=== PATIENT | male | born 1965 | race Caucasian/White ===

== ENCOUNTER 2016-11-20 15:50 | Emergency (ER) | payer OTHER ==
--- NOTE | 2016-11-20 17:44 | ED ---
Headache HPI - General Chief Complaint: Headache Stated Complaint: migraine Time Seen by Provider: 11/20/16 17:13 Mode of arrival: wheelchair Limitations: no limitations - History of Present Illness Initial Comments: 51-year-old male patient presents to emergency department today with complaints of migraine headache that started yesterday. Patient states that the pain is mostly in the back of his head and radiates to the front. With this he is having some photosensitivity, nausea, and dizziness. Denies any vomiting. Patient states he does have a history of migraine headaches that were similar in nature to this, but states he has not had one since 1996. Patient states he is generally weak. Denies any numbness or tingling anywhere. Denies any blurred or double vision. Patient denies any chest pain, back pain, shortness of breath, fever, chills, unilateral weakness, hematuria, dysuria, urinary urgency, urinary frequency. Has taken ibuprofen 800 mg without relief of symptoms. Patient has not past medical history significant for CVA, hearing impairment, and did have cataract removed from his left eye 2 weeks ago. States he has had not had any difficulty since his surgery. - Related Data Home Medications Medication Instructions Recorded Confirmed Gabapentin [Neurontin] 300 mg PO TID 07/11/14 11/20/16 HYDROcodone/APAP 10-325MG [[place] 1 tab PO TID PRN 10/24/15 11/20/16 10-325] Lisinopril 10 mg PO DAILY 03/04/16 11/20/16 Ergocalciferol [Vitamin D2] 50,000 unit PO FR 11/20/16 11/20/16 Ibuprofen [Motrin] 800 mg PO TID PRN 11/20/16 11/20/16 Ketorolac 0.5% Ophth Soln [Acular] 1 drops LEFT EYE QID 11/20/16 11/20/16 Latanoprost [Xalatan 0.005%] 1 drop RIGHT EYE HS 11/20/16 11/20/16 Warfarin Sodium [Coumadin] 6 mg PO DAILY 11/20/16 11/20/16 hydrOXYzine HCL [Atarax] 25 mg PO QID PRN 11/20/16 11/20/16 prednisoLONE ACETATE [Pred Forte 1 drop LEFT EYE QID 11/20/16 11/20/16 1%] Previous Rx's Medication Instructions Recorded Atorvastatin [Lipitor] 20 mg PO HS #90 tab 04/11/16 Allergies Allergy/AdvReac Type Severity Reaction Status Date / Time gadobenate dimeglumine Allergy Swelling Verified 11/20/16 17:51 [From Multihance] hydromorphone HCl AdvReac Severe Rapid Verified 11/20/16 17:51 [From Dilaudid] Heart Rate diclofenac potassium AdvReac Nausea & Verified 11/20/16 17:51 [From Cataflam] Vomiting Review of Systems ROS Statement: Those systems with pertinent positive or pertinent negative responses have been documented in the HPI. ROS Other: All systems not noted in ROS Statement are negative. Past Medical History Past Medical History: CVA/TIA, Hearing Disorder / Deafness, Hyperlipidemia Additional Past Medical History / Comment(s): glaucoma, back pain currently with numbness, blurred vision and dizziness - solumedrol IV x 5 days, History of Any Multi-Drug Resistant Organisms: None Reported Past Surgical History: Back Surgery, Heart Catheterization, Orthopedic Surgery Additional Past Surgical History / Comment(s): bilateral shoulder, RT EYE SX FOR GLAUCOMA, RT 5TH FINGER SX, TRACHEA R/T ENCEPHALOPATHY AT AGE 8, back surgery in 1992, Past Anesthesia/Blood Transfusion Reactions: No Reported Reaction Past Psychological History: No Psychological Hx Reported Smoking Status: Former smoker Past Alcohol Use History: Occasional Past Drug Use History: None Reported - Past Family History Mother Family Medical History: Cancer Additional Family Medical History / Comment(s): of lung CA Father Additional Family Medical History / Comment(s): irregular heart beat. General Exam Limitations: no limitations General appearance: alert, in no apparent distress Head exam: Present: atraumatic, normocephalic, normal inspection Eye exam: Present: normal appearance, PERRL, EOMI. Absent: scleral icterus, conjunctival injection, periorbital swelling ENT exam: Present: normal exam, normal oropharynx, mucous membranes moist Neck exam: Present: normal inspection. Absent: tenderness, meningismus, lymphadenopathy Respiratory exam: Present: normal lung sounds bilaterally. Absent: respiratory distress, wheezes, rales, rhonchi, stridor Cardiovascular Exam: Present: regular rate, normal rhythm, normal heart sounds. Absent: systolic murmur, diastolic murmur, rubs, gallop, clicks GI/Abdominal exam: Present: soft, normal bowel sounds. Absent: distended, tenderness, guarding, rebound, rigid Extremities exam: Present: normal inspection, full ROM, normal capillary refill. Absent: tenderness, pedal edema, joint swelling, calf tenderness Back exam: Present: normal inspection Neurological exam: Present: alert, oriented X3, CN II-XII intact, other ( Strength equal in all 4 extremities 4/5) Psychiatric exam: Present: normal affect, normal mood Skin exam: Present: warm, dry, intact, normal color. Absent: rash Course Vital Signs 11/20/16 15:58 Temperature 98.2 F Pulse Rate 89 Respiratory 20 Rate Blood Pressure 132/73 O2 Sat by Pulse 97 Oximetry Medical Decision Making - Medical Decision Making 51-year-old male patient presented today for complaints of migraine headache. CT of the brain shows age-related atrophic and chronic small vessel ischemic change without acute intracranial process at this time. Patient did receive medications here in emergency department states his pain has improved to a 7 out of 10. Patient offered additional pain medication he refused them at this time. Patient will be discharged home to follow up with his primary care physician. Patient does have an appointment with his primary doctor tomorrow morning at 10:30. Patient instructed return for any new, worsening, or concerning symptoms. Patient verbalizes understanding and agrees to this plan. - Radiology Data Radiology results: report reviewed CT of the brain without contrast shows chronic atrophy and ischemic vessel changes. No acute intracranial abnormality seen at this time. Disposition Clinical Impression: Migraine headache Disposition: HOME SELF-CARE Condition: Stable Instructions: Acute Headache (ED) Additional Instructions: Keep appointment with primary doctor tomorrow. Return for any new, worsening, or concerning symptoms. Referrals: Tian Gutierrez III, MD [Primary Care Provider] - 1-2 days Time of Disposition: 18:51
[2016-11-20] MEDS: diphenhydrAMINE 50 MG/ML 1 ML VIAL IVP STA (17:50)
[2016-11-20] MEDS: SODIUM CHLORIDE 0.9% 1,000 ML IV ONE (17:50)
[2016-11-20] MEDS: KETOROLAC 30 MG/ML 1 ML VIAL IVP STA (17:51)
[2016-11-20] MEDS: METOCLOPRAMIDE 5 MG/ML 2 ML VIAL IVP STA (17:52)
--- NOTE | 2016-11-20 18:39 | CT ---
EXAMINATION TYPE: CT brain wo con DATE OF EXAM: 11/20/2016 6:32 PM COMPARISON: 04/08/2016 HISTORY: Patient complains of migraine headache. Patient has a history of prior migraines. CT DLP: [address] of the brain was performed. The ventricles, basal cisterns and sulci overlying the cerebral convexities demonstrate mild enlargem ent. There is no evidence for intracranial hemorrhage or sulcal effacement. There is decreased attenuation about the periventricular white matter and deep white matter of both c erebral hemispheres, compatible with chronic small vessel ischemia. Differential diagnosis does inclu de demyelination. No mass effects are seen.No midline shift. Osseous calvarium is intact. If symptoms persist consider MRI. IMPRESSION: 1. Age related atrophic and chronic small vessel ischemic change without acute intracranial process s een at this time.
[2016-11-20 19:25] VITALS: BP 138/78; PULSE 80; RESP 16; TEMP 98.3
== END 2016-11-20 19:24 | disposition home or self-care (01) ==
LOC: EC 15:50
DX: G43.909 Migraine, unspecified, not intractable, without status migrainosus (principal); I67.82 Cerebral ischemia; G31.9 Degenerative disease of nervous system, unspecified; H91.90 Unspecified hearing loss, unspecified ear; Z87.891 Personal history of nicotine dependence; Z79.01 Long term (current) use of anticoagulants; Z79.899 Other long term (current) drug therapy; Z88.5 Allergy status to narcotic agent; Z88.6 Allergy status to analgesic agent; Z91.041 Radiographic dye allergy status; Z86.73 Personal history of transient ischemic attack (TIA), and cerebral infarction without residual deficits; Z86.69 Personal history of other diseases of the nervous system and sense organs
CPT/HCPCS: 70450; 99284; 96374; 96375 ×2; 96361; J1200; J2765; J1885

== ENCOUNTER 2016-12-17 17:30 | Emergency (ER) | payer OTHER ==
[2016-12-17] MEDS ORDERED: ORPHENADRINE 30 MG/ML 2 ML VIAL IVP STA (18:05)
[2016-12-17] MEDS ORDERED: KETOROLAC 30 MG/ML 1 ML VIAL IVP STA ×2 (18:05→20:19)
--- NOTE | 2016-12-17 18:26 | XR ---
EXAMINATION TYPE: XR chest 2V DATE OF EXAM: 12/17/2016 6:19 PM COMPARISON: 04/08/2016 HISTORY: Chest pain TECHNIQUE: Frontal and lateral views of the chest are obtained. FINDINGS: Heart and mediastinum are normal. Lungs are clear. Diaphragm is normal. Bony thorax appear s normal. There are chest leads. IMPRESSION: Normal chest. No change. Left shoulder surgery is noted.
[2016-12-17 18:29] LABS: Basophils # (A) 0.1 k/uL (0-0.2); Basophils % (A) 1 %; CH 33.1; CHCM 35.5; Eosinophils # (A) 0.3 k/uL (0-0.7); Eosinophils % (A) 5 %; HCT 39.7 % (39.0-53.0); HDW 3.12; HGB 13.6 gm/dL (13.0-17.5); Luc # (Auto) 0.15; Luc % (Auto) 2; Lymphocytes # (A) 1.3 k/uL (1.0-4.8); Lymphocytes % (A) 19 %; MCHC 34.2 g/dL (31.0-37.0); MCV 93.6 fL (80.0-100.0); Mean Platelet Volume 6.5; Monocytes # (A) 0.3 k/uL (0-1.0); Monocytes % (A) 5 %; Neutrophils # (A) 4.7 k/uL (1.3-7.7); Neutrophils % (A) 68 %; RBC 4.24 m/uL (4.30-5.90); RDW 12.9 % (11.5-15.5); WBC 6.9 k/uL (3.8-10.6); WBC (Perox) 7.12
--- NOTE | 2016-12-17 18:32 | ED ---
Chest Pain HPI - General Chief Complaint: Chest Pain Stated Complaint: Chest Pain Time Seen by Provider: 12/17/16 17:50 Source: patient, RN notes reviewed Mode of arrival: wheelchair Limitations: no limitations - History of Present Illness Initial Comments: This is a 51-year-old male who states he had the onset on waking this morning of sharp left-sided chest pain radiating to his back and down his left arm. He states it was 10/10 severity. It does get worse with movement of his extremities. He denies any fevers chills nausea vomiting sweats cough or phlegm production. He is not recall any trauma or heavy lifting. He denies any other complaints at this time MD Complaint: chest pain - Related Data Home Medications Medication Instructions Recorded Confirmed Gabapentin [Neurontin] 300 mg PO TID 07/11/14 12/17/16 HYDROcodone/APAP 10-325MG [[place] 1 tab PO TID PRN 10/24/15 12/17/16 10-325] Lisinopril 10 mg PO DAILY 03/04/16 12/17/16 Ergocalciferol [Vitamin D2] 50,000 unit PO FR 11/20/16 12/17/16 Ibuprofen [Motrin] 800 mg PO TID PRN 11/20/16 12/17/16 Ketorolac 0.5% Ophth Soln [Acular] 1 drops LEFT EYE QID 11/20/16 12/17/16 Latanoprost [Xalatan 0.005%] 1 drop RIGHT EYE HS 11/20/16 12/17/16 hydrOXYzine HCL [Atarax] 25 mg PO QID PRN 11/20/16 12/17/16 prednisoLONE ACETATE [Pred Forte 1 drop LEFT EYE QID 11/20/16 12/17/16 1%] Cyclobenzaprine [Flexeril] 10 mg PO TID PRN 12/17/16 12/17/16 Previous Rx's Medication Instructions Recorded Atorvastatin [Lipitor] 20 mg PO HS #90 tab 04/11/16 Cyclobenzaprine [Flexeril] 10 mg PO TID #14 tab 12/17/16 Hydrocodone/Acetaminophen [[place] 1 each PO Q6HR PRN #20 tab 12/17/16 5-325] Ibuprofen [Motrin] 800 mg PO Q6HR PRN #20 tab 12/17/16 Allergies Allergy/AdvReac Type Severity Reaction Status Date / Time gadobenate dimeglumine Allergy Swelling Verified 12/17/16 19:08 [From Multihance] hydromorphone HCl AdvReac Severe Rapid Verified 12/17/16 19:08 [From Dilaudid] Heart Rate diclofenac potassium AdvReac Nausea & Verified 12/17/16 19:08 [From Cataflam] Vomiting Review of Systems ROS Statement: Those systems with pertinent positive or pertinent negative responses have been documented in the HPI. ROS Other: All systems not noted in ROS Statement are negative. EKG Findings - EKG Results: EKG: interpreted by CARMINE, sinus rhythm (Sinus rhythm rate is 93 NH interval 148 QRS duration 88 QT/QTC of 354/440 evidence of LVH no acute ST-T wave changes) Past Medical History Past Medical History: CVA/TIA, Hearing Disorder / Deafness, Hyperlipidemia Additional Past Medical History / Comment(s): glaucoma, back pain currently with numbness, blurred vision and dizziness - solumedrol IV x 5 days, History of Any Multi-Drug Resistant Organisms: None Reported Past Surgical History: Back Surgery, Heart Catheterization, Orthopedic Surgery Additional Past Surgical History / Comment(s): bilateral shoulder, RT EYE SX FOR GLAUCOMA, RT 5TH FINGER SX, TRACHEA R/T ENCEPHALOPATHY AT AGE 8, back surgery in 1992, Past Anesthesia/Blood Transfusion Reactions: No Reported Reaction Past Psychological History: No Psychological Hx Reported Smoking Status: Former smoker Past Alcohol Use History: Occasional Past Drug Use History: None Reported - Past Family History Mother Family Medical History: Cancer Additional Family Medical History / Comment(s): of lung CA Father Additional Family Medical History / Comment(s): irregular heart beat. General Exam - General Exam Comments Initial Comments: This is a well-developed well-nourished awake alert oriented 3 male Limitations: no limitations General appearance: alert, in no apparent distress Head exam: Present: atraumatic, normocephalic, normal inspection Eye exam: Present: normal appearance, PERRL, EOMI. Absent: scleral icterus, conjunctival injection, periorbital swelling ENT exam: Present: mucous membranes moist, other (The patient does wear hearing aids) Neck exam: Present: normal inspection. Absent: tenderness, meningismus, lymphadenopathy Respiratory exam: Present: normal lung sounds bilaterally, chest wall tenderness. Absent: respiratory distress, wheezes, rales, rhonchi, stridor Cardiovascular Exam: Present: regular rate, normal rhythm, normal heart sounds. Absent: systolic murmur, diastolic murmur, rubs, gallop, clicks GI/Abdominal exam: Present: soft, normal bowel sounds. Absent: distended, tenderness, guarding, rebound, rigid Extremities exam: Present: normal inspection, full ROM, normal capillary refill. Absent: tenderness, pedal edema, joint swelling, calf tenderness Back exam: Present: normal inspection Neurological exam: Present: alert, oriented X3, CN II-XII intact Psychiatric exam: Present: normal affect, normal mood Skin exam: Present: warm, dry, intact, normal color. Absent: rash Course Vital Signs 12/17/16 12/17/16 17:37 20:37 Temperature 97.5 F L 98.0 F Pulse Rate 95 89 Respiratory 18 20 Rate Blood Pressure 131/63 144/83 O2 Sat by Pulse 98 96 Oximetry Chest Pain MDM - MDM I did evaluate the imaging and reports no acute findings. No evidence of any pulmonary emboli. Patient did get some relief from the medication was rendered the presentation is consistent with costochondritis and musculoskeletal pain. He will be placed on appropriate medication is a follow-up with his doctor and return when necessary Disposition Clinical Impression: Chest wall syndrome, Costalchondritis Disposition: HOME SELF-CARE Condition: Good Instructions: Costochondritis (ED), Musculoskeletal Pain (ED) Prescriptions: Cyclobenzaprine [Flexeril] 10 mg PO TID #14 tab Hydrocodone/Acetaminophen [[place] 5-325] 1 each PO Q6HR PRN #20 tab PRN Reason: Pain Ibuprofen [Motrin] 800 mg PO Q6HR PRN #20 tab PRN Reason: Pain
[2016-12-17 18:45] LABS: ALT 43 U/L (21-72); AST 32 U/L (17-59); Alkaline Phosphatase 78 U/L (38-126); Anion Gap 11 mmol/L; Blood Urea Nitrogen 15 mg/dL (9-20); Calcium 9.7 mg/dL (8.4-10.2); Carbon Dioxide 27 mmol/L (22-30); Chloride 101 mmol/L (98-107); Glucose 171 mg/dL (74-99); Magnesium 1.8 mg/dL (1.6-2.3); Non-African American GFR(MDRD) >60 (>60 ml/min/1.73 sqM); Potassium 3.8 mmol/L (3.5-5.1); Sodium 139 mmol/L (137-145); Total Bilirubin 0.9 mg/dL (0.2-1.3); Total Protein 7.5 g/dL (6.3-8.2)
[2016-12-17 18:49] LABS: Creatine Kinase 342 U/L (55-170); Partial Thromboplastin Time 22.7 sec (22.0-30.0); Prothrombin Time 10.3 sec (9.0-12.0)
[2016-12-17] MEDS ORDERED: methylPREDNISolone SOD SUCCI 125 MG/2 ML VIAL IV STA ×2 (19:00→20:19)
[2016-12-17] MEDS ORDERED: diphenhydrAMINE 50 MG/ML 1 ML VIAL IVP STA (19:00)
[2016-12-17] MEDS ORDERED: FAMOTIDINE 20 MG/2 ML VIAL IV STA (19:00)
[2016-12-17] MEDS ORDERED: RX INFO: IV CONTRAST WAS GIVEN 1 EACH MISC MISCELLANE PRN (19:00)
[2016-12-17 19:02] LABS: Creatine Kinase MB 1.5 ng/mL (0.0-2.4); Troponin I <0.012 ng/mL (0.000-0.034)
[2016-12-17] MEDS ORDERED: MORPHINE SULFATE 4 MG/ML SYRINGE IVP STA (19:27)
--- NOTE | 2016-12-17 20:09 | CT ---
EXAMINATION TYPE: CT angio chest DATE OF EXAM: 12/17/2016 7:57 PM COMPARISON: NONE HISTORY: Patient complains of left side chest pain with radiation to the left shoulder. CT DLP: 489 mGycm Automated exposure control for dose reduction was used. CONTRAST: CTA scan of the thorax is performed with IV Contrast, patient injected with 100 mL of Omnipaque 350, pulmonary embolism protocol. There are 3-D post processed images.. FINDINGS: There is no evidence of aortic aneurysm or dissection. There is no pericardial effusion. I see no glenn ling defects in the pulmonary arteries. There is normal contrast opacification of the pulmonary arter ies. There are no hilar masses. There is no mediastinal adenopathy. The lungs are clear of infiltrate . There is no pleural effusion. There is mild interstitial density at the lung bases. There is a smal l subpleural calcified granuloma in the right lower lobe. I see no bony destructive process. IMPRESSION: NO EVIDENCE OF PULMONARY EMBOLISM. HEALED GRANULOMATOUS DISEASE. MILD FIBROTIC CHANGES AT THE LUNG BA SES.
[2016-12-17 20:38] VITALS: BP 144/83; PULSE 89; RESP 20; TEMP 98
== END 2016-12-17 20:53 | disposition home or self-care (01) ==
LOC: EC 17:30
DX: M94.0 Chondrocostal junction syndrome [Tietze] (principal); M54.9 Dorsalgia, unspecified; M79.602 Pain in left arm; H40.9 Unspecified glaucoma; H91.90 Unspecified hearing loss, unspecified ear; Z86.73 Personal history of transient ischemic attack (TIA), and cerebral infarction without residual deficits; Z87.891 Personal history of nicotine dependence; Z79.899 Other long term (current) drug therapy; Z88.5 Allergy status to narcotic agent; Z88.8 Allergy status to other drugs, medicaments and biological substances
CPT/HCPCS: 36415; 93005; 85379; 83880; 80053; 82550; 82553; 83735; 84484; 85025; 85610; 85730; 71020; 71275; 99285; 96374; 96375 ×5; 96376; J2270; J1200; J2360; J2930; Q9967; J1885

== ENCOUNTER → 2017-01-16 | Outpatient (CLI) | payer OTHER ==
--- NOTE | 2017-01-16 20:15 | XR ---
EXAMINATION TYPE: XR cervical spine comp DATE OF EXAM: 01/16/2017 COMPARISON: NONE HISTORY: Neck pain TECHNIQUE: 5 views FINDINGS: Vertebra have normal alignment. There is hypertrophic moderate spurring anteriorly from C4 to C7. The posterior elements are intact. Atlantoaxial facet joint is normal. The neural foramina are fairly well-maintained. There is mild uncovertebral spurring on the left side at C5-6. There are no cervical ribs. IMPRESSION: Spondylotic changes from C4 to C7. No fracture seen.
== END | disposition home or self-care (01) ==
LOC: RADXRMAIN 16:44
PROVIDERS: ATTEND Nurse Practitioner Family
DX: M47.812 Spondylosis without myelopathy or radiculopathy, cervical region (principal)
CPT/HCPCS: 72050

== ENCOUNTER → 2017-10-10 | Outpatient (CLI) | payer OTHER ==
--- NOTE | 2017-10-10 12:56 | CT ---
EXAMINATION TYPE: CT abdomen pelvis w con DATE OF EXAM: 10/10/2017 COMPARISON: CT abdomen pelvis March 04, 2016 HISTORY: Patient complains of LUQ pain. CT DLP: 1667.2 mGycm, Automated Exposure Control for Dose Reduction was Utilized. CONTRAST: CT scan of the abdomen and pelvis is performed with oral and with IV Contrast, patient injected with 100 mL of Omnipaque 300. FINDINGS: LUNG BASES: No significant abnormality is appreciated. LIVER/GB: Liver is diffusely low dense consistent with fatty infiltration. PANCREAS: No significant abnormality is seen. SPLEEN: No significant abnormality is seen. ADRENALS: No significant abnormality is seen. KIDNEYS: No significant abnormality is seen. BOWEL: The oral contrast reaches level of right colon. There is no suspicious small or large bowel di latation. PROSTATE/SEMINAL VESICLES: No gross abnormality seen. LYMPH NODES: No greater than 1cm abdominal or pelvic lymph nodes are appreciated. OSSEOUS STRUCTURES: There is moderate multilevel spurring in the thoracolumbar spine. There is modera te disc space narrowing with vacuum disc phenomenon lumbosacral junction. There is multilevel facet a rthropathy lower lumbar spine. OTHER: There is mild to moderate calcified plaque in the abdominal aorta extending into pelvic branch vessels. IMPRESSION: No significant acute finding is seen to account for patient's clinical symptoms of left upper quadrant pain. No significant change from prior CT.
== END ==
LOC: RADCTMAIN 12:10
PROVIDERS: ATTEND Family Medicine
DX: R10.12 Left upper quadrant pain (principal)
CPT/HCPCS: 74177; Q9967

== ENCOUNTER 2018-03-12 14:33 | Emergency (ER) | payer OTHER ==
[2018-03-12 14:47] VITALS: BP 130/76; PULSE 83; RESP 18; TEMP 98.4
[2018-03-12] MEDS ORDERED: KETOROLAC 60 MG/2 ML VIAL IM STA (14:56)
[2018-03-12] MEDS ORDERED: CYCLOBENZAPRINE 10MG STARTER 3 TAB BTL PO STA (14:57)
--- NOTE | 2018-03-12 15:00 | ED ---
Back Pain HPI - General Chief Complaint: Back Pain/Injury Stated Complaint: Back pain Time Seen by Provider: 03/12/18 14:48 Source: patient, RN notes reviewed, old records reviewed Limitations: no limitations - History of Present Illness Initial Comments: 52-year-old male presents emergency department today with lower back pain. Been progressive for the past 3 weeks. Patient states he made it worse today after he was helping his and to the surgical suite to have surgery on her foot. He reports that he push in a wheelchair and he feels that he did something to his back. Patient states that he has no saddle anesthesias. Denies any trouble with urination or bowel habits. He states that he occasionally will have the pain radiates down his legs. Patient has had no fevers or chills, or abdominal pain. Patient states that his pain has been reproducible over the sides of his back.Patient denies any recent fever, chills , shortness of breath, chest pain,abdominal pain, nausea vomiting, numbness or tingling, dysuria or hematuria, constipation or diarrhea, headaches or visual changes, or any other current symptoms - Related Data Home Medications Medication Instructions Recorded Confirmed Gabapentin [Neurontin] 300 mg PO TID 07/11/14 05/25/17 HYDROcodone/APAP 10-325MG [[place] 1 tab PO TID PRN 10/24/15 05/25/17 10-325] Lisinopril 10 mg PO DAILY 03/04/16 05/25/17 Ergocalciferol [Vitamin D2] 50,000 unit PO FR 11/20/16 05/25/17 Previous Rx's Medication Instructions Recorded Atorvastatin [Lipitor] 20 mg PO HS #90 tab 04/11/16 Cyclobenzaprine [Flexeril] 10 mg PO TID #14 tab 12/17/16 Ibuprofen [Motrin] 800 mg PO Q6HR PRN #20 tab 12/17/16 Cyclobenzaprine [Flexeril] 10 mg PO TID #12 tab 03/12/18 Dexamethasone 0.75 mg PO DAILY #12 tab 03/12/18 Ibuprofen [Motrin] 600 mg PO Q8HR PRN #20 tab 03/12/18 Allergies Allergy/AdvReac Type Severity Reaction Status Date / Time gadobenate dimeglumine Allergy Swelling Verified 03/12/18 14:46 [From Multihance] hydromorphone HCl AdvReac Severe Rapid Verified 03/12/18 14:46 [From Dilaudid] Heart Rate diclofenac potassium AdvReac Nausea & Verified 03/12/18 14:46 [From Cataflam] Vomiting Review of Systems ROS Statement: Those systems with pertinent positive or pertinent negative responses have been documented in the HPI. ROS Other: All systems not noted in ROS Statement are negative. Past Medical History Past Medical History: CVA/TIA, Hearing Disorder / Deafness, Hyperlipidemia, Hypertension Additional Past Medical History / Comment(s): glaucoma, back pain currently with numbness, blurred vision and dizziness - solumedrol IV x 5 days, History of Any Multi-Drug Resistant Organisms: None Reported Past Surgical History: Back Surgery, Heart Catheterization, Orthopedic Surgery Additional Past Surgical History / Comment(s): bilateral shoulder, RT EYE SX FOR GLAUCOMA, RT 5TH FINGER SX, TRACHEA R/T ENCEPHALOPATHY AT AGE 8, back surgery in 1992, Past Anesthesia/Blood Transfusion Reactions: No Reported Reaction Past Psychological History: No Psychological Hx Reported Smoking Status: Former smoker Past Alcohol Use History: Occasional Past Drug Use History: None Reported - Past Family History Mother Family Medical History: Cancer Additional Family Medical History / Comment(s): of lung CA Father Additional Family Medical History / Comment(s): irregular heart beat. General Exam - General Exam Comments Initial Comments: 52-year-old male. Alert and oriented. No significant distress. Limitations: no limitations General appearance: alert, in no apparent distress Head exam: Present: atraumatic, normocephalic, normal inspection Eye exam: Present: normal appearance, PERRL, EOMI. Absent: scleral icterus, conjunctival injection, periorbital swelling ENT exam: Present: normal exam, mucous membranes moist Neck exam: Present: normal inspection. Absent: tenderness, meningismus, lymphadenopathy Respiratory exam: Present: normal lung sounds bilaterally. Absent: respiratory distress, wheezes, rales, rhonchi, stridor Cardiovascular Exam: Present: regular rate, normal rhythm, normal heart sounds. Absent: systolic murmur, diastolic murmur, rubs, gallop, clicks GI/Abdominal exam: Present: soft Extremities exam: Present: normal inspection, full ROM, normal capillary refill. Absent: tenderness, pedal edema, joint swelling, calf tenderness Back exam: Present: normal inspection, paraspinal tenderness (lumbar bilateral paraspinal tenderness.), vertebral tenderness (Lumbar vertebral tenderness.) Neurological exam: Present: alert, oriented X3, CN II-XII intact Psychiatric exam: Present: normal affect, normal mood Skin exam: Present: warm, dry, intact, normal color. Absent: rash Course Vital Signs 03/12/18 14:44 Temperature 98.4 F Pulse Rate 83 Respiratory 18 Rate Blood Pressure 130/76 O2 Sat by Pulse 97 Oximetry Medical Decision Making - Medical Decision Making 52-year-old male presents to return today chief complaint lower back pain. Worse after he was pushing his up the ramp in a wheelchair. Patient does have previous spinal surgery L5-S1. This time patient's x-ray does show evidence of multilevel degenerative disease. Has no saddle anesthesias. Is given IM Toradol and by mouth Norflex starter pack. This is discussed and temperature medicine muscle relaxers. Short course of steroid. Discussed return parameters. Patient agrees to plan will comply. Return parameters were discussed. - Radiology Data Radiology results: report reviewed Evidence of multilevel degenerative disc disease. Disposition Clinical Impression: Lumbar back pain, Lumbar paraspinal muscle spasm Disposition: HOME SELF-CARE Condition: Good Instructions: Acute Low Back Pain (ED) Additional Instructions: Patient has a close follow-up with primary care physician. Return to emergency department if any alarming signs or symptoms occur. Take the medications as prescribed. Prescriptions: Cyclobenzaprine [Flexeril] 10 mg PO TID #12 tab Dexamethasone 0.75 mg PO DAILY #12 tab Ibuprofen [Motrin] 600 mg PO Q8HR PRN #20 tab PRN Reason: Pain Is patient prescribed a controlled substance at d/c from ED?: No Referrals: Tian Gutierrez III, MD [Primary Care Provider] - 1-2 days Time of Disposition: 15:33
--- NOTE | 2018-03-12 15:21 | XR ---
EXAM TYPE: LUMBAR SPINE X RAY SERIES COMPARISON: NONE HISTORY: Pain TECHNIQUE: 4 views are submitted. FINDINGS: Alignment is anatomic. The pedicles are intact. The transverse processes are intact. There is hype rtrophic and degenerative change of the spine. There is multilevel facet arthropathy. Vascular calcif ications noted. IMPRESSION: 1. Multilevel degenerative disc disease.
== END 2018-03-12 15:44 | disposition home or self-care (01) ==
LOC: EC 14:33
DX: M62.830 Muscle spasm of back (principal); M51.37 Other intervertebral disc degeneration, lumbosacral region; I10 Essential (primary) hypertension; H91.90 Unspecified hearing loss, unspecified ear; E78.5 Hyperlipidemia, unspecified; Z86.73 Personal history of transient ischemic attack (TIA), and cerebral infarction without residual deficits; Z98.890 Other specified postprocedural states; Z87.891 Personal history of nicotine dependence; Z79.899 Other long term (current) drug therapy; Z88.5 Allergy status to narcotic agent; Z88.6 Allergy status to analgesic agent; Z88.8 Allergy status to other drugs, medicaments and biological substances; X50.0XXA Overexertion from strenuous movement or load, initial encounter; Y93.F9 Activity, other caregiving
CPT/HCPCS: 72100; 99284; 96372; J1885

== ENCOUNTER 2018-04-04 17:04 | Emergency (ER) | payer OTHER ==
[2018-04-04 17:09] VITALS: BP 129/76; PULSE 83; RESP 18; TEMP 98.2
[2018-04-04] MEDS ORDERED: KETOROLAC 30 MG/ML 1 ML VIAL IM STA (17:19)
--- NOTE | 2018-04-04 17:57 | ED ---
General Adult HPI - General Chief complaint: Back Pain/Injury Stated complaint: Back pain Time Seen by Provider: 04/04/18 17:10 Source: patient, RN notes reviewed Mode of arrival: ambulatory Limitations: no limitations - History of Present Illness Initial comments: 52-year-old male presents to the emergency department for a chief complaint of right back injury occurring to days ago. Patient states he was opening the screen door when he hit his right side back against the locker on the door. Patient states it has been hurting since that time. Patient denies falling or sustaining any other injuries. Patient states he has been ambulatory and was able to go to [facility] today. Patient states he has had a scratch over the right side of his back from the lock. Patient admits to chronic back pain for which she takes Motrin and Tylenol at home. Patient denies bladder or bowel changes. Patient denies saddle anesthesia. Patient admits to shooting pains down the lower extremity bilaterally but states this is related to his chronic back pain and has been ongoing for years. This has not worsened recently. Patient states he has been taking Motrin and Tylenol for this as well.Patient has no other complaints at this time including shortness of breath, chest pain, abdominal pain, nausea or vomiting, headache, or visual changes. - Related Data Home Medications Medication Instructions Recorded Confirmed Gabapentin [Neurontin] 300 mg PO TID 07/11/14 05/25/17 HYDROcodone/APAP 10-325MG [[place] 1 tab PO TID PRN 10/24/15 05/25/17 10-325] Lisinopril 10 mg PO DAILY 03/04/16 05/25/17 Ergocalciferol [Vitamin D2] 50,000 unit PO FR 11/20/16 05/25/17 Previous Rx's Medication Instructions Recorded Atorvastatin [Lipitor] 20 mg PO HS #90 tab 04/11/16 Cyclobenzaprine [Flexeril] 10 mg PO TID #14 tab 12/17/16 Ibuprofen [Motrin] 800 mg PO Q6HR PRN #20 tab 12/17/16 Cyclobenzaprine [Flexeril] 10 mg PO TID #12 tab 03/12/18 Dexamethasone 0.75 mg PO DAILY #12 tab 03/12/18 Ibuprofen [Motrin] 600 mg PO Q8HR PRN #20 tab 03/12/18 Allergies Allergy/AdvReac Type Severity Reaction Status Date / Time gadobenate dimeglumine Allergy Swelling Verified 04/04/18 17:09 [From Multihance] hydromorphone HCl AdvReac Severe Rapid Verified 04/04/18 17:09 [From Dilaudid] Heart Rate diclofenac potassium AdvReac Nausea & Verified 04/04/18 17:09 [From Cataflam] Vomiting Review of Systems ROS Statement: Those systems with pertinent positive or pertinent negative responses have been documented in the HPI. ROS Other: All systems not noted in ROS Statement are negative. Past Medical History Past Medical History: CVA/TIA, Hearing Disorder / Deafness, Hyperlipidemia, Hypertension Additional Past Medical History / Comment(s): glaucoma, back pain currently with numbness, blurred vision and dizziness - solumedrol IV x 5 days, History of Any Multi-Drug Resistant Organisms: None Reported Past Surgical History: Back Surgery, Heart Catheterization, Orthopedic Surgery Additional Past Surgical History / Comment(s): bilateral shoulder, RT EYE SX FOR GLAUCOMA, RT 5TH FINGER SX, TRACHEA R/T ENCEPHALOPATHY AT AGE 8, back surgery in 1992, Past Anesthesia/Blood Transfusion Reactions: No Reported Reaction Past Psychological History: No Psychological Hx Reported Smoking Status: Former smoker Past Alcohol Use History: Occasional Past Drug Use History: None Reported - Past Family History Mother Family Medical History: Cancer Additional Family Medical History / Comment(s): of lung CA Father Additional Family Medical History / Comment(s): irregular heart beat. General Exam Limitations: no limitations General appearance: alert, in no apparent distress Head exam: Present: atraumatic, normocephalic, normal inspection Eye exam: Present: normal appearance, PERRL, EOMI. Absent: scleral icterus, conjunctival injection, periorbital swelling, periorbital tenderness ENT exam: Present: normal exam, mucous membranes moist Neck exam: Present: normal inspection, full ROM. Absent: tenderness, meningismus, lymphadenopathy Respiratory exam: Present: normal lung sounds bilaterally. Absent: respiratory distress, wheezes, rales, rhonchi, stridor Cardiovascular Exam: Present: regular rate, normal rhythm, normal heart sounds. Absent: systolic murmur, diastolic murmur, rubs, gallop, clicks GI/Abdominal exam: Present: soft, normal bowel sounds. Absent: distended, tenderness, guarding, rebound, rigid Extremities exam: Present: full ROM (Patient has full range motion of lower extremities bilaterally including the right leg., strength 5/5 in BLE), normal capillary refill (Capillary refill less than 2 seconds in the lower extremities bilaterally), other (Sensation intact in lower extremities bilaterally). Absent : tenderness Back exam: Present: tenderness (Patient has mild right-sided lateral tenderness superior to pelvis. ), other (Mild contusion noted of the right lateral low back with a small abrasion noted.). Absent: full ROM (patient has full extension with 45 flexion of the lumbar spine.), paraspinal tenderness, vertebral tenderness (No tenderness in the lumbar spine) Neurological exam: Present: alert, oriented X3, CN II-XII intact Psychiatric exam: Present: normal affect, normal mood Course Vital Signs 04/04/18 17:07 Temperature 98.2 F Pulse Rate 83 Respiratory 18 Rate Blood Pressure 129/76 O2 Sat by Pulse 97 Oximetry Medical Decision Making - Medical Decision Making 52-year-old male presents to the emergency determine for a chief complaint of right-sided back pain after hitting his back on a lock on a door. This occurred about 2 days ago. Patient states it is tender to touch. On exam there is a mild tenderness and contusion noted on his right side along with a small abrasion. No bony tenderness or indication for imaging at this time. Patient agrees. Patient denies any bladder or bowel changes or saddle anesthesia. Patient denies any lumbar spine pain besides his chronic pain which he states has not worsened. Patient states he is able to ambulate without difficulty and was able to grocery shop at [facility] [place] today. Patient states he has tolerated Toradol while in the past and it has helped him. Patient did drive today. He was given Toradol which did help somewhat with his pain. He will follow up with primary care in 1-2 days. Patient aware to return to the emergency department if he has any worsening symptoms. Disposition Clinical Impression: Contusion, Back pain Disposition: HOME SELF-CARE Condition: Good Additional Instructions: Please take Motrin and Tylenol for pain. Please ice the area. Follow up with primary care in 1-2 days. Return to the emergency department if you have any worsening symptoms. Is patient prescribed a controlled substance at d/c from ED?: No Referrals: Tian Gutierrez III, MD [Primary Care Provider] - 1-2 days Time of Disposition: 17:57
== END 2018-04-04 18:35 | disposition home or self-care (01) ==
LOC: EC 17:04
DX: S30.0XXA Contusion of lower back and pelvis, initial encounter (principal); G89.29 Other chronic pain; M79.604 Pain in right leg; M79.605 Pain in left leg; I10 Essential (primary) hypertension; H91.90 Unspecified hearing loss, unspecified ear; Z87.891 Personal history of nicotine dependence; Z79.899 Other long term (current) drug therapy; Z88.5 Allergy status to narcotic agent; Z88.6 Allergy status to analgesic agent; Z91.041 Radiographic dye allergy status; Z98.890 Other specified postprocedural states; W22.8XXA Striking against or struck by other objects, initial encounter; Y93.89 Activity, other specified
CPT/HCPCS: 99283; 96372; J1885

== ENCOUNTER → 2018-04-16 | Outpatient (CLI) | payer OTHER ==
[2018-04-16 12:58] VITALS: BP 108/73; PULSE 76; RESP 16
--- NOTE | 2018-04-16 13:50 | P.PAINCN ---
History of Present Illness - Reason for Consult Consult date: 04/16/18 - Chief Complaint low back pain - History of Present Illness Mr. Richter is a 52-year-old gentleman presents to clinic for evaluation of his low back pain. He's had low back pain for many years. He has a history of L5- S1 fusion in the 90s. He has been following up with a neurologist locally for his pain. He reports that he was recently let go from the clinic secondary to narcotic suspected diversion. He reports that he has low back pain which radiates into the buttocks. He reports that his back pain comes and goes throughout the day is worse with flexion and extension and twisting of his low back. He had a knee replacement last year and since then he has been using a walker for ambulation as well because he feels unsteady. He feels is like pain is not related to his back pain. He has is usually 7 or 8 out of 10. He was using [place] as needed but his run out of those [place] was at this time. He denies any side effects from those medications. He denies any blood thinning medications. He had he has had physical therapy in the past he has had some injections from a neurologist in the past but is unsure which one sees had. In addition to above, 13-point review of systems is also negative for chest pain , shortness of breath, changes in vision, changes in hearing, new onset weakness , abdominal pain, diarrhea, extreme fatigue, malaise, fever, skin changes, homicidal or suicidal ideation, or bowel or bladder incontinence. Vital Signs: Reviewed in EMR Gen: WDWN, AAOx3, NAD HEENT: NCAT, EOMI, hearing grossly normal Pulm: resp unlabored Abd: soft, NT, ND Neck: supple, trachea midline ROM in flexion cervical spine: Normal ROM in extension cervical spine: Normal Cervical paravertebral tenderness: None ROM in flexion lumbar spine: Limited to 90 with pain ROM in extension lumbar spine: Limited to 0 Lumbar paravertebral tenderness: Tender palpation with deep palpation all over the lumbar spine Facet loading: Positive bilateral SI joint tenderness: Positive bilateral Straight leg raise: Negative Neuro: CN II-XII grossly intact, muscle strength lower extremities PRESERVED Assessment: 1. Lumbar spondylosis without myelopathy 2. Lumbar degenerative disc disease 3. Post laminectomy Plan: 1. Explanation: Opioid and psychological risk scores were reviewed. Diagnoses , prognoses, and multiple treatment options including but not limited to physical therapy, interventional therapies, adjuvant medical therapies, narcotic medication therapies, and surgery were discussed with the patient and all questions were answered to the patient's satisfaction. 2. Opioid agreement: Patient signed narcotic agreement, and was orally counseled to not overuse, abuse, divert, or cell medications, and to take them as prescribed by only 1 healthcare provider. The patient was also counseled to take medications as prescribed by only 1 healthcare provider and to store opioid medications in the safe and preferably locked location. Patient was also counseled against driving or operating heavy equipment while using narcotic medications and also not use alcohol or any illicit or recreational drugs. The patient verbalized understanding that lack of compliance with any of the above and likely result in failure to renew narcotic prescriptions, possible discharge from the clinic, and possible legal ramifications thereafter if indicated. 3. Counseling: The patient was counseled extensively on SMOKING CESSATION, BODY MASS INDEX, EXERCISE. Specifically, the patient was instructed regarding the importance of smoking cessation, weight control, and exercise in the context of both chronic pain and overall health. 4. Procedures: We'll schedule the patient for bilateral medial branch block. Procedure was discussed in detail with the patient. We discussed that we do have to repeat the procedure to times if he has a good relief before moving on to radiofrequency ablation in the future if he has good relief. 5. Consultations: None 6. Investigations: Maps was checked today 7. Medications: I did prescribe the patient Mobic 7.5 mg to be taken once per day. I did advise him not take any other NSAIDs during 8. Disposition: Schedule patient for bilateral medial branch blocks levels L3 4 , 4 5, 5 1 PQRS measures: 1-Patient's medications are documented in the chart. 2-Tobacco use is positive/negative, counseling given 3-Patient has not had a pneumococcal vaccine. 4-Advanced care planning discussed, patient unable to give. 5-Opioid contract signed with the patient. 6-Pain positive, follow-up visit or procedure scheduled 7-Patient's blood pressure measured and documented, and patient will follow up with the primary care due to hypertension. 8-Patient's weight was measured, and body mass index ABOVE/BELOW the normal limits, and counseling was done. Patient instructed to follow up with PCP. 9-Patient WAS NOT identified as an unhealthy alcohol user. Past Medical History Past Medical History: CVA/TIA, Hearing Disorder / Deafness, Hyperlipidemia, Hypertension Additional Past Medical History / Comment(s): glaucoma, back pain currently with numbness, blurred vision and dizziness - solumedrol IV x 5 days, History of Any Multi-Drug Resistant Organisms: None Reported Past Surgical History: Back Surgery, Heart Catheterization, Orthopedic Surgery Additional Past Surgical History / Comment(s): bilateral shoulder, RT EYE SX FOR GLAUCOMA, RT 5TH FINGER SX, [id number] R/T ENCEPHALOPATHY AT AGE [age], back surgery in 1992,. Right TKR - 2016. Left cataract surgery - 2017 Past Anesthesia/Blood Transfusion Reactions: No Reported Reaction Past Psychological History: No Psychological Hx Reported Smoking Status: Former smoker Past Alcohol Use History: Occasional Past Drug Use History: None Reported - Past Family History Mother Family Medical History: Cancer Additional Family Medical History / Comment(s): of lung CA Father Additional Family Medical History / Comment(s): irregular heart beat. Medications and Allergies Home Medications Medication Instructions Recorded Confirmed Type Lisinopril 10 mg PO DAILY 03/04/16 04/16/18 History Atorvastatin [Lipitor] 20 mg PO HS #90 tab 04/11/16 04/16/18 Rx Ibuprofen [Motrin] 800 mg PO Q6HR PRN #20 tab 12/17/16 04/16/18 Rx Cyclobenzaprine [Flexeril] 10 mg PO DIRECTED PRN 04/16/18 04/16/18 History HYDROcodone/APAP 5-325MG [[place] 1 tab PO Q6HR PRN 04/16/18 04/16/18 History 5-325] Loratadine [Claritin] 10 mg PO DAILY 04/16/18 04/16/18 History Meclizine [Antivert] 25 mg PO DIRECTED PRN 04/16/18 04/16/18 History Multivitamin [Men's Multi-Vitamin] 1 each PO DAILY 04/16/18 04/16/18 History Omeprazole 20 mg PO DAILY 04/16/18 04/16/18 History Allergies Allergy/AdvReac Type Severity Reaction Status Date / Time gadobenate dimeglumine Allergy Swelling Verified 04/16/18 12:31 [From Multihance] hydromorphone HCl AdvReac Severe Rapid Verified 04/16/18 12:31 [From Dilaudid] Heart Rate diclofenac potassium AdvReac Nausea & Verified 04/16/18 12:31 [From Cataflam] Vomiting Physical Exam Vitals: Vital Signs Pulse Resp BP Pulse Ox 04/16/18 12:41 76 16 108/73 96 Intake and Output 04/15/18 04/16/18 04/16/18 22:59 06:59 14:59 Other: Weight 104.326 kg PQRS Measure Charge Sheet PQRS Narrative: Smoking Status Former smoker Do You Want the Pneumonia No Vaccine AT THIS TIME? Blood Pressure 108/73 Pain Intensity [Bilateral 10 Lower Back] Scale Used Numeric (1 - 10) Hx Alcohol Use (MH) Yes: social Home Medications: Ambulatory Orders Lisinopril 10 mg PO DAILY 03/04/16 Atorvastatin [Lipitor] 20 mg PO HS #90 tab 04/11/16 Ibuprofen [Motrin] 800 mg PO Q6HR PRN #20 tab 12/17/16 Cyclobenzaprine [Flexeril] 10 mg PO DIRECTED PRN 04/16/18 HYDROcodone/APAP 5-325MG [[place] 5-325] 1 tab PO Q6HR PRN 04/16/18 Loratadine [Claritin] 10 mg PO DAILY 04/16/18 Meclizine [Antivert] 25 mg PO DIRECTED PRN 04/16/18 Multivitamin [Men's Multi-Vitamin] 1 each PO DAILY 04/16/18 Omeprazole 20 mg PO DAILY 04/16/18
== END | disposition home or self-care (01) ==
LOC: PNWHC3 12:12
PROVIDERS: ATTEND Hospitalist
DX: M51.36 Other intervertebral disc degeneration, lumbar region (principal); M47.816 Spondylosis without myelopathy or radiculopathy, lumbar region; M96.1 Postlaminectomy syndrome, not elsewhere classified; E78.5 Hyperlipidemia, unspecified; I10 Essential (primary) hypertension; Z87.891 Personal history of nicotine dependence; Z79.899 Other long term (current) drug therapy; Z88.5 Allergy status to narcotic agent; Z98.890 Other specified postprocedural states
CPT/HCPCS: 99211

== ENCOUNTER 2018-04-30 09:45 | Day surgery (SDC) | payer OTHER ==
[2018-04-24 15:36] VITALS: BMI 36.0
[~2018-04-30 09:45] MED LIST: LACTATED RINGERS 1,000 ML IV SCH
[2018-04-30 11:37] VITALS: TEMP 97.8
[2018-04-30] MEDS ORDERED: LIDOCAINE 1% 20 ML VIAL (10MG/ML) FOR IV START INTRADERMA ONE (11:56)
--- NOTE | 2018-04-30 12:18 | P.PCN ---
Date of Procedure: 04/30/18 Procedure(s) Performed: PREOPERATIVE DIAGNOSIS : 1- Lumbar spondylosis with Facet Arthropathy without myelopathy . POSTOPERATIVE DIAGNOSIS: 1- Lumbar spondylosis with Facet Arthropathy without myelopathy . PROCEDURE: Diagnostic bilateral L3 -4 , L4 -5 , and L5-S1 medial branch block under fluoroscopy ANESTHESIA: Local with Ropivacain 0.5 % 6 ml , moderate sedation with intravenous Versed 2 mg and Fentanyl 100 mcg. EBL: Minimal COMPLICATION: None. IV FLUIDS: 100 mL of normal saline. PROCEDURE INDICATION: Chronic low back pain secondary to Facet arthropathy unresponsive to conservative treatment. PROCEDURE DESCRIPTION: the patient was seen and identified in the preop holding area , risks and benefits and possible complications of the procedure and alternative were discussed with the patient, and the patient agreed to proceed with the procedure and signed the consent IV was started and vital signs monitored during the procedure and fluoroscopy was used to maximize the benefit and accuracy of the needle placement, and sedation was given to decrease patient anxiety, patient was taken to the procedure room and placed in prone position vital signs monitored in the back prepped with chlorhexidine X3 then under strict sterile technique using a right oblique fluoroscopy ,the junction of the transverse process and the superior articulating process of the right L3- 4 , L4- 5, and L5-S1 vertebra which corresponding to the fluoroscopy image of the eye of the Catalino dog on the block side for the medial branches and subsequently , after local infiltration of skin and subcu tissuies with Ropivacaine 0.5 % , one mL at each level , then 22-gauge Quincke-type needles , 3 needle was used , each one of them placed at the junction of the base of the transverse process and the superior articular process at the appropriate level, and the needle was advanced until the periosteum contacted, needle placement confirmed with AP oblique and lateral view and after appropriate needle placement confirmed, and after negative aspiration for heme and CSF and there was no paresthesia 1-1/2 mL of Ropivacaine 0.5% mixed with 20 mg Kenalog , then half mL injected at each level after negative aspiration the needle subsequently removed and the same procedure repeated for the left side at left side at L3-4, L4- 5 and L5-S1 levels. At the end of the procedure and the needles removed and a bandage applied after the skin was cleaned the cleaning solution patient taken to recovery room in stable condition and monitors in the recovery room for 20-30 minutes and discharged home in stable condition after discharge criteria met and patient will follow up with the pain clinic in 2-4 weeks
[2018-04-30] MEDS ORDERED: IV FLUID CONTINUATION 1,000 ML IV ONE (12:29)
[2018-04-30 12:32] VITALS: BP 144/80; PULSE 83; RESP 16
--- NOTE | 2018-04-30 12:33 | FL ---
EXAMINATION TYPE: FL guided pain mgmt statistic DATE OF EXAM: 04/30/2018 HISTORY: Flouroscopy time 8 seconds of fluoroscopy provided. IMPRESSION: 1. Fluoroscopy time.
== END 2018-04-30 13:17 | disposition home or self-care (01) ==
LOC: ORPAIN 09:45
PROVIDERS: ATTEND Specialist
DX: G89.29 Other chronic pain (principal); M47.816 Spondylosis without myelopathy or radiculopathy, lumbar region; I10 Essential (primary) hypertension; Z88.6 Allergy status to analgesic agent; Z88.8 Allergy status to other drugs, medicaments and biological substances
CPT/HCPCS: 64493; 64494; 64495; J2250; J3301; J3010; 99152

== ENCOUNTER 2018-05-04 10:54 | Emergency (ER) | payer OTHER ==
[2018-05-04 10:58] VITALS: RESP 18
[2018-05-04] MEDS ORDERED: LIDOCAINE 1% INJ 10MG/ML (20 ML MDV) SQ STA (11:35)
[2018-05-04] MEDS ORDERED: TOPICAL SKIN ADHESIVE 1 EACH AMP TOPICAL ONE (11:35)
--- NOTE | 2018-05-04 11:37 | ED ---
Wound/Laceration HPI - General Chief Complaint: Wound/Laceration Stated Complaint: Finger Lac Time Seen by Provider: 05/04/18 11:30 Source: patient, RN notes reviewed, old records reviewed Mode of arrival: ambulatory Limitations: no limitations - History of Present Illness Initial Comments: 52-year-old male presents emergency Department stay a chief complaint of laceration over the left second digit. He reports he cut it with a knife. Patient reports will not stop bleeding. He reports his tetanus is up-to-date. He states he is not having any peripheral paresthesias. Patient denies pain with range of motion of the finger. Patient states that he otherwise feels well. Patient warts that he cut the finger 30 minutes prior to arrival. - Related Data Home Medications Medication Instructions Recorded Confirmed Lisinopril 10 mg PO DAILY 03/04/16 04/30/18 Cyclobenzaprine [Flexeril] 10 mg PO TID PRN 04/16/18 04/24/18 Loratadine [Claritin] 10 mg PO DAILY 04/16/18 04/24/18 Meclizine [Antivert] 25 mg PO DAILY 04/16/18 04/24/18 Meloxicam [Mobic] 7.5 mg PO DAILY 04/16/18 04/24/18 Multivitamin [Men's Multi-Vitamin] 1 each PO DAILY 04/16/18 04/24/18 Omeprazole 20 mg PO DAILY 04/16/18 04/24/18 Previous Rx's Medication Instructions Recorded Atorvastatin [Lipitor] 20 mg PO HS #90 tab 04/11/16 Allergies Allergy/AdvReac Type Severity Reaction Status Date / Time gadobenate dimeglumine Allergy Swelling Verified 05/04/18 10:55 [From Multihance] hydromorphone HCl AdvReac Severe Rapid Verified 05/04/18 10:55 [From Dilaudid] Heart Rate diclofenac potassium AdvReac Nausea & Verified 05/04/18 10:55 [From Cataflam] Vomiting Review of Systems ROS Statement: Those systems with pertinent positive or pertinent negative responses have been documented in the HPI. ROS Other: All systems not noted in ROS Statement are negative. Past Medical History Past Medical History: CVA/TIA, Eye Disorder, GERD/Reflux, Hearing Disorder / Deafness, Hyperlipidemia, Hypertension Additional Past Medical History / Comment(s): glaucoma-zahra, back pain currently with numbness in lower back and down both legs, hx migraines, TIA 2015-no effects, varicose veins, arthritis "all over", History of Any Multi-Drug Resistant Organisms: None Reported Past Surgical History: Back Surgery, Heart Catheterization, Joint Replacement, Orthopedic Surgery Additional Past Surgical History / Comment(s): rt knee replacement, lower back surgery for herniated disk, zahra shoulder surgery, surgery on rt middle finger, hx tacheosctomy(for encephalitis), Past Anesthesia/Blood Transfusion Reactions: Family History of Problems w/ Anesthesia Additional Past Anesthesia/Blood Transfusion Reaction / Comment(s): brother took very long time to wake up Past Psychological History: No Psychological Hx Reported Smoking Status: Former smoker Past Alcohol Use History: Occasional Past Drug Use History: None Reported - Past Family History Mother Family Medical History: Cancer Additional Family Medical History / Comment(s): of lung CA Father Additional Family Medical History / Comment(s): irregular heart beat. General Exam - General Exam Comments Initial Comments: 52-year-old male. Alert and oriented. No acute distress. Limitations: no limitations General appearance: alert, in no apparent distress Head exam: Present: atraumatic, normocephalic, normal inspection Eye exam: Present: normal appearance, PERRL, EOMI. Absent: scleral icterus, conjunctival injection, periorbital swelling ENT exam: Present: normal exam Neck exam: Present: normal inspection. Absent: tenderness, meningismus, lymphadenopathy Respiratory exam: Present: normal lung sounds bilaterally. Absent: respiratory distress, wheezes, rales, rhonchi, stridor Cardiovascular Exam: Present: regular rate, normal rhythm, normal heart sounds. Absent: systolic murmur, diastolic murmur, rubs, gallop, clicks GI/Abdominal exam: Present: soft, normal bowel sounds. Absent: distended, tenderness, guarding, rebound, rigid Extremities exam: Present: normal inspection, full ROM, normal capillary refill , other (Patient is a 1 cm laceration over the palmar distal left second digit over the pad.). Absent: tenderness, pedal edema, joint swelling, calf tenderness Back exam: Present: normal inspection Neurological exam: Present: alert, oriented X3, CN II-XII intact Psychiatric exam: Present: normal affect, normal mood Skin exam: Present: warm, dry, intact, normal color. Absent: rash Course Vital Signs 05/04/18 10:56 Temperature 98.2 F Pulse Rate 82 Respiratory 18 Rate Blood Pressure 134/86 O2 Sat by Pulse 98 Oximetry Procedures - Laceration Laceration #1 Indication: laceration Site: hand (Left second digit) Size (cm): 1 Description: linear Pre-repair: wound explored, irrigated extensively Type of Sutures: other (exofen) Patient Tolerated Procedure: well, no complications Medical Decision Making - Medical Decision Making Patient is a 52-year-old male presents emergency room stay with a laceration over his left second digit. Wound was irrigated and laceration was well approximated with Dermabond. I did discuss monitoring for infection. Along the skin glue to follow-up on its own. Patient has full range motion. Tetanus is up-to-date. Discussed return parameters. Disposition Clinical Impression: Finger laceration Disposition: HOME SELF-CARE Condition: Good Instructions: Finger Laceration (ED) Additional Instructions: Please use clean soap and water to clean the suture area to prevent scabbing. Please watch for any signs of infection which may include but not limited to increased pain, swelling, redness, fever or chills. Please return to the emergency room if any signs of infection do occur. Please return to the emergency room for any other concerns or complications. Is patient prescribed a controlled substance at d/c from ED?: No Referrals: Tian Gutierrez III, MD [Primary Care Provider] - 1-2 days Time of Disposition: 12:02
[2018-05-04 12:30] VITALS: BP 132/68; PULSE 79; TEMP 98.3
== END 2018-05-04 12:30 | disposition home or self-care (01) ==
LOC: EC 10:54
DX: S61.211A Laceration without foreign body of left index finger without damage to nail, initial encounter (principal); K21.9 Gastro-esophageal reflux disease without esophagitis; I10 Essential (primary) hypertension; Z86.73 Personal history of transient ischemic attack (TIA), and cerebral infarction without residual deficits; Z95.5 Presence of coronary angioplasty implant and graft; Z88.5 Allergy status to narcotic agent; Z88.6 Allergy status to analgesic agent; Z88.8 Allergy status to other drugs, medicaments and biological substances; Z79.1 Long term (current) use of non-steroidal anti-inflammatories (NSAID); Z79.899 Other long term (current) drug therapy; Z87.891 Personal history of nicotine dependence; W26.0XXA Contact with knife, initial encounter
CPT/HCPCS: 99283; 12001; J2001

== ENCOUNTER 2018-05-23 21:10 | Observation (INO) | payer OTHER ==
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
[2018-05-23] MEDS ORDERED: NITROGLYCERIN SL TABS 0.4 MG TAB SUBLINGUAL PRN (21:21)
[2018-05-23] MEDS ORDERED: ASPIRIN 81 MG PO STA (21:21)
[2018-05-23] MEDS ORDERED: SODIUM CHLORIDE 0.9% 500 ML 500 ML IV STA (21:21)
[2018-05-23] MEDS ORDERED: SODIUM CHLORIDE 0.9% 1,000 ML IV STA (21:21)
[2018-05-23 21:40] LABS: Basophils % (A) 0 %; Eosinophils # (A) 0.2 k/uL (0-0.7); Eosinophils % (A) 2 %; HCT 42.4 % (39.0-53.0); HGB 14.4 gm/dL (13.0-17.5); Lymphocytes # (A) 1.8 k/uL (1.0-4.8); Lymphocytes % (A) 19 %; MCH 32.5 pg (25.0-35.0); MCV 95.6 fL (80.0-100.0); Mean Platelet Volume 6.5; Monocytes # (A) 0.5 k/uL (0-1.0); Monocytes % (A) 6 %; Neutrophils # (A) 6.8 k/uL (1.3-7.7); Neutrophils % (A) 71 %; Platelet Count 247 k/uL (150-450); RBC 4.43 m/uL (4.30-5.90); RDW 12.4 % (11.5-15.5); WBC 9.6 k/uL (3.8-10.6)
[2018-05-23 21:53] LABS: ALT 62 U/L (21-72); AST 35 U/L (17-59); Albumin 4.2 g/dL (3.5-5.0); Alkaline Phosphatase 65 U/L (38-126); Anion Gap 7 mmol/L; Blood Urea Nitrogen 23 mg/dL (9-20); Calcium 9.5 mg/dL (8.4-10.2); Carbon Dioxide 24 mmol/L (22-30); Chloride 110 mmol/L (98-107); Glucose 126 mg/dL (74-99); Magnesium 1.8 mg/dL (1.6-2.3); Potassium 3.8 mmol/L (3.5-5.1); Sodium 141 mmol/L (137-145); Total Bilirubin 0.7 mg/dL (0.2-1.3)
[2018-05-23 22:00] LABS: Partial Thromboplastin Time 20.9 sec (22.0-30.0)
--- NOTE | 2018-05-23 22:00 | XR ---
EXAMINATION TYPE: XR chest 2V DATE OF EXAM: 05/23/2018 COMPARISON: Chest x-ray December 17, 2016 HISTORY: Chest pain per order. TECHNIQUE: Frontal and lateral views of the chest are obtained. FINDINGS: There is no focal air space opacity, pleural effusion, or pneumothorax seen. The cardiac silhouette size is stable and upper limits of normal. The osseous structures are intact. IMPRESSION: No acute cardiopulmonary process. No significant change from prior.
[2018-05-23 22:05] LABS: Creatine Kinase 521 U/L (55-170)
[2018-05-23] MEDS ORDERED: HEPARIN SODIUM,PORCINE 5,000 UNIT/ML 1 ML VIAL IV ONE (22:06)
[2018-05-23] MEDS ORDERED: HEPARIN SODIUM,PORCINE 5,000 UNIT/ML 1 ML VIAL IV PRN (22:06)
[2018-05-23] MEDS ORDERED: HEPARIN SOD,PORK IN 0.45% NACL 25,000 UNIT in 0.45% NACL 1 500ML.BAG IV SCH (22:15)
[2018-05-23 22:18] LABS: Creatine Kinase MB 2.3 ng/mL (0.0-2.4); Troponin I <0.012 ng/mL (0.000-0.034)
[2018-05-23 23:17] VITALS: BMI 36.1
[2018-05-24] MEDS: LATANOPROST 0.005% OPHTH DROPS 2.5 ML BTL RIGHT EYE SCH ×2 (00:26→20:11)
[2018-05-24] MEDS: ATORVASTATIN 20 MG TAB PO SCH ×2 (00:26→20:11)
[2018-05-24] MEDS: BRIMONIDINE TARTRATE 0.2% DROPS 5 ML BTL RIGHT EYE SCH ×3 (00:26→20:12)
[2018-05-24] MEDS: MORPHINE SULFATE 2 MG/ML SYRINGE IVP PRN ×4 (00:27→20:21)
[2018-05-24 04:22] LABS: Basophils % (A) 0 %; Eosinophils # (A) 0.2 k/uL (0-0.7); Eosinophils % (A) 3 %; HCT 38.9 % (39.0-53.0); HGB 13.4 gm/dL (13.0-17.5); Lymphocytes # (A) 2.5 k/uL (1.0-4.8); Lymphocytes % (A) 33 %; MCH 32.7 pg (25.0-35.0); MCHC 34.5 g/dL (31.0-37.0); MCV 94.8 fL (80.0-100.0); Mean Platelet Volume 6.5; Monocytes # (A) 0.5 k/uL (0-1.0); Monocytes % (A) 6 %; Neutrophils # (A) 4.3 k/uL (1.3-7.7); Neutrophils % (A) 56 %; Platelet Count 218 k/uL (150-450); RDW 12.7 % (11.5-15.5); WBC 7.8 k/uL (3.8-10.6)
[2018-05-24 04:32] LABS: Cholesterol 123 mg/dL (<200); HDL Cholesterol 43 mg/dL (40-60); LDL Cholesterol,Calculated 45 mg/dL (0-99); Triglycerides 174 mg/dL (<150)
[2018-05-24 04:41] LABS: Creatine Kinase 428 U/L (55-170)
[2018-05-24 04:54] LABS: Troponin I <0.012 ng/mL (0.000-0.034)
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
[2018-05-24] MEDS ORDERED: ASPIRIN 325 MG TAB PO SCH (09:00)
[2018-05-24 11:37] LABS: Creatine Kinase 360 U/L (55-170)
[2018-05-24 11:50] LABS: Creatine Kinase MB 1.7 ng/mL (0.0-2.4); Troponin I <0.012 ng/mL (0.000-0.034)
[2018-05-24] MEDS ORDERED: MECLIZINE 25 MG TAB PO PRN (12:20)
[2018-05-24] MEDS ORDERED: CYCLOBENZAPRINE 10 MG TAB PO PRN (12:20)
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
[2018-05-25] MEDS: MORPHINE SULFATE 2 MG/ML SYRINGE IVP PRN ×2 (04:54→09:45)
[2018-05-25] MEDS ORDERED: PANTOPRAZOLE 40 MG TABLET PO SCH (07:30)
[2018-05-25] MEDS ORDERED: MELOXICAM 7.5 MG TAB PO SCH ×2 (09:00)
[2018-05-25] MEDS ORDERED: LISINOPRIL 10 MG TAB PO SCH (09:00)
[2018-05-25] MEDS ORDERED: ASPIRIN 325 MG TAB PO SCH (09:00)
[2018-05-25 12:12] VITALS: BP 128/78; PULSE 63; RESP 18; TEMP 97.8
[2018-05-25] MEDS: BRIMONIDINE TARTRATE 0.2% DROPS 5 ML BTL RIGHT EYE SCH (12:31)
--- NOTE | 2018-05-25 12:37 | ECHOF ---
Referral Reason:Post ASD/PFO Insertion MEASUREMENTS -------- HEIGHT: 170.2 cm WEIGHT: 104.3 kg BP: 118/70 RVIDd: 2.8 cm (< 3.3) IVSd: 1.3 cm (0.6 - 1.1) LVIDd: 3.9 cm (3.9 - 5.3) LVPWd: 1.0 cm (0.6 - 1.1) IVSs: 1.3 cm LVIDs: 3.6 cm LVPWs: 1.0 cm LA Diam: 3.4 cm (2.7 - 3.8) Ao Diam: 2.8 cm (2.0 - 3.7) LA Diam: 3.7 cm (2.7 - 3.8) MV EXCURSION: 16.312 mm (> 18.000) MV EF SLOPE: 102 mm/s (70 - 150) EPSS: 1.6 cm MV E Job: 0.85 m/s MV DecT: 185 ms MV A Job: 0.82 m/s MV E/A Ratio: 1.04 RAP: 5.00 mmHg RVSP: 19.64 mmHg FINDINGS -------- Sinus rhythm. This was a techncally difficult study with suboptimal views, , Lumason utilized for enhancement of im ages. The left ventricular size is normal. There is mild concentric left ventricular hypertrophy. Overa ll left ventricular systolic function is low-normal with, an EF between 50 - 55 %. The right ventricle is normal in size. The left atrial size is normal. The right atrial size is normal. 5.0mg OF Lumason UTLIZED: 2 OR MORE WALL SEGMENTS NOT VISUALIZED. The aortic valve is trileaflet, and appears structurally normal. No aortic stenosis or regurgitation. Mild mitral annular calcification present. Mild mitral regurgitation is present. Mild tricuspid regurgitation present. There is no evidence of pulmonary hypertension. The right v entricular systolic pressure, as measured by Doppler, is 19.64mmHg. There is no pulmonic regurgitation present. The aortic root size is normal. There is no pericardial effusion. CONCLUSIONS -------- 1. This was a techncally difficult study with suboptimal views, , Lumason utilized for enhancement of images. 2. The left ventricular size is normal. 3. There is mild concentric left ventricular hypertrophy. 4. Overall left ventricular systolic function is low-normal with, an EF between 50 - 55 %. 5. The right ventricle is normal in size. 6. The left atrial size is normal. 7. The right atrial size is normal. 8. 5.0mg OF Lumason UTLIZED: 2 OR MORE WALL SEGMENTS NOT VISUALIZED. 9. The aortic valve is trileaflet, and appears structurally normal. No aortic stenosis or regurgitati on. 10. Mild mitral annular calcification present. 11. Mild mitral regurgitation is present. 12. Mild tricuspid regurgitation present. 13. There is no evidence of pulmonary hypertension. 14. The right ventricular systolic pressure, as measured by Doppler, is 19.64mmHg. 15. There is no pulmonic regurgitation present. 16. The aortic root size is normal. 17. There is no pericardial effusion. [employer] ADMINISTRATOR: Jina Stephens RDCS
[2018-05-25 13:16] LABS: Basophils % (A) 0 %; Eosinophils # (A) 0.2 k/uL (0-0.7); Eosinophils % (A) 3 %; HCT 42.1 % (39.0-53.0); HGB 14.7 gm/dL (13.0-17.5); Lymphocytes # (A) 1.3 k/uL (1.0-4.8); Lymphocytes % (A) 21 %; MCH 33.4 pg (25.0-35.0); MCV 95.5 fL (80.0-100.0); Mean Platelet Volume 6.9; Monocytes # (A) 0.4 k/uL (0-1.0); Monocytes % (A) 6 %; Neutrophils # (A) 4.3 k/uL (1.3-7.7); Neutrophils % (A) 69 %; Platelet Count 251 k/uL (150-450); RBC 4.41 m/uL (4.30-5.90); RDW 12.4 % (11.5-15.5); WBC 6.3 k/uL (3.8-10.6)
--- NOTE | 2018-05-25 15:11 | P.DS ---
Providers Date of admission: 05/23/18 22:25 Attending physician: Eva Cavanaugh Consults: 05/23/18 22:25 Consult Physician Urgent Consulting Provider: [facility] Consult Reason/Comments: high risk chest pain Do you want consulting provider notified?: Yes, Notify in am Primary care physician: [facility] Course: 52-year-old admitted with chest pain after chest wall injury concern was pericardial effusion echocardiac and was opted which did not show any pericardial effusion patient is clinically doing well is musculoskeletal chest pain is better cleared by cardiology patient is being discharged today. For rest of his chronic medical problems hospitalization course please refer to my dictation of H&P from yesterday. PHYSICAL EXAMINATION: GENERAL: The patient is alert and oriented x3, not in any acute distress. Well developed, well nourished. HEENT: Pupils are round and equally reacting to light. EOMI. No scleral icterus. No conjunctival pallor. Normocephalic, atraumatic. No pharyngeal erythema. No thyromegaly. CARDIOVASCULAR: S1 and S2 present. No murmurs, rubs, or gallops. PULMONARY: Chest is clear to auscultation, no wheezing or crackles. ABDOMEN: Soft, nontender, nondistended, normoactive bowel sounds. No palpable organomegaly. MUSCULOSKELETAL: No joint swelling or deformity. EXTREMITIES: No cyanosis, clubbing, or pedal edema. NEUROLOGICAL: Gross neurological examination did not reveal any focal deficits. SKIN: No rashes. Plan - Discharge Summary New Discharge Prescriptions: Continue Lisinopril 10 mg PO DAILY Atorvastatin [Lipitor] 20 mg PO HS #90 tab Omeprazole 20 mg PO DAILY Meclizine [Antivert] 25 mg PO DAILY PRN PRN Reason: Vertigo Loratadine [Claritin] 10 mg PO DAILY Multivitamin [Men's Multi-Vitamin] 1 tab PO DAILY Cyclobenzaprine [Flexeril] 10 mg PO TID PRN PRN Reason: muscle spasms Meloxicam [Mobic] 7.5 mg PO DAILY Latanoprost Ophth [Xalatan 0.005%] 1 drops RIGHT EYE HS Brimonidine Tartrate [Alphagan P 0.2% Ophth Soln] 1 drops RIGHT EYE BID Discharge Medication List Lisinopril 10 mg PO DAILY 03/04/16 [History] Atorvastatin [Lipitor] 20 mg PO HS #90 tab 04/11/16 [Rx] Cyclobenzaprine [Flexeril] 10 mg PO TID PRN 04/16/18 [History] Loratadine [Claritin] 10 mg PO DAILY 04/16/18 [History] Meclizine [Antivert] 25 mg PO DAILY PRN 04/16/18 [History] Meloxicam [Mobic] 7.5 mg PO DAILY 04/16/18 [History] Multivitamin [Men's Multi-Vitamin] 1 tab PO DAILY 04/16/18 [History] Omeprazole 20 mg PO DAILY 04/16/18 [History] Brimonidine Tartrate [Alphagan P 0.2% Ophth Soln] 1 drops RIGHT EYE BID [History] Latanoprost Ophth [Xalatan 0.005%] 1 drops RIGHT EYE HS 05/06/18 [History] Follow up Appointment(s)/Referral(s): Naren Garcia MD [STAFF PHYSICIAN] - 06/24/18 9:00 am Tian Gutierrez III, MD [Primary Care Provider] - 05/27/18 9:30 am (with Payal GALVAN) Patient Instructions/Handouts: Chest Pain (DC), Ultrasound (GEN) Discharge Disposition: HOME SELF-CARE
== END 2018-05-25 13:50 | disposition home or self-care (01) ==
LOC: EC 21:10 → 3OBS 22:25 → 1SOBS 05-24 08:35
PROVIDERS: ADMIT Internal Medicine; ATTEND Internal Medicine
DX: R07.89 Other chest pain (principal); Z87.891 Personal history of nicotine dependence; E66.3 Overweight; E78.5 Hyperlipidemia, unspecified; H40.9 Unspecified glaucoma; H91.90 Unspecified hearing loss, unspecified ear; I10 Essential (primary) hypertension; Z68.36 Body mass index [BMI] 36.0-36.9, adult; K21.9 Gastro-esophageal reflux disease without esophagitis; Z80.1 Family history of malignant neoplasm of trachea, bronchus and lung; Z82.49 Family history of ischemic heart disease and other diseases of the circulatory system; Z86.61 Personal history of infections of the central nervous system; Z86.73 Personal history of transient ischemic attack (TIA), and cerebral infarction without residual deficits; Z96.651 Presence of right artificial knee joint
CPT/HCPCS: 96366 ×2; 96375; 96376 ×3; 96365; 99285; 36415; 94760; 93005; 83880; 80061; 80053; 82550 ×2; 82553 ×2; 83735; 84484 ×2; 85025 ×3; 85610; 85730 ×2; 71046; G0378 ×3; C8929; J1644 ×3; J2270 ×2; Q9950; 93306

== ENCOUNTER → 2018-06-08 | Day surgery (SDC) | payer OTHER ==
[2018-06-02 12:11] VITALS: BMI 35.6
[~2018-06-08] MED LIST changes: -LACTATED RINGERS 1,000 ML IV SCH; +SODIUM CHLORIDE 0.9% 500 ML 500 ML IV SCH
[2018-06-08 10:04] VITALS: RESP 18; TEMP 97.6
--- NOTE | 2018-06-08 10:37 | P.PCN ---
Date of Procedure: 06/08/18 Procedure(s) Performed: PREOPERATIVE DIAGNOSIS : 1- Lumbar spondylosis with Facet Arthropathy without myelopathy . 2- Lumber degenerative disc disease POSTOPERATIVE DIAGNOSIS: 1- Lumbar spondylosis with Facet Arthropathy without myelopathy . 2- Lumber degenerative disc disease PROCEDURE: Diagnostic bilateral L3 -4 , L4 -5 , and L5-S1 medial branch block under fluoroscopy ANESTHESIA: Local with Ropivacain 0.5 % 6 ml , moderate sedation with intravenous Versed 2 mg and Fentanyl 100 mcg. EBL: Minimal COMPLICATION: None. IV FLUIDS: 100 mL of normal saline. PROCEDURE INDICATION: Chronic low back pain secondary to Facet arthropathy unresponsive to conservative treatment. PROCEDURE DESCRIPTION: the patient was seen and identified in the preop holding area , risks and benefits and possible complications of the procedure and alternative were discussed with the patient, and the patient agreed to proceed with the procedure and signed the consent IV was started and vital signs monitored during the procedure and fluoroscopy was used to maximize the benefit and accuracy of the needle placement, and sedation was given to decrease patient anxiety, patient was taken to the procedure room and placed in prone position vital signs monitored in the back prepped with chlorhexidine X3 then under strict sterile technique using a right oblique fluoroscopy ,the junction of the transverse process and the superior articulating process of the right L3- 4 , L4- 5, and L5-S1 vertebra which corresponding to the fluoroscopy image of the eye of the Catalino dog on the block side for the medial branches and subsequently , after local infiltration of skin and subcu tissuies with Ropivacaine 0.5 % , one mL at each level , then 22-gauge Quincke-type needles , 3 needle was used , each one of them placed at the junction of the base of the transverse process and the superior articular process at the appropriate level, and the needle was advanced until the periosteum contacted, needle placement confirmed with AP oblique and lateral view and after appropriate needle placement confirmed, and after negative aspiration for heme and CSF and there was no paresthesia 1-1/2 mL of Ropivacaine 0.5% mixed with 20 mg Kenalog , then half mL injected at each level after negative aspiration the needle subsequently removed and the same procedure repeated for the left side at left side at L3-4, L4- 5 and L5-S1 levels. At the end of the procedure and the needles removed and a bandage applied after the skin was cleaned the cleaning solution patient taken to recovery room in stable condition and monitors in the recovery room for 20-30 minutes and discharged home in stable condition after discharge criteria met and patient will follow up with the pain clinic in 2-4 weeks
--- NOTE | 2018-06-08 10:58 | FL ---
Fluoroscopy HISTORY: Pain 11 seconds fluoroscopy time supplied to the referring clinician. 5 intraoperative C-arm images docum ent the procedure. See dictated report from anesthesia.
[2018-06-08 11:11] VITALS: BP 128/70; PULSE 74
== END | disposition home or self-care (01) ==
LOC: ORPAIN 09:38
PROVIDERS: ATTEND Specialist
DX: M47.816 Spondylosis without myelopathy or radiculopathy, lumbar region (principal); M51.36 Other intervertebral disc degeneration, lumbar region; G89.29 Other chronic pain; I10 Essential (primary) hypertension; Z86.73 Personal history of transient ischemic attack (TIA), and cerebral infarction without residual deficits; Z88.5 Allergy status to narcotic agent; Z88.8 Allergy status to other drugs, medicaments and biological substances
CPT/HCPCS: 64493; 64494; 64495; J2250; J3301; J3010; 99152

== ENCOUNTER → 2018-06-30 | Outpatient (CLI) | payer MEDICARE, OTHER ==
[2018-06-30 15:11] VITALS: BP 118/81; PULSE 76; RESP 16
--- NOTE | 2018-06-30 15:23 | P.PAINPG ---
Subjective Progress Note Date: 06/30/18 Principal diagnosis: Lumbar spinal stenosis, lumbar spondylosis This a 52-year-old gentleman with a history of low back pain which is worse with standing and walking. He is undergone 2 previous lumbar medial branch nerve blocks. He reports that his pain was worse after both of these injections. He denies bowel or bladder dysfunction. He denies any motor deficits. Objective - Vital Signs Vital signs: Vital Signs Temp Pulse 76 06/30/18 15:06 Resp 16 06/30/18 15:06 BP 118/81 06/30/18 15:06 Pulse Ox Intake & Output 06/29/18 06/30/18 06/30/18 18:59 06:59 18:59 Weight 105.233 kg - Exam General: The patient is alert and oriented. Patient is not sedated Patient answers all question appropriately. Cardiac: Heart is regular in rate and rhythm Respiratory: Clear to auscultation. No audible wheezes. Abdomen: Soft nontender nondistended. Lower extremities: Strength is normal bilaterally. Sensation is normal bilaterally. Reflexes are preserved and symmetric bilaterally. Straight leg raise is negative bilaterally. Facet loading maneuvers are positive bilaterally. The patient walks with a bent over posture. He has a difficult time achieving a fully upright posture. Assessment and Plan (1) Spondylosis of lumbar region without myelopathy or radiculopathy Narrative/Plan: Plan of Care 1. Medications: Patient will continue to manage his pain with conservative medications. 2. Interventions: Schedule patient for lumbar epidural steroid injection at L4 5. His MRI demonstrates stenosis at this region and I believe this is causing a majority of his symptoms. 3. Referrals: None 4. Testing: None 5. Follow-up: Lumbar steroid injection L4 5 Current Visit: Yes Status: Acute Code(s): M47.816 - SPONDYLOSIS W/O MYELOPATHY OR RADICULOPATHY, LUMBAR REGION SNOMED Code(s): 50568465 PQRS Measure Charge Sheet Measure #130: Documentation of Current Meds in Medical Chart: Patient's medications documented in chart Measure #226: Tobacco Use: Screen & Cessation Intervention: Pt screened for tobacco use AND intervention given Measure #111: Pneumonia Vaccination: Pneumococcal vaccine NOT administered or previously given Measure #47: Advance Care Plan: Advance care planning discussed & documented, pt chose/unable to give Measure #412: Opioid Treatment Agreement: No documentation of signed opioid treatment agreement Measure #408: Opioid Therapy Follow-up Evaluation: Patient had NO f/u eval minimum every 3 months during opioid therapy Measure #317: Preventitive Care & Scrn High Bld Press & F/U: Normal blood pressure, f/u not required Measure #128: Body Mass Index (BMI) Screening & Follow-up: BMI documented ABOVE normal parameters - f/u documented Measure #131: Pain Assessment & Follow-up: Pain positive & plan documented Measure #431: Unhealthy Alcohol Use Preventative Care & Scrn: Patient not identified as an unhealthy alcohol user PQRS Narrative: Smoking Status Former smoker Do You Want the Pneumonia No Vaccine AT THIS TIME? Blood Pressure 118/81 Pain Intensity [Bilateral 10 Lower Back] Scale Used Numeric (1 - 10) Hx Alcohol Use (MH) Yes: social Home Medications: Ambulatory Orders Lisinopril 10 mg PO DAILY 03/04/16 Cyclobenzaprine [Flexeril] 10 mg PO TID PRN 04/16/18 Loratadine [Claritin] 10 mg PO DAILY 04/16/18 Meclizine [Antivert] 25 mg PO DAILY PRN 04/16/18 Meloxicam [Mobic] 7.5 mg PO DAILY 04/16/18 Multivitamin [Men's Multi-Vitamin] 1 tab PO DAILY 04/16/18 Omeprazole 20 mg PO DAILY 04/16/18 Brimonidine Tartrate [Alphagan P 0.2% Ophth Soln] 1 drops RIGHT EYE BID Latanoprost Ophth [Xalatan 0.005%] 1 drops RIGHT EYE HS 05/06/18 Atorvastatin [Lipitor] 20 mg PO 1800 06/02/18 Timolol Maleate/Latanoprost/Pf [Timolol 0.5%-Latanopros 0.005%] 1 drop RIGHT EYE BID 06/30/18 Controlled Substance Measures - Controlled Substance Measures Is patient prescribed a controlled substance at discharge?: No
== END | disposition home or self-care (01) ==
LOC: PNWHC3 14:38
PROVIDERS: ATTEND Pain Medicine Pain Medicine
DX: M47.816 Spondylosis without myelopathy or radiculopathy, lumbar region (principal); Z87.891 Personal history of nicotine dependence; Z79.1 Long term (current) use of non-steroidal anti-inflammatories (NSAID); Z79.899 Other long term (current) drug therapy
CPT/HCPCS: 99211

== ENCOUNTER → 2018-07-09 | Day surgery (SDC) | payer MEDICARE, OTHER ==
[~2018-07-09] MED LIST changes: +IV FLUID CONTINUATION 1,000 ML IV ONE; +SODIUM CHLORIDE 0.9% 500 ML IV ONE; +fentaNYL (PF) 50 MCG/ML 2 ML AMP IV ONE; +fentaNYL (PF) 50 MCG/ML 2 ML AMP ONE
[2018-07-09 09:55] VITALS: RESP 16
[2018-07-09 10:02] VITALS: TEMP 97.9
--- NOTE | 2018-07-09 10:47 | P.PCN ---
Date of Procedure: 07/09/18 Procedure(s) Performed: PREOPERATIVE DIAGNOSIS: 1-failed back surgery syndrome lumbar area.. 2 lumbar spondylosis with lumbar facet arthropathy without myelopathy POSTOPERATIVE DIAGNOSIS: Same as. Diagnosis PROCEDURE: 1. Caudal epidural steroid injection under fluoroscopic guidance. ANESTHESIA: Local with 1% lidocaine; 5ml for subcutaneous infiltrations and IV versed 2 mg ,and fentanyl 100 mcg EBL: None. PROCEDURE INDICATION: The patient with neuropathic pain radiating distally returns for caudal epidural steroid injection. PROCEDURE DESCRIPTION: The patient was seen and identified in the preoperative area. Risks, benefits, complications, and alternatives were discussed with the patient. The patient agreed to proceed with the procedure and signed the consent. IV was started, and vital signs were stable. Patient was taken to the OR and time out was completed. The patient was placed in the prone position on procedure table and a pillow was placed under the abdomen to reduce lumbar lordosis. The lumbosacral area was prepped and draped in the usual sterile fashion. Critical pause was taken. Vital signs were closely monitored during the procedure. Using lateral fluoroscopy the anterior-posterior plates of the sacrum were identified and the skin and deeper tissues corresponding into sacrococcygeal ligament were anesthetized using approximately 3 mL of 1% lidocaine. Then under fluoroscopy, a 3-1/2-inch 20-gauge Tuohy epidural needle was guided through the sacrococcygeal ligament, and into the epidural space. after negative aspiration for CSF, blood, and with no paresthesias, Depo-Medrol 80mg, 2ml of 1 % preservative free Lidocaine with 6 ml of preservative free normal saline( total of 10ml)solution was injected, Needle was withdrawn intact. Skin was cleansed, and bandage was applied. COMPLICATIONS: None DISPOSITION / PLANS: The patient was placed in a supine position and transferred to the recovery area in a stable condition for observation and was discharged from the recovery room after meeting discharge criteria. Home discharge instructions given to the patient by the staff. The patient was reexamined prior to discharge. The patient will schedule a follow up in the clinic in 2-4 weeks. Note= lumbar epidural was not done because patient had a history of lumbar laminectomy surgery, and there is risk of postdural puncture headache if we do epidural, for this reason I chose to do a caudal epidural steroid injection , also patient had ALLERGY to dye for this reason I did not do epidurogram.
--- NOTE | 2018-07-09 11:34 | FL ---
EXAMINATION TYPE: FL guided pain mgmt statistic DATE OF EXAM: 07/09/2018 HISTORY: Flouroscopy time 4 seconds of fluoroscopy provided. IMPRESSION: 1. Fluoroscopy time.
[2018-07-09 12:10] VITALS: BP 141/69; PULSE 82
== END | disposition home or self-care (01) ==
LOC: ORPAIN 09:12
PROVIDERS: ATTEND Specialist
DX: M47.816 Spondylosis without myelopathy or radiculopathy, lumbar region (principal); M96.1 Postlaminectomy syndrome, not elsewhere classified
CPT/HCPCS: 62323; J2250; J1030; J3010; Q9966

== ENCOUNTER → 2018-08-19 | Outpatient (CLI) | payer MEDICARE, OTHER ==
[2018-08-19 15:09] VITALS: BP 137/79; PULSE 80; RESP 16
--- NOTE | 2018-08-20 07:07 | P.PAINPG ---
Subjective Progress Note Date: 08/19/18 This is a follow-up visit for this 52-year-old male, with a chronic history of severe low back pain. He's had low back pain for many years. He has a history of lumbar fusion ,,. Stay close with failed back surgery syndrome lumbar area and lumbar spondylosis, with done diagnostic medial branch block lumbar area which was negative for any improvement, and later on we have done a caudal epidural steroid injections 1 and that helped his low back pain He has is usually 7 or 8 out of 10. He was using [place] as needed but his run out of those Wind[place] was at this time. He denies any side effects from those medications. He denies any blood thinning medications. He had he has had physical therapy in the past without any benefit In addition to above, 13-point review of systems is also negative for chest pain , shortness of breath, changes in vision, changes in hearing, new onset weakness , abdominal pain, diarrhea, extreme fatigue, malaise, fever, skin changes, homicidal or suicidal ideation, or bowel or bladder incontinence. Vital Signs: Reviewed in EMR Gen: WDWN, AAOx3, NAD HEENT: NCAT, EOMI, hearing grossly normal Pulm: resp unlabored Abd: soft, NT, ND Neck: supple, trachea midline ROM in flexion cervical spine: Normal ROM in extension cervical spine: Normal Cervical paravertebral tenderness: None ROM in flexion lumbar spine: Limited to 90 with pain ROM in extension lumbar spine: Limited to 0 Lumbar paravertebral tenderness: Tender palpation with deep palpation all over the lumbar spine Facet loading: Positive bilateral SI joint tenderness: Positive bilateral Straight leg raise: Negative Neuro: CN II-XII grossly intact, muscle strength lower extremities PRESERVED Assessment: 1. Lumbar spondylosis without myelopathy 2. Lumbar degenerative disc disease 3. Failed back surgery syndrome lumbar area Plan: 1. Procedures: Patient could benefit from caudal epidural steroid injection with lysis of epidural adhesions, and if the lysis of epidural adhesions was not approved by his insurance ,then we will proceed with the caudal epidural steroid injection onl 2. Investigations: Maps was checked today 3. Medications: I did prescribe the patient Mobic 7.5 mg to be taken once per day. I did advise him not take any other NSAIDs during use l Objective - Vital Signs Vital signs: Vital Signs Temp Pulse 80 08/19/18 15:01 Resp 16 08/19/18 15:01 BP 137/79 08/19/18 15:01 Pulse Ox 97 08/19/18 15:01 Intake & Output 08/19/18 08/19/18 08/20/18 06:59 18:59 06:59 Weight 102.965 kg PQRS Measure Charge Sheet Measure #130: Documentation of Current Meds in Medical Chart: Patient's medications documented in chart Measure #226: Tobacco Use: Screen & Cessation Intervention: Pt not a tobacco user Measure #111: Pneumonia Vaccination: Pneumococcal vaccine NOT administered or previously given Measure #47: Advance Care Plan: Advance care planning discussed & documented, pt chose/unable to give Measure #412: Opioid Treatment Agreement: Documented signed opioid trtmnt agreemnt min once during opioid trtmnt Measure #408: Opioid Therapy Follow-up Evaluation: Patient had NO f/u eval minimum every 3 months during opioid therapy Measure #317: Preventitive Care & Scrn High Bld Press & F/U: Normal blood pressure, f/u not required Measure #128: Body Mass Index (BMI) Screening & Follow-up: BMI documented ABOVE normal parameters - f/u documented Measure #131: Pain Assessment & Follow-up: Pain positive & plan documented, Follow-up scheduled Measure #431: Unhealthy Alcohol Use Preventative Care & Scrn: Patient not identified as an unhealthy alcohol user PQRS Narrative: Smoking Status Former smoker Do You Want the Pneumonia No Vaccine AT THIS TIME? Blood Pressure 137/79 Pain Intensity [Generalized] 10 Scale Used Numeric (1 - 10) Hx Alcohol Use (MH) Yes: social Home Medications: Ambulatory Orders Lisinopril 10 mg PO DAILY 03/04/16 Cyclobenzaprine [Flexeril] 10 mg PO TID PRN 04/16/18 Loratadine [Claritin] 10 mg PO DAILY 04/16/18 Meclizine [Antivert] 25 mg PO DAILY PRN 04/16/18 Meloxicam [Mobic] 7.5 mg PO DAILY 04/16/18 Multivitamin [Men's Multi-Vitamin] 1 tab PO DAILY 04/16/18 Omeprazole 20 mg PO DAILY 04/16/18 Brimonidine Tartrate [Alphagan P 0.2% Ophth Soln] 1 drops RIGHT EYE BID Latanoprost Ophth [Xalatan 0.005%] 1 drops RIGHT EYE HS 05/06/18 Atorvastatin [Lipitor] 20 mg PO 1800 06/02/18 Timolol Maleate/Latanoprost/Pf [Timolol 0.5%-Latanopros 0.005%] 1 drop RIGHT EYE BID 06/30/18 Controlled Substance Measures - Controlled Substance Measures Is patient prescribed a controlled substance at discharge?: No When asked, does pt state using other controlled substances?: No If prescribed controlled substance>3 days was MAPS reviewed?: No If Rx opioid, was Start Talking consent form obtained?: No If opioid is for acute pain is fill amount 7 days or less?: No Was information provided regarding opioid addiction?: No
== END ==
LOC: PNWHC3 14:33
PROVIDERS: ATTEND Specialist
DX: G89.29 Other chronic pain (principal); M47.816 Spondylosis without myelopathy or radiculopathy, lumbar region; M51.36 Other intervertebral disc degeneration, lumbar region; M96.1 Postlaminectomy syndrome, not elsewhere classified
CPT/HCPCS: 99211

== ENCOUNTER 2018-08-23 11:22 | Emergency (ER) | payer MEDICARE, OTHER ==
[2018-08-23 11:32] VITALS: RESP 18
[2018-08-23] MEDS ORDERED: SODIUM CHLORIDE 0.9% 1,000 ML IV STA (11:41)
[2018-08-23] MEDS ORDERED: MORPHINE SULFATE 4 MG/ML SYRINGE IV STA ×2 (11:41→13:17)
[2018-08-23] MEDS ORDERED: ONDANSETRON 4 MG/2 ML VIAL IVP STA (11:41)
--- NOTE | 2018-08-23 11:53 | ED ---
General Adult HPI - General Chief complaint: Abdominal Pain Stated complaint: ABDOMINAL PAIN Time Seen by Provider: 08/23/18 11:34 Source: patient, RN notes reviewed Mode of arrival: ambulatory Limitations: no limitations - History of Present Illness Initial comments: Patient 53-year-old male presented to the emergency room today with a chief complaint of abdominal pain times a week. Patient does not that he's been experiencing discomfort in the left lower quadrant over the last week. States pain is steadily gotten worse. Describes as a throbbing type sensation. Currently rates it at 10/10. Denies radiation. Patient does admit to feeling nauseated at times. Does admit that he did have some looser stools as well. Denies any other symptoms. Patient denies any recent fever, chills, shortness of breath, chest pain, back pain, numbness or tingling, dysuria or hematuria, constipation, headaches or visual changes, or any other complaints. - Related Data Home Medications Medication Instructions Recorded Confirmed Lisinopril 10 mg PO DAILY 03/04/16 08/23/18 Cyclobenzaprine [Flexeril] 10 mg PO TID PRN 04/16/18 08/23/18 Loratadine [Claritin] 10 mg PO DAILY 04/16/18 08/23/18 Meclizine [Antivert] 25 mg PO DAILY PRN 04/16/18 08/23/18 Meloxicam [Mobic] 7.5 mg PO DAILY 04/16/18 08/23/18 Multivitamin [Men's Multi-Vitamin] 1 tab PO DAILY 04/16/18 08/23/18 Omeprazole 20 mg PO DAILY 04/16/18 08/23/18 Brimonidine Tartrate [Alphagan P 1 drops RIGHT EYE BID 05/06/18 08/23/18 0.2% Ophth Soln] Latanoprost Ophth [Xalatan 0.005%] 1 drops RIGHT EYE HS 05/06/18 08/23/18 Atorvastatin [Lipitor] 20 mg PO 1800 06/02/18 08/23/18 Timolol Maleate/Latanoprost/Pf 1 drop RIGHT EYE BID 06/30/18 08/23/18 [Timolol 0.5%-Latanopros 0.005%] Previous Rx's Medication Instructions Recorded Dicyclomine [Bentyl] 20 mg PO QID #20 tablet 08/23/18 Ondansetron Odt [Zofran ODT] 4 mg PO Q8HR PRN #20 tab 08/23/18 Allergies Allergy/AdvReac Type Severity Reaction Status Date / Time gadobenate dimeglumine Allergy Swelling Verified 08/23/18 11:52 [From Multihance] hydromorphone HCl AdvReac Severe Rapid Verified 08/23/18 11:52 [From Dilaudid] Heart Rate diclofenac potassium AdvReac Nausea & Verified 08/23/18 11:52 [From Cataflam] Vomiting MRI CONTRAST Allergy Swelling Uncoded 08/23/18 11:32 OF FACE Review of Systems ROS Statement: Those systems with pertinent positive or pertinent negative responses have been documented in the HPI. ROS Other: All systems not noted in ROS Statement are negative. Past Medical History Past Medical History: CVA/TIA, Eye Disorder, GERD/Reflux, Hearing Disorder / Deafness, Hyperlipidemia, Hypertension Additional Past Medical History / Comment(s): glaucoma-zahra, back pain currently with numbness in lower back and down both legs, hx migraines, TIA 2015-no effects, varicose veins, arthritis "all over", History of Any Multi-Drug Resistant Organisms: None Reported Past Surgical History: Back Surgery, Heart Catheterization, Joint Replacement, Orthopedic Surgery Additional Past Surgical History / Comment(s): rt knee replacement, lower back surgery for herniated disk, zahra shoulder surgery, surgery on rt middle finger, hx tacheosctomy(for encephalitis), Past Anesthesia/Blood Transfusion Reactions: Family History of Problems w/ Anesthesia Additional Past Anesthesia/Blood Transfusion Reaction / Comment(s): brother took very long time to wake up Past Psychological History: No Psychological Hx Reported Smoking Status: Former smoker Past Alcohol Use History: None Reported Past Drug Use History: None Reported - Past Family History Mother Family Medical History: Cancer Additional Family Medical History / Comment(s): of lung CA Father Additional Family Medical History / Comment(s): irregular heart beat. General Exam - General Exam Comments Initial Comments: General: The patient is awake and alert, in no distress, and does not appear acutely ill. Eye: There is normal conjunctiva bilaterally. No signs of icterus. Ears, nose, mouth and throat: There are moist mucous membranes and no oral lesions. Neck: The neck is supple, there is no tenderness or JVD. Cardiovascular: There is a regular rate and rhythm. No murmur, rub or gallop is appreciated. Respiratory: Lungs are clear to auscultation, respirations are non-labored, breath sounds are equal. No wheezes, stridor, rales, or rhonchi. Gastrointestinal: Abdomen soft on palpation with tenderness to left lower quadrant. No rebound, guarding or CVA tenderness. Musculoskeletal: Normal ROM, no tenderness. Neurological: A&O x 3. CN II-XII intact, There are no obvious motor or sensory deficits. Coordination appears grossly intact. Speech is normal. Skin: Skin is warm and dry and no rashes or lesions are noted. Psychiatric: Cooperative, appropriate mood & affect, normal judgment. Limitations: no limitations Course Vital Signs 08/23/18 08/23/18 11:30 13:20 Temperature 98.5 F Pulse Rate 73 78 Respiratory 18 18 Rate Blood Pressure 147/86 116/74 O2 Sat by Pulse 98 98 Oximetry Medical Decision Making - Medical Decision Making Patient reexamined the center no signs of distress. He does not that he is feeling better here in the emergency room. Patient's labs been reviewed are unremarkable. His abdomen pelvis shows:1. Mild hepatomegaly and fatty infiltration of the liver. 2. Evidence for an old granulomatosis disease. 3. Degenerative changes within the spine. Results discussed with the patient. Patient will be discharged home treated with Zofran, Bentyl for his symptoms. Advised following up with family doctor return if any symptoms increase or worsen. - Lab Data Result diagrams: 08/23/18 12:13 08/23/18 12:13 Lab Results 08/23/18 08/23/18 08/23/18 Range/Units 12:13 12:13 12: WBC 6.4 (3.8-10.6) k/uL RBC 4.50 (4.30-5.90) m/uL Hgb 15.1 (13.0-17.5) gm/dL Hct 42.3 (39.0-53.0) % MCV 94.1 (80.0-100.0) fL MCH 33.6 (25.0-35.0) pg MCHC 35.7 (31.0-37.0) g/dL RDW 14.8 (11.5-15.5) % Plt Count 273 (150-450) k/uL Neutrophils % 62 % Lymphocytes % 25 % Monocytes % 6 % Eosinophils % 4 % Basophils % 1 % Neutrophils # 3.9 (1.3-7.7) k/uL Lymphocytes # 1.6 (1.0-4.8) k/uL Monocytes # 0.4 (0-1.0) k/uL Eosinophils # 0.3 (0-0.7) k/uL Basophils # 0.0 (0-0.2) k/uL Hyperchromasia Slight Poikilocytosis Slight Sodium 138 (137-145) mmol/L Potassium 4.3 (3.5-5.1) mmol/L Chloride 106 (98-107) mmol/L Carbon Dioxide 24 (22-30) mmol/L Anion Gap 8 mmol/L BUN 17 (9-20) mg/dL Creatinine 0.92 (0.66-1.25) mg/dL Est GFR (CKD-EPI)AfAm >90 (>60 ml/min/1.73 sqM) Est GFR (CKD-EPI)NonAf >90 (>60 ml/min/1.73 sqM) Glucose 128 H (74-99) mg/dL Calcium 9.7 (8.4-10.2) mg/dL Total Bilirubin 0.9 (0.2-1.3) mg/dL AST 35 (17-59) U/L ALT 54 (21-72) U/L Alkaline Phosphatase 66 (38-126) U/L Total Protein 7.1 (6.3-8.2) g/dL Albumin 4.3 (3.5-5.0) g/dL Amylase 58 (30-110) U/L Lipase 193 (23-300) U/L Urine Color Yellow Urine Appearance Clear (Clear) Urine pH 5.5 (5.0-8.0) Ur Specific [place] 1.023 (1.001-1.035) Urine Protein Negative (Negative) Urine Glucose (UA) Negative (Negative) Urine Ketones Negative (Negative) Urine Blood Negative (Negative) Urine Nitrite Negative (Negative) Urine Bilirubin Negative (Negative) Urine Urobilinogen <2.0 (<2.0) mg/dL Ur Leukocyte Esterase Negative (Negative) Disposition Clinical Impression: Nausea & vomiting, Abdominal pain Disposition: HOME SELF-CARE Condition: Good Instructions: Abdominal Pain (ED) Additional Instructions: Please use medication as discussed. Please follow-up with family doctor in the next 2 days of symptoms have not improved. Please return to emergency room if the symptoms increase or worsen or for any other concerns. Prescriptions: Dicyclomine [Bentyl] 20 mg PO QID #20 tablet Ondansetron Odt [Zofran ODT] 4 mg PO Q8HR PRN #20 tab PRN Reason: Nausea Is patient prescribed a controlled substance at d/c from ED?: No Referrals: Tian Gutierrez III, MD [Primary Care Provider] - 1-2 days Time of Disposition: 13:49
[2018-08-23 12:25] LABS: Appearance,Urine Clear (Clear); Bilirubin,Urine Negative (Negative); Blood,Urine Negative (Negative); Color,Urine Yellow; Glucose,Urine (UA) Negative (Negative); Ketones,Urine Negative (Negative); Leukocyte Esterase,Urine Negative (Negative); Nitrite,Urine Negative (Negative); PH, Urine 5.5 (5.0-8.0); Protein,Urine Negative (Negative); Specific Gravity,Urine 1.023 (1.001-1.035); Urobilinogen,Urine <2.0 mg/dL (<2.0)
[2018-08-23 12:26] LABS: Basophils % (A) 1 %; Eosinophils # (A) 0.3 k/uL (0-0.7); Eosinophils % (A) 4 %; HCT 42.3 % (39.0-53.0); HGB 15.1 gm/dL (13.0-17.5); Hyperchromasia Slight; Lymphocytes # (A) 1.6 k/uL (1.0-4.8); Lymphocytes % (A) 25 %; MCH 33.6 pg (25.0-35.0); MCHC 35.7 g/dL (31.0-37.0); MCV 94.1 fL (80.0-100.0); Mean Platelet Volume 8.2; Monocytes # (A) 0.4 k/uL (0-1.0); Monocytes % (A) 6 %; Neutrophils # (A) 3.9 k/uL (1.3-7.7); Neutrophils % (A) 62 %; Platelet Count 273 k/uL (150-450); Poikilocytosis Slight; RDW 14.8 % (11.5-15.5); WBC 6.4 k/uL (3.8-10.6)
[2018-08-23 12:34] LABS: ALT 54 U/L (21-72); AST 35 U/L (17-59); Albumin 4.3 g/dL (3.5-5.0); Alkaline Phosphatase 66 U/L (38-126); Amylase 58 U/L (30-110); Anion Gap 8 mmol/L; Blood Urea Nitrogen 17 mg/dL (9-20); Calcium 9.7 mg/dL (8.4-10.2); Carbon Dioxide 24 mmol/L (22-30); Chloride 106 mmol/L (98-107); Glucose 128 mg/dL (74-99); Lipase 193 U/L (23-300); Potassium 4.3 mmol/L (3.5-5.1); Sodium 138 mmol/L (137-145); Total Bilirubin 0.9 mg/dL (0.2-1.3); Total Protein 7.1 g/dL (6.3-8.2)
[2018-08-23 13:21] VITALS: PULSE 78
--- NOTE | 2018-08-23 13:30 | CT ---
EXAMINATION TYPE: CT abdomen pelvis w con DATE OF EXAM: 08/23/2018 REFERENCE: Previous study dated 10/10/2017. HISTORY: Pain and diarrhea. HISTORY: Abdominal pain CT DLP: 1431.7 mGy Automated exposure control for dose reduction was used. TECHNIQUE: Helical acquisition through the abdomen and pelvis was obtained following the oral ingesti on of without Oral Contrast and following intravenous administration of 100 mL of Isovue 300. The birgit a was reformatted in axial, coronal and sagittal projections. FINDINGS: There is a calcified granuloma in the posterior basal segment of the right lower lobe. Vis ualized portions of the lungs are otherwise clear. There is no pleural or pericardial fluid. The hear t is not enlarged. Within the abdomen, the liver is upper limits of normal in size. It is somewhat hypoattenuating and m ay be fatty infiltrated. The spleen and gallbladder appear normal. Both adrenal glands appear normal. Both kidneys demonstrate function and appear morphologically normal. The pancreas is unremarkable. There is mild atheromatous calcification of the visualized arterial tree. There is no significant ret roperitoneal, iliac or inguinal adenopathy. The bladder is not distended. There is no significant diverticular change and there is no radiographic evidence of diverticulitis. The appendix is unremarkable. Small bowel loops are of normal caliber. There is no free air or free fluid. There are degenerative changes within the hips bilaterally. There is degenerative disc disease, facet arthropathy and hypertrophic spondylosis throughout the lumbar and dorsal spines. IMPRESSION: 1. MILD HEPATOMEGALY AND FATTY INFILTRATION OF THE LIVER. 2. EVIDENCE OF OLD GRANULOMATOUS DISEASE. 3. DEGENERATIVE CHANGES WITHIN THE SPINE.
[2018-08-23 13:59] VITALS: BP 115/68; TEMP 98.2
== END 2018-08-23 13:59 | disposition home or self-care (01) ==
LOC: EC 11:22
DX: K76.0 Fatty (change of) liver, not elsewhere classified (principal); R16.0 Hepatomegaly, not elsewhere classified; D71 Functional disorders of polymorphonuclear neutrophils; M47.896 Other spondylosis, lumbar region; K21.9 Gastro-esophageal reflux disease without esophagitis; E78.5 Hyperlipidemia, unspecified; I10 Essential (primary) hypertension; H40.9 Unspecified glaucoma; M19.90 Unspecified osteoarthritis, unspecified site; Z86.73 Personal history of transient ischemic attack (TIA), and cerebral infarction without residual deficits; Z95.818 Presence of other cardiac implants and grafts; Z96.651 Presence of right artificial knee joint; Z98.890 Other specified postprocedural states; Z87.891 Personal history of nicotine dependence; Z79.1 Long term (current) use of non-steroidal anti-inflammatories (NSAID); Z79.899 Other long term (current) drug therapy; Z88.8 Allergy status to other drugs, medicaments and biological substances; Z88.5 Allergy status to narcotic agent; Z88.6 Allergy status to analgesic agent; Z91.041 Radiographic dye allergy status
CPT/HCPCS: 36415; 80053; 82150; 83690; 85025; 81003; 74177; 99284; 96374; 96375; 96376; 96361 ×2; J2270; J2405; Q9967

== ENCOUNTER 2018-09-10 12:54 | Emergency (ER) | payer MEDICARE, OTHER ==
[2018-09-10 13:20] VITALS: RESP 18; TEMP 98.2
--- NOTE | 2018-09-10 13:42 | ED ---
General Adult HPI - General Chief complaint: Fall Stated complaint: fall, back pain Time Seen by Provider: 09/10/18 13:25 Source: patient, RN notes reviewed Mode of arrival: ambulatory Limitations: no limitations - History of Present Illness Initial comments: Patient 53-year-old male presenting to the emergency room today with a chief complaint of a fall that occurred 2 days ago. 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 He states he did not lose consciousness. He admits that she's had some headaches on the left side. Also some neck pain. Patient also admits to lower back pain and feels that when he goes to sit up from a seated position he feels the pain radiate to the front of the lower abdomen. Patient states he does not have any belly pain when he is Not moving. He states his belly pains reproduced with these movements and if he coughs. He denies any bowel or bladder incontinence retention. Denies any saddle anesthesia. Denies any lumbar radiculopathy. Patient denies any recent fever, chills, shortness of breath, chest pain, nausea or vomiting, numbness or tingling, visual changes, or any other complaints. - Related Data Home Medications Medication Instructions Recorded Confirmed Lisinopril 10 mg PO DAILY 03/04/16 09/10/18 Cyclobenzaprine [Flexeril] 10 mg PO TID PRN 04/16/18 09/10/18 Loratadine [Claritin] 10 mg PO DAILY 04/16/18 09/10/18 Meclizine [Antivert] 25 mg PO DAILY PRN 04/16/18 09/10/18 Meloxicam [Mobic] 7.5 mg PO DAILY 04/16/18 09/10/18 Omeprazole 20 mg PO DAILY 04/16/18 09/10/18 Brimonidine Tartrate [Alphagan P 1 drops RIGHT EYE BID 05/06/18 09/10/18 0.2% Ophth Soln] Latanoprost Ophth [Xalatan 0.005%] 1 drops RIGHT EYE HS 05/06/18 09/10/18 Atorvastatin [Lipitor] 20 mg PO DAILY 06/02/18 09/10/18 Timolol Maleate/Latanoprost/Pf 1 drop RIGHT EYE BID 06/30/18 09/10/18 [Timolol 0.5%-Latanopros 0.005%] Previous Rx's Medication Instructions Recorded Dicyclomine [Bentyl] 20 mg PO QID #20 tablet 08/23/18 Cyclobenzaprine [Flexeril] 10 mg PO TID #20 tab 09/10/18 Ibuprofen [Motrin] 600 mg PO Q6HR PRN #40 day 09/10/18 Allergies Allergy/AdvReac Type Severity Reaction Status Date / Time gadobenate dimeglumine Allergy Swelling Verified 08/23/18 11:52 [From Multihance] hydromorphone HCl AdvReac Severe Rapid Verified 08/23/18 11:52 [From Dilaudid] Heart Rate diclofenac potassium AdvReac Nausea & Verified 08/23/18 11:52 [From Cataflam] Vomiting MRI CONTRAST Allergy Swelling Uncoded 08/23/18 11:32 OF FACE Review of Systems ROS Statement: Those systems with pertinent positive or pertinent negative responses have been documented in the HPI. ROS Other: All systems not noted in ROS Statement are negative. Past Medical History Past Medical History: CVA/TIA, Eye Disorder, GERD/Reflux, Hearing Disorder / Deafness, Hyperlipidemia, Hypertension, Osteoarthritis (OA) Additional Past Medical History / Comment(s): glaucoma-zahra, back pain currently with numbness in lower back and down both legs, hx migraines, TIA 2014-no effects, varicose veins, arthritis "all over", History of Any Multi-Drug Resistant Organisms: None Reported Past Surgical History: Back Surgery, Heart Catheterization, Joint Replacement, Orthopedic Surgery Additional Past Surgical History / Comment(s): rt knee replacement, lower back surgery for herniated disk, zahra shoulder surgery, surgery on rt middle finger, hx tacheosctomy(for encephalitis), Past Anesthesia/Blood Transfusion Reactions: Family History of Problems w/ Anesthesia Additional Past Anesthesia/Blood Transfusion Reaction / Comment(s): brother took very long time to wake up Past Psychological History: No Psychological Hx Reported Smoking Status: Former smoker Past Alcohol Use History: None Reported Past Drug Use History: None Reported - Past Family History Mother Family Medical History: Cancer Additional Family Medical History / Comment(s): of lung CA Father Additional Family Medical History / Comment(s): irregular heart beat. General Exam - General Exam Comments Initial Comments: General: The patient is awake and alert, in no distress, and does not appear acutely ill. Eye: Pupils are equal, round and reactive to light, extra-ocular movements are intact. No nystagmus. There is normal conjunctiva bilaterally. No signs of icterus. Ears, nose, mouth and throat: There are moist mucous membranes and no oral lesions. Neck: The neck is supple, there is no tenderness or JVD. Cardiovascular: There is a regular rate and rhythm. No murmur, rub or gallop is appreciated. Respiratory: Lungs are clear to auscultation, respirations are non-labored, breath sounds are equal. No wheezes, stridor, rales, or rhonchi. Gastrointestinal: Abdomen soft nontender exam. Musculoskeletal: Normal appearance of the cervical, thoracic, lumbar spine with no step-off or deformity. Mild tenderness at the base of the cervical spine. Mildly tender at L1 to L3. No other bony tenderness. Pain worse with movement from lying to seated position. Strength 5/5. Sensation intact. Pulses equal bilaterally 2+. Neurological: A&O x 3. CN II-XII intact, There are no obvious motor or sensory deficits. Coordination appears grossly intact. Speech is normal. Skin: Skin is warm and dry and no rashes or lesions are noted. Psychiatric: Cooperative, appropriate mood & affect, normal judgment. Limitations: no limitations Course Vital Signs 09/10/18 13:16 Temperature 98.2 F Pulse Rate 71 Respiratory 18 Rate Blood Pressure 122/78 O2 Sat by Pulse 98 Oximetry Medical Decision Making - Medical Decision Making X-ray of the lower back shows degenerative changes no acute abnormality. CT of the brain and C-spine reviewed no acute abnormality appreciated. There is a metallic foreign body in the right eye. He states he had a procedure to relieve pressure. He does have an van loader that he has an appointment with tomorrow. There is been no new injury or trauma. He has no pain or irritation to the right eye. Patient does have degenerative changes in the cervical spine as well. Patient doing well at this time will be discharged home with ibuprofen, Flexeril for his symptoms. Advised follow-up. Advised return for any other concerns. Disposition Clinical Impression: Fall, Back strain, Cervical strain, Foreign body of right eye Disposition: HOME SELF-CARE Condition: Good Instructions (If sedation given, give patient instructions): Muscle Strain (DC) Additional Instructions: Please use medication as discussed. Please be aware muscle relaxants will make you drowsy. Please follow-up with her van loader about the foreign body seen on CAT scan in the right eye. Please follow-up with family doctor in the next 2 days of symptoms have not improved. Please return to emergency room if the symptoms increase or worsen or for any other concerns. Prescriptions: Cyclobenzaprine [Flexeril] 10 mg PO TID #20 tab Ibuprofen [Motrin] 600 mg PO Q6HR PRN #40 day PRN Reason: Pain Is patient prescribed a controlled substance at d/c from ED?: No Referrals: Tian Gutierrez III, MD [Primary Care Provider] - 1-2 days Time of Disposition: 15:13
--- NOTE | 2018-09-10 14:29 | CT ---
EXAMINATION TYPE: CT brain maribel wo con DATE OF EXAM: 09/10/2018 COMPARISON: For 07/30/2017 HISTORY: 53-year-old male with pain, Fall today with possible injury CT DLP: 1487.7 mGycm Automated exposure control for dose reduction was used. Technique: Examination of the head was done in axial plane without intravenous contrast. Coronal and sagittal reconstructions performed. CT of the cervical spine was obtained in axial plane without intravenous injection of contrast mater ial. Coronal and sagittal reformatted images were obtained from the axial views for evaluation of f ractures, spinal alignment and canal. FINDINGS: Head: There is no evidence of acute intracranial hemorrhage, acute ischemic changes, mass, mass-effect, or extra-axial fluid collection. There is no effacement of cerebral sulci or basal subarachnoid cister ns. There is no hydrocephalus. There is no midline shift. Harrison-white matter distinction is preserv ed. There seems to be a radiodense foreign body along the anterior right globe. Clinically correlate. Par anasal sinuses and mastoid air cells are well pneumatized. No calvarial fracture. Cervical spine: No craniocervical junction anomaly, predental space widening, or prevertebral soft tissue swelling. D egenerative changes at C1 dens articulation. Reversal of the normal cervical lordosis but with preserved alignment. No acute fracture seen of the cervical spine. Moderate disc/endplate degenerative changes especially in the mid cervical spine with disc osteophyte complex is likely resulting in variable mild or moderate spinal canal stenoses from C3 through C6 le vels. Canal narrowing appears to greater degree at both C4-C5 and C5-C6. Scattered facet and uncovertebral joint degenerative change. At C4-C5, and result in moderate left neural foraminal stenosis. At C5-C6, changes result in moderate left and mild right neuroforaminal stenosis. Sagittal and coronal reformatted images confirm above findings. COMBINED IMPRESSION: 1. No acute intracranial abnormality seen. 2. No acute fracture or malalignment of the cervical spine. 3. Moderate multilevel spondylotic changes. Disc osteophyte complexes may cause moderate or greater s piper canal stenoses at both C4-C5 and C5-C6. 4. Radiodense foreign body along the anterior aspect of the right globe. Clinically correlate.
--- NOTE | 2018-09-10 14:45 | XR ---
EXAMINATION TYPE: XR lumbar spine 2 or 3V DATE OF EXAM: 09/10/2018 COMPARISON: 03/12/2018 HISTORY: 53-year-old male with lower lumbar pain TECHNIQUE: 3 views FINDINGS: Slight dextroconvexed curvature of the lumbar spine. 5 lumbar type vertebral bodies. Mild t o moderate endplate spondylosis throughout. Mild disc interspace narrowing at L3-L4 and L4-L5 and mod erate L5-S1. Hypertrophic facet arthropathy mid to lower lumbar spine. Alignment is maintained and ve rtebral body heights are preserved. Stable minimal physiologic anterior wedging lower thoracic spine. IMPRESSION: 1. Moderate endplate spondylosis and degenerative disc disease. Hypertrophic facet arthropathy mid to lower lumbar spine. 2. No vertebral compression collapse or malalignment.
[2018-09-10 15:29] VITALS: BP 126/72; PULSE 86
== END 2018-09-10 15:29 | disposition home or self-care (01) ==
LOC: EC 12:54
DX: S39.012A Strain of muscle, fascia and tendon of lower back, initial encounter (principal); S16.1XXA Strain of muscle, fascia and tendon at neck level, initial encounter; T15.91XA Foreign body on external eye, part unspecified, right eye, initial encounter; M47.896 Other spondylosis, lumbar region; M47.892 Other spondylosis, cervical region; R51 Headache; K21.9 Gastro-esophageal reflux disease without esophagitis; E78.5 Hyperlipidemia, unspecified; I10 Essential (primary) hypertension; M19.90 Unspecified osteoarthritis, unspecified site; H40.9 Unspecified glaucoma; Z86.73 Personal history of transient ischemic attack (TIA), and cerebral infarction without residual deficits; Z95.818 Presence of other cardiac implants and grafts; Z96.651 Presence of right artificial knee joint; Z98.890 Other specified postprocedural states; Z87.39 Personal history of other diseases of the musculoskeletal system and connective tissue; Z87.891 Personal history of nicotine dependence; Z79.1 Long term (current) use of non-steroidal anti-inflammatories (NSAID); Z79.899 Other long term (current) drug therapy; Z88.8 Allergy status to other drugs, medicaments and biological substances; Z88.5 Allergy status to narcotic agent; Z88.6 Allergy status to analgesic agent; Z91.041 Radiographic dye allergy status; W00.0XXA Fall on same level due to ice and snow, initial encounter; Y93.89 Activity, other specified; Y92.89 Other specified places as the place of occurrence of the external cause
CPT/HCPCS: 70450; 72100; 72125; 99284

== ENCOUNTER → 2018-10-01 | Outpatient (CLI) | payer MEDICARE, OTHER ==
[2018-10-01 14:45] VITALS: BP 135/74; PULSE 79; RESP 16
--- NOTE | 2018-10-01 15:24 | P.PN ---
Subjective Progress Note Date: 10/01/18 [place] is a 53-year-old gentleman who presents today for follow-up. He continues to have low back pain as well as neck pain. He reports that his low back pain is not new and describes sharp shooting pain going down his back into his legs. He also complains that he recently fell about 2-3 weeks ago and has continued to have pain despite his chronic pain. He reports his an injection the past which have helped temporarily. He is taking ibuprofen as needed. He is inquiring about different types of medications for his pain. He denies any bowel or bladder incontinence or any new weakness in his lower extremities. Denies having any cardiac history or any irregular heartbeats. He reports he sees a primary care physician as well as his cardiac doctor and as needed basis Objective - Vital Signs Vital signs: Vital Signs Temp Pulse 79 10/01/18 14:35 Resp 16 10/01/18 14:35 BP 135/74 10/01/18 14:35 Pulse Ox 97 10/01/18 14:35 Intake & Output 09/30/18 10/01/18 10/01/18 18:59 06:59 18:59 Weight 104.326 kg - Exam General: Awake and alert oriented 3 no distress Respiratory exam: No audible wheezing no accessory muscle usage Cardiovascular exam: regular rate, palpable bilateral pulses, no lower extremity edema Abdominal exam: No distention nontender to palpation Cervical spine: Normal alignment, Spurling's negative, facet loading negative Lumbar spine: Loss of lumbar lordosis, normal alignment, tender to palpation over bilateral paraspinal muscles, facet loading is positive bilaterally. Straight leg raise is negative. Sacroiliac joints: Nontender to palpation, HANS is negative, [place] negative Neuro exam: Normal sensation in bilateral upper extremities, deep tendon reflexes are 2+ bilateral upper extremities. Normal sensation in bilateral lower extremities. Absent deep tendon reflexes bilateral patella. Ankle reflexes are 1+ bilateral. Psych exam: Cooperative, appropriate mood Assessment and Plan Assessment: #1 lumbar spondylosis without myelopathy #2 lumbar radiculopathy #3 cervical spondylosis without myelopathy Plan: At this time I discussed multiple options with the patient. It like to hold off on having any injections at this time. He is inquired about different medications at this time I've discussed with him potentially trying Elavil 25 mg at nighttime to assist with his insomnia and to assist with chronic pain. I advised him to continue taking it every day for at least one month to get the full benefit of the medications. I discussed with him side effects he can expect and should let us know if he has any significant problems with the medication. Patient would like to have a referral to see a surgeon to evaluate if he is a surgical candidate. I will give him a prescription to see Dr. Vazquez. I did discuss with him medial branch blocks as well and the patient like to hold off on that this time.
== END ==
LOC: PNWHC3 14:22
PROVIDERS: ATTEND Hospitalist
DX: M47.26 Other spondylosis with radiculopathy, lumbar region (principal); M47.22 Other spondylosis with radiculopathy, cervical region
CPT/HCPCS: 99211

== ENCOUNTER 2019-03-04 13:02 | Emergency (ER) | payer MEDICARE, OTHER ==
[2019-03-04] MEDS ORDERED: SODIUM CHLORIDE 0.9% 1,000 ML IV STA (13:43)
[2019-03-04] MEDS ORDERED: KETOROLAC 30 MG/ML 1 ML VIAL IVP STA (13:43)
[2019-03-04] MEDS ORDERED: methylPREDNISolone SOD SUCCI 125 MG/2 ML VIAL IV STA (13:44)
[2019-03-04] MEDS ORDERED: ORPHENADRINE 30 MG/ML 2 ML VIAL IVP STA (13:44)
[2019-03-04 13:58] LABS: Appearance,Urine Clear (Clear); Bilirubin,Urine Negative (Negative); Blood,Urine Negative (Negative); Color,Urine Yellow; Glucose,Urine (UA) Negative (Negative); Ketones,Urine Negative (Negative); Leukocyte Esterase,Urine Negative (Negative); Nitrite,Urine Negative (Negative); PH, Urine 5.5 (5.0-8.0); Protein,Urine Negative (Negative); Specific Gravity,Urine 1.022 (1.001-1.035); Urobilinogen,Urine <2.0 mg/dL (<2.0)
--- NOTE | 2019-03-04 14:47 | XR ---
EXAMINATION TYPE: XR lumbar spine 2 or 3V DATE OF EXAM: 03/04/2019 CLINICAL HISTORY: Right-sided back pain. TECHNIQUE: Frontal and lateral images of the lumbar spine are obtained. COMPARISON: Lumbar spine x-ray September 10, 2018 FINDINGS: There are 5 lumbar type vertebral bodies demonstrated. The lumbar spine shows stable alig nment without evidence of acute fracture or dislocation. Vertebral body heights remain within normal limits. [id number] multilevel disc space narrowing with mild to moderate multilevel anterior an d lateral spurring is again seen. Vascular calcification overlying soft tissue is redemonstrated. IMPRESSION: As above. No significant change from prior.
--- NOTE | 2019-03-04 14:56 | ED ---
Abdominal Pain HPI - General Chief Complaint: Abdominal Pain Stated Complaint: rt sided flank pain Time Seen by Provider: 03/04/19 13:13 Source: patient, RN notes reviewed, old records reviewed Mode of arrival: ambulatory - History of Present Illness Initial Comments: Patient's 53-year-old male who presents emergency department today for evaluation with complaints of right-sided back and hip pain. Patient reports the pain started while he was resting in bed, he moved a certain way. He states occasionally the pain will shoot down his leg. Denies any changes in abdominal pain or dysuria or hematuria. - Related Data Home Medications Medication Instructions Recorded Confirmed Lisinopril 10 mg PO DAILY 03/04/16 10/01/18 Cyclobenzaprine [Flexeril] 10 mg PO TID PRN 04/16/18 10/01/18 Loratadine [Claritin] 10 mg PO DAILY 04/16/18 10/01/18 Meclizine [Antivert] 25 mg PO DAILY PRN 04/16/18 10/01/18 Meloxicam [Mobic] 7.5 mg PO DAILY 04/16/18 10/01/18 Omeprazole 20 mg PO DAILY 04/16/18 10/01/18 Brimonidine Tartrate [Alphagan P 1 drops RIGHT EYE BID 05/06/18 10/01/18 0.2% Ophth Soln] Latanoprost Ophth [Xalatan 0.005%] 1 drops RIGHT EYE HS 05/06/18 10/01/18 Atorvastatin [Lipitor] 20 mg PO DAILY 06/02/18 10/01/18 Timolol Maleate/Latanoprost/Pf 1 drop RIGHT EYE BID 06/30/18 10/01/18 [Timolol 0.5%-Latanopros 0.005%] Ibuprofen [Motrin] 800 mg PO Q6HR PRN 10/01/18 10/01/18 Previous Rx's Medication Instructions Recorded Dicyclomine [Bentyl] 20 mg PO QID #20 tablet 08/23/18 Cyclobenzaprine [Flexeril] 10 mg PO TID #20 tab 09/10/18 Dexamethasone 0.75 mg PO DAILY #12 tab 03/04/19 Ibuprofen 600 mg PO TID #20 tablet 03/04/19 Allergies Allergy/AdvReac Type Severity Reaction Status Date / Time gadobenate dimeglumine Allergy Swelling Verified 03/04/19 13:18 [From Multihance] hydromorphone HCl AdvReac Severe Rapid Verified 03/04/19 13:18 [From Dilaudid] Heart Rate diclofenac potassium AdvReac Nausea & Verified 03/04/19 13:18 [From Cataflam] Vomiting MRI CONTRAST Allergy Swelling Uncoded 03/04/19 13:18 OF FACE Review of Systems ROS Statement: Those systems with pertinent positive or pertinent negative responses have been documented in the HPI. ROS Other: All systems not noted in ROS Statement are negative. Past Medical History Past Medical History: CVA/TIA, Eye Disorder, GERD/Reflux, Hearing Disorder / Deafness, Hyperlipidemia, Hypertension, Osteoarthritis (OA) Additional Past Medical History / Comment(s): glaucoma-zahra, back pain currently with numbness in lower back and down both legs, hx migraines, TIA 2015-no effects, varicose veins, arthritis "all over", History of Any Multi-Drug Resistant Organisms: None Reported Past Surgical History: Back Surgery, Heart Catheterization, Joint Replacement, Orthopedic Surgery Additional Past Surgical History / Comment(s): rt knee replacement, lower back surgery for herniated disk, zahra shoulder surgery, surgery on rt middle finger, hx tacheosctomy(for encephalitis), Past Anesthesia/Blood Transfusion Reactions: Family History of Problems w/ Anesthesia Additional Past Anesthesia/Blood Transfusion Reaction / Comment(s): brother took very long time to wake up Past Psychological History: No Psychological Hx Reported Smoking Status: Former smoker Past Alcohol Use History: None Reported Past Drug Use History: None Reported - Past Family History Mother Family Medical History: Cancer Additional Family Medical History / Comment(s): of lung CA Father Additional Family Medical History / Comment(s): irregular heart beat. General Exam - General Exam Comments Initial Comments: 53-year-old male. Alert and oriented. No distress. General: Well appearing, well nourished, in no distress. Oriented x 3, normal mood and affect . Ambulating without difficulty. Skin: Good turgor, no rash, unusual bruising or prominent lesions Hair: Normal texture and distribution. HEENT: Head: Normocephalic, atraumatic, no visible or palpable masses, depressions, or scaring. Eyes: Visual acuity intact, conjunctiva clear, sclera non-icteric, EOM intact, PERRL. Ears: EACs clear, TMs translucent & cone of light visualized. hearing intact. Nose: No external lesions, mucosa non-inflamed, septum and turbinates normal Mouth: Mucous membranes moist, no mucosal lesions. Teeth/Gums: No obvious caries or periodontal disease. No gingival inflammation or significant resorption. Pharynx: Mucosa non-inflamed, no tonsillar hypertrophy or exudate Neck: Supple, without lesions, bruits, or adenopathy, thyroid non-enlarged and non-tender Heart: No cardiomegaly or thrills; regular rate and rhythm, no murmur or gallop Lungs: Clear to auscultation and percussion Abdomen: Bowel sounds normal, no tenderness, organomegaly, masses, or hernia Back: Spine normal minor right paraspinal lumbar tenderness. No CVA tenderness. Extremities: No amputations or deformities, cyanosis, edema or varicosities, peripheral pulses intact Musculoskeletal: Normal gait and station. No misalignment, asymmetry, crepitation, defects, tenderness, masses, effusions, decreased range of motion, instability, atrophy or abnormal strength or tone in the head, neck, spine, ribs, pelvis or extremities. Neurologic: CN 2-12 normal. Sensation to pain, touch, and proprioception normal. DTRs normal in upper and lower extremities. No pathologic reflexes. Psychiatric: Oriented X3, intact recent and remote memory, judgment and insight, normal mood and affect. General appearance: alert, in no apparent distress Course Vital Signs 03/04/19 13:16 Temperature 98.0 F Pulse Rate 65 Respiratory 18 Rate Blood Pressure 114/55 O2 Sat by Pulse 97 Oximetry Medical Decision Making - Medical Decision Making Asians an 83-year-old male presents with right-sided back pain, worse with movement. Symptoms started while he was in bed and moves certain way. Patient's pain seems muscle skeletal nature. Did check a urinalysis was negative for blood or infection. He had no significant abdominal pain or CVA t enderness. This time patient's pain is reducible certain movements. X-ray of lumbar spine shows chronic dental disease but no significant change from prior. Patient was given IM Solu-Medrol, Norflex and Toradol. On reevaluation is feeling better. I discussed discharged Patient with a short course of muscle lashes and steroids for what appears to be muscle spasm. - Lab Data Lab Results 03/04/19 Range/Units 13:52 Urine Color Yellow Urine Appearance Clear (Clear) Urine pH 5.5 (5.0-8.0) Ur Specific [place] 1.022 (1.001-1.035) Urine Protein Negative (Negative) Urine Glucose (UA) Negative (Negative) Urine Ketones Negative (Negative) Urine Blood Negative (Negative) Urine Nitrite Negative (Negative) Urine Bilirubin Negative (Negative) Urine Urobilinogen <2.0 (<2.0) mg/dL Ur Leukocyte Esterase Negative (Negative) - Radiology Data Radiology results: report reviewed Lumbar vertebral vertebrae redemonstrated lumbar spine shows stable white matter. Bodies remain normal height. Moderate multilevel disc narrowing with anterior spurring seen again. Vascular calcification overlying soft tissues redemonstrated. Disposition Clinical Impression: Back muscle spasm Disposition: HOME SELF-CARE Condition: Good Instructions (If sedation given, give patient instructions): Back Pain (ED) Additional Instructions: Patient advsied to a take the steroids and continue to take at home on Celexa and an anti-inflammatory medicine as prescribed. I'll close follow-up with primary care doctor. Return to the emergency department if any alarming signs or symptoms occur. Prescriptions: Dexamethasone 0.75 mg PO DAILY #12 tab Ibuprofen 600 mg PO TID #20 tablet Is patient prescribed a controlled substance at d/c from ED?: No Referrals: Tian Gutierrez III, MD [Primary Care Provider] - 1-2 days Time of Disposition: 15:16
[2019-03-04] MEDS ORDERED: ACET/COD 300 MG/30 MG STARTER PACK 6 TAB BTL PO STA (15:21)
[2019-03-04 15:38] VITALS: BP 136/86; PULSE 76; RESP 16; TEMP 97.9
== END 2019-03-04 15:38 | disposition home or self-care (01) ==
LOC: EC 13:02
DX: M62.830 Muscle spasm of back (principal); M25.551 Pain in right hip; K21.9 Gastro-esophageal reflux disease without esophagitis; E78.5 Hyperlipidemia, unspecified; I10 Essential (primary) hypertension; M19.90 Unspecified osteoarthritis, unspecified site; H40.9 Unspecified glaucoma; Z86.73 Personal history of transient ischemic attack (TIA), and cerebral infarction without residual deficits; Z87.891 Personal history of nicotine dependence; Z79.899 Other long term (current) drug therapy; Z79.1 Long term (current) use of non-steroidal anti-inflammatories (NSAID); Z91.041 Radiographic dye allergy status; Z88.5 Allergy status to narcotic agent; Z88.8 Allergy status to other drugs, medicaments and biological substances; Z95.818 Presence of other cardiac implants and grafts; Z96.651 Presence of right artificial knee joint
CPT/HCPCS: 72100; 81003; 96361; 96374; 96375; 99284

== ENCOUNTER → 2019-03-17 | Outpatient (CLI) | payer MEDICARE, OTHER ==
[2019-03-17 15:04] LABS: Basophils % (A) 1 %; Eosinophils # (A) 0.2 k/uL (0-0.7); Eosinophils % (A) 3 %; HCT 39.7 % (39.0-53.0); HGB 13.7 gm/dL (13.0-17.5); Lymphocytes # (A) 1.4 k/uL (1.0-4.8); Lymphocytes % (A) 24 %; MCH 32.6 pg (25.0-35.0); MCHC 34.5 g/dL (31.0-37.0); MCV 94.4 fL (80.0-100.0); Mean Platelet Volume 6.9; Monocytes # (A) 0.3 k/uL (0-1.0); Monocytes % (A) 6 %; Neutrophils # (A) 3.9 k/uL (1.3-7.7); Neutrophils % (A) 65 %; Platelet Count 257 k/uL (150-450); RBC 4.21 m/uL (4.30-5.90); RDW 13.7 % (11.5-15.5)
[2019-03-17 15:08] LABS: Calcium 9.6 mg/dL (8.4-10.2)
[2019-03-17 15:11] LABS: Prothrombin Time 10.6 sec (9.0-12.0)
[2019-03-17 15:43] LABS: Appearance,Urine Clear (Clear); Bilirubin,Urine Negative (Negative); Blood,Urine Negative (Negative); Color,Urine Yellow; Glucose,Urine (UA) Negative (Negative); Ketones,Urine Negative (Negative); Leukocyte Esterase,Urine Negative (Negative); Nitrite,Urine Negative (Negative); PH, Urine 5.5 (5.0-8.0); Protein,Urine Negative (Negative); Specific Gravity,Urine 1.014 (1.001-1.035); Urobilinogen,Urine <2.0 mg/dL (<2.0)
--- NOTE | 2019-03-17 15:54 | XR ---
EXAMINATION TYPE: XR chest 2V DATE OF EXAM: 03/17/2019 COMPARISON: Prior chest x-ray 05/23/2018 HISTORY: Preop TECHNIQUE: Frontal and lateral views of the chest are obtained. FINDINGS: Patient is rotated. There is no focal air space opacity, pleural effusion, or pneumothorax seen. The cardiac silhouette size is within normal limits. No step changes are noted in the right hu meral head. The osseous structures are intact. IMPRESSION: No acute cardiopulmonary process.
== END | disposition home or self-care (01) ==
LOC: LABWHC1 14:01
PROVIDERS: ATTEND Orthopaedic Surgery Orthopaedic Surgery of the Spine
DX: Z01.812 Encounter for preprocedural laboratory examination (principal); Z01.818 Encounter for other preprocedural examination; M48.061 Spinal stenosis, lumbar region without neurogenic claudication
CPT/HCPCS: 36415; 71046; 80048; 81003; 85025; 85610; 86850; 86900; 86901; 87070

== ENCOUNTER 2019-03-29 09:58 | Inpatient (IN) | payer MEDICARE, OTHER ==
[~2019-03-29 09:58] MED LIST changes: +BACITRACIN 50,000 UNIT, POLYMYXIN B 500,000 UNIT in SODIUM CHLORIDE 0.9% IRRIGATIO 1,00... IRRIGATION ONE; -IV FLUID CONTINUATION 1,000 ML IV ONE; +LIDOCAINE 1% 20 ML VIAL (10MG/ML) FOR IV START INTRADERMA PRN; +ONDANSETRON 4 MG/2 ML VIAL IVP ONE; -SODIUM CHLORIDE 0.9% 500 ML 500 ML IV SCH; -SODIUM CHLORIDE 0.9% 500 ML IV ONE; -fentaNYL (PF) 50 MCG/ML 2 ML AMP IV ONE; -fentaNYL (PF) 50 MCG/ML 2 ML AMP ONE
[2019-03-29] MEDS: LACTATED RINGERS 1,000 ML IV SCH (12:38)
[2019-03-29] MEDS ORDERED: SUCCINYLCHOLINE CHLORIDE 100 MG/5 ML SYR IV ONE (12:55)
[2019-03-29] MEDS ORDERED: KETAMINE 10 MG/ML 20 ML VIAL ONE (12:55)
[2019-03-29] MEDS ORDERED: fentaNYL (PF) 50 MCG/ML 2 ML AMP ONE (12:55)
[2019-03-29] MEDS ORDERED: PHENYLEPHRINE-0.9% NACL SYG 1 MG/10 ML SYRINGE ONE (12:55)
[2019-03-29] MEDS ORDERED: PROPOFOL 10 MG/ML 20 ML VIAL IV ONE (12:55)
[2019-03-29] MEDS ORDERED: LIDOCAINE 1% INJ 10MG/ML (20 ML MDV) ONE (12:55)
[2019-03-29] MEDS ORDERED: LACTATED RINGERS 1,000 ML BAG IV ONE (12:55)
[2019-03-29] MEDS ORDERED: ROCURONIUM BROMIDE 10 MG/ML 10 ML VIAL IV ONE (12:55)
[2019-03-29] MEDS ORDERED: HEPARIN SODIUM,PORCINE 10,000 UNIT/ML 1 ML VIAL ONE (12:55)
[2019-03-29] MEDS ORDERED: MIDAZOLAM 2 MG/2 ML VIAL ONE (12:55)
[2019-03-29] MEDS ORDERED: LIDOCAINE 0.5%-EPI 1:200,000 50 ML VIAL SQ ONE (13:40)
[2019-03-29] MEDS ORDERED: THROMBIN (BOVINE) 5,000 UNIT VIAL TOPICAL ONE (13:46)
[2019-03-29] MEDS ORDERED: GELATIN SPONGE,ABSORB (LARGE) 1 EACH SPONGE TOPICAL ONE (13:46)
[2019-03-29] MEDS ORDERED: LACTATED RINGERS 1,000 ML IV ONE ×2 (14:45→16:19)
[2019-03-29] MEDS ORDERED: HYDROmorphone 1 MG/ML 1 ML SYRINGE IVP PRN (16:52)
[2019-03-29] MEDS ORDERED: HYDROmorphone 0.5 MG/0.5 ML SYRINGE IVP PRN (16:52)
[2019-03-29] MEDS ORDERED: MAGNESIUM HYDROXIDE 2,400 MG/10 ML CUP PO PRN (16:52)
[2019-03-29] MEDS ORDERED: BENZOCAINE/MENTHOL LOZENG 1 EACH LOZENGE MUCOUS MEM PRN (16:52)
[2019-03-29] MEDS ORDERED: HYDROcodone/APAP 5-325MG 1 EACH TAB PO PRN (16:53)
[2019-03-29] MEDS ORDERED: ONDANSETRON 4 MG/2 ML VIAL IVP PRN (16:53)
[2019-03-29] MEDS ORDERED: MECLIZINE 25 MG TAB PO PRN (16:56)
[2019-03-29] MEDS ORDERED: CYCLOBENZAPRINE 10 MG TAB PO PRN (16:56)
--- NOTE | 2019-03-29 17:05 | P.OP ---
Date of Procedure: 03/29/19 Preoperative Diagnosis: Severe spinal stenosis L3 4 L4 5, neurogenic claudication with bilateral lower extremity radiculopathy, facet arthrosis, degenerative disc disease, disc herniation L3 4 L4 5, lower extremity weakness Postoperative Diagnosis: Same Anesthesia: GETA Pathology: none sent Condition: stable Disposition: PACU Description of Procedure: DESCRIPTION OF PROCEDURE(S): BRIEF OPERATIVE NOTE Preoperative Diagnosis: Severe spinal stenosis L3 4 L4 5, neurogenic claudication with bilateral lower extremity radiculopathy, facet arthrosis, degenerative disc disease, disc herniation L3 4 L4 5, lower extremity weakness Postoperative Diagnosis:Severe spinal stenosis L3 4 L4 5, neurogenic claudication with bilateral lower extremity radiculopathy, facet arthrosis, degenerative disc disease, disc herniation L3 4 L4 5, lower extremity weakness Procedure: Laminectomy and decompression L3 4 L4 5 with wide bilateral foraminotomy and right facetectomy Minimally invasive Posterior lateral decompression and facet fusion L3 4 L4 5 Minimally invasive Transforaminal lumbar interbody fusion for a 360 fusion L3 4 L4 5 Discectomy for decompression L3 4 L4 5 Placement of interbody graft L3 4 L4 5 Local autogenous bone grafting Harvesting of bone marrow aspirate we the pedicle of L3 and vertebral body on the right Use of Cell Saver Use of bone graft extenders Surgeon: Dr. Vazquez Account Services Coordinator: Nelson GALVAN who is present throughout the entire the case persistence during positioning, dissection, exposure, visualization, and all crucial elements of the case as well as closure. Anesthesia: General anesthesia per Dr. Sherman Estimated blood loss: Approximately 200 mL with 71 given back through Cell Saver Complications: None apparent Components implanted: K2M minimally invasive [place] pedicle screw system with cascade interbody cages, one large osteal amp sponge with 30 mL of DBX bone fibers to supplemental local autogenous and bone marrow aspirate graft Disposition: To recovery room in good stable condition. OPERATIVE INDICATIONS The patient has had long-standing issues in their lower back and lower extremities. He is having worsening of his symptoms despite aggressive conservative care. He is found have severe spinal stenosis L3 4 and L4 5 with disc herniation facet arthrosis and bilateral foraminal stenosis which clear well with his low back pain and lower extremity radiculopathy neurogenic claudication and weakness in his legs. He was having worsening despite conservative management. We felt that the decompression alone would cause significant instability at his lumbar spine and felt that he would require decompression and fusion in order to appropriately stabilized lumbar spine given the extensive nature that would have to be completed for the decompression to adequately decompress neurologic stenosis at L3 4 and L4 5. The patient has been through conservative treatment. Despite his conservative management he continue to have significant symptoms and was having worsening of his problems and decreasing ability to do activities. We discussed various treatment options including surgery, and the patient wishes to proceed with surgery We discussed the risk, patient's alternatives and benefits of surgery including but not limited to, risk of bleeding risk of infection, risk of need for further surgery, risk of decreased, loss of motion, muscle function, malunion nonunion, hardware failure, nerve damage, paralysis, heart attack, blindness and . OPERATIVE SUMMARY After discussing all the risks, patient alternatives and benefits at length, the patient elected to proceed with surgical intervention, signed informed consent, and presented for their procedure. The patient was seen and examined in the preoperative holding area and the surgical site was marked. The patient was given antibiotics and brought to the operating room. The patient was sedated and intubated by anesthesia in standard fashion. The patient was positioned on to the operating room table in a prone position on the appropriate frame which was well-padded and well molded. We were careful to pad any bony prominences and pressure points. We were careful to maintain the patient's cervical spine and good neutral alignment and position throughout. The patient was prepped and draped in a normal standard fashion. An appropriate timeout and keystone protocol performed. We were able to proceed with the surgery. The local wound area was infiltrated with local anesthetic. I was able utilize C-arm guidance to establish appropriate position over the pedicles bilaterally at the appropriate levels at L3 4 and 5. With the appropriate levels confirmed was able to make small stab incisions over the appropriate pedicle sites bilaterally. Utilizing C-arm in his house able to establish a Jamshidi needle over the lateral aspect of the pedicle and advanced the trocar into the pedicle being careful not to breech superiorly inferiorly medially or laterally. Position was confirmed regularly with AP and lateral images on C-arm. I was able to establish the trocar into the pedicle appropriately into the posterior aspect of the vertebral body bilaterally at the appropriate levels at L3 4 and 5. This was done at each of the pedicle positions and each of the vertebrae. At L3 on the right I withdrew approximately 20 mL of bone marrow aspirate to be used to supplemental local autogenous bone graft. I was able place the guidewire into the trocar and into the vertebral body appropriately under C-arm guidance. Dissection was taken down over the wire to the appropriate starting position for the screw placed. The appropriate length screw was chosen, threaded over the guidewire and screwed appropriately into the pedicle and vertebral body under C-arm guidance in excellent alignment and position with good bony purchase. This is done at each of the screw sites at the appropriate levels at L3 4 and 5. With the screws intact I extended the incision to connect the screw hole sites on the most symptomatic side on the right. I dissected down to establish access over the pars and lamina to the base of the spinous process. I was able to expose the facet joint. The capsule the facet was taken down and showed some facet arthrosis at the joint. I was able to use a combination of curettes and [place] rongeurs and a high-speed drill to take down the facet joint and do a facetectomy. Partial laminectomy was also performed. Note was made of severe central and bilateral foraminal stenosis. We had to take down significant bone as well as the complete facet joint on the right noted a chief adequate decompression as well as a discectomy. This caused further instability at L3 4 and L4 5 necessitating fusion and stabilization at L3 4 and L4 5. I was able get excellent foraminal decompression and central decompression with undermining across midline to perform a laminectomy centrally and contralaterally. As able get good central decompression. The ligamentum flavum was taken down to further decompress centrally and at bilateral neural foramen. I was able to expose the disc space and visualize the traversing nerve root. Note was made of some disc protrusion at the level causing further compression of the nerve root. I was able to establish a annulotomy at the appropriate level protecting soft tissue and neural structures. Note was made of some disc desiccation at the disc. I performed a complete discectomy with accommodation of curettes and rasps and scrapers. I was able get good endplate preparation at the disc space. I sized for the appropriate size interbody spacer protecting the soft tissue and neural structures. The wound was copiously irrigated and suctioned dry. There is no evidence of any dural tear or leak. I was able to pack the disc space with local autogenous bone graft as well as a small amount of bone graft which was also placed into the interbody cage itself. Protecting the soft tissue structures and neural structures I was able place the interbody cage in good alignment and good position with good fit and fill at the interbody space. His issues was confirmed with C-arm guidance. Good hemostasis maintained. There is no evidence of any dural tear or leak. The wound was irrigated and suctioned dry. This was done first at L4 5 and L3 4. With the hardware intact, intraoperative C-arm imaging was again taken which showed good alignment and position of the hardware at the appropriate levels of L3 4 and 5. We were then able to measure, contour and place the rods and appropriate hardware bilaterally. I was able to place capcrews, tighten them down, and torque them with the torque screwdriver appropriately. With this intact I was able to place the local autogenous bone graft with additional bone graft enhancer as necessary into the posterior lateral gutters over the decorticated transverse processes. The remainder of the bone graft was placed over the facet joint on the contralateral side after taking down the facet joint capsule. With the bone graft intact, a stable construct, and good decompression at the appropriate levels, we were able to proceed with closure. Good hemostasis was maintained. There is no evidence of dural tear or leak. The fascia was closed for a watertight closure. he subcuticular tissue was closed with absorbable suture. The wound was cleaned and dried and dressed with the appropriate dressing. The drapes were broken down. The patient was gently rolled back onto their hospital bed being careful to maintain their cervical spine and good neutral alignment and position. They were woken up by anesthesia, extubated, and brought to the recovery room in good stable condition. The patient will be admitted to the hospital for appropriate postoperative care, medical management and monitoring. We will continue to follow them closely about the postoperative course.
[2019-03-29] MEDS: fentaNYL (PF) 50 MCG/ML 2 ML AMP IV PRN ×2 (17:11→17:15)
[2019-03-29] MEDS ORDERED: diphenhydrAMINE 50 MG/ML 1 ML VIAL IVP ONE (17:32)
[2019-03-29] MEDS: HYDROcodone/APAP 5-325MG 1 EACH TAB PO PRN ×2 (18:05→22:26)
[2019-03-29 18:22] VITALS: BMI 33.9
[2019-03-29] MEDS: MORPHINE SULFATE 4 MG/ML SYRINGE IVP PRN ×2 (18:42→23:27)
[2019-03-29] MEDS: SODIUM CHLORIDE 0.9% 1,000 ML IV SCH (19:17)
[2019-03-29] MEDS: ATORVASTATIN 20 MG TAB PO SCH (20:51)
[2019-03-29] MEDS: LATANOPROST 0.005% OPHTH DROPS 2.5 ML BTL RIGHT EYE SCH (20:51)
[2019-03-29] MEDS: BRIMONIDINE TARTRATE 0.2% DROPS 5 ML BTL RIGHT EYE SCH (20:51)
[2019-03-29] MEDS: TIMOLOL 0.5% OPHTH DROPS 5 ML BTL RIGHT EYE SCH (20:53)
[2019-03-29] MEDS ORDERED: LATANOPROST RIGHT EYE SCH (21:00)
[2019-03-29] MEDS ORDERED: [UNRECOGNIZED DRUG - OTHER] RIGHT EYE SCH (21:00)
[2019-03-29] MEDS ORDERED: TIMOLOL MALEATE RIGHT EYE SCH (21:00)
[2019-03-29] MEDS: DORZOLAMIDE HCL 2% DROPS 10 ML BTL RIGHT EYE SCH (22:27)
[2019-03-30] MEDS: HYDROcodone/APAP 5-325MG 1 EACH TAB PO PRN ×3 (03:05→11:05)
[2019-03-30] MEDS: MORPHINE SULFATE 4 MG/ML SYRINGE IVP PRN ×5 (05:15→20:50)
[2019-03-30] MEDS: SODIUM CHLORIDE 0.9% 1,000 ML IV SCH ×2 (07:05→21:24)
[2019-03-30] MEDS: LACTATED RINGERS 1,000 ML IV SCH (07:05)
[2019-03-30] MEDS: DORZOLAMIDE HCL 2% DROPS 10 ML BTL RIGHT EYE SCH ×3 (07:06→22:06)
[2019-03-30] MEDS: LISINOPRIL 10 MG TAB PO SCH (07:08)
[2019-03-30] MEDS: SENNOSIDES-DOCUSATE SODIUM 1 EACH TAB PO SCH (07:08)
[2019-03-30] MEDS: PANTOPRAZOLE 40 MG TABLET PO SCH (07:09)
[2019-03-30] MEDS: CHOLECALCIFEROL 1,000 UNIT TAB PO SCH (07:09)
[2019-03-30] MEDS: LATANOPROST 0.005% OPHTH DROPS 2.5 ML BTL RIGHT EYE SCH (07:10)
[2019-03-30] MEDS: BRIMONIDINE TARTRATE 0.2% DROPS 5 ML BTL RIGHT EYE SCH ×2 (07:12→22:05)
[2019-03-30] MEDS: TIMOLOL 0.5% OPHTH DROPS 5 ML BTL RIGHT EYE SCH ×2 (07:16→22:06)
[2019-03-30 07:46] LABS: Calcium 9.2 mg/dL (8.4-10.2); Potassium 4.9 mmol/L (3.5-5.1)
[2019-03-30 07:55] LABS: Basophils % (A) 0 %; Eosinophils % (A) 0 %; HCT 42.6 % (39.0-53.0); HGB 14.4 gm/dL (13.0-17.5); Lymphocytes # (A) 0.7 k/uL (1.0-4.8); Lymphocytes % (A) 5 %; MCH 32.1 pg (25.0-35.0); MCHC 33.8 g/dL (31.0-37.0); MCV 94.8 fL (80.0-100.0); Mean Platelet Volume 7.2; Monocytes # (A) 1.2 k/uL (0-1.0); Monocytes % (A) 8 %; Neutrophils # (A) 12.5 k/uL (1.3-7.7); Neutrophils % (A) 85 %; Platelet Count 293 k/uL (150-450); RBC 4.49 m/uL (4.30-5.90); RDW 13.6 % (11.5-15.5); WBC 14.6 k/uL (3.8-10.6)
--- NOTE | 2019-03-30 08:18 | XR ---
Limited lumbar spine HISTORY: Degenerative disc disease, minimally invasive lumbar fusion 5 intraoperative C-arm images document the procedure.
--- NOTE | 2019-03-30 11:01 | FL ---
Fluoroscopy HISTORY: Lumbar fusion 1minute 22 seconds fluoroscopy time supplied to the referring clinician. 5 intraoperative C-arm imag es document the procedure. See dictated report from orthopedic surgery.
--- NOTE | 2019-03-30 12:28 | P.PN ---
Progress Note - Text Progress Note Date: 03/30/19 Orthopedic Spine Patient is a pleasant 53-year-old male who is seen and examined at the bedside following posterior lateral decompression and fusion performed yesterday. Patient states they are doing ok postsurgically but continues to have significant pain. His pain is most significant over the surgical sites. He also experienced some pain rating down the right lateral thigh. His medication was changed over the evening and he has been receiving 4 mg of morphine every 4 hours along with [place] 5 mg/325 mg 2 tabs every 4 hours. He does not feel he is getting adequate control of symptoms with this regimen. Currently does not complain of nausea, vomiting, fever, or chills. Patient is eating without difficulty. His Hardy catheter was discontinued today. He is using his incentive spirometer. This morning nursing states he denied working with physical therapy. Physical Exam Lumbar Fusion: Status post surgical day number 1 Patient is awake, alert, and oriented 3 Vital signs stable Good chest excursion with deep inspiration and expiration Abdomen soft nontender Dorsiflexion, plantarflexion, and extensor hallucis longus positive sustained bilaterally Patient has significant difficulty with mobility in his lumbar spine No signs or symptoms of DVT; no calf pain; pneumatic cuffs intact bilateral lower extremities Dressing is intact with some evidence of dried blood; no erythema, purulence, or signs of infection Neurovascularly intact bilaterally lower extremities Assessment: L3-4 and L4-5 minimally invasive posterior lateral decompression and fusion with transforaminal lumbar interbody fusion Intractable low back pain Right lower extremity radiculopathy Lumbar degenerative disc disease Lumbar facet arthrosis Lumbar muscle spasm Lower extremity weakness History of hypertension and hyperlipidemia Plan: 1. Ambulate as tolerated; work with Physical Therapy to increase mobilization 2. Continue pain control with IV and oral medications; we will continue with morphine 4 mg IVP every 4 hours as needed for pain; we will plan to discontinue [place] 5 mg/325 mg 1-2 tabs every 4 hours as needed for pain and will plan to increase to [place] 10 mg/325 mg 1-2 tabs every 4 hours as needed for pain; we will also plan to increase Flexeril 10 mg to TID as needed for muscle spasm 3. Dressing will remain intact and will be changed to Telfa and Tegaderm prior to patient's transferring back to bed from a bedside chair 4. Medical management can continue to manage patient for patient's other medical issues 5. We will continue to follow the patient closely 6. Patient can follow-up with Nelson Burks PA-C or Dr. Anthony Vazquez at [facility] in 2-3 weeks following discharge
[2019-03-30] MEDS: CYCLOBENZAPRINE 10 MG TAB PO PRN ×2 (13:17→21:18)
--- NOTE | 2019-03-30 13:23 | P.CONS ---
History of Present Illness - Reason for Consult leukocytosis - History of Present Illness patient is a 53-year-old gentleman was admitted for elective laminectomy L3 L4 L5 with bilateral foraminotomy and try to facetectomy. Patient is clinically doing well is still completing of pain although patient appears to be comfortable. Patient does have history of hypertension patient denied any fever chills dysuria patient still has a Hardy catheter in place. Review of Systems REVIEW OF SYSTEMS: CONSTITUTIONAL: No fever, no malaise, no fatigue. HEENT: No recent visual problems or hearing problems. Denied any sore throat. CARDIOVASCULAR: No chest pain, orthopnea, PND, no palpitations, no syncope. PULMONARY: No shortness of breath, no cough, no hemoptysis. GASTROINTESTINAL: No diarrhea, no nausea, no vomiting, no abdominal pain. NEUROLOGICAL: No headaches, no weakness, no numbness. HEMATOLOGICAL: Denies any bleeding or petechiae. GENITOURINARY: Denies any burning micturition, frequency, or urgency. MUSCULOSKELETAL/RHEUMATOLOGICAL: back pain as mentioned above ENDOCRINE: Denies any polyuria or polydipsia. The rest of the 14-point review of systems is negative. Past Medical History Past Medical History: CVA/TIA, Eye Disorder, GERD/Reflux, Hearing Disorder / Deafness, Hyperlipidemia, Hypertension, Osteoarthritis (OA) Additional Past Medical History / Comment(s): glaucoma-zahra, back pain currently with numbness in lower back and down both legs, hx migraines, TIA 2015-no effects, varicose veins, arthritis "all over", History of Any Multi-Drug Resistant Organisms: None Reported Past Surgical History: Back Surgery, Heart Catheterization, Joint Replacement, Orthopedic Surgery Additional Past Surgical History / Comment(s): rt knee replacement, lower back surgery for herniated disk, zahra shoulder [id number] AND 1 LEFT, surgery on rt middle finger, hx tracheosctomy(for encephalitis), PAIN PROCEDURES, Past Anesthesia/Blood Transfusion Reactions: Family History of Problems w/ Anesthesia Additional Past Anesthesia/Blood Transfusion Reaction / Comm: brother took very long time to wake up Past Psychological History: No Psychological Hx Reported Smoking Status: Former smoker Past Alcohol Use History: None Reported Additional Past Alcohol Use History / Comment(s): quit smoking 1 1/2yrs ago, smoked since age 12, smoked > 1 PPD Past Drug Use History: None Reported - Past Family History Mother Family Medical History: Cancer Additional Family Medical History / Comment(s): of lung CA Father Family Medical History: Cancer Additional Family Medical History / Comment(s): irregular heart beat. Medications and Allergies Home Medications Medication Instructions Recorded Confirmed Type Lisinopril 10 mg PO DAILY 03/04/16 03/29/19 History Cyclobenzaprine [Flexeril] 10 mg PO HS PRN 04/16/18 03/29/19 History Loratadine [Claritin] 10 mg PO DAILY 04/16/18 03/29/19 History Meclizine [Antivert] 25 mg PO DAILY PRN 04/16/18 03/29/19 History Omeprazole 20 mg PO DAILY 04/16/18 03/29/19 History Brimonidine Tartrate [Alphagan P 1 drops RIGHT EYE BID 05/06/18 03/29/19 History 0.2% Ophth Soln] Latanoprost Ophth [Xalatan 0.005%] 1 drops RIGHT EYE HS 05/06/18 03/29/19 History Atorvastatin [Lipitor] 20 mg PO HS 06/02/18 03/29/19 History Timolol Maleate/Latanoprost/Pf 1 drop RIGHT EYE BID 06/30/18 03/29/19 History [Timolol 0.5%-Latanopros 0.005%] Brinzolamide [Azopt 1% Ophth Susp] 1 drop RIGHT EYE TID 03/19/19 03/29/19 His tory Cholecalciferol (Vitamin D3) 2,000 unit PO DAILY 03/19/19 03/29/19 History [Vitamin D3] Ibuprofen [Motrin] 800 mg PO Q6H PRN 03/29/19 03/29/19 History Allergies Allergy/AdvReac Type Severity Reaction Status Date / Time gadobenate dimeglumine Allergy Swelling Verified 03/29/19 18:06 [From Multihance] hydromorphone HCl AdvReac Severe Rapid Verified 03/29/19 18:06 [From Dilaudid] Heart Rate diclofenac potassium AdvReac Nausea & Verified 03/29/19 18:06 [From Cataflam] Vomiting MRI CONTRAST Allergy Swelling Uncoded 03/29/19 12:27 OF FACE Physical Exam Vitals: Vital Signs Temp Pulse Resp BP Pulse Ox 03/30/19 07:15 99 03/30/19 07:00 98.7 F 99 14 127/70 100 03/30/19 04:00 108 H 03/30/19 01:40 98.4 F 108 H 16 127/81 99 03/30/19 00:00 22 03/29/19 21:07 96 03/29/19 18:30 109 H 134/72 98 03/29/19 18:15 103 H 133/80 100 03/29/19 18:00 97.8 F 104 H 22 133/80 99 03/29/19 17:30 108 H 14 155/78 100 03/29/19 17:21 104 H 16 146/72 100 03/29/19 17:15 105 H 14 172/85 97 03/29/19 17:00 111 H 16 147/83 98 03/29/19 16:55 97.2 F L 109 H 16 133/60 96 Intake and Output 03/29/19 03/30/19 03/30/19 22:59 06:59 14:59 Intake Total 470 110 Output Total 1100 Balance 470 -990 Intake: IV 300 Intake, IV Titration 50 50 Amount ceFAZolin 2 gm In Sodium 50 50 Chloride 0.9% 50 ml @ 100 mls/hr IVPB Q8H [facility] Rx#: [id number] Oral 120 60 Output: Urine 1100 Other: Voiding Method Indwelling Catheter Indwelling Catheter Indwelling Catheter PHYSICAL EXAMINATION: GENERAL: The patient is alert and oriented x3, not in any acute distress. Well developed, well nourished. HEENT: Pupils are round and equally reacting to light. EOMI. No scleral icterus. No conjunctival pallor. Normocephalic, atraumatic. No pharyngeal erythema. No thyromegaly. CARDIOVASCULAR: S1 and S2 present. No murmurs, rubs, or gallops. PULMONARY: Chest is clear to auscultation, no wheezing or crackles. ABDOMEN: Soft, nontender, nondistended, normoactive bowel sounds. No palpable or ganomegaly. MUSCULOSKELETAL: No joint swelling or deformity. EXTREMITIES: No cyanosis, clubbing, or pedal edema. NEUROLOGICAL: Gross neurological examination did not reveal any focal deficits. SKIN: No rashes. Results CBC & Chem 7: 03/30/19 06:59 03/30/19 06:59 Labs: Abnormal Lab Results - Last 24 Hours (Table) 03/30/19 03/30/19 Range/Units 06:59 06:59 WBC 14.6 H (3.8-10.6) k/uL Neutrophils # 12.5 H (1.3-7.7) k/uL Lymphocytes # 0.7 L (1.0-4.8) k/uL Monocytes # 1.2 H (0-1.0) k/uL Glucose 179 H (74-99) mg/dL Assessment and Plan Plan: -leukocytosis: Reactive secondary to surgery -Chronic low back pain status post laminectomy lateral decompression. -Hypertension patient blood pressure is fairly stable and he was started back on his medications which his lisinopril which will be continued -gastroesophageal reflux disease -Hyperlipidemia -DVT prophylaxis as per primary service will
[2019-03-30] MEDS: HYDROcodone/APAP 10-325MG 1 EACH TAB PO PRN ×2 (15:07→19:24)
[2019-03-30] MEDS: ATORVASTATIN 20 MG TAB PO SCH (20:50)
[2019-03-31] MEDS: HYDROcodone/APAP 10-325MG 1 EACH TAB PO PRN ×5 (00:18→19:56)
[2019-03-31] MEDS: MORPHINE SULFATE 4 MG/ML SYRINGE IVP PRN ×2 (02:14→07:31)
[2019-03-31] MEDS: LACTATED RINGERS 1,000 ML IV SCH (07:29)
[2019-03-31] MEDS: CHOLECALCIFEROL 1,000 UNIT TAB PO SCH (07:31)
[2019-03-31] MEDS: PANTOPRAZOLE 40 MG TABLET PO SCH (07:31)
[2019-03-31] MEDS: LISINOPRIL 10 MG TAB PO SCH (07:31)
[2019-03-31] MEDS: DORZOLAMIDE HCL 2% DROPS 10 ML BTL RIGHT EYE SCH ×3 (07:32→21:35)
[2019-03-31] MEDS: SENNOSIDES-DOCUSATE SODIUM 1 EACH TAB PO SCH (07:32)
[2019-03-31] MEDS: CYCLOBENZAPRINE 10 MG TAB PO PRN (07:32)
[2019-03-31] MEDS: TIMOLOL 0.5% OPHTH DROPS 5 ML BTL RIGHT EYE SCH ×2 (07:32→19:57)
[2019-03-31] MEDS: BRIMONIDINE TARTRATE 0.2% DROPS 5 ML BTL RIGHT EYE SCH ×2 (07:33→19:58)
[2019-03-31] MEDS: SODIUM CHLORIDE 0.9% 1,000 ML IV SCH ×2 (07:37→23:29)
[2019-03-31] MEDS: MORPHINE SULFATE 2 MG/ML SYRINGE IVP PRN ×3 (12:44→21:50)
--- NOTE | 2019-03-31 13:54 | P.PN ---
Subjective Patient comparing of pain still did not move his bowels did not pass gas is urinating without a Hardy catheter. Patient is excessively drowsy when I evaluated the patient. Constitutional: Denied any fatigue denied any fever. Cardio vascular: denied any chest pain, palpitations Gastrointestinal denied any nausea vomiting Pulmonary: Denied any shortness of breath cough Neurologic denied any new focal deficits All inpatient medications were reviewed and appropriate changes in these medications as dictated in the interval history and assessment and plan. Objective - Vital Signs Vital signs: Vital Signs Temp 99.2 F 03/31/19 06:45 Pulse 107 H 03/31/19 06:45 Resp 16 03/31/19 06:45 BP 126/73 03/31/19 06:45 Pulse Ox 97 03/31/19 06:45 Intake & Output 03/30/19 03/31/19 03/31/19 18:59 06:59 18:59 Intake Total 150 1940 Output Total 100 100 Balance -105 46 9776 Intake: Intake, IV Titration 150 1000 Amount Sodium Chloride 0.9% 1, 150 1000 000 ml @ 75 mls/hr IV . [id number] [facility] Rx#:[id number] Oral 940 Output: Urine 100 100 Other: Voiding Method Indwelling Catheter Urinal Urinal # Voids 2 - Exam PHYSICAL EXAMINATION: GENERAL: The patient is alert and oriented x3, not in any acute distress. Well developed, well nourished. HEENT: Pupils are round and equally reacting to light. EOMI. No scleral icterus. No conjunctival pallor. Normocephalic, atraumatic. No pharyngeal erythema. No thyromegaly. CARDIOVASCULAR: S1 and S2 present. No murmurs, rubs, or gallops. PULMONARY: Chest is clear to auscultation, no wheezing or crackles. ABDOMEN: Soft, nontender, nondistended, normoactive bowel sounds. No palpable organomegaly. MUSCULOSKELETAL: No joint swelling or deformity. EXTREMITIES: No cyanosis, clubbing, or pedal edema. NEUROLOGICAL: Gross neurological examination did not reveal any focal deficits. SKIN: No rashes. - Labs CBC & Chem 7: 03/30/19 06:59 03/30/19 06:59 Assessment and Plan Plan: -leukocytosis: Reactive secondary to surgery, no further intervention from medical perspective -Chronic low back pain status post laminectomy lateral decompression. -Hypertension patient blood pressure is fairly stable and he was started back on his medications which his lisinopril which will be continued -gastroesophageal reflux disease -Hyperlipidemia -DVT prophylaxis as per primary service will
--- NOTE | 2019-03-31 15:51 | P.PN ---
Progress Note - Text Progress Note Date: 03/31/19 Orthopedic Spine: Patient is a pleasant 53-year-old male who is seen and examined at the bedside following posterior lateral decompression and fusion performed Friday. Patient states they are doing ok postsurgically but continues to have significant pain. His pain has had some improvement as compared to yesterday after increasing his oral medications. His pain is most significant over the surgical sites. He also experienced some pain rating down the right lateral thigh which has had some improvement since yesterday. Currently does not complain of nausea, vomiting, fever, or chills. Patient is eating without difficulty. His Hardy catheter was discontinued. He is voiding without difficulty. He is using his incentive spirometer. He has been able to ambulate to the doorway today with physical therapy. Physical Exam Lumbar Fusion: Status post surgical day number 2 Patient is awake, alert, and oriented 3 Vital signs stable Good chest excursion with deep inspiration and expiration Abdomen soft nontender Dorsiflexion, plantarflexion, and extensor hallucis longus positive sustained bilaterally Patient has significant difficulty with mobility in his lumbar spine No signs or symptoms of DVT; no calf pain; pneumatic cuffs intact bilateral lower extremities Dressing is intact with some evidence of dried blood; no erythema, purulence, or signs of infection No active drainage from the surgical sites Neurovascularly intact bilaterally lower extremities Assessment: L3-4 and L4-5 minimally invasive posterior lateral decompression and fusion with transforaminal lumbar interbody fusion Intractable low back pain Right lower extremity radiculopathy Lumbar degenerative disc disease Lumbar facet arthrosis Lumbar muscle spasm Lower extremity weakness History of hypertension and hyperlipidemia Plan: 1. Ambulate as tolerated; work with Physical Therapy to increase mobilization 2. Continue pain control with IV and oral medications; we will continue with morphine 4 mg IVP every 4 hours as needed for pain and oral [place] 10 mg/325 mg 1-2 tabs every 4 hours as needed for pain; we will also plan to continue with Flexeril 10 mg to TID as needed for muscle spasm; we will plan to begin weaning off IV narcotic medications in anticipation discharge 3. Dressing will remain intact and will be changed to Telfa and Tegaderm prior to patient's transferring back to bed from a bedside chair 4. Medical management can continue to manage patient for patient's other medical issues 5. We will continue to follow the patient closely 6. Patient can follow-up with Nelson Burks PA-C or Dr. Anthony Vazquez at [facility] in 2-3 weeks following discharge
[2019-03-31] MEDS: ATORVASTATIN 20 MG TAB PO SCH (19:57)
[2019-03-31] MEDS: LATANOPROST 0.005% OPHTH DROPS 2.5 ML BTL RIGHT EYE SCH (19:57)
[2019-04-01] MEDS: HYDROcodone/APAP 10-325MG 1 EACH TAB PO PRN ×5 (00:59→20:47)
[2019-04-01] MEDS: CYCLOBENZAPRINE 10 MG TAB PO PRN ×3 (01:44→16:46)
[2019-04-01] MEDS: MORPHINE SULFATE 2 MG/ML SYRINGE IVP PRN ×3 (03:07→23:26)
[2019-04-01] MEDS: LACTATED RINGERS 1,000 ML IV SCH (05:19)
[2019-04-01] MEDS: CHOLECALCIFEROL 1,000 UNIT TAB PO SCH (07:33)
[2019-04-01] MEDS: PANTOPRAZOLE 40 MG TABLET PO SCH (07:34)
[2019-04-01] MEDS: TIMOLOL 0.5% OPHTH DROPS 5 ML BTL RIGHT EYE SCH ×2 (07:34→20:49)
[2019-04-01] MEDS: LISINOPRIL 10 MG TAB PO SCH (07:34)
[2019-04-01] MEDS: SENNOSIDES-DOCUSATE SODIUM 1 EACH TAB PO SCH (07:34)
[2019-04-01] MEDS: BRIMONIDINE TARTRATE 0.2% DROPS 5 ML BTL RIGHT EYE SCH ×2 (07:34→20:48)
[2019-04-01] MEDS: DORZOLAMIDE HCL 2% DROPS 10 ML BTL RIGHT EYE SCH ×3 (07:34→20:48)
[2019-04-01] MEDS: SODIUM CHLORIDE 0.9% 1,000 ML IV SCH (07:36)
--- NOTE | 2019-04-01 10:13 | P.PN ---
Progress Note - Text Progress Note Date: 04/01/19 Postoperative day #3 Patient is seen and examined today at bedside. The patient has some pain around the surgical site as expected. Pain is being controlled with medication. He was up into the holes for short distances with a walker and with physical therapy. His pain is somewhat better controlled today still complaining of significant symptoms. He has some symptoms in his right thigh which seem to be improving slowly. She denies any shortness breath or chest pain. Physical Exam Afebrile with stable vital signs Abdomen is soft nontender. Chest has good excursion deep and space expiration The incision site is clean dry and intact. No erythema there is no purulence. There is no active drainage. Extremities have not had neurologic change from prior to surgery. He has sustained dorsal flexion plantar flexion and EHL intact. Calves and thighs were soft nontender without evidence of DVT. Assessment/Plan Postoperative day #3 status post minimally invasive decompression and fusion L3 4 L4 5 for his spinal stenosis with disc herniation and lower extremity radiculopathy Patient is progressing somewhat slowly from the surgery in terms of his overall pain. He has been able to mobilize better and is actually doing well in terms of his mobility overall. We will continue to increase the patient's mobilization with therapy. We will continue pain control with oral or IV medications. Hopefully he will continues to make steady improvement and be ready for discharge home tomorrow or Friday. We'll continue to follow patient closely.
--- NOTE | 2019-04-01 13:02 | P.PN ---
Subjective Patient comparing of pain still did not move his bowels did not pass gas is urinating without a Hardy catheter. Patient is excessively drowsy when I evaluated the patient. 04/01/2019 Patient did not move his bowel yet but did pass gas pain is better controlled now. Constitutional: Denied any fatigue denied any fever. Cardio vascular: denied any chest pain, palpitations Gastrointestinal denied any nausea vomiting Pulmonary: Denied any shortness of breath cough Neurologic denied any new focal deficits All inpatient medications were reviewed and appropriate changes in these medications as dictated in the interval history and assessment and plan. Objective - Vital Signs Vital signs: Vital Signs Temp 97.8 F 04/01/19 08:44 Pulse 98 04/01/19 08:44 Resp 15 04/01/19 08:44 BP 138/78 04/01/19 08:44 Pulse Ox 98 04/01/19 08:44 Intake & Output 03/31/19 04/01/19 04/01/19 18:59 06:59 18:59 Intake Total 2190 Output Total 150 250 Balance 2040 -250 Intake: Intake, IV Titration 1000 Amount Sodium Chloride 0.9% 1, 1000 000 ml @ 75 mls/hr IV . [id number] [facility] Rx#:[id number] Oral 1190 Output: Urine 150 250 Other: Voiding Method Urinal Toilet Toilet Urinal Urinal # Voids 1 - Exam PHYSICAL EXAMINATION: GENERAL: The patient is alert and oriented x3, not in any acute distress. Well developed, well nourished. HEENT: Pupils are round and equally reacting to light. EOMI. No scleral icterus. No conjunctival pallor. Normocephalic, atraumatic. No pharyngeal erythema. No thyromegaly. CARDIOVASCULAR: S1 and S2 present. No murmurs, rubs, or gallops. PULMONARY: Chest is clear to auscultation, no wheezing or crackles. ABDOMEN: Soft, nontender, nondistended, normoactive bowel sounds. No palpable organomegaly. MUSCULOSKELETAL: No joint swelling or deformity. EXTREMITIES: No cyanosis, clubbing, or pedal edema. NEUROLOGICAL: Gross neurological examination did not reveal any focal deficits. SKIN: No rashes. - Labs CBC & Chem 7: 03/30/19 06:59 03/30/19 06:59 Assessment and Plan Plan: -leukocytosis: Reactive secondary to surgery, no further intervention from medical perspective -Chronic low back pain status post laminectomy lateral decompression. -Hypertension patient blood pressure is fairly stable and he was started back on his medications which his lisinopril which will be continued -gastroesophageal reflux disease -Hyperlipidemia -DVT prophylaxis as per primary service will
[2019-04-01] MEDS: ATORVASTATIN 20 MG TAB PO SCH (20:47)
[2019-04-01] MEDS: LATANOPROST 0.005% OPHTH DROPS 2.5 ML BTL RIGHT EYE SCH (20:48)
[2019-04-02] MEDS: HYDROcodone/APAP 10-325MG 1 EACH TAB PO PRN ×5 (01:47→22:34)
[2019-04-02] MEDS: SODIUM CHLORIDE 0.9% 1,000 ML IV SCH ×2 (01:55→11:09)
[2019-04-02] MEDS: LACTATED RINGERS 1,000 ML IV SCH (05:11)
[2019-04-02] MEDS: CYCLOBENZAPRINE 10 MG TAB PO PRN (05:30)
[2019-04-02] MEDS: SENNOSIDES-DOCUSATE SODIUM 1 EACH TAB PO SCH (07:46)
[2019-04-02] MEDS: LISINOPRIL 10 MG TAB PO SCH (07:46)
[2019-04-02] MEDS: CHOLECALCIFEROL 1,000 UNIT TAB PO SCH (07:46)
[2019-04-02] MEDS: PANTOPRAZOLE 40 MG TABLET PO SCH (07:46)
[2019-04-02] MEDS: TIMOLOL 0.5% OPHTH DROPS 5 ML BTL RIGHT EYE SCH ×2 (07:48→20:17)
[2019-04-02] MEDS: BRIMONIDINE TARTRATE 0.2% DROPS 5 ML BTL RIGHT EYE SCH ×2 (07:48→20:17)
[2019-04-02] MEDS: DORZOLAMIDE HCL 2% DROPS 10 ML BTL RIGHT EYE SCH ×3 (07:48→20:16)
--- NOTE | 2019-04-02 09:09 | P.PN ---
Progress Note - Text Progress Note Date: 04/02/19 Orthopedic Spine: Patient is a pleasant 53-year-old male who is seen and examined at the bedside following posterior lateral decompression and fusion performed Friday. Patient states they are doing ok postsurgically but continues to have significant pain. His pain has had some improvement as compared to yesterday after increasing his oral medications. His pain is most significant over the surgical sites. He also experienced some pain rating down the right lateral thigh which has had some improvement since yesterday. Currently does not complain of nausea, vomiting, fever, or chills. Patient is eating without difficulty. His Hardy catheter was discontinued. He is voiding without difficulty. He is using his incentive spirometer. He has been able to ambulate to the doorway today with physical therapy. Physical Exam Lumbar Fusion: Status post surgical day number 4 Patient is awake, alert, and oriented 3 Vital signs stable Good chest excursion with deep inspiration and expiration Abdomen soft nontender Dorsiflexion, plantarflexion, and extensor hallucis longus positive sustained bilaterally Patient has some difficulty with mobility in his lumbar spine No signs or symptoms of DVT; no calf pain; pneumatic cuffs intact bilateral lower extremities Dressing is intact with minimal area of dried blood; no erythema, purulence, or signs of infection Evidence of bruising along the surgical sites No significant pain on palpation over the surgical site No active drainage from the surgical sites Neurovascularly intact bilaterally lower extremities Assessment: L3-4 and L4-5 minimally invasive posterior lateral decompression and fusion with transforaminal lumbar interbody fusion Intractable low back pain Right lower extremity radiculopathy Lumbar degenerative disc disease Lumbar facet arthrosis Lumbar muscle spasm Lower extremity weakness History of hypertension and hyperlipidemia Plan: 1. Ambulate as tolerated; work with Physical Therapy to increase mobilization 2. Continue pain control with IV and oral medications; we have been working to discontinue morphine IVP in anticipation for discharge most likely tomorrow, 04/03/2019. We'll continue with oral [place] 10 mg/325 mg 1-2 tabs every 4 hours as needed for pain; we will also plan to continue with Flexeril 10 mg to TID as needed for muscle spasm MAPS has been reviewed today, 04/02/2019, with an Overall Overdose Risk Score of 140 and narcotic risk score of 120. An "Opiod Start Talking" Form has been signed by the patient and myself in place in the patient's chart. A prescription has been written for [place] 10 mg/325 mg take 1-2 tabs every 6 hours as needed for pain, dispensed #42. Patient is also given a prescription for Flexeril 10 mg 1 tab every 8 hours as needed for muscle spasm, dispensed #45. Patient has been taking [place] 10 mg #25 mg and Flexeril 10 mg during his admission to the hospital without difficulty. Patient should avoid anti-inflammatory medications over the next 6 weeks postoperatively 3. Dressing will remain intact and will be changed to Telfa and Tegaderm prior to patient's transferring back to bed from a bedside chair 4. Medical management can continue to manage patient for patient's other medical issues 5. We will continue to follow the patient closely; we will currently planned for patient be discharged to a rehabilitation facility as early as tomorrow, 04/03/2019; Patient will be seen by case management to help facilitate transfer to rehab 6. Patient can follow-up with Nelson Burks PA-C or Dr. Anthony Vazquez at [facility] in 2-3 weeks following discharge
--- NOTE | 2019-04-02 17:20 | PN ---
PROGRESS NOTE DATE OF SERVICE: 04/02/2019 This 53-year-old gentleman who was admitted after laminectomy and lateral decompression is being closely monitored. The patient has severe pain. The patient has some leukocytosis, but otherwise there is no history of any fever, rigor or chills at this time. Past medical history reviewed. PHYSICAL EXAMINATION: The patient is alert, oriented x3. Pulse is 107. Blood pressure 146/76, respirations 16, temperature 98.1, pulse ox 94% on room air. HEENT: Conjunctivae normal. Oral mucosa moist. NECK: No jugular venous distention. No carotid bruit. No lymph node enlargement. CARDIOVASCULAR SYSTEM: S1, S2 muffled. RESPIRATORY SYSTEM: Breath sounds diminished at the bases. No rhonchi. No crackles. ABDOMEN: Soft, non-tender. LEGS: No edema. No swelling. NERVOUS SYSTEM: No focal deficit. EXAMINATION OF THE BACK: Status post surgery. LABS: WBC 14.6 and sodium 138, potassium 4.9. ASSESSMENT: 1. Leukocytosis, possibly reactive. 2. Chronic low back pain and degenerative joint disease, status post laminectomy and lateral decompression. 3. Hypertension. 4. Gastroesophageal reflux disease. 5. Hyperlipidemia. 6. Deep venous thrombosis prophylaxis. 7. History of hyperlipidemia. 8. History of glaucoma. 9. Remote history of nicotine dependence. 10.History of cerebrovascular accident, transient ischemic attack. RECOMMENDATIONS AND DISCUSSION: In this 53-year-old gentleman who presented with multiple complex medical issues we will monitor the patient closely, continue the current management, continue symptomatic treatment. Continue with the DVT prophylaxis. Otherwise, I would recommend repeat labs. Repeat CBC. Continue the rest of the medications. Guarded prognosis. Further recommendations to follow. MMODL / IJN: [id number] /
[2019-04-02] MEDS: LATANOPROST 0.005% OPHTH DROPS 2.5 ML BTL RIGHT EYE SCH (20:16)
[2019-04-02] MEDS: ATORVASTATIN 20 MG TAB PO SCH (20:16)
[2019-04-02] MEDS: HEPARIN SODIUM,PORCINE 5,000 UNIT/ML 1 ML VIAL SQ SCH (20:20)
[2019-04-03] MEDS: SODIUM CHLORIDE 0.9% 1,000 ML IV SCH ×2 (02:26→17:01)
[2019-04-03] MEDS: LACTATED RINGERS 1,000 ML IV SCH (02:27)
[2019-04-03 02:29] VITALS: RESP 18
[2019-04-03] MEDS: HYDROcodone/APAP 10-325MG 1 EACH TAB PO PRN ×3 (04:04→16:02)
--- NOTE | 2019-04-03 07:59 | P.DS ---
Providers Date of admission: 03/29/19 12:02 Attending physician: Ivana Vazquez Consults: 03/29/19 16:53 Consult Physician Routine Consulting Provider: Eva Cavanaugh Consult Reason/Comments: Medical management Do you want consulting provider notified?: Yes [facility]: The patient presented on the day of admission as per their operative note. He had severe spinal stenosis and underwent minimally invasive decompression and fusion as per his operative note. Patient has been slow to recover in terms of his pain at his back. He has been able to mobilize better but still has difficulty and is requiring assistance for safety as he ambulates with his walker. His diet has improved and his pain is now being controlled with oral medications. Physical Exam The incision site is clean dry and intact. There is no erythema no drainage. There is no purulence no evidence of infection. Abdomen soft and nontender. Chest has good excursion with deep inspiration and expiration. The patient has active and passive range of motion intact at the upper and lower extremities. There is no acute change in neurologic status. He has sustained dorsal to plantar flexion and EHL intact. He has negative Homans sign Hospital Course Postoperative day #5 status post minimally invasive decompression and fusion L3 4 L4 5 for severe spinal stenosis with degenerative disc disease and lower extremity radiculopathy The patient has been making somewhat slow progress postoperatively in terms of his pain. He has been making progress nonetheless and is now being adequately controlled with oral medications. They have completed the prophylactic antibiotics without any signs or symptoms of infection. The patient has been able to advance their diet, and is tolerating diet adequately. The pain was initially controlled with IV medications and is now controlled appropriately with oral medications. The patient has been able to increase their mobilization somewhat slowly but is now able to ambulate with him and we'll assist to stand by with his walker. He is voiding freely and has had a bowel movement The patient has progressed appropriately, but we still have concerns about his safety at home and I think he is best served with transfer to detention prior to being discharged home. I think they are in good stable condition for discharge today for discharge to detention. They will be discharged to detention with appropriate prescriptions. I answered their questions to the best of my ability in a language that they can understand and they are agreeable with the plan. They will follow up as directed in approximately 2 weeks or sooner if he is having problems. Patient Condition at Discharge: Good Plan - Discharge Summary Discharge Rx Participant: No New Discharge Prescriptions: New Cyclobenzaprine [Flexeril] 10 mg PO TID PRN #45 tab PRN Reason: Muscle Spasm HYDROcodone/APAP 10-325MG [[place] 10] 1 each PO Q6H PRN #56 tab PRN Reason: Pain No Action Lisinopril 10 mg PO DAILY Omeprazole 20 mg PO DAILY Meclizine [Antivert] 25 mg PO DAILY PRN PRN Reason: Vertigo Loratadine [Claritin] 10 mg PO DAILY Cyclobenzaprine [Flexeril] 10 mg PO HS PRN PRN Reason: muscle spasms Latanoprost Ophth [Xalatan 0.005%] 1 drops RIGHT EYE HS Brimonidine Tartrate [Alphagan P 0.2% Ophth Soln] 1 drops RIGHT EYE BID Atorvastatin [Lipitor] 20 mg PO HS Timolol Maleate/Latanoprost/Pf [Timolol 0.5%-Latanopros 0.005%] 1 drop RIGHT EYE BID Brinzolamide [Azopt 1% Ophth Susp] 1 drop RIGHT EYE TID Cholecalciferol (Vitamin D3) [Vitamin D3] 2,000 unit PO DAILY Ibuprofen [Motrin] 800 mg PO Q6H PRN PRN Reason: Pain Discharge Medication List Lisinopril 10 mg PO DAILY 03/04/16 [History] Cyclobenzaprine [Flexeril] 10 mg PO HS PRN 04/16/18 [History] Loratadine [Claritin] 10 mg PO DAILY 04/16/18 [History] Meclizine [Antivert] 25 mg PO DAILY PRN 04/16/18 [History] Omeprazole 20 mg PO DAILY 04/16/18 [History] Brimonidine Tartrate [Alphagan P 0.2% Ophth Soln] 1 drops RIGHT EYE BID 05/06/18 [History] Latanoprost Ophth [Xalatan 0.005%] 1 drops RIGHT EYE HS 05/06/18 [History] Atorvastatin [Lipitor] 20 mg PO HS 06/02/18 [History] Timolol Maleate/Latanoprost/Pf [Timolol 0.5%-Latanopros 0.005%] 1 drop RIGHT EYE BID 06/30/18 [History] Brinzolamide [Azopt 1% Ophth Susp] 1 drop RIGHT EYE TID 03/19/19 [History] Cholecalciferol (Vitamin D3) [Vitamin D3] 2,000 unit PO DAILY 03/19/19 [History] Ibuprofen [Motrin] 800 mg PO Q6H PRN 03/29/19 [History] Cyclobenzaprine [Flexeril] 10 mg PO TID PRN #45 tab 04/02/19 [Rx] HYDROcodone/APAP 10-325MG [[place] 10] 1 each PO Q6H PRN #56 tab 04/02/19 [Rx] Follow up Appointment(s)/Referral(s): Tian Gutierrez III, MD [Primary Care Provider] - 04/07/19 1:30 pm (With Tracee Mares) Nelson Burks PAC [PHYSICIAN [employer]] - 04/19/19 10:00 am (Patient may follow-up with Nelson Burks PA-C or Dr. Anthony Vazquez at [facility] in 2-3 weeks following discharge. ) Activity/Diet/Wound Care/Special Instructions: 1. Patient may shower with the area uncovered 2. Patient may remove Tegaderm dressing and may keep the area uncovered if he w ishes. Allow Steri-Strips to fray off on their own. 3. Patient should keep Steri-Strips intact and allow them to fall off naturally. 4. Patient should refrain from driving until at least after their first follow- up appointment in the office. 5. Patient should avoid excessive bending, twisting, and lifting; no lifting greater than 10 pounds 6. Take medications as prescribed 7. Do not soak in tub Discharge Disposition: TRANSFER TO SNF/ECF
[2019-04-03 08:02] VITALS: BP 154/89; PULSE 90; TEMP 97.6
[2019-04-03 08:09] LABS: Basophils % (A) 0 %; Eosinophils # (A) 0.3 k/uL (0-0.7); Eosinophils % (A) 5 %; HCT 34.9 % (39.0-53.0); HGB 12.2 gm/dL (13.0-17.5); Lymphocytes # (A) 1.3 k/uL (1.0-4.8); Lymphocytes % (A) 19 %; MCH 32.8 pg (25.0-35.0); MCHC 35.1 g/dL (31.0-37.0); MCV 93.5 fL (80.0-100.0); Mean Platelet Volume 7.1; Monocytes # (A) 0.6 k/uL (0-1.0); Monocytes % (A) 9 %; Neutrophils # (A) 4.1 k/uL (1.3-7.7); Neutrophils % (A) 63 %; Platelet Count 321 k/uL (150-450); RBC 3.73 m/uL (4.30-5.90); RDW 13.7 % (11.5-15.5); WBC 6.5 k/uL (3.8-10.6)
[2019-04-03] MEDS: LISINOPRIL 10 MG TAB PO SCH (09:22)
[2019-04-03] MEDS: HEPARIN SODIUM,PORCINE 5,000 UNIT/ML 1 ML VIAL SQ SCH (09:22)
[2019-04-03] MEDS: CHOLECALCIFEROL 1,000 UNIT TAB PO SCH (09:22)
[2019-04-03] MEDS: PANTOPRAZOLE 40 MG TABLET PO SCH (09:22)
[2019-04-03] MEDS: SENNOSIDES-DOCUSATE SODIUM 1 EACH TAB PO SCH (09:23)
[2019-04-03] MEDS: DORZOLAMIDE HCL 2% DROPS 10 ML BTL RIGHT EYE SCH ×2 (09:24→17:01)
[2019-04-03] MEDS: BRIMONIDINE TARTRATE 0.2% DROPS 5 ML BTL RIGHT EYE SCH (09:24)
[2019-04-03] MEDS: TIMOLOL 0.5% OPHTH DROPS 5 ML BTL RIGHT EYE SCH (09:24)
--- NOTE | 2019-04-03 14:43 | US ---
EXAMINATION TYPE: US venous doppler duplex LE BI DATE OF EXAM: 04/03/2019 2:23 PM COMPARISON: NONE CLINICAL HISTORY: swollen, painful lower extremities. Pain bilateral legs SIDE PERFORMED: Bilateral TECHNIQUE: The lower extremity deep venous system is examined utilizing real time linear array sonog hay with graded compression, doppler sonography and color-flow sonography. VESSELS IMAGED: External Iliac Vein (EIV) Common Femoral Vein Deep Femoral Vein Greater Saphenous Vein * Femoral Vein Popliteal Vein Small Saphenous Vein * Proximal Calf Veins (* superficial vessels) Right Leg: No evidence of DVT as visualized Left Leg: No evidence of DVT as visualized IMPRESSION: Negative bilateral leg duplex venous sonogram.
--- NOTE | 2019-04-03 15:48 | XR ---
EXAMINATION TYPE: XR chest 1V portable DATE OF EXAM: 04/03/2019 COMPARISON: 05/23/2018 HISTORY: Atelectasis TECHNIQUE: Single frontal view of the chest is obtained. FINDINGS: Heart and mediastinum are normal. Lungs are clear. Diaphragm is normal. Bony thorax is int act. IMPRESSION: Normal chest. No change.
[2019-04-03 16:08] LABS: Appearance,Urine Clear (Clear); Bilirubin,Urine Negative (Negative); Blood,Urine Negative (Negative); Color,Urine Yellow; Glucose,Urine (UA) Negative (Negative); Ketones,Urine Negative (Negative); Leukocyte Esterase,Urine Negative (Negative); Nitrite,Urine Negative (Negative); Protein,Urine Negative (Negative); Specific Gravity,Urine 1.011 (1.001-1.035); Urobilinogen,Urine <2.0 mg/dL (<2.0)
--- NOTE | 2019-04-03 17:28 | PN ---
PROGRESS NOTE DATE OF SERVICE: 04/03/2019 This 53-year-old gentleman who was admitted after back surgery is complaining of severe back pain, also complains of leg swelling also. Orthopedic surgery is following the patient closely. The white count is elevated on admission, which is thought to be reactive. PAST MEDICAL HISTORY: Reviewed. REVIEW OF SYSTEMS: CARDIOVASCULAR SYSTEM: No angina or palpitations. RESPIRATION: As mentioned earlier. GI: As mentioned earlier. no dysuria. NERVOUS SYSTEM: No numbness or weakness. CURRENT MEDICATIONS: Reviewed and include: 1. [place] 10 mg q.4 p.r.n. 2. Lipitor 20 mg. 3. Cepacol lozenges. 4. Alphagan eye drops. 5. Vitamin D3 daily. 6. Flexeril 10 mg t.i.d. p.r.n. 7. Trusopt 1 drop right eye. 8. Heparin subcu b.i.d. 9. Lactated Ringer. 10.Xalatan 0.05% 1 drop right eye q.h.s. 11.Restoril 10 mg p.o. daily. 12.Milk of Magnesia. 13.Antivert 25 mg daily p.r.n. 14.Morphine sulfate 2-4 mg IV q.4 p.r.n. 15.Zofran 4 mg. 16.Protonix. 17.Timoptic. PHYSICAL EXAM: Patient is alert, oriented x3. Pulse 90, blood pressure 154/89, respiration 18, temperature 97.6, pulse ox 97% on room air. HEENT: Conjunctivae normal. NECK: No JVD. CARDIOVASCULAR: S1, S2 muffled. RESPIRATORY: Breath sounds diminished in the bases. A few scattered rhonchi. ABDOMEN: Soft, nontender. LEGS: No edema. No swelling. NERVOUS SYSTEM: No focal deficits. Examination of back status post surgery. LABS: WBC 6.5, hemoglobin 12.2. ASSESSMENT: 1. Status post laminectomy and lateral decompression for chronic back pain/ degenerative joint disease. 2. Leukocytosis, possibly reactive. 3. Gait dysfunction. 4. Hypertension. 5. Back pain. 6. Gastroesophageal reflux disease. 7. Hyperlipidemia. 8. History of deep vein thrombosis prophylaxis. 9. Hyperlipidemia. 10.History of glaucoma. 11.Remote history of nicotine dependence. 12.History of cerebrovascular accident, transient ischemic attack. RECOMMENDATIONS AND DISCUSSION: This 53-year-old gentleman who presented with multiple complex medical issues, at this time, I would recommend continue the current medications. Continue the pain management. Continue with DVT prophylaxis. Also recommend PT/OT evaluation and social sciences instructor to evaluate the home situation. Possible ECF rehab. Otherwise, closely follow with Dr. Vazquez. Encourage incentive spirometry. I would also recommend a chest x-ray, PA and UA with micro also to complete the workup as well. See orders for details. Closely follow with Dr. Vazquez. MMODL / IJN: [id number] /
== END 2019-04-03 17:14 | DRG 455 ==
LOC: 2ORMAIN 12:02 → 4SSUR 16:48
PROVIDERS: ADMIT Orthopaedic Surgery Orthopaedic Surgery of the Spine; ATTEND Orthopaedic Surgery Orthopaedic Surgery of the Spine
PROC: 0QB00ZZ Excision of Lumbar Vertebra, Open Approach (ICD-10-PCS; principal; 2019-03-29 13:00)
PROC: 0SG10AJ Fusion of 2 or more Lumbar Vertebral Joints with Interbody Fusion Device, Posterior Approach, Anterior Column, Open Approach (ICD-10-PCS; principal; 2019-03-29 13:00)
PROC: 07DS3ZZ Extraction of Vertebral Bone Marrow, Percutaneous Approach (ICD-10-PCS; principal; 2019-03-29 13:00)
PROC: 0SG1071 Fusion of 2 or more Lumbar Vertebral Joints with Autologous Tissue Substitute, Posterior Approach, Posterior Column, Open Approach (ICD-10-PCS; principal; 2019-03-29 13:00)
PROC: 0ST20ZZ Resection of Lumbar Vertebral Disc, Open Approach (ICD-10-PCS; principal; 2019-03-29 13:00)
DX: M48.061 Spinal stenosis, lumbar region without neurogenic claudication (principal); M51.16 Intervertebral disc disorders with radiculopathy, lumbar region; M47.9 Spondylosis, unspecified; D72.829 Elevated white blood cell count, unspecified; E78.5 Hyperlipidemia, unspecified; I10 Essential (primary) hypertension; K21.9 Gastro-esophageal reflux disease without esophagitis; H40.9 Unspecified glaucoma; H91.90 Unspecified hearing loss, unspecified ear; G43.909 Migraine, unspecified, not intractable, without status migrainosus; I83.90 Asymptomatic varicose veins of unspecified lower extremity; Z96.60 Presence of unspecified orthopedic joint implant; M62.830 Muscle spasm of back; R26.9 Unspecified abnormalities of gait and mobility; M19.90 Unspecified osteoarthritis, unspecified site; G89.29 Other chronic pain; E66.9 Obesity, unspecified; Z96.651 Presence of right artificial knee joint; Z88.5 Allergy status to narcotic agent; Z88.8 Allergy status to other drugs, medicaments and biological substances; Z91.041 Radiographic dye allergy status; Z87.891 Personal history of nicotine dependence; Z86.61 Personal history of infections of the central nervous system; Z86.73 Personal history of transient ischemic attack (TIA), and cerebral infarction without residual deficits; Z80.1 Family history of malignant neoplasm of trachea, bronchus and lung; Z82.49 Family history of ischemic heart disease and other diseases of the circulatory system; Z79.899 Other long term (current) drug therapy; Z88.6 Allergy status to analgesic agent; Z68.34 Body mass index [BMI] 34.0-34.9, adult
CPT/HCPCS: 71045; 72100; 80048; 81003; 85025; 86850; 86891; 86900; 86901; 93970; 94760

== ENCOUNTER 2019-05-07 14:58 | Emergency (ER) | payer MEDICARE, OTHER ==
[2019-05-07 15:07] VITALS: BP 101/62; PULSE 69; RESP 20; TEMP 97.9
[2019-05-07] MEDS ORDERED: METHOCARBAMOL 750 MG TAB PO STA (15:24)
--- NOTE | 2019-05-07 16:27 | XR ---
Right shoulder HISTORY: Pain 3 views of the right shoulder Correlation to previous exam 01/10/2014 Question previous acromioplasty at the acromioclavicular joint, there is interval widening at this le baljinder. Surgical anchors are present within the proximal humerus. Right lung apex as visualized is george l. Shoulder may be slightly high riding. IMPRESSION: Postop changes. Correlate for possible recurrence of rotator cuff tear
--- NOTE | 2019-05-07 17:40 | ED ---
Extremity Problem HPI - General Chief complaint: Extremity Problem,Nontraumatic Stated complaint: Back, and shoulder pain Time Seen by Provider: 05/07/19 15:10 Source: patient Mode of arrival: ambulatory Limitations: no limitations - History of Present Illness Initial comments: Patient complains of right shoulder pain. The pain radiates down the right arm. He has no weakness in the arm. He has no paresthesias. He has no neck pain. He has no lightheadedness or dizziness. He denies syncope or presyncope. - Related Data Home Medications Medication Instructions Recorded Confirmed Lisinopril 10 mg PO DAILY 03/04/16 05/07/19 Cyclobenzaprine [Flexeril] 10 mg PO HS PRN 04/16/18 05/07/19 Meclizine [Antivert] 25 mg PO DAILY PRN 04/16/18 05/07/19 Omeprazole 20 mg PO DAILY 04/16/18 05/07/19 Brimonidine Tartrate [Alphagan P 1 drops RIGHT EYE TID 05/06/18 05/07/19 0.2% Ophth Soln] Latanoprost Ophth [Xalatan 0.005%] 1 drops RIGHT EYE HS 05/06/18 05/07/19 Atorvastatin [Lipitor] 20 mg PO HS 06/02/18 05/07/19 Timolol Maleate/Latanoprost/Pf 1 drop RIGHT EYE BID 06/30/18 05/07/19 [Timolol 0.5%-Latanopros 0.005%] Brinzolamide [Azopt 1% Ophth Susp] 1 drop RIGHT EYE TID 03/19/19 05/07/19 Cholecalciferol (Vitamin D3) 2,000 unit PO DAILY 03/19/19 05/07/19 [Vitamin D3] Ibuprofen [Motrin] 800 mg PO Q6H PRN 03/29/19 05/07/19 HYDROcodone/APAP 10-325MG [[place] 1 tab PO Q6H PRN 05/07/19 05/07/19 10] Allergies Allergy/AdvReac Type Severity Reaction Status Date / Time gadobenate dimeglumine Allergy Swelling Verified 05/07/19 15:45 [From Multihance] hydromorphone HCl AdvReac Severe Rapid Verified 05/07/19 15:45 [From Dilaudid] Heart Rate diclofenac potassium AdvReac Nausea & Verified 05/07/19 15:45 [From Cataflam] Vomiting MRI CONTRAST Allergy Swelling Uncoded 05/07/19 15:07 OF FACE Review of Systems ROS Statement: Those systems with pertinent positive or pertinent negative responses have been documented in the HPI. ROS Other: All systems not noted in ROS Statement are negative. Past Medical History Past Medical History: CVA/TIA, Eye Disorder, GERD/Reflux, Hearing Disorder / Deafness, Hyperlipidemia, Hypertension, Osteoarthritis (OA) Additional Past Medical History / Comment(s): glaucoma-zahra, back pain currently with numbness in lower back and down both legs, hx migraines, TIA 2014-no effects, varicose veins, arthritis "all over", History of Any Multi-Drug Resistant Organisms: None Reported Past Surgical History: Back Surgery, Heart Catheterization, Joint Replacement, Orthopedic Surgery Additional Past Surgical History / Comment(s): rt knee replacement, lower back surgery for herniated disk, zahra shoulder surgery, surgery on rt middle finger, hx tacheosctomy(for encephalitis), Past Anesthesia/Blood Transfusion Reactions: Family History of Problems w/ Anesthesia Additional Past Anesthesia/Blood Transfusion Reaction / Comment(s): brother took very long time to wake up Past Psychological History: No Psychological Hx Reported Smoking Status: Former smoker Past Alcohol Use History: None Reported Past Drug Use History: None Reported - Past Family History Mother Family Medical History: Cancer Additional Family Medical History / Comment(s): of lung CA Father Family Medical History: Cancer Additional Family Medical History / Comment(s): irregular heart beat. General Exam Limitations: no limitations General appearance: alert, in no apparent distress Head exam: Present: atraumatic, normocephalic, normal inspection Eye exam: Present: normal appearance, PERRL, EOMI. Absent: scleral icterus, conjunctival injection, periorbital swelling ENT exam: Present: normal exam, mucous membranes moist Neck exam: Present: normal inspection. Absent: tenderness, meningismus, lymphadenopathy Respiratory exam: Present: normal lung sounds bilaterally. Absent: respiratory distress, wheezes, rales, rhonchi, stridor Cardiovascular Exam: Present: regular rate, normal rhythm, normal heart sounds. Absent: systolic murmur, diastolic murmur, rubs, gallop, clicks GI/Abdominal exam: Present: soft, normal bowel sounds. Absent: distended, tenderness, guarding, rebound, rigid Extremities exam: Present: normal inspection, full ROM, normal capillary refill. Absent: tenderness, pedal edema, joint swelling, calf tenderness Back exam: Present: normal inspection Neurological exam: Present: alert, oriented X3, CN II-XII intact Psychiatric exam: Present: normal affect, normal mood Skin exam: Present: warm, dry, intact, normal color. Absent: rash Course Vital Signs 05/07/19 15:04 Temperature 97.9 F Pulse Rate 69 Respiratory 20 Rate Blood Pressure 101/62 O2 Sat by Pulse 99 Oximetry Medical Decision Making - Medical Decision Making Patient presents with right shoulder and arm pain. My examination is completely unremarkable. He has excellent distal pulses. He has no evidence of vascular ischemia or peripheral arterial disease. He has no evidence of DVT. X-rays are negative for fracture. This could be related to muscle spasm nerve impingement, however he has absolutely no central signs or symptoms to suggest TIA or stroke today. Patient is given a muscle rocks her. She is feeling better. He is neurovascularly intact throughout, with excellent strength. He is stable for discharge and outpatient follow-up. Disposition Clinical Impression: Musculoskeletal pain Disposition: HOME SELF-CARE Condition: Good Instructions (If sedation given, give patient instructions): Musculoskeletal Pain (ED) Is patient prescribed a controlled substance at d/c from ED?: No Referrals: Tian Gutierrez III, MD [Primary Care Provider] - 1-2 days
== END 2019-05-07 17:53 | disposition home or self-care (01) ==
LOC: EC 14:58
DX: M79.18 Myalgia, other site (principal); M25.511 Pain in right shoulder; M54.9 Dorsalgia, unspecified; E78.5 Hyperlipidemia, unspecified; I10 Essential (primary) hypertension; K21.9 Gastro-esophageal reflux disease without esophagitis; M19.90 Unspecified osteoarthritis, unspecified site; H40.9 Unspecified glaucoma; Z79.899 Other long term (current) drug therapy; Z88.5 Allergy status to narcotic agent; Z88.6 Allergy status to analgesic agent; Z91.041 Radiographic dye allergy status; Z88.8 Allergy status to other drugs, medicaments and biological substances; Z86.73 Personal history of transient ischemic attack (TIA), and cerebral infarction without residual deficits; Z87.891 Personal history of nicotine dependence; Z96.651 Presence of right artificial knee joint; Z98.890 Other specified postprocedural states
CPT/HCPCS: 99283

== ENCOUNTER 2019-05-23 09:19 | Emergency (ER) | payer MEDICARE, OTHER ==
[2019-05-23] MEDS ORDERED: ACETAMINOPHEN TAB 500 MG TAB PO STA (10:09)
[2019-05-23 10:26] LABS: Basophils % (A) 0 %; Eosinophils # (A) 0.2 k/uL (0-0.7); Eosinophils % (A) 3 %; HCT 37.4 % (39.0-53.0); HGB 13.1 gm/dL (13.0-17.5); Lymphocytes # (A) 1.4 k/uL (1.0-4.8); Lymphocytes % (A) 21 %; MCH 32.3 pg (25.0-35.0); MCV 92.3 fL (80.0-100.0); Mean Platelet Volume 6.2; Monocytes # (A) 0.5 k/uL (0-1.0); Monocytes % (A) 7 %; Neutrophils # (A) 4.5 k/uL (1.3-7.7); Neutrophils % (A) 66 %; Platelet Count 251 k/uL (150-450); RBC 4.05 m/uL (4.30-5.90); RDW 12.4 % (11.5-15.5); WBC 6.8 k/uL (3.8-10.6)
[2019-05-23 10:28] LABS: Albumin 4.2 g/dL (3.5-5.0); Calcium 9.7 mg/dL (8.4-10.2); Potassium 4.2 mmol/L (3.5-5.1); Total Bilirubin 0.8 mg/dL (0.2-1.3); Total Protein 7.2 g/dL (6.3-8.2)
[2019-05-23 10:33] LABS: INR 0.9 (<1.2); Partial Thromboplastin Time 24.4 sec (22.0-30.0); Prothrombin Time 9.9 sec (9.0-12.0)
--- NOTE | 2019-05-23 10:36 | XR ---
EXAMINATION TYPE: XR chest 2V DATE OF EXAM: 05/23/2019 HISTORY: difficulty breathing. REFERENCE: Previous study dated 04/03/2019. FINDINGS: The lungs appear clear. Pleural space are clear. Heart size upper limits of normal. IMPRESSION: NO ACTIVE INTRATHORACIC DISEASE.
[2019-05-23 10:37] LABS: D-Dimer 1.26 mg/L FEU (<0.60)
--- NOTE | 2019-05-23 10:58 | ED ---
SOB HPI - General Chief Complaint: Shortness of Breath Stated Complaint: Shortness of Breath Time Seen by Provider: 05/23/19 09:42 Source: patient, RN notes reviewed Mode of arrival: ambulatory - History of Present Illness Initial Comments: This is a 53-year-old male history of multiple medical issues who states he started developing right upper quadrant and right anterior lateral chest pain this morning. She denies any cough fevers chills nausea vomiting sweats he has shortness of breath with it. Pain was 10/10 severity sharp in nature. Denies any rash or other symptoms. MD Complaint: shortness of breath, chest pain - Related Data Home Medications Medication Instructions Recorded Confirmed Lisinopril 10 mg PO DAILY 03/04/16 05/23/19 Meclizine [Antivert] 25 mg PO DAILY PRN 04/16/18 05/23/19 Omeprazole 20 mg PO DAILY 04/16/18 05/23/19 Brimonidine Tartrate [Alphagan P 1 drops RIGHT EYE TID 05/06/18 05/23/19 0.2% Ophth Soln] Latanoprost Ophth [Xalatan 0.005%] 1 drops RIGHT EYE HS 05/06/18 05/23/19 Atorvastatin [Lipitor] 20 mg PO HS 06/02/18 05/23/19 Timolol Maleate/Latanoprost/Pf 1 drop RIGHT EYE BID 06/30/18 05/23/19 [Timolol 0.5%-Latanopros 0.005%] Brinzolamide [Azopt 1% Ophth Susp] 1 drop RIGHT EYE TID 03/19/19 05/23/19 Cholecalciferol (Vitamin D3) 2,000 unit PO DAILY 03/19/19 05/23/19 [Vitamin D3] HYDROcodone/APAP 10-325MG [[place] 1 tab PO Q6H PRN 05/07/19 05/23/19 10] Loratadine [Claritin] 10 mg PO DAILY 05/23/19 05/23/19 Allergies Allergy/AdvReac Type Severity Reaction Status Date / Time gadobenate dimeglumine Allergy Swelling Verified 05/23/19 09:57 [From Multihance] hydromorphone HCl AdvReac Severe Rapid Verified 05/23/19 09:57 [From Dilaudid] Heart Rate diclofenac potassium AdvReac Nausea & Verified 05/23/19 09:57 [From Cataflam] Vomiting MRI CONTRAST Allergy Swelling Uncoded 05/07/19 15:07 OF FACE Review of Systems ROS Statement: Those systems with pertinent positive or pertinent negative responses have been documented in the HPI. ROS Other: All systems not noted in ROS Statement are negative. Past Medical History Past Medical History: CVA/TIA, Eye Disorder, GERD/Reflux, Hearing Disorder / Deafness, Hyperlipidemia, Hypertension, Osteoarthritis (OA) Additional Past Medical History / Comment(s): glaucoma-zahra, back pain currently with numbness in lower back and down both legs, hx migraines, TIA 2014-no effects, varicose veins, arthritis "all over", History of Any Multi-Drug Resistant Organisms: None Reported Past Surgical History: Back Surgery, Heart Catheterization, Joint Replacement, Orthopedic Surgery Additional Past Surgical History / Comment(s): rt knee replacement, lower back surgery for herniated disk, zahra shoulder surgery, surgery on rt middle finger, hx tacheosctomy(for encephalitis), Past Anesthesia/Blood Transfusion Reactions: Family History of Problems w/ Anesthesia Additional Past Anesthesia/Blood Transfusion Reaction / Comment(s): brother took very long time to wake up Past Psychological History: No Psychological Hx Reported Smoking Status: Former smoker Past Alcohol Use History: None Reported Past Drug Use History: None Reported - Past Family History Mother Family Medical History: Cancer Additional Family Medical History / Comment(s): of lung CA Father Family Medical History: Cancer Additional Family Medical History / Comment(s): irregular heart beat. General Exam - General Exam Comments Initial Comments: This a well-developed well-nourished awake alert oriented times 3 male General appearance: alert, in no apparent distress Head exam: Present: atraumatic, normocephalic, normal inspection Eye exam: Present: normal appearance, PERRL, EOMI. Absent: scleral icterus, conjunctival injection, periorbital swelling ENT exam: Present: normal exam, mucous membranes moist Neck exam: Present: normal inspection. Absent: tenderness, meningismus, lymphadenopathy Respiratory exam: Present: normal lung sounds bilaterally, other (No evidence of any rash). Absent: respiratory distress, wheezes, rales, rhonchi, stridor, chest wall tenderness, decreased breath sounds Cardiovascular Exam: Present: regular rate, normal rhythm, normal heart sounds. Absent: systolic murmur, diastolic murmur, rubs, gallop, clicks GI/Abdominal exam: Present: soft, normal bowel sounds. Absent: distended, tenderness, guarding, rebound, rigid Extremities exam: Present: normal inspection, full ROM, normal capillary refill. Absent: tenderness, pedal edema, joint swelling, calf tenderness Back exam: Present: normal inspection Neurological exam: Present: alert, oriented X3, CN II-XII intact, other (Patient does use hearing aids) Psychiatric exam: Present: normal affect, normal mood Skin exam: Present: warm, dry, intact, normal color. Absent: rash Course Vital Signs 05/23/19 05/23/19 09:30 11:51 Temperature 98.0 F Pulse Rate 74 73 Respiratory 20 18 Rate Blood Pressure 113/69 119/76 O2 Sat by Pulse 95 99 Oximetry Medical Decision Making - Medical Decision Making Issues symptoms have resolved at this time patient presentation consistent with bronchospasm and myofascial pain to be discharged to follow-up with his doctor return when necessary - Lab Data Result diagrams: 05/23/19 09:50 05/23/19 09:50 Lab Results 05/23/19 05/23/19 05/23/19 Range/Units 09:50 09:50 09:50 WBC 6.8 (3.8-10.6) k/uL RBC 4.05 L (4.30-5.90) m/uL Hgb 13.1 (13.0-17.5) gm/dL Hct 37.4 L (39.0-53.0) % MCV 92.3 (80.0-100.0) fL MCH 32.3 (25.0-35.0) pg MCHC 35.0 (31.0-37.0) g/dL RDW 12.4 (11.5-15.5) % Plt Count 251 (150-450) k/uL Neutrophils % 66 % Lymphocytes % 21 % Monocytes % 7 % Eosinophils % 3 % Basophils % 0 % Neutrophils # 4.5 (1.3-7.7) k/uL Lymphocytes # 1.4 (1.0-4.8) k/uL Monocytes # 0.5 (0-1.0) k/uL Eosinophils # 0.2 (0-0.7) k/uL Basophils # 0.0 (0-0.2) k/uL PT 9.9 (9.0-12.0) sec INR 0.9 (<1.2) APTT 24.4 (22.0-30.0) sec D-Dimer 1.26 H (<0.60) mg/L FEU Sodium 138 (137-145) mmol/L Potassium 4.2 (3.5-5.1) mmol/L Chloride 103 (98-107) mmol/L Carbon Dioxide 26 (22-30) mmol/L Anion Gap 9 mmol/L BUN 19 (9-20) mg/dL Creatinine 1.19 (0.66-1.25) mg/dL Est GFR (CKD-EPI)AfAm 80 (>60 ml/min/1.73 sqM) Est GFR (CKD-EPI)NonAf 69 (>60 ml/min/1.73 sqM) Glucose 145 H (74-99) mg/dL Calcium 9.7 (8.4-10.2) mg/dL Magnesium 2.0 (1.6-2.3) mg/dL Total Bilirubin 0.8 (0.2-1.3) mg/dL AST 25 (17-59) U/L ALT 29 (21-72) U/L Alkaline Phosphatase 93 (38-126) U/L Creatine Kinase 145 (55-170) U/L Troponin I (0.000-0.034) ng/mL NT-Pro-B Natriuret Pep pg/mL Total Protein 7.2 (6.3-8.2) g/dL Albumin 4.2 (3.5-5.0) g/dL Lipase 217 (23-300) U/L Urine Color Urine Appearance (Clear) Urine pH (5.0-8.0) Ur Specific [place] (1.001-1.035) Urine Protein (Negative) Urine Glucose (UA) (Negative) Urine Ketones (Negative) Urine Blood (Negative) Urine Nitrite (Negative) Urine Bilirubin (Negative) Urine Urobilinogen (<2.0) mg/dL Ur Leukocyte Esterase (Negative) 05/23/19 05/23/19 05/23/19 Range/Units 09:50 09:50 12:01 WBC (3.8-10.6) k/uL RBC (4.30-5.90) m/uL Hgb (13.0-17.5) gm/dL Hct (39.0-53.0) % MCV (80.0-100.0) fL MCH (25.0-35.0) pg MCHC (31.0-37.0) g/dL RDW (11.5-15.5) % Plt Count (150-450) k/uL Neutrophils % % Lymphocytes % % Monocytes % % Eosinophils % % Basophils % % Neutrophils # (1.3-7.7) k/uL Lymphocytes # (1.0-4.8) k/uL Monocytes # (0-1.0) k/uL Eosinophils # (0-0.7) k/uL Basophils # (0-0.2) k/uL PT (9.0-12.0) sec INR (<1.2) APTT (22.0-30.0) sec D-Dimer (<0.60) mg/L FEU Sodium (137-145) mmol/L Potassium (3.5-5.1) mmol/L Chloride (98-107) mmol/L Carbon Dioxide (22-30) mmol/L Anion Gap mmol/L BUN (9-20) mg/dL Creatinine (0.66-1.25) mg/dL Est GFR (CKD-EPI)AfAm (>60 ml/min/1.73 sqM) Est GFR (CKD-EPI)NonAf (>60 ml/min/1.73 sqM) Glucose (74-99) mg/dL Calcium (8.4-10.2) mg/dL Magnesium (1.6-2.3) mg/dL Total Bilirubin (0.2-1.3) mg/dL AST (17-59) U/L ALT (21-72) U/L Alkaline Phosphatase (38-126) U/L Creatine Kinase (55-170) U/L Troponin I <0.012 (0.000-0.034) ng/mL NT-Pro-B Natriuret Pep 122 pg/mL Total Protein (6.3-8.2) g/dL Albumin (3.5-5.0) g/dL Lipase (23-300) U/L Urine Color Yellow Urine Appearance Clear (Clear) Urine pH 6.5 (5.0-8.0) Ur Specific [place] 1.020 (1.001-1.035) Urine Protein Negative (Negative) Urine Glucose (UA) Negative (Negative) Urine Ketones Negative (Negative) Urine Blood Negative (Negative) Urine Nitrite Negative (Negative) Urine Bilirubin Negative (Negative) Urine Urobilinogen 2.0 (<2.0) mg/dL Ur Leukocyte Esterase Negative (Negative) - EKG Data -: EKG Interpreted by Me (No sinus rhythm a 61 NC interval 148 QRS duration 86 QT since QTC 390/392 n) - Radiology Data Radiology results: report reviewed (I did review the imaging and report no acute findings.), image reviewed Disposition Clinical Impression: Acute bronchospasm, Myofascial pain Disposition: HOME SELF-CARE Condition: Good Instructions (If sedation given, give patient instructions): Bronchospasm (ED), Musculoskeletal Pain (ED) Is patient prescribed a controlled substance at d/c from ED?: No Referrals: Tian Gutierrez III, MD [Primary Care Provider] - 1-2 days
[2019-05-23 12:09] LABS: Appearance,Urine Clear (Clear); Bilirubin,Urine Negative (Negative); Blood,Urine Negative (Negative); Color,Urine Yellow; Glucose,Urine (UA) Negative (Negative); Ketones,Urine Negative (Negative); Leukocyte Esterase,Urine Negative (Negative); Nitrite,Urine Negative (Negative); PH, Urine 6.5 (5.0-8.0); Protein,Urine Negative (Negative)
--- NOTE | 2019-05-23 13:10 | CT ---
EXAMINATION TYPE: CT angio chest DATE OF EXAM: 05/23/2019 12:50 PM COMPARISON: Previous study dated 12/17/2016. HISTORY: Right sided chest pain with shortness of breath. CT DLP: 506.6 mGycm Automated exposure control for dose reduction was used. CONTRAST: CTA scan of the thorax is performed with IV Contrast, patient injected with 100 mL of Isovue 370, pul monary embolism protocol. . FINDINGS: There is a calcified granuloma in the lateral aspect of the left upper lobe, best seen on i mage 57. No other parenchymal lesions are seen. There is no significant axillary, mediastinal or hilar adenopathy. There is no evidence of pulmonary embolus. The aorta is normal in caliber without evidence of dissection. There is no pleural or pericardial fluid. The heart is not enlarged. Visualized portions of the upper abdomen are unremarkable. There is mild hypertrophic spondylosis within the spine. IMPRESSION: 1. THIS EXAMINATION IS NEGATIVE FOR PULMONARY EMBOLUS. 2. EVIDENCE OF OLD GRANULOMATOUS DISEASE.
[2019-05-23 14:05] VITALS: BP 122/70; PULSE 64; RESP 16; TEMP 97.9
== END 2019-05-23 14:00 | disposition home or self-care (01) ==
LOC: EC 09:19
DX: J98.01 Acute bronchospasm (principal); M79.18 Myalgia, other site; Z97.4 Presence of external hearing-aid; K21.9 Gastro-esophageal reflux disease without esophagitis; E78.5 Hyperlipidemia, unspecified; I10 Essential (primary) hypertension; H40.9 Unspecified glaucoma; H91.90 Unspecified hearing loss, unspecified ear; M19.90 Unspecified osteoarthritis, unspecified site; Z87.891 Personal history of nicotine dependence; Z88.5 Allergy status to narcotic agent; Z88.6 Allergy status to analgesic agent; Z91.041 Radiographic dye allergy status; Z79.899 Other long term (current) drug therapy; Z96.651 Presence of right artificial knee joint; Z95.818 Presence of other cardiac implants and grafts; Z98.890 Other specified postprocedural states; Z80.1 Family history of malignant neoplasm of trachea, bronchus and lung; Z82.49 Family history of ischemic heart disease and other diseases of the circulatory system
CPT/HCPCS: 36415; 93005; 85379; 83880; 80053; 82550; 83690; 83735; 84484; 85025; 85610; 85730; 81003; 71046; 71275; 99285; Q9967

== ENCOUNTER 2020-04-26 12:58 | Emergency (ER) | payer MEDICARE, OTHER ==
[2020-04-26] MEDS ORDERED: HYDROcodone/APAP 5-325MG 1 EACH TAB PO STA (13:09)
--- NOTE | 2020-04-26 13:16 | ED ---
Fall HPI - General Chief Complaint: Fall Stated Complaint: fall Time Seen by Provider: 04/26/20 13:04 Source: patient, RN notes reviewed Mode of arrival: ambulatory Limitations: no limitations - History of Present Illness Initial Comments: 54-year-old male presents emergency Department with chief complaint of a fall. Patient [place] the [place] states he did not realize there was a curb states he went to step up and caught his foot falling onto his left shoulder left knee has a small abrasion is up-to-date on his tetanus no head injury no loss conscious. Patient has mild left knee and left shoulder pain no chest pain or shortness breath no back pain. - Related Data Home Medications Medication Instructions Recorded Confirmed Meclizine [Antivert] 25 mg PO DAILY PRN 04/16/18 04/26/20 Omeprazole 20 mg PO BID 04/16/18 04/26/20 Brimonidine Tartrate [Alphagan P 1 drops RIGHT EYE TID 05/06/18 04/26/20 0.2% Ophth Soln] Latanoprost Ophth [Xalatan 0.005%] 1 drops BOTH EYES HS 05/06/18 04/26/20 Atorvastatin [Lipitor] 20 mg PO HS 06/02/18 04/26/20 Loratadine [Claritin] 10 mg PO DAILY 05/23/19 04/26/20 Dorzolamide HCl/Pf [Dorzolamide 2% 1 drop RIGHT EYE TID 04/26/20 04/26/20 Eye Drop] HYDROcodone/APAP 5-325MG [[place] 1 tab PO BID PRN 04/26/20 04/26/20 5-325] Timolol 0.5% Ophth Soln [Timoptic 1 drop RIGHT EYE BID 04/26/20 04/26/20 0.5% Ophth Soln] Vit C/E/Zn/Coppr/Lutein/Zeaxan 1 cap PO DAILY 04/26/20 04/26/20 [Preservision Areds 2 Softgel] lisinopriL [Zestril] 5 mg PO DAILY 04/26/20 04/26/20 metFORMIN HCL [Glucophage] 500 mg PO BID 04/26/20 04/26/20 Allergies Allergy/AdvReac Type Severity Reaction Status Date / Time gadobenate dimeglumine Allergy Swelling Verified 04/26/20 13:51 [From Multihance] hydromorphone HCl AdvReac Severe Rapid Verified 04/26/20 13:51 [From Dilaudid] Heart Rate diclofenac potassium AdvReac Nausea & Verified 04/26/20 13:51 [From Cataflam] Vomiting MRI CONTRAST Allergy Swelling Uncoded 04/26/20 13:00 OF FACE Review of Systems ROS Statement: Those systems with pertinent positive or pertinent negative responses have been documented in the HPI. ROS Other: All systems not noted in ROS Statement are negative. Past Medical History Past Medical History: CVA/TIA, Eye Disorder, GERD/Reflux, Hearing Disorder / Deafness, Hyperlipidemia, Hypertension, Osteoarthritis (OA) Additional Past Medical History / Comment(s): glaucoma-zahra, back pain currently with numbness in lower back and down both legs, hx migraines, TIA 2015-no e ffects, varicose veins, arthritis "all over", History of Any Multi-Drug Resistant Organisms: None Reported Past Surgical History: Back Surgery, Heart Catheterization, Joint Replacement, Orthopedic Surgery Additional Past Surgical History / Comment(s): rt knee replacement, lower back surgery for herniated disk, zahra shoulder surgery, surgery on rt middle finger, hx tacheosctomy(for encephalitis), Past Anesthesia/Blood Transfusion Reactions: Family History of Problems w/ Anesthesia Additional Past Anesthesia/Blood Transfusion Reaction / Comment(s): brother took very long time to wake up Past Psychological History: No Psychological Hx Reported Smoking Status: Former smoker Past Alcohol Use History: None Reported Past Drug Use History: None Reported - Past Family History Mother Family Medical History: Cancer Additional Family Medical History / Comment(s): of lung CA Father Family Medical History: Cancer Additional Family Medical History / Comment(s): irregular heart beat. General Exam Limitations: no limitations General appearance: alert, in no apparent distress Head exam: Present: atraumatic, normocephalic, normal inspection Eye exam: Present: normal appearance, PERRL, EOMI. Absent: scleral icterus, conjunctival injection, periorbital swelling Neck exam: Present: normal inspection, full ROM. Absent: tenderness, meningismus, lymphadenopathy Respiratory exam: Present: normal lung sounds bilaterally. Absent: respiratory distress, wheezes, rales, rhonchi, stridor, chest wall tenderness Cardiovascular Exam: Present: regular rate, normal rhythm, normal heart sounds. Absent: systolic murmur, diastolic murmur, rubs, gallop, clicks Extremities exam: Present: other (Left knee there is small abrasion, patient has full range of motion neurovascular intact minimal tenderness, there is no pain or below the left knee, left shoulder full range of motion neurovascular intact no obvious deformity no ecchymosis no swelling mild tenderness no tenderness of the clavicle) Neurological exam: Present: alert, oriented X3, CN II-XII intact, reflexes normal. Absent: motor sensory deficit Skin exam: Present: warm, dry, intact, normal color. Absent: rash Course Vital Signs 04/26/20 13:00 Temperature 98.0 F Pulse Rate 83 Respiratory 16 Rate Blood Pressure 133/77 O2 Sat by Pulse 96 Oximetry Medical Decision Making - Medical Decision Making 54-year-old presented for a fall x-ray of the shoulder, knee are unremarkable. Patient be discharged in stable condition. Return parameters discussed. Disposition Clinical Impression: Fall, Contusion of left shoulder, Abrasion, left knee, initial encounter, Contusion of left knee Disposition: HOME SELF-CARE Condition: Stable Instructions (If sedation given, give patient instructions): Abrasion (ED), Knee Pain (ED) Additional Instructions: Please return to the Emergency Department if symptoms worsen or any other concerns. Is patient prescribed a controlled substance at d/c from ED?: No Referrals: Tian Gutierrez III, MD [Primary Care Provider] - 1-2 days Time of Disposition: 13:58
--- NOTE | 2020-04-26 13:35 | XR ---
EXAMINATION TYPE: XR shoulder complete LT DATE OF EXAM: 04/26/2020 COMPARISON: NONE HISTORY: Pain TECHNIQUE: Three views are submitted. FINDINGS: The osseous structures are intact. There is no acute fracture or dislocation. The AC joint is maint ained. Spur extending off the acromium. IMPRESSION: 1. No acute process.
--- NOTE | 2020-04-26 13:35 | XR ---
EXAMINATION TYPE: XR knee complete LT DATE OF EXAM: 04/26/2020 COMPARISON: NONE HISTORY: Pain TECHNIQUE: Three views are submitted. FINDINGS: Mild diffuse osteopenia. Mild narrowing medial compartment of the knee joint. Hypertrophic spurring i nvolving the patella.. Osseous structures are intact. No acute fracture seen. IMPRESSION: 1. No acute fracture or dislocation. 2. Arthropathy
[2020-04-26 14:11] VITALS: BP 117/75; PULSE 72; RESP 12; TEMP 97.6
== END 2020-04-26 14:11 | disposition home or self-care (01) ==
LOC: EC 12:58
DX: S40.012A Contusion of left shoulder, initial encounter (principal); S80.02XA Contusion of left knee, initial encounter; I10 Essential (primary) hypertension; K21.9 Gastro-esophageal reflux disease without esophagitis; H91.90 Unspecified hearing loss, unspecified ear; H40.9 Unspecified glaucoma; E78.5 Hyperlipidemia, unspecified; M54.9 Dorsalgia, unspecified; Z79.899 Other long term (current) drug therapy; Z79.84 Long term (current) use of oral hypoglycemic drugs; Z91.041 Radiographic dye allergy status; Z88.8 Allergy status to other drugs, medicaments and biological substances; Z88.5 Allergy status to narcotic agent; Z88.6 Allergy status to analgesic agent; Z96.651 Presence of right artificial knee joint; Z86.73 Personal history of transient ischemic attack (TIA), and cerebral infarction without residual deficits; Z87.891 Personal history of nicotine dependence; Z98.890 Other specified postprocedural states; W01.0XXA Fall on same level from slipping, tripping and stumbling without subsequent striking against object, initial encounter; Y92.481 Parking lot as the place of occurrence of the external cause
CPT/HCPCS: 99283

== ENCOUNTER → 2020-05-01 | Outpatient (CLI) | payer MEDICARE, OTHER ==
--- NOTE | 2020-05-01 11:07 | XR ---
EXAMINATION TYPE: XR wrist complete LT DATE OF EXAM: 05/01/2020 COMPARISON: NONE HISTORY: Pain TECHNIQUE: Four views submitted. FINDINGS: There is a negative ulnar variance. There is a deformity of the scaphoid which could be chronic. No d efinite dislocation. Remaining osseous structures intact. IMPRESSION: 1. No definite acute fracture. Chronic appearing deformity of the scaphoid. Follow-up CT scan could b e obtained for confirmation if point tender.
== END | disposition home or self-care (01) ==
LOC: RADXRMAIN 09:58
PROVIDERS: ATTEND Family Medicine
DX: S69.92XD Unspecified injury of left wrist, hand and finger(s), subsequent encounter (principal)

== ENCOUNTER 2020-08-02 10:35 | Inpatient (IN) | payer MEDICARE, OTHER ==
[2020-08-02 10:51] LABS: Glucose,Whole Blood 141 mg/dL (75-99)
[2020-08-02] MEDS ORDERED: SODIUM CHLORIDE 0.9% 500 ML 500 ML IV STA (11:03)
--- NOTE | 2020-08-02 11:06 | ED ---
General Adult HPI - General Chief complaint: Neuro Symptoms/Deficit Stated complaint: left side weakness Time Seen by Provider: 08/02/20 10:43 Source: patient, RN notes reviewed, old records reviewed Mode of arrival: ambulatory Limitations: no limitations - History of Present Illness Initial comments: 55-year-old male presenting for evaluation of left arm numbness which began one week ago. Patient had contacted his primary care physician today regarding these symptoms and was recommended to present to the emergency department for evaluation of stroke. Patient has previous history of TIA. He states that the numbness has been there for one week. He denies any recent injury to this arm. He also complains of bilateral foot numbness which is also been present for greater than 1 week. No central chest pain. No fever. No cough. No vision changes. - Related Data Home Medications Medication Instructions Recorded Confirmed Meclizine [Antivert] 25 mg PO DAILY 04/16/18 08/02/20 Omeprazole 20 mg PO AC-BID 04/16/18 08/02/20 Brimonidine Tartrate [Alphagan P 1 drops RIGHT EYE TID 05/06/18 08/02/20 0.2% Ophth Soln] Atorvastatin [Lipitor] 20 mg PO HS 06/02/18 08/02/20 Dorzolamide HCl/Pf [Dorzolamide 2% 1 drop RIGHT EYE TID 04/26/20 08/02/20 Eye Drop] HYDROcodone/APAP 5-325MG [[place] 1 tab PO BID PRN 04/26/20 08/02/20 5-325] Timolol 0.5% Ophth Soln [Timoptic 1 drop RIGHT EYE BID 04/26/20 08/02/20 0.5% Ophth Soln] lisinopriL [Zestril] 5 mg PO DAILY 04/26/20 08/02/20 metFORMIN HCL [Glucophage] 500 mg PO AC-BID 04/26/20 08/02/20 Aspirin EC [Ecotrin Low Dose] 81 mg PO DAILY 08/02/20 08/02/20 Cyclobenzaprine [Flexeril] 10 mg PO TID PRN 08/02/20 08/02/20 Ibuprofen [Motrin] 600 mg PO TID PRN 08/02/20 08/02/20 Netarsudil Mesylat/Latanoprost 1 drop BOTH EYES HS 08/02/20 08/02/20 [Rocklatan 0.02%-0.005% Eye Drp] Allergies Allergy/AdvReac Type Severity Reaction Status Date / Time gadobenate dimeglumine Allergy Swelling Verified 08/02/20 12:21 [From Multihance] hydromorphone HCl AdvReac Severe Rapid Verified 08/02/20 12:21 [From Dilaudid] Heart Rate diclofenac potassium AdvReac Nausea & Verified 08/02/20 12:21 [From Cataflam] Vomiting MRI CONTRAST AdvReac Swelling Uncoded 08/02/20 12:21 OF FACE Review of Systems ROS Statement: Those systems with pertinent positive or pertinent negative responses have been documented in the HPI. ROS Other: All systems not noted in ROS Statement are negative. Past Medical History Past Medical History: CVA/TIA, Diabetes Mellitus, Eye Disorder, GERD/Reflux, Hearing Disorder / Deafness, Hyperlipidemia, Hypertension, Osteoarthritis (OA) Additional Past Medical History / Comment(s): glaucoma-zahra, back pain currently with numbness in lower back and down both legs, hx migraines, TIA 2014-no effects, varicose veins, arthritis "all over", DM2 History of Any Multi-Drug Resistant Organisms: None Reported Past Surgical History: Back Surgery, Heart Catheterization, Joint Replacement, Orthopedic Surgery Additional Past Surgical History / Comment(s): rt knee replacement, lower back surgery for herniated disk, zahra shoulder surgery, surgery on rt middle finger, hx tacheosctomy(for encephalitis), Past Anesthesia/Blood Transfusion Reactions: Family History of Problems w/ Anesthesia Additional Past Anesthesia/Blood Transfusion Reaction / Comment(s): brother took very long time to wake up Past Psychological History: No Psychological Hx Reported Smoking Status: Former smoker Past Alcohol Use History: Occasional Past Drug Use History: None Reported - Past Family History Mother Family Medical History: Cancer Additional Family Medical History / Comment(s): of lung CA Father Family Medical History: Cancer Additional Family Medical History / Comment(s): irregular heart beat. General Exam Limitations: no limitations General appearance: alert, in no apparent distress Head exam: Present: atraumatic, normocephalic Eye exam: Present: normal appearance ENT exam: Present: normal exam Neck exam: Present: normal inspection. Absent: tenderness, meningismus Respiratory exam: Present: normal lung sounds bilaterally. Absent: respiratory distress, wheezes Cardiovascular Exam: Present: regular rate, normal rhythm GI/Abdominal exam: Present: soft. Absent: distended, tenderness, guarding Extremities exam: Present: normal inspection, normal capillary refill. Absent: pedal edema Neurological exam: Present: alert, motor sensory deficit (Left facial droop, numbness to the left upper extremity, strength is 5 out of 5 in both upper and lower extremities. NIH is 2) Psychiatric exam: Present: normal affect, normal mood Skin exam: Present: warm, dry, intact. Absent: cyanosis, diaphoretic Course Vital Signs 08/02/20 10:40 Temperature 98.4 F Pulse Rate 77 Respiratory 18 Rate Blood Pressure 115/74 O2 Sat by Pulse 99 Oximetry EKG Findings - EKG Comments: EKG Findings:: EKG: Normal sinus rhythm, rate of 67, MD interval 158, QRS duration 92, QTC 384, no ST segment elevation. Medical Decision Making - Medical Decision Making 55-year-old presenting for evaluation left arm numbness and weakness. He has numbness with good strength in the left upper extremity, lower extremities are within normal limits. He does have a left-sided facial droop. Symptoms have been present for one week. Head CT performed, negative for intracranial hemorrhage or mass effect. Patient has a normal CBC, normal CMP. EKG is sinus rhythm without ST segment elevation or signs of arrhythmia. Patient's given an aspirin emergency department he will be admitted for further evaluation of CVA. Case discussed with Dr. Cavanaugh who will admit. Neurology placed on consult. - Lab Data Result diagrams: 08/02/20 11:28 08/02/20 11:28 Lab Results 08/02/20 08/02/20 08/02/20 Range/Units 10:50 11:28 11:28 WBC 7.6 (3.8-10.6) k/uL RBC 4.29 L (4.30-5.90) m/uL Hgb 14.1 (13.0-17.5) gm/dL Hct 39.8 (39.0-53.0) % MCV 92.7 (80.0-100.0) fL MCH 32.8 (25.0-35.0) pg MCHC 35.4 (31.0-37.0) g/dL RDW 12.3 (11.5-15.5) % Plt Count 251 (150-450) k/uL MPV 6.6 Neutrophils % 66 % Lymphocytes % 21 % Monocytes % 6 % Eosinophils % 5 % Basophils % 1 % Neutrophils # 5.0 (1.3-7.7) k/uL Lymphocytes # 1.6 (1.0-4.8) k/uL Monocytes # 0.4 (0-1.0) k/uL Eosinophils # 0.4 (0-0.7) k/uL Basophils # 0.1 (0-0.2) k/uL PT 9.8 (9.0-12.0) sec INR 0.9 (<1.2) APTT 22.3 (22.0-30.0) sec Sodium (137-145) mmol/L Potassium (3.5-5.1) mmol/L Chloride (98-107) mmol/L Carbon Dioxide (22-30) mmol/L Anion Gap mmol/L BUN (9-20) mg/dL Creatinine (0.66-1.25) mg/dL Est GFR (CKD-EPI)AfAm (>60 ml/min/1.73 sqM) Est GFR (CKD-EPI)NonAf (>60 ml/min/1.73 sqM) Glucose (74-99) mg/dL POC Glucose (mg/dL) 141 H (75-99) mg/dL POC Glu Teaching Pastor ID Chip Phelps Calcium (8.4-10.2) mg/dL Total Bilirubin (0.2-1.3) mg/dL AST (17-59) U/L ALT (4-49) U/L Alkaline Phosphatase (38-126) U/L Troponin I (0.000-0.034) ng/mL Total Protein (6.3-8.2) g/dL Albumin (3.5-5.0) g/dL 08/02/20 08/02/20 Range/Units 11:28 11:28 WBC (3.8-10.6) k/uL RBC (4.30-5.90) m/uL Hgb (13.0-17.5) gm/dL Hct (39.0-53.0) % MCV (80.0-100.0) fL MCH (25.0-35.0) pg MCHC (31.0-37.0) g/dL RDW (11.5-15.5) % Plt Count (150-450) k/uL MPV Neutrophils % % Lymphocytes % % Monocytes % % Eosinophils % % Basophils % % Neutrophils # (1.3-7.7) k/uL Lymphocytes # (1.0-4.8) k/uL Monocytes # (0-1.0) k/uL Eosinophils # (0-0.7) k/uL Basophils # (0-0.2) k/uL PT (9.0-12.0) sec INR (<1.2) APTT (22.0-30.0) sec Sodium 142 (137-145) mmol/L Potassium 4.0 (3.5-5.1) mmol/L Chloride 115 H (98-107) mmol/L Carbon Dioxide 21 L (22-30) mmol/L Anion Gap 6 mmol/L BUN 21 H (9-20) mg/dL Creatinine 0.99 (0.66-1.25) mg/dL Est GFR (CKD-EPI)AfAm >90 (>60 ml/min/1.73 sqM) Est GFR (CKD-EPI)NonAf 85 (>60 ml/min/1.73 sqM) Glucose 125 H (74-99) mg/dL POC Glucose (mg/dL) (75-99) mg/dL POC Glu Teaching Pastor ID Calcium 9.6 (8.4-10.2) mg/dL Total Bilirubin 0.7 (0.2-1.3) mg/dL AST 26 (17-59) U/L ALT 29 (4-49) U/L Alkaline Phosphatase 96 (38-126) U/L Troponin I <0.012 (0.000-0.034) ng/mL Total Protein 7.3 (6.3-8.2) g/dL Albumin 4.3 (3.5-5.0) g/dL Disposition Clinical Impression: Cerebrovascular accident (CVA) Disposition: ADMITTED IP TO THIS HOSP Condition: Stable Is patient prescribed a controlled substance at d/c from ED?: No Referrals: Tian Gutierrez III, MD [Primary Care Provider] - 1-2 days Decision to Admit Reason: Admit from EC Decision Date: 08/02/20 Decision Time: 13:01
[2020-08-02 11:46] LABS: Basophils # (A) 0.1 k/uL (0-0.2); Basophils % (A) 1 %; Eosinophils # (A) 0.4 k/uL (0-0.7); Eosinophils % (A) 5 %; HCT 39.8 % (39.0-53.0); HGB 14.1 gm/dL (13.0-17.5); Lymphocytes # (A) 1.6 k/uL (1.0-4.8); Lymphocytes % (A) 21 %; MCH 32.8 pg (25.0-35.0); MCHC 35.4 g/dL (31.0-37.0); MCV 92.7 fL (80.0-100.0); Mean Platelet Volume 6.6; Monocytes # (A) 0.4 k/uL (0-1.0); Monocytes % (A) 6 %; Neutrophils % (A) 66 %; Platelet Count 251 k/uL (150-450); RBC 4.29 m/uL (4.30-5.90); RDW 12.3 % (11.5-15.5); WBC 7.6 k/uL (3.8-10.6)
[2020-08-02 11:49] LABS: ALT 29 U/L (4-49); AST 26 U/L (17-59); African American GFR (CKD) >90 (>60 ml/min/1.73 sqM); Albumin 4.3 g/dL (3.5-5.0); Alkaline Phosphatase 96 U/L (38-126); Anion Gap 6 mmol/L; Blood Urea Nitrogen 21 mg/dL (9-20); Calcium 9.6 mg/dL (8.4-10.2); Carbon Dioxide 21 mmol/L (22-30); Chloride 115 mmol/L (98-107); Glucose 125 mg/dL (74-99); Non-African American GFR(CKD) 85 (>60 ml/min/1.73 sqM); Sodium 142 mmol/L (137-145); Total Bilirubin 0.7 mg/dL (0.2-1.3); Total Protein 7.3 g/dL (6.3-8.2)
--- NOTE | 2020-08-02 11:51 | CT ---
EXAMINATION TYPE: CT brain wo con DATE OF EXAM: 08/02/2020 COMPARISON: 09/10/2018 HISTORY: Lt sided tingling, weakness CT DLP: 1084.4 mGycm Automated exposure control for dose reduction was used. FINDINGS: Osseous structures intact. The ventricular system is midline with no evidence of acute hemorrhage or mass effect. No displacement. Craniocervical junction maintained. Sella turcica has a normal appearan ce. IMPRESSION: NO ACUTE HEMORRHAGE OR MASS EFFECT. IF CLINICALLY WARRANTED CONSIDER MRI.
--- NOTE | 2020-08-02 11:51 | XR ---
EXAMINATION TYPE: XR chest 2V DATE OF EXAM: 08/02/2020 COMPARISON: Prior chest x-ray 05/23/2019 HISTORY: Altered mental status TECHNIQUE: Frontal and lateral views of the chest are obtained. FINDINGS: There is no focal air space opacity, pleural effusion, or pneumothorax seen. The cardiac silhouette size is within normal limits. The osseous structures are intact, postop change noted to the right shoulder, suture anchors present within the humeral head. Patient shows distal right clavic ular resection change. There are overlying cardiac leads. There is thoracic spondylosis. IMPRESSION: No acute cardiopulmonary process.
[2020-08-02 11:59] LABS: INR 0.9 (<1.2); Partial Thromboplastin Time 22.3 sec (22.0-30.0); Prothrombin Time 9.8 sec (9.0-12.0)
[2020-08-02] MEDS ORDERED: ASPIRIN 325 MG TAB PO STA (12:33)
[2020-08-02] MEDS ORDERED: SODIUM CHLORIDE 0.9% 1,000 ML IV SCH (13:00)
[2020-08-02] MEDS ORDERED: HYDROcodone/APAP 5-325MG 1 EACH TAB PO PRN (13:38)
[2020-08-02] MEDS ORDERED: IBUPROFEN 600 MG TAB PO PRN (13:38)
[2020-08-02] MEDS ORDERED: CYCLOBENZAPRINE 10 MG TAB PO PRN (13:38)
--- NOTE | 2020-08-02 13:38 | US ---
EXAMINATION TYPE: US carotid duplex BILAT DATE OF EXAM: 08/02/2020 COMPARISON: 04/08/2016 CLINICAL HISTORY: Stenosis. left sided weakness EXAM MEASUREMENTS: RIGHT: Peak Systolic Velocity (PSV) cm/sec ----- Right CCA: 68.0 ----- Right ICA: 106.0 ----- Right ECA: 98.2 ICA/CCA ratio: 1.6 RIGHT: End Diastole cm/sec ----- Right CCA: 14.2 ----- Right ICA: 32.2 ----- Right ECA: 8.9 LEFT: Peak Systolic Velocity (PSV) cm/sec ----- Left CCA: 80.2 ----- Left ICA: 73.6 ----- Left ECA: 111.3 ICA/CCA ratio: 0.9 LEFT: End Diastole cm/sec ----- Left CCA: 14.2 ----- Left ICA: 15.3 ----- Left ECA: 12.8 VERTEBRALS (direction of flow): Right Vertebral: Antegrade Left Vertebral: Antegrade Rhythm: Normal Mild plaque bilateral bifurcations. no evidence of significant stenosis IMPRESSION: 1. Mild bilateral atherosclerotic plaque with no significant hemodynamic stenosis. Criteria for Assigning % of Stenosis / Diameter reduction (Estimation based on the indirect measurements of the internal carotid artery velocities (ICA PSV). 1. Normal (no stenosis)=ICA PSV < 125 cm/s: ratio < 2.0: ICA EDV<40 cm/s. 2. Less than 50% stenosis=ICA PSV < 125 cm/s: ratio < 2.0: ICA EDV<40 cm/s. 3. 50 to 69% stenosis=ICA PSV of 125 to 230 cm/s: ration 2.0 ? 4.0: ICA EDV 40-100 cm/s. 4. Greater than 70% stenosis to near occlusion= ICA PSV > 230 cm/s: ratio > 4.0: ICA EDV > 100 cm/s. 5. Near occlusion= ICA PSV velocities may be low or undetectable: variable ratio and ICA EDV. 6. Total occlusion=unable to detect flow.
--- NOTE | 2020-08-02 13:46 | P.HPIM ---
History of Present Illness Patient is a 55-year-old male came in with complaints of weakness in the left side as well as tingling and numbness in the left side patient has the symptoms going on for about a week. Patient denied any headache nausea vomiting. P atient denied any history of seizures or migraine history. Patient recently had an echocardiogram because of which will be obtained from a cardiology clinic. Upper exam patient has 4/5 strength in the left upper extremity and left the lower extremity was 4+/5 strength and patient does have weakness in the face human like palsy without any speech abnormality patient denied any visual abnormalities. Patient denied smoking history. Patient denied any fever chills had a computed tomography scan of the head which didn't show any significant abnormality although his symptoms started about a week ago. Review of Systems REVIEW OF SYSTEMS: CONSTITUTIONAL: No fever, no malaise, no fatigue. HEENT: No recent visual problems or hearing problems. Denied any sore throat. CARDIOVASCULAR: No chest pain, orthopnea, PND, no palpitations, no syncope. PULMONARY: No shortness of breath, no cough, no hemoptysis. GASTROINTESTINAL: No diarrhea, no nausea, no vomiting, no abdominal pain. NEUROLOGICAL: As mentioned in HPI HEMATOLOGICAL: Denies any bleeding or petechiae. GENITOURINARY: Denies any burning micturition, frequency, or urgency. MUSCULOSKELETAL/RHEUMATOLOGICAL: Denies any joint pain, swelling, or any muscle pain. ENDOCRINE: Denies any polyuria or polydipsia. The rest of the 14-point review of systems is negative. Past Medical History Past Medical History: CVA/TIA, Diabetes Mellitus, Eye Disorder, GERD/Reflux, Hearing Disorder / Deafness, Hyperlipidemia, Hypertension, Osteoarthritis (OA) Additional Past Medical History / Comment(s): glaucoma-zahra, back pain currently with numbness in lower back and down both legs, hx migraines, TIA 2015-no effects, varicose veins, arthritis "all over", DM2 History of Any Multi-Drug Resistant Organisms: None Reported Past Surgical History: Back Surgery, Heart Catheterization, Joint Replacement, Orthopedic Surgery Additional Past Surgical History / Comment(s): rt knee replacement, lower back surgery for herniated disk, zahra shoulder surgery, surgery on rt middle finger, hx tacheosctomy(for encephalitis), Past Anesthesia/Blood Transfusion Reactions: Family History of Problems w/ Anesthesia Additional Past Anesthesia/Blood Transfusion Reaction / Comment(s): brother took very long time to wake up Past Psychological History: No Psychological Hx Reported Smoking Status: Former smoker Past Alcohol Use History: Occasional Past Drug Use History: None Reported - Past Family History Mother Family Medical History: Cancer Additional Family Medical History / Comment(s): of lung CA Father Family Medical History: Cancer Additional Family Medical History / Comment(s): irregular heart beat. Medications and Allergies Home Medications Medication Instructions Recorded Confirmed Type Meclizine [Antivert] 25 mg PO DAILY 04/16/18 08/02/20 History Omeprazole 20 mg PO AC-BID 04/16/18 08/02/20 History Brimonidine Tartrate [Alphagan P 1 drops RIGHT EYE TID 05/06/18 08/02/20 History 0.2% Ophth Soln] Atorvastatin [Lipitor] 20 mg PO HS 06/02/18 08/02/20 History Dorzolamide HCl/Pf [Dorzolamide 2% 1 drop RIGHT EYE TID 04/26/20 08/02/20 History Eye Drop] HYDROcodone/APAP 5-325MG [[place] 1 tab PO BID PRN 04/26/20 08/02/20 History 5-325] Timolol 0.5% Ophth Soln [Timoptic 1 drop RIGHT EYE BID 04/26/20 08/02/20 History 0.5% Ophth Soln] lisinopriL [Zestril] 5 mg PO DAILY 04/26/20 08/02/20 History metFORMIN HCL [Glucophage] 500 mg PO AC-BID 04/26/20 08/02/20 History Aspirin EC [Ecotrin Low Dose] 81 mg PO DAILY 08/02/20 08/02/20 History Cyclobenzaprine [Flexeril] 10 mg PO TID PRN 08/02/20 08/02/20 History Ibuprofen [Motrin] 600 mg PO TID PRN 08/02/20 08/02/20 History Netarsudil Mesylat/Latanoprost 1 drop BOTH EYES HS 08/02/20 08/02/20 History [Rocklatan 0.02%-0.005% Eye Drp] Allergies Allergy/AdvReac Type Severity Reaction Status Date / Time gadobenate dimeglumine Allergy Swelling Verified 12/23/20 12:21 [From Multihance] hydromorphone HCl AdvReac Severe Rapid Verified 08/02/20 12:21 [From Dilaudid] Heart Rate diclofenac potassium AdvReac Nausea & Verified 08/02/20 12:21 [From Cataflam] Vomiting MRI CONTRAST AdvReac Swelling Uncoded 08/02/20 12:21 OF FACE Physical Exam Vitals: Vital Signs Temp Pulse Resp BP Pulse Ox 08/02/20 10:40 98.4 F 77 18 115/74 99 Intake and Output 08/01/20 08/02/20 08/02/20 22:59 06:59 14:59 Other: Weight 97.522 kg PHYSICAL EXAMINATION: GENERAL: The patient is alert and oriented x3, not in any acute distress. Well developed, well nourished. HEENT: Pupils are round and equally reacting to light. EOMI. No scleral icterus. No conjunctival pallor. Normocephalic, atraumatic. No pharyngeal erythema. No thyromegaly. CARDIOVASCULAR: S1 and S2 present. No murmurs, rubs, or gallops. PULMONARY: Chest is clear to auscultation, no wheezing or crackles. ABDOMEN: Soft, nontender, nondistended, normoactive bowel sounds. No palpable organomegaly. MUSCULOSKELETAL: No joint swelling or deformity. EXTREMITIES: No cyanosis, clubbing, or pedal edema. NEUROLOGICAL: Left Sided facial weakness UMN palsy, 4/5 strength left upper extremity, 4+/5 left lower extremity SKIN: No rashes. Results CBC & Chem 7: 08/02/20 11:28 08/02/20 11:28 Labs: Abnormal Lab Results - Last 24 Hours (Table) 08/02/20 08/02/20 08/02/20 Range/Units 10:50 11:28 11:28 RBC 4.29 L (4.30-5.90) m/uL Chloride 115 H (98-107) mmol/L Carbon Dioxide 21 L (22-30) mmol/L BUN 21 H (9-20) mg/dL Glucose 125 H (74-99) mg/dL POC Glucose (mg/dL) 141 H (75-99) mg/dL Assessment and Plan Plan: Possible cerebrovascular accident involving the left side of the body: Patient probably has subcortical stroke most probably the right internal capsular area, possibly thrombotic stroke involving the right middle cerebral artery Will obtain MRI without contrast neurology will evaluate the patient carotid Doppler will be obtained since patient had a recent echocardiogram, LDL will be obtained along with physical therapy occupational or pedal consultation patient doesn't have any speech problems at this time of swallow problems at this time neurology was consulted. -Hypertension: Considering his recent stroke will hold off on low-dose of losa rtan for now patient blood pressure is low normal at this time -Type 2 diabetes mellitus: Hold off metformin patient was started on sliding scale insulin -Hyperlipidemia -Hypertension -Hyperchloremia secondary to IV fluids which will be his continued at this time. Due to prophylaxis with Lovenox
--- NOTE | 2020-08-02 16:33 | MR ---
MR brain without contrast HISTORY: Cerebral vascular accident, neuro deficit Multiplanar multisequence imaging through the brain Correlation CT brain 08/02/2020 There is no restricted diffusion. There is no hemorrhage or hydrocephalus. Mucosal thickening is pres ent in the bilateral maxillary sinuses. There are normal vascular flow voids. There are scattered hyp erintensities within the deep white matter, periventricular and subcortical regions. Largest lesion i n the right frontal lobe measures 6 mm on axial image 24, largest lesion on the left is 6 mm on the l eft frontal parietal location, axial image 25. Orbits show symmetric appearance. Corpus callosum, pit uitary, cervical medullary junction, cerebellopontine angles are normal. IMPRESSION: Nonspecific white matter demyelination, consider vasculitis, Lyme disease, hypertension, migraine headaches, multiple sclerosis in the appropriate clinical setting. No subacute ischemia is e vident.
[2020-08-02 17:13] LABS: Glucose,Whole Blood 122 mg/dL (75-99)
[2020-08-02] MEDS: BRIMONIDINE TARTRATE 0.2% DROPS 5 ML BTL RIGHT EYE SCH ×2 (17:26→20:22)
[2020-08-02] MEDS: DORZOLAMIDE HCL 2% DROPS 10 ML BTL RIGHT EYE SCH ×2 (17:26→20:22)
--- NOTE | 2020-08-02 18:28 | P.CNNES ---
History of Present Illness Consult date: 08/02/20 Reason for Consult: Concern for stroke: Bilateral foot numbness History of Present Illness: This is a 55-year-old gentleman history of transient ischemic attack, bilateral deafness (mother had Measles during his ), glaucoma over the right eye, lumbar fusion L3/L4 and L4/L5) 1 year ago, recent diagnosis of diabetes mellitus, hyperlipidemia, hypertension presented emergency department on 08/02/2020 for numbness of left hand finger and bilateral feet toes for the past one week. She stated that he's been having the numbness stated above for the last 1 week as well as he feels his left upper extremity is weak mostly it's a forearm the same duration. He has been having neck pain since a fall a couple months ago and it's from the left neck and goes all the way down to his a hand the area entire hand that. He said the pain is constant that. He is having some numbness associate with this at. He does feel weakness. He said the fall happened while the his was in the hospital and he was walking out of the sidewalk and the heme missed a step in which he thought he was a walking on a flat surface but did not lift his leg to get flat flat surface. He did not lose consciousness. He said that he was evaluated in the ED and no intervention was needed. She denies any visual disturbance, any difficulty getting his words out, any bladder or bowel frequency urgency or hesitancy. Upon asking him if he had the left lower extremity weakness he stated no it's the left upper extremity only. The patient is on aspirin 81 mg and Lipitor 20 mg. She is an ex-smoker and last time he smoked was he thinks it was 2018 he was sm oking for more than 30 years of smoking 1 pack a day. I reviewed the medical record and it seems that the patient was seen neurologist over at [facility] and 2013 and . He was seen and 07/12/2014 for left-sided weakness and 2014 he was seen for left-sided weakness and numbness) 2015 he was seen for left-sided numbness. He was a valid by Dr. Delgado as well as Dr. Hercules. He had EEGs during his visits and that EEGs were normal last EEG was in the 04/09/2016 and was reported as normal. Patient had the previous MRIs and per Dr. Hercules's note in the 08/23/2014 he mentioned that the patient underwent MRI the brain was reviewed and reveals nonspecific white matter changes. This has been noted on a previous MRI. MRI fails to reveal any evidence of acute right hemispheric stroke. Seems of the patient had a homocystine and 2013 which was normal but and neck 2015 the homocystine was slightly elevated and was 17. He had cerebral spinal fluid and 02/25/2014 and is reported as clear colorless, 0 nucleated cells but the total 14 as 123 and the normal was 12-16, the CSF IgG is 8.9 which is elevated. Oligoclonal band is negative. Patient had the CSF Lyme testing and was negative Dr. Delgado's note in 03/2016 and he stated that because of the left sided weak ness he feels that the patient suffered the acute ischemic stroke. And that he switch him to Plavix 75 mg. Work-up in the hospital: Initial vitals: Pressure of 115/74, heart rate of 77, respiratory of 18, temperature of 98.4 Fahrenheit oral, pulse ox of 99% room air. CT head: Reported as no acute hemorrhage or mass effect. Difficulty going to consider MRI. EKG is reported as normal sinus rhythm. Normal EKG. Patient POC glucose was 141 which is slightly elevated. Review of Systems Review of system: The 12 point system was reviewed and apparent positive and negative per HPI. Past Medical History Past Medical History: CVA/TIA, Diabetes Mellitus, Eye Disorder, GERD/Reflux, Hearing Disorder / Deafness, Hyperlipidemia, Hypertension, Osteoarthritis (OA) Additional Past Medical History / Comment(s): glaucoma-zahra, back pain currently with numbness in lower back and down both legs, hx migraines, TIA 2014-no effects, varicose veins, arthritis "all over", DM2 History of Any Multi-Drug Resistant Organisms: None Reported Past Surgical History: Back Surgery, Heart Catheterization, Joint Replacement, Orthopedic Surgery Additional Past Surgical History / Comment(s): rt knee replacement, lower back surgery for herniated disk, zahra shoulder surgery, surgery on rt middle finger, hx tacheosctomy(for encephalitis), Past Anesthesia/Blood Transfusion Reactions: Family History of Problems w/ Anesthesia Additional Past Anesthesia/Blood Transfusion Reaction / Comment(s): brother took very long time to wake up Past Psychological History: No Psychological Hx Reported Smoking Status: Former smoker Past Alcohol Use History: Occasional Past Drug Use History: None Reported - Past Family History Mother Family Medical History: Cancer Additional Family Medical History / Comment(s): of lung CA Father Family Medical History: Cancer Additional Family Medical History / Comment(s): irregular heart beat. Medications and Allergies Home Medications Medication Instructions Recorded Confirmed Type Meclizine [Antivert] 25 mg PO DAILY 04/16/18 08/02/20 History Omeprazole 20 mg PO AC-BID 04/16/18 08/02/20 History Brimonidine Tartrate [Alphagan P 1 drops RIGHT EYE TID 05/06/18 08/02/20 History 0.2% Ophth Soln] Atorvastatin [Lipitor] 20 mg PO HS 06/02/18 08/02/20 History Dorzolamide HCl/Pf [Dorzolamide 2% 1 drop RIGHT EYE TID 04/26/20 08/02/20 History Eye Drop] HYDROcodone/APAP 5-325MG [[place] 1 tab PO BID PRN 04/26/20 08/02/20 History 5-325] Timolol 0.5% Ophth Soln [Timoptic 1 drop RIGHT EYE BID 04/26/20 08/02/20 History 0.5% Ophth Soln] lisinopriL [Zestril] 5 mg PO DAILY 04/26/20 08/02/20 History metFORMIN HCL [Glucophage] 500 mg PO AC-BID 04/26/20 08/02/20 History Aspirin EC [Ecotrin Low Dose] 81 mg PO DAILY 08/02/20 08/02/20 History Cyclobenzaprine [Flexeril] 10 mg PO TID PRN 08/02/20 08/02/20 History Ibuprofen [Motrin] 600 mg PO TID PRN 08/02/20 08/02/20 History Netarsudil Mesylat/Latanoprost 1 drop BOTH EYES HS 08/02/20 08/02/20 History [Rocklatan 0.02%-0.005% Eye Drp] Allergies Allergy/AdvReac Type Severity Reaction Status Date / Time gadobenate dimeglumine Allergy Swelling Verified 08/02/20 12:21 [From Multihance] hydromorphone HCl AdvReac Severe Rapid Verified 08/02/20 12:21 [From Dilaudid] Heart Rate diclofenac potassium AdvReac Nausea & Verified 08/02/20 12:21 [From Cataflam] Vomiting MRI CONTRAST AdvReac Swelling Uncoded 08/02/20 12:21 OF FACE Physical Examination - Vital Signs Vital Signs: Vital Signs Temp Pulse Resp BP Pulse Ox 08/02/20 10:40 98.4 F 77 18 115/74 99 Intake and Output 08/02/20 08/02/20 08/02/20 06:59 14:59 22:59 Other: Weight 97.522 kg GENERAL: The patient is lying in bed and is not in acute distress. CHEST: The heart rate is regular rate rhythm. No murmurs to auscultation. No carotid bruit bilaterally. LUNG: Clear to auscultation bilaterally no wheezing noted throughout. Not labored breathing. ABDOMEN/GI: Bowel sounds present in all 4 quadrants. No tenderness to palpation throughout. NEUROLOGICAL: Higher mental function: The patient is awake, alert, oriented to self, place and time. Patient is slow to respond. Patient is following commands. No aphasia and no neglect. Cranial nerves: The pupils are round, equal and reactive to light. 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 Visual velez are full to confrontation throughout. Extraocular movement is intact no nystagmus is noted. Facial sensation is normal to touch throughout. The facial strength is normal throughout. Patient is deaf out of both ears and has hearing aid. Tongue is midline and moved [id number] without any difficulty. No dysarthria is noted. Shoulder shrug is normal bilaterally. Motor: Gait is normal with normal arm swings. The strength is 5-/5 over the left upper extremity. While left knee extension is 5-/5. Otherwise 5 throughout. Normal tone and bulk. Cerebellum: Normal finger to nose bilaterally. Sensation: Sensation is normal to touch throughout. Reflexes (right/left): Brachioradialis is 3+ bilatereally. The left patellar is 3+ otherwise 2+ throughout. Plantars are downgoing bilaterally. Results - Laboratory Findings CBC and BMP: 08/02/20 11:28 08/02/20 11:28 Abnormal Lab Findings: Abnormal Labs 08/02/20 08/02/20 08/02/20 10:50 11:28 11:28 RBC 4.29 L Chloride 115 H Carbon Dioxide 21 L BUN 21 H Glucose 125 H POC Glucose (mg/dL) 141 H Assessment and Plan Assessment: This is a 55-year-old gentleman history of transient ischemic attack, diabetes mellitus, hyperlipidemia, hypertension presented emergency department on 08/02/2020 for paresthesia of all digits of left hand and all toes of bilateral feet with weakness left upper extremity. He has neck pain since a fall about a couple months ago with is constant and radiates down. Impression presented to the hospital on numerous events which she was seen by the neuro hospitalist 2013 2014 as well as 16 for left sided weakness as well as numbness. He had multiple MRI of the brain since the past according to the sd dical documentation and shows nonspecific white matter. He also had a cerebral spinal fluid and 02/25/2014 and is reported as clear colorless, 0 nucleated cells but the total 14 as 123 and the normal was 12-16, the CSF IgG is 8.9 which is elevated. Oligoclonal band is negative. Patient had the CSF Lyme testing and was negative Complaints of paresthesia of all fingers over the left hand and all toes of bilateral feet with weakness of left upper and lower extremity for past one week. Localizes likely to neck region. He also has neck pain for past couple month that is constant with radiation down left arm. He can have component of radiculopathy but would not explain parestheisa of the digits of toes over the right foot. MRI Brain is negative for stroke. 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 Recent Diabetes mellitus Hyperlipidemia Hypertension Ex-tobacco use Plan: Bilateral carotid duplex is reported as mild bilateral office carotid plaque with no significant hemodynamic stenosis. Our the brain is reported as nonspecific white matter demyelination consider vasculitis, Lyme disease, hypertension, migraine headache, multiple sclerosis and in the appropriate clinical setting. No subacute ischemia is evident. I personally reviewed the MRI of the brain and there is no acute or subacute stroke. He had multiple MRIs of the brain in the past and per medical documentation neurology note the patient had nonspecific white matter and he had CSF Lyme disease which was negative. She does have risk factor for nonspecific white matter. As well as I saw that he has a history of migraine in the past. I will order MRI of the cervical spine with and without. 2-D echo, lipid panel is ordered and is pending. I'll order vitamin B12, folate, homocystine, vitamin B6. I think the patient might benefit also from EMG with nerve conduction study since he's having neck pain once radiates down with numbness and weakness which can be a radiculopathy. I think the EMG nerve conduction the upper and lower extremities. He done as an outpatient. He was given a stat aspirin 325 mg in the ED. Patient was started on aspirin 325 daily as well as Lipitor 40 mg daily for secondary stroke prophylaxis. Occupation therapy and physical therapy as well as speech therapy are consulted. Regarding rest of medical management will defer to the primary team. The plan was discussed with the patient. Thank you for the consultation. Tim Manuel MD Neuro-hospitalist Time with Patient: Greater than 30
[2020-08-02] MEDS ORDERED: guaiFENesin SYRUP 100MG/5ML 200 MG/10 ML CUP PO PRN (19:15)
[2020-08-02 20:13] LABS: Glucose,Whole Blood 166 mg/dL (75-99)
[2020-08-02] MEDS: FAMOTIDINE 20 MG TAB PO SCH (20:21)
[2020-08-02] MEDS: TIMOLOL 0.5% OPHTH DROPS 5 ML BTL RIGHT EYE SCH (20:22)
[2020-08-02] MEDS ORDERED: ATORVASTATIN 20 MG TAB PO SCH (21:00)
[2020-08-02] MEDS ORDERED: LATANOPROST BOTH EYES SCH (21:00)
[2020-08-02] MEDS ORDERED: NETARSUDIL MESYLAT BOTH EYES SCH (21:00)
[2020-08-02] MEDS ORDERED: ATORVASTATIN 40 MG TAB PO SCH (21:00)
[2020-08-03] MEDS ORDERED: PANTOPRAZOLE 40 MG TABLET PO SCH (07:30)
[2020-08-03] MEDS ORDERED: ASPIRIN 325 MG TAB PO SCH (09:00)
[2020-08-03] MEDS ORDERED: ENOXAPARIN 40 MG/0.4 ML SYRINGE SQ SCH (09:00)
[2020-08-03] MEDS: FAMOTIDINE 20 MG TAB PO SCH (09:29)
[2020-08-03] MEDS: BRIMONIDINE TARTRATE 0.2% DROPS 5 ML BTL RIGHT EYE SCH (09:30)
[2020-08-03] MEDS: TIMOLOL 0.5% OPHTH DROPS 5 ML BTL RIGHT EYE SCH (09:31)
[2020-08-03] MEDS: DORZOLAMIDE HCL 2% DROPS 10 ML BTL RIGHT EYE SCH (09:31)
--- NOTE | 2020-08-03 10:13 | P.DS ---
Providers Date of admission: 08/02/20 12:58 Attending physician: Eva Cavanaugh Consults: 08/02/20 12:58 Consult Physician Routine Consulting Provider: Tim Manuel Consult Reason/Comments: TIA/CVA Do you want consulting provider notified?: Yes Primary care physician: [facility] Course: 55-year-old male came in with complaints of weakness in the left side as well as tingling and numbness in the left side patient has the symptoms going on for about a week. Patient denied any headache nausea vomiting. Patient denied any history of seizures or migraine history. Patient recently had an echocardiogram because of which will be obtained from a cardiology clinic. Upper exam patient has 4/5 strength in the left upper extremity and left the lower extremity was 4+/5 strength and patient does have weakness in the face human like palsy without any speech abnormality patient denied any visual abnormalities. Patient denied smoking history. Patient denied any fever chills had a computed tomography scan of the head which didn't show any significant abnormality although his symptoms started about a week ago. 08/03/2020 Patient was evaluated by neurology. Patient doesn't appear to have any significant facial weakness which I believe he had as today patient does have some small facial asymmetry which feels like a droop on the left left-sided is weakness in the left side completely resolved. MRI did not show any stroke but the there was some nonspecific white matter changes consistent with some kind of vasculitis or Lyme's disease although patient underwent evaluation with his CSF for Lyme's disease in the past which was negative. Patient appears to have cervical radiculopathy which may have contributed to his weakness because of which MRI of the cervical spine was ordered by neurology which is still pending patient has LDL of 58 neurology is recommending 325 aspirin along with the statin 40 mg patient will need outpatient EMG patient has a neurologist as an outpatient was evaluated by Dr. Hercules in the past and patient will be given referred to Dr. Hercules again. Patient is already undergoing physical therapy for his neck as an outpatient. Unless there is significant abnormality in the cervical spine MRI patient will be discharged today PHYSICAL EXAMINATION: GENERAL: The patient is alert and oriented x3, not in any acute distress. Well developed, well nourished. HEENT: Pupils are round and equally reacting to light. EOMI. No scleral icterus. No conjunctival pallor. Normocephalic, atraumatic. No pharyngeal erythema. No thyromegaly. CARDIOVASCULAR: S1 and S2 present. No murmurs, rubs, or gallops. PULMONARY: Chest is clear to auscultation, no wheezing or crackles. ABDOMEN: Soft, nontender, nondistended, normoactive bowel sounds. No palpable organomegaly. MUSCULOSKELETAL: No joint swelling or deformity. EXTREMITIES: No cyanosis, clubbing, or pedal edema. NEUROLOGICAL: Gross neurological examination did not reveal any focal deficits. SKIN: No rashes. Assessment and Plan Plan: cerebrovascular accident was ruled out, MRI results as mentioned above carotid Doppler did not show any significant acute process cortical occlusive disease patient was evaluated by physical therapy and occupational therapy patient appears to have cervical radiculopathy further management as mentioned above. Awaiting MRI of the cervical spine -Hypertension: Patient probably doesn't need anti-happens medications as his blood pressure is okay without them. Can use RASTA inhibitor or angiotensin receptor arpan if needed for proteinuria secondary to diabetes -Type 2 diabetes mellitus: She will be resumed on metformin -Hyperlipidemia -Hypertension -Hyperchloremia secondary to IV fluids Patient Condition at Discharge: Stable Plan - Discharge Summary Discharge Rx Participant: Yes New Discharge Prescriptions: New Aspirin 325 mg PO DAILY #30 tab Atorvastatin [Lipitor] 40 mg PO HS #30 tab Continue Omeprazole 20 mg PO AC-BID Meclizine [Antivert] 25 mg PO DAILY Brimonidine Tartrate [Alphagan P 0.2% Ophth Soln] 1 drops RIGHT EYE TID metFORMIN HCL [Glucophage] 500 mg PO AC-BID Timolol 0.5% Ophth Soln [Timoptic 0.5% Ophth Soln] 1 drop RIGHT EYE BID HYDROcodone/APAP 5-325MG [[place] 5-325] 1 tab PO BID PRN PRN Reason: Pain Dorzolamide HCl/Pf [Dorzolamide 2% Eye Drop] 1 drop RIGHT EYE TID Netarsudil Mesylat/Latanoprost [[place] 0.02%-0.005% Eye Drp] 1 drop BOTH EYES HS Ibuprofen [Motrin] 600 mg PO TID PRN PRN Reason: Pain Cyclobenzaprine [Flexeril] 10 mg PO TID PRN PRN Reason: Muscle Spasm Discontinued Atorvastatin [Lipitor] 20 mg PO HS lisinopriL [Zestril] 5 mg PO DAILY Aspirin EC [Ecotrin Low Dose] 81 mg PO DAILY Discharge Medication List Meclizine [Antivert] 25 mg PO DAILY 04/16/18 [History] Omeprazole 20 mg PO AC-BID 04/16/18 [History] Brimonidine Tartrate [Alphagan P 0.2% Ophth Soln] 1 drops RIGHT EYE TID 05/06/18 [History] Dorzolamide HCl/Pf [Dorzolamide 2% Eye Drop] 1 drop RIGHT EYE TID 04/26/20 [History] HYDROcodone/APAP 5-325MG [[place] 5-325] 1 tab PO BID PRN 04/26/20 [History] Timolol 0.5% Ophth Soln [Timoptic 0.5% Ophth Soln] 1 drop RIGHT EYE BID 04/26/20 [History] metFORMIN HCL [Glucophage] 500 mg PO AC-BID 04/26/20 [History] Cyclobenzaprine [Flexeril] 10 mg PO TID PRN 08/02/20 [History] Ibuprofen [Motrin] 600 mg PO TID PRN 08/02/20 [History] Netarsudil Mesylat/Latanoprost [[place]lat[place] 0.02%-0.005% Eye Drp] 1 drop BOTH EYES HS 08/02/20 [History] Aspirin 325 mg PO DAILY #30 tab 08/03/20 [Rx] Atorvastatin [Lipitor] 40 mg PO HS #30 tab 08/03/20 [Rx] Follow up Appointment(s)/Referral(s): Ana Hercules MD [REFERRING] - 1 Week Tian Gutierrez III, MD [Primary Care Provider] - 3 Days Discharge Disposition: HOME SELF-CARE
--- NOTE | 2020-08-03 12:39 | P.PN ---
Subjective Progress Note Date: 08/03/20 Patient was seen at that side and he stated that he's doing well. He feels after getting pain medication is a left neck pain that has somewhat better today compared to yesterday. Otherwise he denies any new weakness, numbness, visual disturbance or difficulty getting his words out. He still has some numbness over the left arm. Objective - Vital Signs Vital signs: Vital Signs Temp 97.6 F 08/03/20 04:00 Pulse 68 08/03/20 04:00 Resp 18 08/03/20 04:00 BP 128/69 08/03/20 04:00 Pulse Ox 97 08/03/20 04:00 Intake & Output 08/02/20 08/03/20 08/03/20 18:59 06:59 18:59 Intake Total 236 950 Output Total 500 Balance 236 950 -500 Weight 97.522 kg 100.3 kg Intake: Oral 236 950 Output: Urine 500 Other: Voiding Method Toilet # Voids 1 - Exam GENERAL: The patient is lying in bed and is not in acute distress. NEUROLOGICAL: Higher mental function: The patient is awake, alert, oriented to self, place and time. Patient is slow to respond. Patient is following commands. No aphasia and no neglect. Cranial nerves: The pupils are round, equal and reactive to light. 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 Visual velez are full to confrontation throughout. Extraocular movement is intact no nystagmus is noted. Facial sensation is nor mal to touch throughout. The facial strength is normal throughout. Patient is deaf out of both ears and has hearing aid. Tongue is midline and moved [id number] without any difficulty. No dysarthria is noted. Shoulder shrug is normal bilaterally. Motor: Gait is deferred.. The strength is 5-/5 over the left distal upper extremity and was limited because of left shoulder/neck pain. While left knee extension is 5-/5. Otherwise 5 throughout. Normal tone and bulk. Cerebellum: Normal finger to nose bilaterally. Sensation: Sensation is normal to touch throughout. Reflexes (right/left): Brachioradialis is 3+ bilatereally. The left patellar is 3+ otherwise 2+ throughout. Plantars are downgoing bilaterally. - Labs CBC & Chem 7: 08/02/20 11:28 12/23/20 11:28 Labs: Abnormal Lab Results - Last 24 Hours (Table) 08/02/20 08/02/20 08/03/20 Range/Units 17:11 20:11 07:43 POC Glucose (mg/dL) 122 H 166 H (75-99) mg/dL Triglycerides 151 H (<150) mg/dL HDL Cholesterol 34 L (40-60) mg/dL Assessment and Plan Assessment: This is a 55-year-old gentleman history of transient ischemic attack, diabetes mellitus, hyperlipidemia, hypertension presented emergency department on 08/02/2020 for paresthesia of all digits of left hand and all toes of bilateral feet with weakness left upper extremity. He has neck pain since a fall about a couple months ago with is constant and radiates down. Impression presented to the hospital on numerous events which she was seen by the neuro hospitalist 2013 2014 as well as 16 for left sided weakness as well as numbness. He had multiple MRI of the brain since the past according to the medical documentation and shows nonspecific white matter. He also had a cerebral spinal fluid and 02/25/2014 and is reported as clear colorless, 0 nucleated cells but the total 14 as 123 and the normal was 12-16, the CSF IgG is 8.9 which is elevated. Oligoclonal band is negative. Patient had the CSF Lyme testing and was negative Complaints of paresthesia of all fingers over the left hand and all toes of bi lateral feet with weakness of left upper and lower extremity for past one week. Localizes likely to neck region. He also has neck pain for past couple month that is constant with radiation down left arm. He can have component of radiculopathy but would not explain parestheisa of the digits of toes over the right foot. MRI Brain is negative for stroke. 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 Recent Diabetes mellitus Hyperlipidemia Hypertension Ex-tobacco use Plan: Bilateral carotid duplex is reported as mild bilateral office carotid plaque with no significant hemodynamic stenosis. Our the brain is reported as nonspecific white matter demyelination consider vasculitis, Lyme disease, hypertension, migraine headache, multiple sclerosis and in the appropriate clinical setting. No subacute ischemia is evident. I personally reviewed the MRI of the brain and there is no acute or subacute stroke. He had multiple MRIs of the brain in the past and per medical documentation neurology note the patient had nonspecific white matter and he had CSF Lyme disease which was negative. She does have risk factor for nonspecific white matter. As well as I saw that he has a history of migraine in the past. Pending MRI of the cervical spine with and without. 2-D echo: pending. lipid panel: Triglyceride 151, cholesterol 120, LDL 56 and HDL of 34. Vitamin B12, folate, homocystine, vitamin B6: pending. I think the patient might benefit also from EMG with nerve conduction study since he's having neck pain once radiates down with numbness and weakness which can be a radiculopathy. I think the EMG nerve conduction the upper and lower extremities. He done as an outpatient. He was given a stat aspirin 325 mg in the ED. Patient was started on aspirin 325 daily as well as Lipitor 40 mg daily for secondary stroke prophylaxis. Occupation therapy and physical therapy as well as speech therapy are consulted. Regarding rest of medical management will defer to the primary team. Upon discharge the patient needs to follow-up with a neurologist within 1-2 weeks as an outpatient. The plan was discussed with the patient as well as the primary team. Tim Manuel MD Neuro-hospitalist Time with Patient: Less than 30
[2020-08-03 13:05] VITALS: BP 115/72; PULSE 72; RESP 16; TEMP 97.5
--- NOTE | 2020-08-05 14:44 | MR ---
EXAMINATION TYPE: MR cervical spine wo con DATE OF EXAM: 08/05/2020 COMPARISON: Prior cervical MRI 04/26/2017 HISTORY: neck pain with left arm weakness TECHNIQUE: Multiplanar, multisequence images of the cervical spine were acquired. C2-C3: Uncovertebral joint hypertrophy causes some foraminal encroachment on the right similar to rosetta or exam. No significant spinal stenosis, no evident disc herniation. C3-C4: Posterior extension of broad-based disc bulge causes mild anterior mass effect on the thecal s ac. Uncovertebral joint hypertrophy results in foraminal encroachment on the right. There is mild spi nal stenosis similar to prior exam. C4-C5: Posterior extension of endplate disc complex causes anterior mass effect on the thecal sac, th ere is mass effect on the anterior cervical cord. Moderate to severe spinal stenosis is again noted. Left-sided foraminal encroachment noted due to uncovertebral joint hypertrophy and facet arthropathy. C5-C6: Posterior extension of endplate disc complex is noted, there is a broad-based posterior disc h erniation with eccentric component left paracentral location, moderate to severe spinal stenosis taylor lar to prior exam. There is bilateral foraminal encroachment due to uncovertebral joint hypertrophy. C6-C7: No evidence for degenerative disc disease. No disc bulge/herniation or protrusion. No Canal stenosis. Foramina are patent bilaterally. C7-T1: No evidence for degenerative disc disease. No disc bulge/herniation or protrusion. No Canal stenosis. Foramina are patent bilaterally. Cervical segments are intact. There is stable alignment. Cervical spinal cord is of normal signal. Craniovertebral junction relationships are within normal limits. There is multilevel spondylosis as on prior exam. Loss of disc height and signal is again noted, there is endplate discogenic marrow si gnal change. IMPRESSION: Essentially stable degenerative disc disease, foraminal encroachment, spinal stenosis.
[2020-08-06 09:31] LABS: Glucose,Whole Blood 128 mg/dL (75-99)
[2020-08-06 09:37] LABS: Glucose,Whole Blood 208 mg/dL (75-99)
== END 2020-08-03 14:50 | disposition home or self-care (01) | DRG 74 ==
LOC: EC 10:35 → 3SCARD 12:58
PROVIDERS: ADMIT Internal Medicine; ATTEND Internal Medicine
DX: M54.12 Radiculopathy, cervical region (principal); E11.9 Type 2 diabetes mellitus without complications; E78.5 Hyperlipidemia, unspecified; E87.8 Other disorders of electrolyte and fluid balance, not elsewhere classified; H40.9 Unspecified glaucoma; H91.93 Unspecified hearing loss, bilateral; I10 Essential (primary) hypertension; G43.909 Migraine, unspecified, not intractable, without status migrainosus; H53.2 Diplopia; K21.9 Gastro-esophageal reflux disease without esophagitis; M19.90 Unspecified osteoarthritis, unspecified site; I83.90 Asymptomatic varicose veins of unspecified lower extremity; Z79.82 Long term (current) use of aspirin; Z79.84 Long term (current) use of oral hypoglycemic drugs; Z79.899 Other long term (current) drug therapy; Z98.1 Arthrodesis status; Z96.651 Presence of right artificial knee joint; Z88.5 Allergy status to narcotic agent; Z88.8 Allergy status to other drugs, medicaments and biological substances; Z87.39 Personal history of other diseases of the musculoskeletal system and connective tissue; Z91.041 Radiographic dye allergy status; Z87.891 Personal history of nicotine dependence; Z86.73 Personal history of transient ischemic attack (TIA), and cerebral infarction without residual deficits; Z86.61 Personal history of infections of the central nervous system; Z80.1 Family history of malignant neoplasm of trachea, bronchus and lung; Z82.49 Family history of ischemic heart disease and other diseases of the circulatory system
CPT/HCPCS: 36415; 70450; 70551; 71046; 72141; 80053; 80061; 82607; 82747; 83090; 84207; 84443; 84484; 85025; 85610; 85730; 93005; 93880; 96360; 96361; 99285

== ENCOUNTER → 2020-11-01 | Outpatient (CLI) | payer MEDICARE, OTHER ==
--- NOTE | 2020-11-01 11:31 | MR ---
EXAMINATION TYPE: MR shoulder LT wo con DATE OF EXAM: 11/01/2020 COMPARISON: X-ray 04/26/2020 HISTORY: Left sided neck pain down thru left shoulder into left arm x 6months TECHNIQUE: Multiplanar, multisequence imaging of the left shoulder is performed without contrast. FINDINGS: Hypertrophic change of the AC joint. There is increased intrasubstance signal throughout th e supraspinatus tendon thickening near the insertion compatible with diffuse tendinosis. There is a p artial through thickness tear involving the anterior fibers of the supraspinatus tendon near the inse rtion. Intrasubstance signal is seen involving the subscapularis tendon compatible with tendinosis and parti al intrasubstance tear. There is poor visualization of the bicipital tendon within the internal rotator interval. Could not e xclude biceps tendon injury. Bicipital tendon is well situated in the bicipital groove. No evidence of marrow edema or contusion. Glenohumeral ligaments are intact. Findings are suspicious for anterior superior labral tear. IMPRESSION: 1. Diffuse tendinosis of the distal 2.5 cm of the supraspinatus and infraspinatus tendons compatible with diffuse severe tendinosis. Partial through thickness tear near the insertion of the anterior fib ers supraspinatus tendon measuring 9 mm. No retraction. 2. Tendinosis partial intrasubstance tear insertion subscapularis tendon 3. Findings are suspicious for a SLAP tear 4. Bicipital tendon is well situated within the bicipital groove but is not clearly defined within th e rotator interval. Bicipital tendinosis or tear in this region is in the differential diagnosis, cor relate clinically.
--- NOTE | 2020-11-03 10:47 | MR ---
EXAMINATION TYPE: MR cervical spine wo con DATE OF EXAM: 11/01/2020 COMPARISON: 08/03/2020 HISTORY: Left sided neck pain down thru left shoulder into left arm x 6months CONTRAST: Performed utilizing 0 mL intravenous Gadavist gadolinium contrast. TECHNIQUE: Multiplanar multiecho imaging on a 3.0 Bettina magnet is performed through the cervical spin e. FINDINGS: The craniovertebral junction is normal. Vertebral body alignment is normal. Disc desicca tion is present throughout the cervical spine. Some mild narrowing may be present C4-5 C5-C6 C6-7. C7-T1: Mild disc bulge is present with anterior thecal sac contact. No cord contact is evident. No spinal canal stenosis is present. Neural foramen are patent.. C6-7: No focal disc herniation or significant disc bulge is evident. No spinal canal stenosis or michael ral foraminal stenosis is present. C5-6: There is a large left paracentral disc herniation with moderate anterior thecal sac compression . This has cord contact. Some cord deformity appears to be present. AP spinal canal narrowing measuri ng 0.6 cm is present some broad-based disc bulge also has intrathecal sac compression and cord flatte emeka. Uncovertebral joint hypertrophy is present contributing to severe bilateral foraminal stenosis. C4-5: Broad-based disc bulge has moderate to severe anterior thecal sac compression. Cord flattening is present. AP spinal canal narrowing measuring 0.7 cm is present. Uncovertebral joint hypertrophy is contributing to bilateral severe foraminal stenosis greater on the left.. C3-4: Broad-based disc bulges anterior thecal sac flattening. No cord contact. Subligamentous disc e xtension extending beyond the endplate of C3 is present, better visualized in the sagittal T1-weighte d images. No spinal canal stenosis present. Mild right foraminal narrowing from uncovertebral joint h ypertrophy may be present.. C2-3: No focal disc herniation or significant disc bulge is evident. No spinal canal stenosis or michael ral foraminal stenosis is present. IMPRESSIONS: 1. Severe spinal canal stenosis secondary to disc herniation and disc bulges C4-5, C5-6. This is grea ter in the C5-6 level in the left paracentral region and may correlate with the patient's clinical sy mptoms. 2. Broad-based disc bulge with subligamentous disc herniation at C3-4 without spinal canal stenosis. 3. Uncovertebral joint hypertrophy within the upper cervical spine C3-4 through C5-6 contributing to severe foraminal stenosis discussed above
== END | disposition home or self-care (01) ==
LOC: RADMRIMAIN 09:08
PROVIDERS: ATTEND Orthopaedic Surgery Orthopaedic Surgery of the Spine
DX: M75.112 Incomplete rotator cuff tear or rupture of left shoulder, not specified as traumatic (principal); M48.02 Spinal stenosis, cervical region; M50.11 Cervical disc disorder with radiculopathy, high cervical region; M75.42 Impingement syndrome of left shoulder; E66.9 Obesity, unspecified; Z47.89 Encounter for other orthopedic aftercare; Z98.1 Arthrodesis status; M62.830 Muscle spasm of back; S39.012D Strain of muscle, fascia and tendon of lower back, subsequent encounter; M43.12 Spondylolisthesis, cervical region; M50.321 Other cervical disc degeneration at C4-C5 level; M47.812 Spondylosis without myelopathy or radiculopathy, cervical region
CPT/HCPCS: 72141

== ENCOUNTER → 2021-01-15 | Outpatient (CLI) | payer MEDICARE, OTHER ==
--- NOTE | 2021-01-15 12:39 | P.PAINCN ---
History of Present Illness - Reason for Consult Consult date: 01/15/21 - History of Present Illness This is 55 years old male with a chronic history of severe neck pain with radiations to the upper extremity, associated with some numbness and tingling sensation , she also had severe low back pain with rotation to the extremity and buttock area, he had a history of lumbar interbody fusion, patient reported that his pain mainly in the cervical area with radiation to the upper extremity he de nies any weakness in his upper extremity, he denies any fever or night sweats and he reported that the neck pain is constant and increased with any neck movement,, currently on multiple pain medication without any side effects from it Past Medical History Past Medical History: CVA/TIA, Diabetes Mellitus, Eye Disorder, GERD/Reflux, Hearing Disorder / Deafness, Hyperlipidemia, Hypertension, Osteoarthritis (OA) Additional Past Medical History / Comment(s): glaucoma-rt eye, back pain currently with numbness in lower back and down both legs, hx migraines, TIA 2014-no effects, varicose veins, arthritis "all over", diet control diabetic History of Any Multi-Drug Resistant Organisms: None Reported Past Surgical History: Back Surgery, Heart Catheterization, Joint Replacement, Orthopedic Surgery Additional Past Surgical History / Comment(s): rt knee replacement, lower back surgery for herniated disk, zahra shoulder surgery, surgery on rt middle finger, hx tacheosctomy(for encephalitis), Past Anesthesia/Blood Transfusion Reactions: Family History of Problems w/ Anesthesia Additional Past Anesthesia/Blood Transfusion Reaction / Comm: brother took very long time to wake up Past Psychological History: No Psychological Hx Reported Smoking Status: Former smoker Past Alcohol Use History: Occasional Additional Past Alcohol Use History / Comment(s): quit smoking 2014, smoked since age 12, smoked > 1 PPD Past Drug Use History: None Reported - Past Family History Mother Family Medical History: Cancer Additional Family Medical History / Comment(s): of lung CA Father Family Medical History: Cancer Additional Family Medical History / Comment(s): prostate Medications and Allergies Home Medications Medication Instructions Recorded Confirmed Type Meclizine [Antivert] 25 mg PO DAILY 04/16/18 01/15/21 History Omeprazole 20 mg PO AC-BID 04/16/18 01/15/21 History Brimonidine Tartrate [Alphagan P 1 drops RIGHT EYE TID 05/06/18 01/15/21 History 0.2% Ophth Soln] Dorzolamide HCl/Pf [Dorzolamide 2% 1 drop RIGHT EYE TID 04/26/20 01/15/21 History Eye Drop] HYDROcodone/APAP 5-325MG [[place] 1 tab PO BID PRN 04/26/20 01/15/21 History 5-325] Timolol 0.5% Ophth Soln [Timoptic 1 drop RIGHT EYE BID 04/26/20 01/15/21 History 0.5% Ophth Soln] Cyclobenzaprine [Flexeril] 10 mg PO HS PRN 08/02/20 01/15/21 History Netarsudil Mesylat/Latanoprost 1 drop BOTH EYES HS 08/02/20 01/15/21 History [Rocklatan 0.02%-0.005% Eye Drp] Atorvastatin [Lipitor] 40 mg PO HS #30 tab 08/03/20 01/15/21 Rx Lisinopril [Prinivil] 5 mg PO DAILY #30 tab 08/03/20 01/15/21 Rx Aspirin [Adult Low Dose Aspirin EC] 81 mg PO DAILY 11/02/20 01/15/21 History Celecoxib [CeleBREX] 100 mg PO DAILY 01/12/21 01/15/21 History Vit C/E/Zn/Coppr/Lutein/Zeaxan 1 each PO BID 01/12/21 01/15/21 History [Preservision Areds 2 Softgel] acetaZOLAMIDE [Diamox] 250 mg PO DAILY 01/12/21 01/15/21 History Allergies Allergy/AdvReac Type Severity Reaction Status Date / Time gadobenate dimeglumine Allergy Swelling Verified 01/12/21 08:47 [From Multihance] Iodinated Contrast Media Allergy Swelling Verified 01/12/21 08:47 hydromorphone HCl AdvReac Severe Rapid Verified 01/12/21 08:47 [From Dilaudid] Heart Rate diclofenac potassium AdvReac Nausea & Verified 01/12/21 08:47 [From Cataflam] Vomiting MRI CONTRAST AdvReac Swelling Uncoded 01/12/21 08:47 OF FACE Physical Exam Vitals: Vital Signs Temp Pulse Resp BP Pulse Ox 01/15/21 11:26 98.3 F 73 18 128/71 96 Physical Examinations : -Constitutiona : Cooperative , not in acute distress . -HEENT : nech : supple , no Lymphadenopathy , normal thyroid size . : eyes : no ptosis , no icterus, no photophobia . - neurologic : Cranial nerve II to XII intact , no focal neurological deffecit . -psychatric : alert , oriented X 3 , appropriate affect , intact judgment and insight . -Lymphatic : no Lymphadenopathy . - musculoskeltal : Cervical Spine motor stregnth in the deltoid and biceps, normal right side , normal Left side motor stregnth biceps and the wrist extensors normal right side ,normal left side . motor stregnth in the triceps muscle . normal Right side , normal Left side deep tendon reflexes normal at the biceps , normal at Brachioradialis , normal at triceps. cervical facet loading test: Positive Bilaterally Spurling test= positive Right , positive left. Neck distraction test= positive Right , positive left. Toña sign= positive right, positive left . Lumber spine moter stegnth lower extremities ,thigh and legs 5/5 Right side , 5/5 Left side deep tendon reflexes : normal Knee Jerk , normal ankle Jerk lumber facet Loading Test =positive Right , positive Left Range of motion of the lumbar spine Flexion 30 degrees, extension 10 degrees strait leg raising test = positive at 30degree Fabere test= positive Right , and positive LT . tenderness over the Sacroiliac joint on the Right , and Left sides Results Comments: MRI of the cervical spine severe spinal stenosis and disc herniation at C4 5 and C5-C6 and multilevel cervical facet arthropathy Assessment and Plan Plan: Assessment and plan=1-cervical spinal stenosis. 2-cervical disc herniation. 3-cervical spondylosis with cervical facet arthropathy. 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 Patient could benefit from cervical epidural steroid injection under fluoroscopy guidance at C6 7 or C7-T1 Time with Patient: Greater than 30 PQRS Measure Charge Sheet Measure #130: Documentation of Current Meds in Medical Chart: Patient's medications documented in chart Measure #226: Tobacco Use: Screen & Cessation Intervention: Pt not a tobacco user Measure #111: Pneumonia Vaccination: Pneumococcal vaccine NOT administered or previously given Measure #47: Advance Care Plan: Advance care planning discussed & documented, pt chose/unable to give Measure #412: Opioid Treatment Agreement: No documentation of signed opioid treatment agreement Measure #408: Opioid Therapy Follow-up Evaluation: Patient had NO f/u eval minimum every 3 months during opioid therapy Measure #317: Preventitive Care & Scrn High Bld Press & F/U: Normal blood pressure, f/u not required Measure #128: Body Mass Index (BMI) Screening & Follow-up: BMI documented ABOVE normal parameters - f/u documented Measure #131: Pain Assessment & Follow-up: Pain positive & plan documented, Follow-up scheduled Measure #431: Unhealthy Alcohol Use Preventative Care & Scrn: Patient not identified as an unhealthy alcohol user PQRS Narrative: Smoking Status Former smoker Blood Pressure 128/71 Pain Intensity [Lower Back] 10 Pain Intensity [Neck] 8 Scale Used Numeric (1 - 10) Hx Alcohol Use (MH) Yes: social Home Medications: Ambulatory Orders Meclizine [Antivert] 25 mg PO DAILY 04/16/18 Omeprazole 20 mg PO AC-BID 04/16/18 Brimonidine Tartrate [Alphagan P 0.2% Ophth Soln] 1 drops RIGHT EYE TID 05/06/18 Dorzolamide HCl/Pf [Dorzolamide 2% Eye Drop] 1 drop RIGHT EYE TID 04/26/20 HYDROcodone/APAP 5-325MG [Delight 5-325] 1 tab PO BID PRN 04/26/20 Timolol 0.5% Ophth Soln [Timoptic 0.5% Ophth Soln] 1 drop RIGHT EYE BID 04/26/20 Cyclobenzaprine [Flexeril] 10 mg PO HS PRN 08/02/20 Netarsudil Mesylat/Latanoprost [Rocklatan 0.02%-0.005% Eye Drp] 1 drop BOTH EYES HS 08/02/20 Atorvastatin [Lipitor] 40 mg PO HS #30 tab 08/03/20 Lisinopril [Prinivil] 5 mg PO DAILY #30 tab 08/03/20 Aspirin [Adult Low Dose Aspirin EC] 81 mg PO DAILY 11/02/20 Celecoxib [CeleBREX] 100 mg PO DAILY 01/12/21 Vit C/E/Zn/Coppr/Lutein/Zeaxan [Preservision Areds 2 Softgel] 1 each PO BID 01/12/21 acetaZOLAMIDE [Diamox] 250 mg PO DAILY 01/12/21
== END ==
CPT/HCPCS: 99211

== ENCOUNTER 2021-01-20 14:26 | Emergency (ER) | payer MEDICARE, OTHER ==
[2021-01-20 14:31] VITALS: TEMP 97.7
[2021-01-20] MEDS ORDERED: SODIUM CHLORIDE 0.9% 1,000 ML IV STA (14:42)
[2021-01-20] MEDS ORDERED: ONDANSETRON 4 MG/2 ML VIAL IVP STA (14:42)
[2021-01-20] MEDS ORDERED: KETOROLAC 15 MG/ML 1 ML VIAL IVP STA (14:43)
--- NOTE | 2021-01-20 14:46 | ED ---
General Adult HPI - General Chief complaint: Abdominal Pain Stated complaint: Abd Pain Time Seen by Provider: 01/20/21 14:34 Source: patient, RN notes reviewed Mode of arrival: ambulatory Limitations: no limitations - History of Present Illness Initial comments: 55-year-old male with a past medical history of CVA, diabetes mellitus, hyperlipidemia, hypertension, GERD presents to the emergency room for a chief complaint of abdominal pain. Patient reports he has had left lower quadrant abdominal pain for the past 2 days. He denies any associated nausea vomiting or diarrhea. States bowel movements are normal. Patient states he has had this pain in the past and was supposed to have a colonoscopy but couldn't make it and never rescheduled. He denies any fevers.Patient has no other complaints at this time including shortness of breath, chest pain, nausea or vomiting, headache, or visual changes. - Related Data Home Medications Medication Instructions Recorded Confirmed Meclizine [Antivert] 25 mg PO DAILY 04/16/18 01/20/21 Omeprazole 20 mg PO AC-BID 04/16/18 01/20/21 Brimonidine Tartrate [Alphagan P 1 drops RIGHT EYE TID 05/06/18 01/20/21 0.2% Ophth Soln] Dorzolamide HCl/Pf [Dorzolamide 2% 1 drop RIGHT EYE TID 04/26/20 01/20/21 Eye Drop] HYDROcodone/APAP 5-325MG [[place] 1 tab PO BID PRN 04/26/20 01/20/21 5-325] Timolol 0.5% Ophth Soln [Timoptic 1 drop RIGHT EYE BID 04/26/20 01/20/21 0.5% Ophth Soln] Netarsudil Mesylat/Latanoprost 1 drop BOTH EYES HS 08/02/20 01/20/21 [Rocklatan 0.02%-0.005% Eye Drp] Aspirin [Adult Low Dose Aspirin EC] 81 mg PO DAILY 11/02/20 01/20/21 Celecoxib [CeleBREX] 100 mg PO DAILY 01/12/21 01/20/21 Vit C/E/Zn/Coppr/Lutein/Zeaxan 1 cap PO BID 01/12/21 01/20/21 [Preservision Areds 2 Softgel] acetaZOLAMIDE [Diamox] 250 mg PO DAILY 01/12/21 01/20/21 lisinopriL [Zestril] 5 mg PO DAILY 01/20/21 01/20/21 Previous Rx's Medication Instructions Recorded Atorvastatin [Lipitor] 40 mg PO HS #30 tab 08/03/20 Allergies Allergy/AdvReac Type Severity Reaction Status Date / Time gadobenate dimeglumine Allergy Swelling Verified 01/20/21 15:39 [From Multihance] Iodinated Contrast Media Allergy Swelling Verified 01/20/21 15:39 hydromorphone HCl AdvReac Severe Rapid Verified 01/20/21 15:39 [From Dilaudid] Heart Rate diclofenac potassium AdvReac Nausea & Verified 01/20/21 15:39 [From Cataflam] Vomiting MRI CONTRAST AdvReac Swelling Uncoded 01/20/21 14:31 OF FACE Review of Systems ROS Statement: Those systems with pertinent positive or pertinent negative responses have been documented in the HPI. ROS Other: All systems not noted in ROS Statement are negative. Past Medical History Past Medical History: CVA/TIA, Diabetes Mellitus, Eye Disorder, GERD/Reflux, Hearing Disorder / Deafness, Hyperlipidemia, Hypertension, Osteoarthritis (OA) Additional Past Medical History / Comment(s): glaucoma-rt eye, back pain currently with numbness in lower back and down both legs, hx migraines, TIA 2014-no effects, varicose veins, arthritis "all over", diet control diabetic History of Any Multi-Drug Resistant Organisms: None Reported Past Surgical History: Back Surgery, Heart Catheterization, Joint Replacement, Orthopedic Surgery Additional Past Surgical History / Comment(s): rt knee replacement, lower back surgery for herniated disk, zahra shoulder surgery, surgery on rt middle finger, hx tacheosctomy(for encephalitis), Past Anesthesia/Blood Transfusion Reactions: Family History of Problems w/ An esthesia Additional Past Anesthesia/Blood Transfusion Reaction / Comment(s): brother took very long time to wake up Past Psychological History: No Psychological Hx Reported Smoking Status: Former smoker Past Alcohol Use History: Occasional Past Drug Use History: None Reported - Past Family History Mother Family Medical History: Cancer Additional Family Medical History / Comment(s): of lung CA Father Family Medical History: Cancer Additional Family Medical History / Comment(s): prostate General Exam Limitations: no limitations General appearance: alert, in no apparent distress Head exam: Present: atraumatic, normocephalic, normal inspection Eye exam: Present: normal appearance, PERRL, EOMI. Absent: scleral icterus, conjunctival injection, periorbital swelling ENT exam: Present: normal exam, mucous membranes moist Neck exam: Present: normal inspection. Absent: tenderness, meningismus, lymphadenopathy Respiratory exam: Present: normal lung sounds bilaterally. Absent: respiratory distress, wheezes, rales, rhonchi, stridor Cardiovascular Exam: Present: regular rate, normal rhythm, normal heart sounds. Absent: systolic murmur, diastolic murmur, rubs, gallop, clicks GI/Abdominal exam: Present: soft, tenderness (Left lower quadrant tenderness without rebound or guarding. No right-sided abdominal tenderness.), normal bowel sounds. Absent: distended, guarding, rebound, rigid Course Vital Signs 01/20/21 14:26 Temperature 97.7 F Pulse Rate 89 Respiratory 16 Rate Blood Pressure 103/61 O2 Sat by Pulse 98 Oximetry Medical Decision Making - Medical Decision Making Vitals stable. CBC CMP unremarkable. Urinalysis unremarkable. CT abdomen and pelvis was obtained without contrast given patient's ALLERGY of angioedema to contrast. This did show mild colonic diverticulosis without diverticulitis. No significant change compared to old exam. Small lipoma at the left sciatic notch. He was supposed to follow-up with Dr. salas for a scope but never did. He was doing pain medication here and did feel better. I did discuss the importance of following up for the scope and he is agreeable. He will return here for any worsening symptoms. - Lab Data Result diagrams: 01/20/21 14:45 01/20/21 14:45 Lab Results 01/20/21 01/20/21 01/20/21 Range/Units 14:45 14:45 15:51 WBC 9.4 (3.8-10.6) k/uL RBC 4.40 (4.30-5.90) m/uL Hgb 14.4 (13.0-17.5) gm/dL Hct 41.6 (39.0-53.0) % MCV 94.7 (80.0-100.0) fL MCH 32.8 (25.0-35.0) pg MCHC 34.7 (31.0-37.0) g/dL RDW 12.7 (11.5-15.5) % Plt Count 249 (150-450) k/uL MPV 6.9 Neutrophils % 70 % Lymphocytes % 19 % Monocytes % 7 % Eosinophils % 2 % Basophils % 0 % Neutrophils # 6.6 (1.3-7.7) k/uL Lymphocytes # 1.8 (1.0-4.8) k/uL Monocytes # 0.6 (0-1.0) k/uL Eosinophils # 0.2 (0-0.7) k/uL Basophils # 0.0 (0-0.2) k/uL Sodium 141 (137-145) mmol/L Potassium 4.2 (3.5-5.1) mmol/L Chloride 110 H (98-107) mmol/L Carbon Dioxide 22 (22-30) mmol/L Anion Gap 9 mmol/L BUN 16 (9-20) mg/dL Creatinine 1.14 (0.66-1.25) mg/dL Est GFR (CKD-EPI)AfAm 84 (>60 ml/min/1.73 sqM) Est GFR (CKD-EPI)NonAf 72 (>60 ml/min/1.73 sqM) Glucose 136 H (74-99) mg/dL Calcium 9.7 (8.4-10.2) mg/dL Total Bilirubin 0.8 (0.2-1.3) mg/dL AST 47 (17-59) U/L ALT 51 H (4-49) U/L Alkaline Phosphatase 113 (38-126) U/L Total Protein 7.1 (6.3-8.2) g/dL Albumin 4.4 (3.5-5.0) g/dL Amylase 71 (30-110) U/L Lipase 241 (23-300) U/L Urine Color Yellow Urine Appearance Clear (Clear) Urine pH 6.0 (5.0-8.0) Ur Specific [place] 1.032 (1.001-1.035) Urine Protein Trace H (Negative) Urine Glucose (UA) Negative (Negative) Urine Ketones Negative (Negative) Urine Blood Negative (Negative) Urine Nitrite Negative (Negative) Urine Bilirubin Negative (Negative) Urine Urobilinogen 6.0 (<2.0) mg/dL Ur Leukocyte Esterase Negative (Negative) Disposition Clinical Impression: Abdominal pain Disposition: HOME SELF-CARE Condition: Good Instructions (If sedation given, give patient instructions): Abdominal Pain (ED) Additional Instructions: Please follow-up with your doctor and surgeon as soon as possible. You should have scope done as previously discussed by your doctor. Return to the emergency room for any worsening symptoms. Is patient prescribed a controlled substance at d/c from ED?: No Referrals: Tian Gutierrez III, MD [Primary Care Provider] - 1-2 days Javier Salas DO [Doctor of Osteopathic Medicine] - 1-2 days Time of Disposition: 16:31
[2021-01-20 14:54] LABS: Basophils % (A) 0 %; Eosinophils # (A) 0.2 k/uL (0-0.7); Eosinophils % (A) 2 %; HCT 41.6 % (39.0-53.0); HGB 14.4 gm/dL (13.0-17.5); Lymphocytes # (A) 1.8 k/uL (1.0-4.8); Lymphocytes % (A) 19 %; MCH 32.8 pg (25.0-35.0); MCHC 34.7 g/dL (31.0-37.0); MCV 94.7 fL (80.0-100.0); Mean Platelet Volume 6.9; Monocytes # (A) 0.6 k/uL (0-1.0); Monocytes % (A) 7 %; Neutrophils # (A) 6.6 k/uL (1.3-7.7); Neutrophils % (A) 70 %; Platelet Count 249 k/uL (150-450); RDW 12.7 % (11.5-15.5); WBC 9.4 k/uL (3.8-10.6)
[2021-01-20 15:03] LABS: Albumin 4.4 g/dL (3.5-5.0); Calcium 9.7 mg/dL (8.4-10.2); Potassium 4.2 mmol/L (3.5-5.1); Total Bilirubin 0.8 mg/dL (0.2-1.3); Total Protein 7.1 g/dL (6.3-8.2)
[2021-01-20 15:55] LABS: Appearance,Urine Clear (Clear); Bilirubin,Urine Negative (Negative); Blood,Urine Negative (Negative); Color,Urine Yellow; Glucose,Urine (UA) Negative (Negative); Ketones,Urine Negative (Negative); Leukocyte Esterase,Urine Negative (Negative); Nitrite,Urine Negative (Negative); Protein,Urine Trace (Negative); Specific Gravity,Urine 1.032 (1.001-1.035)
--- NOTE | 2021-01-20 16:07 | CT ---
EXAMINATION TYPE: CT abdomen pelvis wo con DATE OF EXAM: 01/20/2021 COMPARISON: 08/23/2018 HISTORY: Left lower quadrant abdominal pain. CT DLP: 1102.4 mGycm Automated exposure control for dose reduction was used. Images obtained from the diaphragm to the floor the pelvis without contrast. Lung bases are clear of consolidation. There is no pleural effusion. There is 4 mm calcified granulom a in the right lower lobe. Heart size is normal. There is no pericardial effusion. There are clips from cholecystectomy. Liver spleen stomach pancreas appear intact. The bile ducts are not dilated. There is no adrenal mass. Kidneys have normal size and contour. There is no hydronephrosis. The urete rs are not dilated. There is no retroperitoneal adenopathy. Appendix is posterior and medial and appe ars normal. Bladder distends smoothly. There is no inguinal hernia. There is no evidence of a pelvic mass. There is no free fluid in the pelvis. There is 2.5 cm lipoma and the sciatic notch on the left side. There is no mesenteric edema. There is no ascites or free air. There is no bowel obstruction. There a re a few large bowel diverticula. There is no evidence of diverticulitis. The lumbar vertebra have normal alignment. There is posterior fusion surgery from L3 to L5. There is lumbar spine disc space narrowing. There is no compression fracture. I see no bony destructive proces s. The bony pelvis is intact. Hip joints are intact. IMPRESSION: There is mild colonic diverticulosis without diverticulitis. No significant change compared to old ex am. Small lipoma and the pelvis at the left sciatic notch.
[2021-01-20 16:51] VITALS: BP 107/52; PULSE 80; RESP 18
== END 2021-01-20 16:51 | disposition home or self-care (01) ==
LOC: EC 14:26
DX: R10.32 Left lower quadrant pain (principal); E11.9 Type 2 diabetes mellitus without complications; I10 Essential (primary) hypertension; E78.5 Hyperlipidemia, unspecified; K21.9 Gastro-esophageal reflux disease without esophagitis; G43.909 Migraine, unspecified, not intractable, without status migrainosus; M19.90 Unspecified osteoarthritis, unspecified site; Z86.73 Personal history of transient ischemic attack (TIA), and cerebral infarction without residual deficits; Z87.891 Personal history of nicotine dependence; Z79.82 Long term (current) use of aspirin; Z79.1 Long term (current) use of non-steroidal anti-inflammatories (NSAID); Z79.899 Other long term (current) drug therapy; Z90.49 Acquired absence of other specified parts of digestive tract
CPT/HCPCS: 36415; 80053; 82150; 83690; 85025; 81003; 74176; 99284; 96374; 96375; 96361 ×2; J2405; J1885

== ENCOUNTER → 2021-03-16 | Outpatient (CLI) | payer MEDICARE, OTHER ==
--- NOTE | 2021-03-16 12:24 | CT ---
EXAMINATION TYPE: CT iac wo con DATE OF EXAM: 03/16/2021 COMPARISON: CT brain 08/02/2020 HISTORY: 55 year-old male H90.5, Pre-Cochlear implant CT DLP: 150 mGycm Automated exposure control for dose reduction was used. TECHNIQUE: Contiguous high-resolution axial scanning of the temporal bones without IV contrast. Venus nal and sagittal reformatted images obtained. FINDINGS: There is no abnormality of visualized intracranial structures by noncontrast, thin section CT. The skull base appears normal. External auditory canals are clear. The middle ear cavities and mastoid air cells are well pneumatized. There is no abnormality of middle ear ossicles. The round and oval windows are normal. There is no abnormality of bony labyrinths. The vestibular an cochlear aqueducts are well visualized. The facial nerve canal is normal bilaterally. The internal auditory canal and meati are symmetrical bilaterally. There is no evidence of fractures. Scattered mild mucosal thickening ethmoid air cells and maxillary sinuses. Reformatted images confirm above findings. IMPRESSION: 1. Unremarkable temporal bone CT. 2. Mild chronic ethmoid and maxillary sinus disease.
== END | disposition home or self-care (01) ==
LOC: RADCTMAIN 06:43
PROVIDERS: ATTEND Otolaryngology
DX: Z96.21 Cochlear implant status (principal); H90.5 Unspecified sensorineural hearing loss; J32.0 Chronic maxillary sinusitis
CPT/HCPCS: 70480

== ENCOUNTER 2021-05-30 13:50 | Emergency (ER) | payer MEDICARE, OTHER ==
[2021-05-30 14:00] VITALS: BP 114/66; PULSE 92; RESP 19; TEMP 98.8
[2021-05-30] MEDS ORDERED: BACITRACIN OINT 1 EACH PACKET TOPICAL ONE (14:41)
--- NOTE | 2021-05-30 14:41 | ED ---
Extremity Problem HPI - General Chief complaint: Extremity Problem,Nontraumatic Stated complaint: R Toe Swelling Time Seen by Provider: 05/30/21 14:10 Source: patient, RN notes reviewed Mode of arrival: wheelchair Limitations: no limitations - History of Present Illness Initial comments: Patient is a 55-year-old male with history of diabetes, presenting to emergency Department with complaints of pain in his right great toe. He states about 4 years ago he sustained an injury to the toenail, ever since then, his toenail has grown out very thick and a curve to the right. He states he's been trying to get into a supportability engineer. He does have an appointment coming up. He states over the past 2 days he's noticed some redness and drainage noted in the corner of the great toe and he was concerned for infection. He denies any fevers or chills, no nausea or vomiting. He denies any redness of his foot. He has no further complaints. - Related Data Home Medications Medication Instructions Recorded Confirmed Meclizine [Antivert] 25 mg PO DAILY 04/16/18 02/01/21 Omeprazole 20 mg PO AC-BID 04/16/18 02/01/21 Brimonidine Tartrate [Alphagan P 1 drops RIGHT EYE TID 05/06/18 02/01/21 0.2% Ophth Soln] Dorzolamide HCl/Pf [Dorzolamide 2% 1 drop RIGHT EYE TID 04/26/20 02/01/21 Eye Drop] HYDROcodone/APAP 5-325MG [Alpine 1 tab PO BID PRN 04/26/20 02/01/21 5-325] Timolol 0.5% Ophth Soln [Timoptic 1 drop RIGHT EYE BID 04/26/20 02/01/21 0.5% Ophth Soln] Netarsudil Mesylat/Latanoprost 1 drop BOTH EYES HS 08/02/20 02/01/21 [Rocklatan 0.02%-0.005% Eye Drp] Aspirin [Adult Low Dose Aspirin EC] 81 mg PO DAILY 11/02/20 02/01/21 Celecoxib [CeleBREX] 100 mg PO DAILY 01/12/21 02/01/21 Vit C/E/Zn/Coppr/Lutein/Zeaxan 1 cap PO BID 01/12/21 02/01/21 [Preservision Areds 2 Softgel] acetaZOLAMIDE [Diamox] 250 mg PO DAILY 01/12/21 02/01/21 lisinopriL [Zestril] 5 mg PO DAILY 01/20/21 02/01/21 Previous Rx's Medication Instructions Recorded Atorvastatin [Lipitor] 40 mg PO HS #30 tab 08/03/20 Cephalexin [Keflex] 500 mg PO Q6HR 5 Days #20 cap 05/30/21 Allergies Allergy/AdvReac Type Severity Reaction Status Date / Time gadobenate dimeglumine Allergy Swelling Verified 02/01/21 16:07 [From Multihance] Iodinated Contrast Media Allergy Swelling Verified 02/01/21 16:07 hydromorphone HCl AdvReac Severe Rapid Verified 02/01/21 16:07 [From Dilaudid] Heart Rate diclofenac potassium AdvReac Nausea & Verified 02/01/21 16:07 [From Cataflam] Vomiting MRI CONTRAST AdvReac Swelling Uncoded 02/01/21 16:07 OF FACE Review of Systems ROS Statement: Those systems with pertinent positive or pertinent negative responses have been documented in the HPI. ROS Other: All systems not noted in ROS Statement are negative. Past Medical History Past Medical History: CVA/TIA, Diabetes Mellitus, Eye Disorder, GERD/Reflux, Hearing Disorder / Deafness, Hyperlipidemia, Hypertension, Osteoarthritis (OA) Additional Past Medical History / Comment(s): Glaucoma-right eye, back pain currently with numbness in lower back and down both legs, hx migraines, TIA 2014-no effects, varicose veins, arthritis "all over", diet control diabetic, poor hearing. History of Any Multi-Drug Resistant Organisms: None Reported Past Surgical History: Back Surgery, Heart Catheterization, Joint Replacement, Orthopedic Surgery Additional Past Surgical History / Comment(s): Right knee replacement, lower back surgery for herniated disc, bilateral shoulder surgery, surgery on right middle finger, hx tacheosctomy(for encephalitis). Past Anesthesia/Blood Transfusion Reactions: Family History of Problems w/ Anesthesia Additional Past Anesthesia/Blood Transfusion Reaction / Comment(s): Brother took very long time to wake up. Past Psychological History: No Psychological Hx Reported Smoking Status: Former smoker Past Alcohol Use History: Occasional Past Drug Use History: None Reported - Past Family History Mother Family Medical History: Cancer Additional Family Medical History / Comment(s): of lung cancer. Father Family Medical History: Cancer Additional Family Medical History / Comment(s): Prostate Cancer. General Exam - General Exam Comments Initial Comments: GENERAL: Patient is well-developed and well-nourished. Patient is nontoxic and in no acute distress. HEAD: Atraumatic, normocephalic. EYES: Pupils equal round and reactive to light, extraocular movements intact, sclera anicteric, conjunctiva are normal. Eyelids were unremarkable. LUNGS: Unlabored respirations. Breath sounds clear to auscultation bilaterally and equal. No wheezes rales or rhonchi. HEART: Regular rate and rhythm without murmurs, rubs or gallops. ABDOMEN: Soft, nontender, normoactive bowel sounds. MUSCULOSKELETAL: Normal extremities with adequate strength and normal range of motion, no pitting or edema. No clubbing or cyanosis. NEUROLOGICAL: Patient is alert and oriented x 3. SKIN: Warm, Dry, normal turgor, no rashes. Patient has a very thick and right great toenail, does curve to the right. In the corner, there is a very small area of erythema, drainage present. There is no surrounding erythema, no erythema of the right foot. Limitations: no limitations Course Vital Signs 05/30/21 13:57 Temperature 98.8 F Pulse Rate 92 Respiratory 19 Rate Blood Pressure 114/66 O2 Sat by Pulse 97 Oximetry Medical Decision Making - Medical Decision Making Patient is a 55-year-old male presenting with pain in his right great toe over the past couple days. He's had history of an overgrowth of right great toenail, with curvature. He does have an appointment with the supportability engineer soon. Patient has a small area of drainage in the corner of the toenail, some very mild erythema but no surrounding erythema, no spreading erythema to the right foot. Patient will be started on some oral antibiotics prevent infection, he also use topical antibiotics to the area and keep covered. He is agreeable a splenic urine he is stable for discharge. Disposition Clinical Impression: Ingrown right greater toenail Disposition: HOME SELF-CARE Condition: Stable Instructions (If sedation given, give patient instructions): Ingrown Nail (ED) Additional Instructions: Please return to the Emergency Department if symptoms worsen or any other concerns. Use topical antibiotic twice daily and oral antibiotics as prescribed. Follow-up with supportability engineer as discussed. Prescriptions: Cephalexin [Keflex] 500 mg PO Q6HR 5 Days #20 cap Is patient prescribed a controlled substance at d/c from ED?: No Referrals: Tian Gutierrez III, MD [Primary Care Provider] - 1-2 days Time of Disposition: 14:41
== END 2021-05-30 14:58 | disposition home or self-care (01) ==
LOC: EC 13:50
DX: L60.0 Ingrowing nail (principal); E11.9 Type 2 diabetes mellitus without complications; I10 Essential (primary) hypertension; E78.5 Hyperlipidemia, unspecified; K21.9 Gastro-esophageal reflux disease without esophagitis; M19.90 Unspecified osteoarthritis, unspecified site; Z87.891 Personal history of nicotine dependence; Z79.899 Other long term (current) drug therapy
CPT/HCPCS: 99283

== ENCOUNTER → 2021-07-23 | Outpatient (CLI) | payer MEDICARE, OTHER ==
[2021-07-23 14:07] VITALS: BP 128/67; PULSE 76; RESP 18
--- NOTE | 2021-07-23 14:31 | P.PAINPG ---
Subjective Progress Note Date: 07/23/21 Principal diagnosis: Lumbar back pain Mr. Charles is a 56 -year-old pleasant male came to the [facility] pain clinic for follow-up visit . Patient has ongoing pain for many years. Patient had lumbar back surgery 2 and fusion. Patient describes pain is aching, throbbing, constant type of pain. His back pain is not radiating to his lower extremities. Patient rated pain levels are 8 out of 10 in severity. With the help of medications pain levels are 6 out of 10 in severity. Activities making pain worse. Medications, resting, physical therapy, interventional procedures helping in relieving patient's pain. Patient is currently doing physical therapy. Patient pain some days better than others. Overall activities decreased secondary to pain. Because of the pain sometimes patient is feeling lack of sleep, interest, and energy. Denied any side effects with the medications. Denied any bowel or bladder problems at this time. Not using any walking aids at this time. Patient denies any suicidal or homicidal ideations intent or plan. Patient denies any auditory or visual hallucinations. Patient denied any red flag symptoms related to pain. Objective - Vital Signs Vital signs: Vital Signs Temp Pulse 76 07/23/21 14:01 Resp 18 07/23/21 14:01 BP 128/67 07/23/21 14:01 Pulse Ox 96 07/23/21 14:01 - Exam General: Well-developed, well-nourished, no acute distress HEENT: Normocephalic, and atraumatic Neck: Supple, no neck swelling Psychiatric: Appropriate mood, and affect ELECTROCARDIOGRAPHIC TECHNICIAN: No focal neurological deficits Musculoskeletal: Upper extremity: Normal strength, and range of motion. Sensation grossly intact Lower extremity: Normal strength, and decreased range of motion secondary to pain Lumbar spine: Paravertebral tenderness: positive , healed scar in the lumbar area Lumbar facet load test : positive Sacroiliac joint tenderness: Positive Thigh thrust test: Positive SI joint compression test: Positive Fabere test: Positive - Constitutional Constitutional Comment(s): 13 point review of Systems , and symptoms negative for chest pain, shortness of breath, change in vision, change in weakness, abdominal pain, diarrhea, extreme fatigue, malaise, fever, skin changes, suicidal/homicidal ideas, bowel incontinence or bladder incontinence. Assessment and Plan Assessment: Lumbar postlaminectomy syndrome Sacroiliac joint dysfunction Lumbar spondylosis without myelopathy Myofascial pain syndrome, and chronic pain syndrome Plan: #1 Diagnoses, prognosis, and multiple treatment options including but not limited to physical therapy, interventional therapy, adjunct medication therapy, narcotic medication, and surgical options were discussed with the patient. And all questions were answered to the patient's satisfaction. #2 treatment plan agreement : Patient was thoroughly discussed regarding the treatment options, alternatives, and importance of exercises as tolerated. Patient clearly understood. #3 Patient was counseled on importance of regular exercise. Including zakia chi, aerobic exercises as tolerated. Which helps for chronic pain, and overall well- being. Patient also counseled regarding importance of weight control rolling chronic pain, and overall other health issues. By altering diet habits, minimizing sugar intake, and processed foods helps in minimizing Inflammation. Also discussed with the patient regarding intermittent fasting. #4 investigations: MAPS- reviewed , urine drug test- not done #5 diagnostic tests: None #6 consultation : Continue physical therapy # 7 interventional procedures: Bilateral sacroiliac joint injection . Procedure, complications, alternatives discussed with the patient. #8 medications None from the pain clinic # 9 TENS unit's, and percussion massage device #10 disposition: scheduled to follow up with pain clinic in 4 weeks duration. Time with Patient: Less than 30 PQRS Measure Charge Sheet Measure #130: Documentation of Current Meds in Medical Chart: Patient's medications documented in chart Measure #226: Tobacco Use: Screen & Cessation Intervention: Pt not a tobacco user Measure #111: Pneumonia Vaccination: Pneumococcal vaccine NOT administered or previously given Measure #47: Advance Care Plan: Advance care planning discussed & documented, pt chose/unable to give Measure #412: Opioid Treatment Agreement: No documentation of signed opioid treatment agreement Measure #408: Opioid Therapy Follow-up Evaluation: Patient had NO f/u eval minimum every 3 months during opioid therapy Measure #317: Preventitive Care & Scrn High Bld Press & F/U: Pre-hypertensive or hypertensive BP documented, pt will f/u with PCP Measure #128: Body Mass Index (BMI) Screening & Follow-up: BMI documented ABOVE normal parameters - f/u documented Measure #131: Pain Assessment & Follow-up: Pain positive & plan documented Measure #431: Unhealthy Alcohol Use Preventative Care & Scrn: Patient not identified as an unhealthy alcohol user Mode of Arrival: Ambulatory - Pain Location Lower Back Non-Pharmacological Interventions: Heat, Home Exercise, Ice, Inactivity, Physical Therapy, Stretching Pharmacological Interventions: Block, Epidural, Medication, PRN Medication PQRS Narrative: Smoking Status Former smoker Blood Pressure 128/67 Pain Intensity [Lower Back] 9 Scale Used Numeric (1 - 10) Hx Alcohol Use (MH) Yes: social Home Medications: Ambulatory Orders Meclizine [Antivert] 25 mg PO DAILY 04/16/18 Omeprazole 20 mg PO AC-BID 04/16/18 HYDROcodone/APAP 5-325MG [Mars 5-325] 1 tab PO BID PRN 04/26/20 Atorvastatin [Lipitor] 40 mg PO HS #30 tab 08/03/20 Aspirin [Adult Low Dose Aspirin EC] 81 mg PO DAILY 11/02/20 Celecoxib [CeleBREX] 100 mg PO DAILY 01/12/21 Vit C/E/Zn/Coppr/Lutein/Zeaxan [Preservision Areds 2 Softgel] 1 cap PO BID 01/12/21 lisinopriL [Zestril] 5 mg PO DAILY 01/20/21 Controlled Substance Measures - Controlled Substance Measures Is patient prescribed a controlled substance at discharge?: No
== END ==
LOC: PNWHC3 13:53
DX: M96.1 Postlaminectomy syndrome, not elsewhere classified (principal); M53.3 Sacrococcygeal disorders, not elsewhere classified; M47.816 Spondylosis without myelopathy or radiculopathy, lumbar region; M79.18 Myalgia, other site; G89.4 Chronic pain syndrome; Z87.891 Personal history of nicotine dependence; Z91.041 Radiographic dye allergy status; Z88.6 Allergy status to analgesic agent; Z88.5 Allergy status to narcotic agent
CPT/HCPCS: 99211

== ENCOUNTER 2021-08-23 12:01 | Day surgery (SDC) | payer MEDICARE, OTHER ==
[2021-08-16 13:25] VITALS: BMI 34.7
[2021-08-23 12:24] VITALS: TEMP 97.5
[2021-08-23] MEDS: LACTATED RINGERS 1,000 ML IV SCH ×2 (12:29→12:36)
[2021-08-23] MEDS ORDERED: LIDOCAINE 1% (10MG/ML) FOR IV START INTRADERMA ONE (12:29)
[2021-08-23] MEDS ORDERED: MIDAZOLAM 2 MG/2 ML VIAL ONE (12:36)
[2021-08-23] MEDS ORDERED: ROPIVACAINE 5MG/ML 20ML VIAL ONE (12:36)
[2021-08-23] MEDS ORDERED: methylPREDNISolone ACETATE 40 MG/ML 1 ML VIAL ONE (12:36)
[2021-08-23] MEDS ORDERED: fentaNYL (PF) 50 MCG/ML 2 ML AMP ONE (12:36)
[2021-08-23 12:38] LABS: Glucose,Whole Blood 133 mg/dL (75-99)
--- NOTE | 2021-08-23 12:52 | P.PCN ---
Date of Procedure: 08/23/21 Procedure(s) Performed: Procedure= bilateral sacroiliac joints steroid injection under fluoroscopy guidance (fluoroscopy image stored on file in the radiology Department ) Preoperative diagnosis= 1-bilateral sacroiliitis 2-failed back surgery syndrome lumbar area 3-lumbar spondylosis with facet arthropathy. 4-sacroiliac joint dysfunction Postoperative diagnosis=Same as preop Diagnosis . Complication = none Condition= stable Anesthesia= moderate sedation with intravenous Versed 2 mg , and fentanyl 100 micrograms . Indication for the procedure= patient complaining of low back pain , examination was positive for severe tenderness over the sacroiliac joints bilaterally and patient diagnosed with sacroiliitis, for this reason he was good candidate for sacroiliac joint steroid injection. Description of the procedure= procedure risk and benefits discussed with the patient, including but not limited, risk of infection and bleeding, and ALLERGIC reaction to the medication and not complete pain relief and patient agreed with the preceding patient taken to the operating room, placed in prone position or standard monitors applied to the patient then after induction of anesthesia back prepped with chlorhexidine 3 times , Then under strict sterile technique, first I did the right sacroiliac joint the which was identified under fluoroscopy guidance been local infiltration of the skin and subcu interstitial with lidocaine 1% then 22-gauge Quincke Needle advanced slowly under fluoroscopy and placed in the right sacroiliac joint needle placement confirmed with AP and oblique and lateral view and after appropriate needle placement confirmed and after negative aspiration, or heme , then Ropivacaine 0.5% 4 mL, and 20 mg of Depo-Medrol mixed together and injected in the right sacroiliac joint after negative aspiration patient tolerated the procedure well without any complication. Then the left sacroiliac joint steroid injection done under strict sterile technique local infiltration of the skin and subcu interstitial at the location of the left sacroiliac joint then a 22-gauge Quincke Needle advanced slowly under fluoroscopy time placed in the left sacroiliac joint, needle placement confirmed with AP and oblique and lateral view then after appropriate needle placement confirmed and after negative aspiration 0.5% Ropivacaine 4 mL and 20 mg of Depo-Medrol injected in the left sacroiliac joint after negative aspiration patient tolerated the procedure well that any complications and she will follow up in clinic 3 weeks
[2021-08-23] MEDS ORDERED: IV FLUID CONTINUATION 800 ML IV ONE (12:56)
[2021-08-23 12:59] VITALS: RESP 20
--- NOTE | 2021-08-23 13:02 | FL ---
EXAMINATION TYPE: FL guided pain mgmt statistic DATE OF EXAM: 08/23/2021 HISTORY: Fluoroscopy time 3 seconds of fluoroscopy provided. IMPRESSION: 1. Fluoroscopy time.
[2021-08-23 13:15] VITALS: BP 104/69; PULSE 90
== END 2021-08-23 13:24 | disposition home or self-care (01) ==
LOC: ORPAIN 12:01
PROVIDERS: ATTEND Specialist
DX: M46.1 Sacroiliitis, not elsewhere classified (principal); M96.1 Postlaminectomy syndrome, not elsewhere classified; M47.816 Spondylosis without myelopathy or radiculopathy, lumbar region; M53.3 Sacrococcygeal disorders, not elsewhere classified; E11.9 Type 2 diabetes mellitus without complications; Z88.8 Allergy status to other drugs, medicaments and biological substances; Z91.041 Radiographic dye allergy status
CPT/HCPCS: J2250; J1030; J3010; J2795; G0260; 99152

== ENCOUNTER → 2021-09-19 | Outpatient (CLI) | payer MEDICARE, OTHER ==
--- NOTE | 2021-09-19 09:41 | P.PN ---
Subjective Progress Note Date: 09/19/21 Principal diagnosis: A 56 yr old male with a history of severe and chronic low back pain secondary to lumbar degenerative disc diseases and lumbar spondylosis with facet arthropathy presents today for elevation status post bilateral SI joint injection. Patient states he experienced greater than 50% pain relief for 1 week after procedure. Pain level is currently 10 out of 10 in intensity, sharp in the lower aspect of the lumbar spine, stabbing sensation greater on the left side than the right down the hips and of a shooting intensity down the back of the legs bilaterally. Patient does not take [place] when he knows he needs to drive as he does not want to be under the influence. Pain is provoked by physical therapy, standing, walking as it leads to falls with increased pain. Pain is alleviated with medications, Biofreeze gel, injections, home exercise regimen, use of a walker, massage, sitting, elevating the lower extremities, repositioning and rest. Interventional pain procedures completed include bilateral SI joint injection #1 Patient is currently on [place] 7.5/325mg, Flexeril 10mg, Celebrex 100mg BID Patient denies any side effects of the medication(s), denies excessive drowsiness or sleepiness, denies suicidal ideation and reports that the current pain medication is helping to control the pain and improve activities of daily living. Patient denies any motor or sensory deficits. Patient denies any fever or night sweats, denies any change in the bowel movements or urination. Physical Examination: -Constitutional: Cooperative. Not in acute distress . -HEENT: Neck is supple. No lymphadenopathy. No thyromegaly. Normal thyroid size. Eyes: No ptosis , no icterus, no photophobia. ENT: No auditory deficits. Normal oropharynx. No Thrush. - Respiratory: Chest clear to auscultations bilaterally. No wheezing. No rhonchi. - Cardiovascular: Regular rate and rhythm. S1 / S2 , no S3 , no S4. - Gastrointestinal: Abdomen soft no tenderness. Bowel sounds positive in all four quadrants. No organomegaly. - Genitourinary: Deferred. - Neurologic: Cranial nerve II to XII intact. No focal neurological deficits. - Psychatric: Alert & oriented x 3. Matching mood & appropriate affect. Judgment and insight intact. - Lymphatic: No Lymphadenopathy. - Musculoskeletal: Cervical spine: Muscle bulk/ tone/ strength in the bilateral upper extremities normal. Facet loading test cervical area positive. Lumbar spine: Motor bulk/ tone/ strength lower extremities , thigh and legs : 5/5 Deep tendon reflexes : Normal Knee Jerk. Normal Ankle Jerk . Vertebral body tenderness from the L2 down to the S1 Lumbar Facet Loading Test positive over the bilateral L4 and L5 Straight Leg Raise: positive at 30 degree right side < left side Debbie test: positive right side / left side Range of motion: Range of motion in flexion of the lumbar spine <60 degrees Range of motion: Extension of the lumbar spine <20 degrees Moderate tenderness over the Sacroiliac joint: right side / left side Assessment and plan: Chronic low back pain secondary to lumbar degenerative disc disease , lumbar spondylosis with facet arthropathy without myelopathy Recommendation of bilateral SI joint injection #2 Denies aspirin or anticoagulant use Risks, benefits of procedure discussed and patient verbalized understanding All patient questions answered MAPS reviewed and it was appropriate. I have spent 31 minutes on patient care today. Dr Farias was available by phone for the evaluation of this patient. The time was used to review the medical records including relevant urine studies and Prescription history (MAPs), review of the available imaging, evaluation and examination of the patient, coordination of care with the medical staff and if applicable referring physicians, as well as creation of the medical record PQRS Measure Charge Sheet PQRS Narrative: Smoking Status Former smoker Hx Alcohol Use (MH) Yes: social Home Medications: Ambulatory Orders Meclizine [Antivert] 25 mg PO DAILY 04/16/18 Omeprazole 20 mg PO AC-BID 04/16/18 HYDROcodone/APAP 5-325MG [[place] 5-325] 1 tab PO BID PRN 04/26/20 Atorvastatin [Lipitor] 40 mg PO HS #30 tab 08/03/20 Aspirin [Adult Low Dose Aspirin EC] 81 mg PO DAILY 11/02/20 Celecoxib [CeleBREX] 100 mg PO DAILY 01/12/21 Vit C/E/Zn/Coppr/Lutein/Zeaxan [Preservision Areds 2 Softgel] 1 cap PO BID 01/12/21 lisinopriL [Zestril] 5 mg PO DAILY 01/20/21
[2021-09-19 09:51] VITALS: BP 123/79; PULSE 61; RESP 17; TEMP 98.1
== END ==
LOC: PNWHC3 09:08
PROVIDERS: ATTEND Anesthesiology
DX: M51.36 Other intervertebral disc degeneration, lumbar region (principal); M47.816 Spondylosis without myelopathy or radiculopathy, lumbar region; G89.29 Other chronic pain; Z87.891 Personal history of nicotine dependence; Z91.041 Radiographic dye allergy status; Z88.6 Allergy status to analgesic agent
CPT/HCPCS: 99211

== ENCOUNTER → 2021-09-28 | Outpatient (CLI) | payer MEDICARE, OTHER ==
--- NOTE | 2021-09-29 04:03 | MR ---
EXAMINATION TYPE: MR lumbar spine wo/w con DATE OF EXAM: 09/28/2021 COMPARISON: 04/26/2017 HISTORY: Low back pain that radiates down both legs. History of back surgery 1992 & 2018 CONTRAST: Standard multiplanar, multisequence MRI departmental protocol images were obtained without contrast a nd with 10 mL intravenous Gadavist gadolinium contrast. The lumbar vertebrae have normal alignment. There is metal artifact from posterior fusion surgery wit h rods and screws from L3 to S1. There is disc prosthesis at L4-5 and L5-S1. There is a mild posterio r disc bulge at L5-S1 and L2-3 and L1-2. There is a minimal relative spinal stenosis at L1-2 and L2-3 . There is no lumbar paraspinal mass. There is no compression fracture. There is no focal bone destru ction. Contrast images show no pathologic enhancement. IMPRESSION: Multilevel posterior fusion surgery. No adverse change overall compared to preoperative exam of 2016. There is significant improvement in the spinal stenosis at L3-4 and L4-5. Disc bulging posterio rly at L1-2 and L2-3 appears slightly increased.
== END | disposition home or self-care (01) ==
LOC: RADMRIMAIN 18:47
PROVIDERS: ATTEND Orthopaedic Surgery Orthopaedic Surgery of the Spine
DX: M48.061 Spinal stenosis, lumbar region without neurogenic claudication (principal); M51.16 Intervertebral disc disorders with radiculopathy, lumbar region
CPT/HCPCS: 72158; A9585

== ENCOUNTER 2021-10-16 11:39 | Day surgery (SDC) | payer MEDICARE, OTHER ==
[2021-10-15 11:46] VITALS: BMI 34.9
[2021-10-16 11:56] VITALS: TEMP 96.8
[2021-10-16] MEDS ORDERED: LIDOCAINE 1% (10MG/ML) FOR IV START INTRADERMA ONE (12:05)
[2021-10-16] MEDS ORDERED: LACTATED RINGERS 1,000 ML IV ONE (12:07)
[2021-10-16] MEDS ORDERED: ROPIVACAINE 5MG/ML 20ML VIAL ONE (12:09)
[2021-10-16] MEDS ORDERED: MIDAZOLAM 2 MG/2 ML VIAL ONE (12:09)
[2021-10-16] MEDS ORDERED: methylPREDNISolone ACETATE 40 MG/ML 1 ML VIAL ONE (12:09)
[2021-10-16] MEDS ORDERED: fentaNYL (PF) 50 MCG/ML 2 ML AMP ONE (12:09)
[2021-10-16 12:13] LABS: Glucose,Whole Blood 145 mg/dL (75-99)
--- NOTE | 2021-10-16 12:25 | P.PCN ---
Date of Procedure: 10/16/21 Description of Procedure: Preoperative diagnoses: 1. Lumbosacral Spondylosis 2. Bilateral sacroiliitis. 3. Failed Back Syndrome Postoperative diagnoses: Same as preoperative diagnosis. Procedure: Bilateral sacroiliac joint steroid injection under fluoroscopic guidance. Surgeon: Irineo Olmstead M.D. Anesthesia: Conscious sedation with Versed 2 mg and fentanyl 100 micrograms and local infiltration with lidocaine 1% 4 ml EBL: None Procedure indication: The patient had a history of severe chronic low back pain, diagnosed with sacroiliitis and lumbar sacral facet arthropathy unresponsive to conservative treatment. No iodine used secondary to allergy Procedure description: The patient was seen and identified in the preoperative holding area, risks and benefits and alternative of the procedure and possible complications discussed with the patient, and he agreed with the preceding, patient signed the consent, an IV was started, and vital signs were monitored and were stable throughout the procedure, patient was placed in the prone position or table and the lumbosacral area was prepped and draped with a sterile fashion, vital signs were closely monitored during the procedure, the fluoroscopy camera was placed in the contralateral oblique view on the right sacroiliac joint and the lower part of the joint was identified a 2 mL then a 25-gauge Quincke-type spinal needle advanced slowly under fluoroscopy and placed in the posterior and inferior border of the right sacroiliac joint, placement confirmed with AP and lateral view, and after appropriate needle placement confirmed and after negative aspiration for heme and CSF and there was , 4ml of 0.5% Ropivacaine + 40mg Depo-medrol was mixed and 2.5ml was injected after negative aspiration, no paresthesia during the injection, no resistance to injection, and the needle was removed. The entire same procedure was repeated for the left sacroiliac joint. Images were saved and stored. Patient tolerated the procedure well without any complication. The patient returned to supine position after the back was cleaned and a Band- Aid applied, the patient transported to recovery room in stable condition and he was monitored for 30 minutes before he was discharged home and then patient was reexamined before going home and patient was discharged in stable condition and patient will follow up with the pain clinic in a few weeks
[2021-10-16] MEDS ORDERED: LIDOCAINE 1% (10MG/ML) FOR IV START INTRADERMA PRN (12:30)
[2021-10-16] MEDS ORDERED: LACTATED RINGERS 1,000 ML IV SCH (12:30)
[2021-10-16] MEDS ORDERED: IV FLUID CONTINUATION 1,000 ML IV ONE ×2 (12:31)
[2021-10-16 13:22] VITALS: BP 115/74; PULSE 85; RESP 18
--- NOTE | 2021-10-16 14:52 | FL ---
Fluoroscopy HISTORY: Pain 4 seconds fluoroscopy time supplied to the referring clinician. 2 intraoperative C-arm images docume nt the procedure. See dictated report from anesthesia.
== END 2021-10-16 13:22 | disposition home or self-care (01) ==
LOC: ORPAIN 11:39
PROVIDERS: ATTEND Anesthesiology
DX: M47.817 Spondylosis without myelopathy or radiculopathy, lumbosacral region (principal)
CPT/HCPCS: G0260; J2250; J1030; J3010; J2795; 99152

== ENCOUNTER → 2021-11-01 | Outpatient (CLI) | payer MEDICARE, OTHER ==
--- NOTE | 2021-11-01 10:26 | P.PN ---
Subjective Progress Note Date: 11/01/21 Principal diagnosis: A 56 yr old male with a history of severe and chronic low back pain secondary to lumbar degenerative disc diseases and lumbar spondylosis with facet arthropathy presents today for evaluation status post bilateral SI joint injection #2. Patient states he experienced 50% pain relief status post procedure, but the pain has escalated since then. Pain level is currently at 8 out of 10 in intensity, localized in the lower aspect of the lumbar spine and tailbone area with radiation of pain down the back of both lower extremities. Pain is provoked by sitting, standing or walking for periods of 15 minutes or more. Pain is alleviated with medications, topicals, injections, ice, physical therapy for 6 weeks in August and September 2021, daily home stretching regimen, use of a cane for ambulation and rest. Interventional pain procedures completed include BL SI joint x 2, Caudal GIANFRANCO in 2018, YVES C7-T1, LESI L4-L5 Patient is currently on [place] 7.5-325mg from Dr Gutierrez Patient denies any side effects of the medication(s), denies excessive drowsiness or sleepiness, denies suicidal ideation and reports that the current pain medication is helping to control the pain and improve activities of daily living. Patient denies any motor or sensory deficits. Patient denies any fever or night sweats, denies any change in the bowel movements or urination. Physical Examination: -Constitutional: Cooperative. Not in acute distress . -HEENT: Neck is supple. No lymphadenopathy. No thyromegaly. Normal thyroid size. Eyes: No ptosis , no icterus, no photophobia. ENT: No auditory deficits. Normal oropharynx. No Thrush. - Respiratory: Chest clear to auscultations bilaterally. No wheezing. No rhonchi. - Cardiovascular: Regular rate and rhythm. S1 / S2 , no S3 , no S4. - Gastrointestinal: Abdomen soft no tenderness. Bowel sounds positive in all four quadrants. No organomegaly. - Genitourinary: Deferred. - Neurologic: Cranial nerve II to XII intact. No focal neurological deficits. - Psychatric: Alert & oriented x 3. Matching mood & appropriate affect. Judgment and insight intact. - Lymphatic: No Lymphadenopathy. - Musculoskeletal: Cervical spine: Muscle bulk/ tone/ strength in the bilateral upper extremities normal. Facet loading test cervical area positive. Lumbar spine: Motor bulk/ tone/ strength lower extremities , thigh and legs : 5/5 Deep tendon reflexes : Normal Knee Jerk. Normal Ankle Jerk . Vertebral body tenderness to palpation over Lumbar Facet Loading Test positive Straight Leg Raise: positive at 30 degrees right side/ left side Gaenslen's Test positive Sacral spine : Severe tenderness over the Sacroiliac joint: right side / left side Range of motion: Flexion of the lumbar spine <60 degrees Range of motion: Extension of the lumbar spine <20 degrees Gaenslen's Test positive Debbie test: positive right side / left side Assessment and plan: Chronic low back pain secondary to lumbar degenerative disc disease , lumbar spondylosis with facet arthropathy without myelopathy Recommendation of Caudal GIANFRANCO with lysis. Risks, benefits of procedure discussed and patient verbalized understanding. Admits to anticoagulant use (ASA 81mg) and Jardiance for diabetes. Protocol for discontinuation/ continuation of medications whitney procedure discussed. All patient questions answered MAPS reviewed and it was appropriate. I have spent 31 minutes on patient care today. Dr Farias was available by phone for the evaluation of this patient. The time was used to review the medical records including relevant urine studies and Prescription history (MAPs), review of the available imaging, evaluation and examination of the patient, coordination of care with the medical staff and if applicable referring physicians, as well as creation of the medical record Objective - Vital Signs Vital signs: Vital Signs Temp 98.3 F 11/01/21 09:52 Pulse 72 11/01/21 09:52 Resp 18 11/01/21 09:52 BP 104/49 11/01/21 09:52 Pulse Ox 94 L 11/01/21 09:52 PQRS Measure Charge Sheet Mode of Arrival: Ambulatory, Cane - Pain Location Lower Back Non-Pharmacological Interventions: Heat, Home Exercise, Ice, Physical Therapy, Sitting, Stretching Pharmacological Interventions: Medication, PRN Medication PQRS Narrative: Smoking Status Former smoker Blood Pressure 104/49 Pain Intensity [Lower Back] 8 Scale Used Numeric (1 - 10) Hx Alcohol Use (MH) Yes: social Home Medications: Ambulatory Orders Meclizine [Antivert] 25 mg PO DAILY 04/16/18 Atorvastatin [Lipitor] 40 mg PO HS #30 tab 08/03/20 Aspirin [Adult Low Dose Aspirin EC] 81 mg PO DAILY 11/02/20 Celecoxib [CeleBREX] 100 mg PO BID 01/12/21 lisinopriL [Zestril] 5 mg PO DAILY 01/20/21 Empagliflozin [Jardiance] 10 mg PO DAILY 10/15/21 HYDROcodone/APAP 7.5-325MG [[place] 7.5-325] 1 tab PO BID 10/15/21 Netarsudil Mesylat/Latanoprost [[place] 0.02%-0.005% Eye Drp] 1 drop OPHTHALMIC HS 10/15/21 Timolol 0.25% Ophth Soln [Timoptic 0.25% Ophth Soln] 1 drop BOTH EYES BID 10/15/21
[2021-11-01 10:33] VITALS: BP 104/49; PULSE 72; RESP 18; TEMP 98.3
== END ==
LOC: PNWHC3 09:32
PROVIDERS: ATTEND Specialist
DX: M51.36 Other intervertebral disc degeneration, lumbar region (principal); M47.816 Spondylosis without myelopathy or radiculopathy, lumbar region; E11.9 Type 2 diabetes mellitus without complications; G89.29 Other chronic pain; Z79.84 Long term (current) use of oral hypoglycemic drugs; Z87.891 Personal history of nicotine dependence; Z88.5 Allergy status to narcotic agent; Z88.6 Allergy status to analgesic agent; Z88.8 Allergy status to other drugs, medicaments and biological substances; Z91.041 Radiographic dye allergy status
CPT/HCPCS: 99211

== ENCOUNTER 2021-12-30 16:39 | Emergency (ER) | payer MEDICARE, OTHER ==
--- NOTE | 2021-12-30 18:52 | XR ---
Result: Clinical History: Pain and swelling. Comparison: None available. Technique: Frontal and lateral views of the left tibia and fibula. Findings: The bone mineralization is appropriate for age. There is no acute fracture or dislocation. There are remote posttraumatic changes of the medial malle olus. Otherwise the joint spaces are preserved. No soft tissue gas or radiographic evidence for oste omyelitis. Impression: No acute osseous abnormality.
--- NOTE | 2021-12-30 18:53 | US ---
EXAMINATION TYPE: US venous doppler duplex LE LT DATE OF EXAM: 12/30/2021 6:41 PM COMPARISON: US 2019 CLINICAL HISTORY: pain and swelling. Left leg pain and swelling SIDE PERFORMED: Left TECHNIQUE: The lower extremity deep venous system is examined utilizing real time linear array sonog hay with graded compression, doppler sonography and color-flow sonography. VESSELS IMAGED: Common Femoral Vein Deep Femoral Vein Greater Saphenous Vein * Femoral Vein Popliteal Vein Small Saphenous Vein * Proximal Calf Veins (* superficial vessels) Left Leg: Appears negative for DVT IMPRESSION: No evidence of left lower extremity DVT.
[2021-12-30 19:39] LABS: Basophils % (A) 1 %; Eosinophils # (A) 0.3 k/uL (0-0.7); Eosinophils % (A) 4 %; HCT 42.2 % (39.0-53.0); HGB 14.5 gm/dL (13.0-17.5); Lymphocytes # (A) 1.7 k/uL (1.0-4.8); Lymphocytes % (A) 26 %; MCH 33.9 pg (25.0-35.0); MCHC 34.4 g/dL (31.0-37.0); MCV 98.4 fL (80.0-100.0); Mean Platelet Volume 7.1; Monocytes # (A) 0.4 k/uL (0-1.0); Monocytes % (A) 7 %; Neutrophils # (A) 3.8 k/uL (1.3-7.7); Neutrophils % (A) 59 %; Platelet Count 256 k/uL (150-450); RBC 4.29 m/uL (4.30-5.90); RDW 12.9 % (11.5-15.5); WBC 6.4 k/uL (3.8-10.6)
[2021-12-30 19:45] LABS: ALT 48 U/L (4-49); AST 34 U/L (17-59); African American GFR (CKD) >90 (>60 ml/min/1.73 sqM); Albumin 4.5 g/dL (3.5-5.0); Alkaline Phosphatase 89 U/L (38-126); Anion Gap 9 mmol/L; Blood Urea Nitrogen 20 mg/dL (9-20); Calcium 9.4 mg/dL (8.4-10.2); Carbon Dioxide 27 mmol/L (22-30); Chloride 105 mmol/L (98-107); Glucose 92 mg/dL (74-99); Non-African American GFR(CKD) 85 (>60 ml/min/1.73 sqM); Potassium 4.6 mmol/L (3.5-5.1); Sodium 141 mmol/L (137-145); Total Bilirubin 0.6 mg/dL (0.2-1.3); Total Protein 7.1 g/dL (6.3-8.2)
[2021-12-30 19:57] LABS: C Reactive Protein <0.5 mg/dL (<1.0)
--- NOTE | 2021-12-30 20:22 | ED ---
General Adult HPI - General Chief complaint: Wound/Laceration Stated complaint: L leg lac Time Seen by Provider: 12/30/21 17:09 Source: patient Mode of arrival: ambulatory Limitations: no limitations - History of Present Illness Initial comments: Patient is a 56-year-old male presenting with chief complaint of left leg pain. Patient states that 3 days ago he was mowing his grass when he hit his left garcia on a piece of got her left on the ground. Patient treated for swelling and pain with icing and Tylenol. His localized swelling has gone down, however at this time the left calf is swollen all around. He is having pain with ambulation. He denies any numbness, tingling, weakness. He denies any discoloration, pallor, warmth of the extremity. - Related Data Home Medications Medication Instructions Recorded Confirmed Meclizine [Antivert] 25 mg PO DAILY 04/16/18 12/10/21 Aspirin [Adult Low Dose Aspirin EC] 81 mg PO DAILY 11/02/20 12/10/21 Celecoxib [CeleBREX] 100 mg PO BID 01/12/21 12/10/21 lisinopriL [Zestril] 5 mg PO DAILY 01/20/21 12/10/21 HYDROcodone/APAP 7.5-325MG [[place] 1 tab PO Q12HR 10/15/21 12/10/21 7.5-325] Netarsudil Mesylat/Latanoprost 1 drop OPHTHALMIC HS 10/15/21 12/10/21 [Rocklat[place] 0.02%-0.005% Eye Drp] Timolol 0.25% Ophth Soln [Timoptic 1 drop BOTH EYES BID 10/15/21 10/16/21 0.25% Ophth Soln] Brimonidine Eye Gtts 1 drop OPHTHALMIC DIRECTED 12/10/21 Cholecalciferol [Vitamin D3 (25 50 mcg PO DAILY 12/10/21 12/10/21 Mcg = 1000 Iu)] Dorzolamide Eye Gtts 1 drop OPHTHALMIC DIRECTED 12/10/21 Empagliflozin [Jardiance] 25 mg PO DAILY 12/10/21 12/10/21 Omeprazole [PriLOSEC] 40 mg PO DAILY 12/10/21 12/10/21 Vit C/E/Zn/Coppr/Lutein/Zeaxan 1 each PO DAILY 12/10/21 12/10/21 [Preservision Areds 2 Softgel] Previous Rx's Medication Instructions Recorded Atorvastatin [Lipitor] 40 mg PO HS #30 tab 08/03/20 Allergies Allergy/AdvReac Type Severity Reaction Status Date / Time gadobenate dimeglumine Allergy Swelling Verified 12/30/21 17:03 [From Multihance] hydromorphone HCl AdvReac Severe Rapid Verified 12/30/21 17:03 [From Dilaudid] Heart Rate diclofenac potassium AdvReac Nausea & Verified 12/30/21 17:03 [From Cataflam] Vomiting metformin AdvReac Nausea & Verified 12/30/21 17:03 Vomiting MRI CONTRAST AdvReac Swelling Uncoded 12/30/21 17:03 OF FACE Review of Systems ROS Statement: Those systems with pertinent positive or pertinent negative responses have been documented in the HPI. ROS Other: All systems not noted in ROS Statement are negative. Past Medical History Past Medical History: CVA/TIA, Diabetes Mellitus, Eye Disorder, GERD/Reflux, Hearing Disorder / Deafness, Hyperlipidemia, Hypertension, Osteoarthritis (OA) Additional Past Medical History / Comment(s): Glaucoma-right eye, back pain currently with numbness in lower back and down both legs, hx migraines, TIA 2014-no effects, varicose veins, arthritis "all over", diet control diabetic, poor hearing. History of Any Multi-Drug Resistant Organisms: None Reported Past Surgical History: Back Surgery, Heart Catheterization, Joint Replacement, Orthopedic Surgery Additional Past Surgical History / Comment(s): Right knee replacement, lower back surgery for herniated disc, bilateral shoulder surgery, surgery on right middle finger, hx tacheosctomy(for encephalitis). Past Anesthesia/Blood Transfusion Reactions: Family History of Problems w/ Anesthesia Additional Past Anesthesia/Blood Transfusion Reaction / Comment(s): Brother took very long time to wake up. Past Psychological History: No Psychological Hx Reported Smoking Status: Former smoker Past Alcohol Use History: Occasional Past Drug Use History: None Reported - Past Family History Mother Family Medical History: Cancer Additional Family Medical History / Comment(s): of lung cancer. Father Family Medical History: Cancer Additional Family Medical History / Comment(s): Prostate Cancer. General Exam Limitations: no limitations General appearance: alert, in no apparent distress Head exam: Present: atraumatic, normocephalic, normal inspection Eye exam: Present: normal appearance, EOMI. Absent: scleral icterus Neck exam: Present: normal inspection Left Lower Leg exam: Present: full ROM, tenderness, swelling, abrasion. Absent: laceration, ecchymosis Ankle exam: Present: normal inspection, full ROM. Absent: tenderness, swelling Foot/Toe exam: Present: normal inspection, full ROM. Absent: tenderness, swelling Neurovascular tendon exam: Present: no vascular compromise. Absent: pulse deficit, sensory deficit Gait: antalgic Neurological exam: Present: alert, oriented X3, CN II-XII intact Psychiatric exam: Present: normal affect, normal mood Skin exam: Present: warm, dry, intact, normal color. Absent: rash Course Vital Signs 12/30/21 12/30/21 16:59 20:34 Temperature 97.7 F 98 F Pulse Rate 68 79 Respiratory 16 18 Rate Blood Pressure 118/60 139/85 O2 Sat by Pulse 96 98 Oximetry Medical Decision Making - Medical Decision Making Patient is a 56-year-old male presenting with chief complaint of left lower leg pain. He sustained an injury 3 days ago to the left garcia, now the left lower leg is swollen circumferentially and he is complaining of antalgic gait. On exam there is pain with foot flexion and squeezing of the calf. No sensory deficit, full range of motion, good capillary refill. X-ray shows no fracture or dislocation. Ultrasound shows no DVT. Lab work obtained shows no sign of infection. Educated patient on these findings. He appears stable for discharge with outpatient follow-up at this time. Utilize Motrin and Tylenol for pain control. Ice and elevate the leg. Compression stockings or Azael wrap may be helpful. Follow-up with PCP in one to 2 days. Report back to ER if any worsening symptoms. I discussed return parameters alarm symptoms. Answered all questions. Patient conveyed verbal understanding and agreed to the plan. - Lab Data Result diagrams: 12/30/21 19:15 12/30/21 19:15 Lab Results 12/30/21 12/30/21 12/30/21 Range/Units 19:15 19:15 19:15 WBC 6.4 (3.8-10.6) k/uL RBC 4.29 L (4.30-5.90) m/uL Hgb 14.5 (13.0-17.5) gm/dL Hct 42.2 (39.0-53.0) % MCV 98.4 (80.0-100.0) fL MCH 33.9 (25.0-35.0) pg MCHC 34.4 (31.0-37.0) g/dL RDW 12.9 (11.5-15.5) % Plt Count 256 (150-450) k/uL MPV 7.1 Neutrophils % 59 % Lymphocytes % 26 % Monocytes % 7 % Eosinophils % 4 % Basophils % 1 % Neutrophils # 3.8 (1.3-7.7) k/uL Lymphocytes # 1.7 (1.0-4.8) k/uL Monocytes # 0.4 (0-1.0) k/uL Eosinophils # 0.3 (0-0.7) k/uL Basophils # 0.0 (0-0.2) k/uL ESR 14 (0-15) mm/hr Sodium 141 (137-145) mmol/L Potassium 4.6 (3.5-5.1) mmol/L Chloride 105 (98-107) mmol/L Carbon Dioxide 27 (22-30) mmol/L Anion Gap 9 mmol/L BUN 20 (9-20) mg/dL Creatinine 0.99 (0.66-1.25) mg/dL Est GFR (CKD-EPI)AfAm >90 (>60 ml/min/1.73 sqM) Est GFR (CKD-EPI)NonAf 85 (>60 ml/min/1.73 sqM) Glucose 92 (74-99) mg/dL Plasma Lactic Acid Puma 0.8 (0.7-2.0) mmol/L Calcium 9.4 (8.4-10.2) mg/dL Total Bilirubin 0.6 (0.2-1.3) mg/dL AST 34 (17-59) U/L ALT 48 (4-49) U/L Alkaline Phosphatase 89 (38-126) U/L C-Reactive Protein <0.5 (<1.0) mg/dL Total Protein 7.1 (6.3-8.2) g/dL Albumin 4.5 (3.5-5.0) g/dL Disposition Clinical Impression: Leg pain Disposition: HOME SELF-CARE Condition: Good Instructions (If sedation given, give patient instructions): Leg Pain (ED) Additional Instructions: Follow up with your PCP in one to 2 days. Report back to ER if any worsening symptoms. Utilize Motrin, Tylenol, icing, compression, elevation for symptomatic management. Is patient prescribed a controlled substance at d/c from ED?: No Referrals: Tian Gutierrez III, MD [Primary Care Provider] - 1-2 days Time of Disposition: 20:22
[2021-12-30 20:35] VITALS: BP 139/85; PULSE 79; RESP 18; TEMP 98
[2021-12-30 20:43] LABS: Erythrocyte Sedimentation Rate 14 mm/hr (0-15)
== END 2021-12-30 20:35 | disposition home or self-care (01) ==
LOC: EC 16:39
DX: M79.662 Pain in left lower leg (principal); E78.5 Hyperlipidemia, unspecified; E11.39 Type 2 diabetes mellitus with other diabetic ophthalmic complication; H42 Glaucoma in diseases classified elsewhere; I10 Essential (primary) hypertension; K21.9 Gastro-esophageal reflux disease without esophagitis; M19.90 Unspecified osteoarthritis, unspecified site; Z79.82 Long term (current) use of aspirin; Z86.73 Personal history of transient ischemic attack (TIA), and cerebral infarction without residual deficits; Z87.891 Personal history of nicotine dependence; Z88.5 Allergy status to narcotic agent; Z88.8 Allergy status to other drugs, medicaments and biological substances; Z91.041 Radiographic dye allergy status; Z88.6 Allergy status to analgesic agent; Z79.899 Other long term (current) drug therapy; Z79.84 Long term (current) use of oral hypoglycemic drugs
CPT/HCPCS: 36415; 80053; 83605; 85025; 85652; 86140; 99284

== ENCOUNTER → 2022-05-08 | Outpatient (CLI) | payer MEDICARE, OTHER ==
--- NOTE | 2022-05-08 14:55 | P.PAINPG ---
PQRS Measure Charge Sheet Comment: A 56 yr old male with a history of severe and chronic low back pain x few years secondary to lumbar degenerative disc diseases and lumbar spondylosis with facet arthropathy without myelopathy presents today for L lumbar pain evaluation. Pain level is currently at 9/10 in intensity, constant, localized in the L lower lumbar spine, sharp in character w shooting towards the LLE. Pain is provoked by bending/twisting/lifting which makes being his 's caregiver difficult. Pain is alleviated with PT twice weekly in February 2022, medications ([place], Flexeril), topicals, sitting reclined w heat, repositioning and rest. Pt stated he wanted Conestoga three times a day, of which was not filled at Dr Vazquez's office, and was told to come to this clinic for such. I stated to pt that he has a narcotic agreement with the group, has an obligation to them as they have to him, and to continue care. If a new clinic were to take over the narcotics, they would most likely reduce the MME. Interventional pain procedures completed include BL SI injection, GIANFRANCO L4-L5, Caudal GIANFRANCO Patient is currently on [place] from [facility] Patient denies any side effects of the medication(s), denies excessive drowsiness or sleepiness, denies suicidal ideation and reports that the current pain medication is helping to control the pain and improve activities of daily living. Patient denies any motor or sensory deficits. Patient denies any fever or night sweats, denies any change in the bowel movements or urination. Physical Examination: -Constitutional: Cooperative. Not in acute distress . - Neurologic: Cranial nerve II to XII intact. No focal neurological deficits. - Psychatric: Alert & oriented x 3. Matching mood & appropriate affect. Judgment and insight intact. - Musculoskeletal: Cervical spine: Muscle bulk/ tone/ strength in the bilateral upper extremities normal Vertebral body tenderness to palpation over Sp[place]ling test positive Distraction test positive Facet loading test positive Thoracic spine Muscle bulk / tone/ strength in the bilateral paraspinal muscles normal Vertebral body tender to palpation over Facet loading test positive Lumbar spine: Motor bulk/ tone/ strength lower extremities , thigh and legs : 5/5 Deep tendon reflexes : Normal Knee Jerk. Normal Ankle Jerk . Vertebral body tenderness to palpation over L5 Lumbar Facet Loading Test positive Straight Leg Raise: positive at 30 degrees right side/ left side Gaenslen's Test positive Sacral spine : Severe tenderness over the Sacroiliac joint: right side / left side Range of motion: Flexion of the lumbar spine <60 degrees Range of motion: Extension of the lumbar spine <20 degrees Gaenslen's Test positive Kayode's Test positive Debbie test: positive right side / left side Thigh Thrust Test Sacral Thrust Test Assessment and plan: Chronic low back pain secondary to lumbar degenerative disc disease , lumbar spondylosis with facet arthropathy without myelopathy Recommendation of L TFESI L5-S1. May need a series of injections, up to 3 within a six-month time frame, optimal pain relief. Risks, benefits of procedure discussed and pt verbalized understanding. Admits to anticoagulant use or medical history of diabetes. Protocol for discontinuation/ continuation of meds whitney procedure discussed. All patient questions answered MAPS reviewed and it was appropriate. I have spent less than 30 minutes on patient care today. Dr Farias was available by phone for the evaluation of this patient. The time was used to review the medical records including relevant urine studies and Prescription history (MAPs), review of the available imaging, evaluation and examination of the patient, coordination of care with the medical staff and if applicable referring physicians, as well as creation of the medical record PQRS Narrative: Smoking Status Former smoker Hx Alcohol Use (MH) Yes: social Home Medications: Ambulatory Orders Meclizine [Antivert] 25 mg PO DAILY 04/16/18 Atorvastatin [Lipitor] 40 mg PO HS #30 tab 08/03/20 Aspirin [Adult Low Dose Aspirin EC] 81 mg PO DAILY 11/02/20 Celecoxib [CeleBREX] 100 mg PO BID 01/12/21 lisinopriL [Zestril] 5 mg PO DAILY 01/20/21 HYDROcodone/APAP 7.5-325MG [[place] 7.5-325] 1 tab PO Q12HR 10/15/21 Netarsudil Mesylat/Latanoprost [[place] 0.02%-0.005% Eye Drp] 1 drop OPHTHALMIC HS 10/15/21 Timolol 0.25% Ophth Soln [Timoptic 0.25% Ophth Soln] 1 drop BOTH EYES BID 10/15/21 Brimonidine Eye Gtts 1 drop OPHTHALMIC DIRECTED 12/10/21 Cholecalciferol [Vitamin D3 (25 Mcg = 1000 Iu)] 50 mcg PO DAILY 12/10/21 Dorzolamide Eye Gtts 1 drop OPHTHALMIC DIRECTED 12/10/21 Empagliflozin [Jardiance] 25 mg PO DAILY 12/10/21 Omeprazole [PriLOSEC] 40 mg PO DAILY 12/10/21 Vit C/E/Zn/Coppr/Lutein/Zeaxan [Preservision Areds 2 Softgel] 1 each PO DAILY 12/10/21 Controlled Substance Measures - Controlled Substance Measures Is patient prescribed a controlled substance at discharge?: No
[2022-05-08 15:24] VITALS: BP 126/80; PULSE 60; RESP 18; TEMP 97.6
== END ==
LOC: PNWHC3 08:41
PROVIDERS: ATTEND Specialist
DX: M51.16 Intervertebral disc disorders with radiculopathy, lumbar region (principal); M47.26 Other spondylosis with radiculopathy, lumbar region; G89.29 Other chronic pain; E11.9 Type 2 diabetes mellitus without complications; Z87.891 Personal history of nicotine dependence; M54.12 Radiculopathy, cervical region; Z88.5 Allergy status to narcotic agent; Z88.6 Allergy status to analgesic agent; Z88.8 Allergy status to other drugs, medicaments and biological substances; Z91.041 Radiographic dye allergy status
CPT/HCPCS: 99211

== ENCOUNTER → 2022-06-11 | Day surgery (SDC) | payer MEDICARE, OTHER ==
[~2022-06-11] MED LIST changes: -BACITRACIN 50,000 UNIT, POLYMYXIN B 500,000 UNIT in SODIUM CHLORIDE 0.9% IRRIGATIO 1,00... IRRIGATION ONE; +LACTATED RINGERS 1,000 ML IV SCH; +LIDOCAINE 1% (10MG/ML) FOR IV START INTRADERMA PRN; -LIDOCAINE 1% 20 ML VIAL (10MG/ML) FOR IV START INTRADERMA PRN; -ONDANSETRON 4 MG/2 ML VIAL IVP ONE
[2022-06-11 14:03] VITALS: BP 114/58; PULSE 76; RESP 18; TEMP 97.3
[2022-06-11 14:15] LABS: Glucose,Whole Blood 99 mg/dL (70-110)
--- NOTE | 2022-06-11 14:55 | P.PN ---
Progress Note - Text Progress Note Date: 06/11/22 Patient was scheduled to have left-sided transforaminal epidural steroid injection at L5-S1,in the preop holding area, and I was discussing the procedure with the patient he reported that he had no pain on the left side and all his pain was in the low back area on the right side with radiation to the right lower extremity, and he had no pain on the left side, when the patient came for office visit, all the documentation was reported that the patient had pain in the low back area with radiation to the left lower extremity, I tried to change the procedure today, to the right side transforaminal epidural at L5-S1, but the insurance ,did not approve it , and we have to get prior authorization for the procedure for this reason,the patient will follow up in the pain clinic, in 1-2 weeks and will reevaluate
== END ==
LOC: ORPAIN 13:26
PROVIDERS: ATTEND Specialist
DX: M54.16 Radiculopathy, lumbar region (principal)

== ENCOUNTER → 2022-11-01 | Outpatient (CLI) | payer MEDICARE, OTHER ==
--- NOTE | 2022-11-02 06:34 | MR ---
EXAMINATION TYPE: MR lumbar spine wo con DATE OF EXAM: 11/01/2022 COMPARISON: 09/28/2021 HISTORY: Low back pain with radiating pain down legs Multiplanar multiecho imaging of the lumbar spine performed without contrast. The lumbar vertebrae have normal alignment. There is posterior fusion surgery from L3 to L5 with rods and screws. There is mild posterior disc bulging at L1-2 and L2-3 and small herniation. No paraspina l mass. No focal bone destruction. No compression fracture. There is a mild posterior disc herniation also at L5-S1. The sacroiliac joints appear intact. IMPRESSION: Small posterior disc herniations at L1-2 and L2-3 and L5-S1 without much change. No evidence of any s ignificant spinal stenosis. No fracture.
== END | disposition home or self-care (01) ==
LOC: RADMRIMAIN 19:04
PROVIDERS: ATTEND Orthopaedic Surgery Orthopaedic Surgery of the Spine
DX: M51.36 Other intervertebral disc degeneration, lumbar region (principal); M51.37 Other intervertebral disc degeneration, lumbosacral region; M47.816 Spondylosis without myelopathy or radiculopathy, lumbar region
CPT/HCPCS: 72148

== ENCOUNTER → 2022-11-11 | Outpatient (CLI) | payer MEDICARE, OTHER ==
--- NOTE | 2022-11-11 22:07 | MR ---
EXAMINATION TYPE: MR cervical spine wo con DATE OF EXAM: 11/11/2022 INDICATION: Patient age:Male; 57 years old; Reason for study: Z98.1 M50.122. Neck pain that radiates into right shoulder and down arm. COMPARISON: 11/01/2020 TECHNIQUE: Multi planar, multi sequence imaging was performed utilizing: T1-weighted, T2-weighted, an d turbo inversion recovery imaging of the cervical spine. IV Contrast: None FINDINGS: Alignment: The cervical vertebral bodies have preserved heights. Alignment is within normal limits gi aura patient positioning. Bones: Bone signal is within normal limits. No abnormal bone marrow edema on inversion recovery seque nces. Cord: The spinal cord is unremarkable with regards to their signal intensity and morphology. Discs: Multilevel disc desiccation is present. C1/C2: There is a pannus posterior to the odontoid process with moderate to severe spinal canal steno sis. Suboptimally evaluated on sagittal imaging only. C2-C3: No significant disc pathology. The spinal canal is patent. Bilateral facet and uncovertebral joint arthropathy are present with mild right neural foraminal stenosis. The left neural foramen is p atent. C3-C4: No significant disc pathology. The spinal canal is patent. No neural foraminal stenosis. C4-C5: A disc osteophyte complex is present with moderate severe spinal canal stenosis. Bilateral fa cet and uncovertebral joint arthropathy are present with moderate bilateral left greater than right n eural foraminal stenosis. C5-C6: A disc osteophyte complex is present with moderate to severe spinal canal stenosis. Bilateral facet and uncovertebral joint arthropathy are present with moderate bilateral neural foraminal steno sis. C6-C7: No significant disc pathology. The spinal canal is patent. No neural foraminal stenosis. C7-T1: No significant disc pathology. The spinal canal is patent. No neural foraminal stenosis. Other: None. IMPRESSION: Overall findings are similar to 2020. 1. C1-C2: Posterior pannus with moderate to severe spinal canal stenosis. 2. C4-C5 and C5-C6 moderate to severe spinal canal stenosis secondary to disc osteophyte complex. Th ere is at least moderate neural foraminal stenosis at these levels.
== END | disposition home or self-care (01) ==
LOC: RADMRIMAIN 21:20
PROVIDERS: ATTEND Orthopaedic Surgery Orthopaedic Surgery of the Spine
DX: M50.122 Cervical disc disorder at C5-C6 level with radiculopathy (principal); S39.012D Strain of muscle, fascia and tendon of lower back, subsequent encounter; M47.22 Other spondylosis with radiculopathy, cervical region; M50.121 Cervical disc disorder at C4-C5 level with radiculopathy; M51.16 Intervertebral disc disorders with radiculopathy, lumbar region; M47.26 Other spondylosis with radiculopathy, lumbar region; M43.12 Spondylolisthesis, cervical region; M50.123 Cervical disc disorder at C6-C7 level with radiculopathy; M48.062 Spinal stenosis, lumbar region with neurogenic claudication; M62.830 Muscle spasm of back; M99.71 Connective tissue and disc stenosis of intervertebral foramina of cervical region; M48.02 Spinal stenosis, cervical region; Z98.1 Arthrodesis status
CPT/HCPCS: 72141

== ENCOUNTER → 2023-05-21 | Outpatient (CLI) | payer MEDICARE, OTHER ==
[2023-05-21 15:46] LABS: Basophils # (A) 0.04 X 10*3/uL (0.00-0.10); Basophils % (A) 0.6 %; Eosinophils % (A) 2.9 %; HGB 14.7 d/dL (13.0-17.0); Lymphocytes # (A) 1.11 X 10*3/uL (0.90-5.00); Lymphocytes % (A) 16.1 %; MCH 33.3 pg (27.0-32.0); Mean Platelet Volume 9.4 FL (9.5-12.2); Monocytes # (A) 0.67 X 10*3/uL (0.20-1.00); Monocytes % (A) 9.7 %; NRBC Per 100 WBC 0 X 10*3/uL (0.00-0.01); Neutrophils # (A) 4.86 X 10*3/uL (1.80-7.70); Neutrophils % (A) 70.4 %; Platelet Count 222 X 10*3/uL (140-440); RBC 4.42 X 10*6/uL (4.40-5.60); RDW 11.8 % (11.5-14.5)
[2023-05-21 16:02] LABS: BUN/Creat Ratio 12.82 Ratio (12.00-20.00); Blood Urea Nitrogen 14.1 mg/dL (9.0-27.0); Carbon Dioxide 24.1 mmol/L (21.6-31.8); Chloride 105 mmol/L (96-109); Glucose 123 mg/dL (70-110); Sodium 141 mmol/L (135-145)
== END | disposition home or self-care (01) ==
LOC: LABPAT 11:29
PROVIDERS: ATTEND Urology
DX: Z01.812 Encounter for preprocedural laboratory examination (principal); R97.20 Elevated prostate specific antigen [PSA]
CPT/HCPCS: 80048; 85025

== ENCOUNTER → 2023-05-21 | Outpatient (CLI) | payer MEDICARE, OTHER ==
[2023-05-21 16:03] LABS: Chol/HDL Ratio 2.82 Ratio; LDL Cholesterol,Calculated 48.1 mg/dL (0.0-131.0)
== END | disposition home or self-care (01) ==
LOC: LABWHC1 11:31
PROVIDERS: ATTEND Nurse Practitioner
DX: E11.9 Type 2 diabetes mellitus without complications (principal); E78.00 Pure hypercholesterolemia, unspecified
CPT/HCPCS: 36415; 80061; 83036

== ENCOUNTER 2023-05-27 10:42 | Day surgery (SDC) | payer MEDICARE, OTHER ==
[2023-05-23 15:44] VITALS: BMI 33.5
[~2023-05-27 10:42] MED LIST changes: +DEXAMETHASONE SOD PHOSPHATE 4 MG/ML 1 ML VIAL IV ONE; +GENTAMICIN 120 MG in SODIUM CHLORIDE 0.9% 100 ML IVPB PRN; +MIDAZOLAM 2 MG/2 ML VIAL IV PRN; +ONDANSETRON 4 MG/2 ML VIAL IVP ONE
--- NOTE | 2023-05-27 11:27 | P.HPIHPCON ---
History of Present Illness H&P Date: 05/27/23 Chief Complaint: Elevated PSA This is a 57-year-old male with history of elevated PSA, abnormal rectal exam concerning for prostate nodule. Discussed with him given the finding the option of doing a prostate biopsy under sedation. Aware of the risk which includes but not limited to bleeding, infection, sepsis. He understood all the risk and agreed to proceed with a transrectal ultrasound of the prostate Consent for Procedure: I have explained the operation/procedure to the patient, including the risks, benefits, side effects, alternative therapies (including not receiving the proposed treatment or service), the likelihood of the patient achieving his/her goals, and potential recuperation problems for the procedure/sedation/analgesia, as well as any blood products, if indicated. I also explained to the patient the risks, benefits and side effects of the alternatives, as well as the risks related to not receiving the proposed procedure, care, treatment, or services. Past Medical History Past Medical History: CVA/TIA, Diabetes Mellitus, Eye Disorder, GERD/Reflux, Hearing Disorder / Deafness, Hyperlipidemia, Hypertension, Osteoarthritis (OA) Additional Past Medical History / Comment(s): Glaucoma-right eye, back pain currently with numbness in lower back and down both legs, hx migraines, TIA 2014-no effects, varicose veins, arthritis "all over", diet control diabetic, poor hearing,HTN-no longer needing Rx History of Any Multi-Drug Resistant Organisms: None Reported Past Surgical History: Back Surgery, Heart Catheterization, Joint Replacement, Orthopedic Surgery Additional Past Surgical History / Comment(s): Right knee replacement, lower back surgery for herniated disc, bilateral shoulder surgery, surgery on right middle finger, 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 Smoking Status: Former smoker - Past Family History Mother Family Medical History: Cancer Additional Family Medical History / Comment(s): of lung cancer. Father Family Medical History: Cancer Additional Family Medical History / Comment(s): Prostate Cancer. Medications and Allergies Home Medications Medication Instructions Recorded Confirmed Type Meclizine [Antivert] 25 mg PO BID 04/16/18 05/23/23 History Atorvastatin [Lipitor] 40 mg PO HS #30 tab 08/03/20 05/23/23 Rx Aspirin [Adult Low Dose Aspirin EC] 81 mg PO DAILY 11/02/20 05/23/23 History Celecoxib [CeleBREX] 100 mg PO DAILY 01/12/21 05/23/23 History HYDROcodone/APAP 7.5-325MG [[place] 1 tab PO QID PRN 10/15/21 05/23/23 History 7.5-325] Vit C/E/Zn/Coppr/Lutein/Zeaxan 1 each PO DAILY 12/10/21 05/23/23 History [Preservision Areds 2 Softgel] Ibuprofen [Motrin] 600 mg PO Q6HR PRN #20 tab 09/19/22 05/23/23 Rx Famotidine [Pepcid] 20 mg PO HS 05/23/23 05/23/23 History Mv-Min/Folic/K1/Lycopen/Lutein 1 each PO DAILY 05/23/23 05/23/23 History [Centrum Silver Men Tablet] Allergies Allergy/AdvReac Type Severity Reaction Status Date / Time gadobenate dimeglumine Allergy Swelling Verified 05/23/23 15:15 [From Multihance] hydromorphone HCl AdvReac Severe Rapid Verified 05/23/23 15:15 [From Dilaudid] Heart Rate diclofenac potassium AdvReac Nausea & Verified 05/23/23 15:15 [From Cataflam] Vomiting metformin AdvReac Nausea & Verified 05/23/23 15:15 Vomiting MRI CONTRAST AdvReac Swelling Uncoded 05/23/23 15:15 OF FACE Surgical - Exam - General no distress, no pain - Eyes normal ocular movement, no pale - ENT normal nares, normal mucosa - Respiratory normal expansion, normal respiratory effort - Abdomen Abdomen: soft, non tender - Psychiatric oriented to time, oriented to person, oriented to place Assessment and Plan Assessment: OR for transrectal ultrasound of the prostate
[2023-05-27 11:55] LABS: Glucose,Whole Blood 118 mg/dL (70-110)
[2023-05-27 11:57] VITALS: RESP 16; TEMP 96.9
[2023-05-27] MEDS ORDERED: MIDAZOLAM 2 MG/2 ML VIAL ONE (11:59)
[2023-05-27] MEDS ORDERED: fentaNYL (PF) 50 MCG/ML 2 ML AMP ONE (11:59)
[2023-05-27] MEDS ORDERED: PROPOFOL 10 MG/ML 20 ML VIAL IV ONE (11:59)
--- NOTE | 2023-05-27 12:26 | P.OP ---
Date of Procedure: 05/27/23 Preoperative Diagnosis: Elevated PSA Postoperative Diagnosis: Same Procedure(s) Performed: Transrectal Ultrasound, prostate Biopsies Anesthesia: MAC Surgeon: Danny Elils Estimated Blood Loss (ml): 1 Pathology: other (Prostate biopsies) Condition: stable Disposition: PACU Indications for Procedure: This is a 57-year-old male with history of elevated PSA, abnormal rectal exam concerning for prostate nodule. Discussed with him given the finding the option of doing a prostate biopsy under sedation. Aware of the risk which includes but not limited to bleeding, infection, sepsis. He understood all the risk and agreed to proceed with a transrectal ultrasound of the prostate Description of Procedure: The patient was taken to the operating room and placed in the left lateral decubitus position. The [employer] transrectal ultrasound probe was placed intrarectally. . The prostate was imaged in both the axial and sagittal planes. prostate measured 104 grams. Using the Biopsy gun, 12 biopsies of the peripheral zone were obtained utilizing a standard template. Once the procedure was completed, the ultrasound probe was removed. The patient tolerated the procedure well was taken to the recovery room stable condition
[2023-05-27 12:35] VITALS: BP 120/86; PULSE 85
== END 2023-05-27 13:19 | disposition home or self-care (01) ==
LOC: OR 10:42
PROVIDERS: ATTEND Urology
DX: C61 Malignant neoplasm of prostate (principal); N41.0 Acute prostatitis
CPT/HCPCS: 55700; 88344; 88305; J2250; J1100; J2405; J3010; J1580; J2704

== ENCOUNTER → 2023-07-02 | Outpatient (CLI) | payer MEDICARE, OTHER ==
--- NOTE | 2023-07-02 11:14 | MR ---
EXAMINATION TYPE: MR prostate wo con DATE OF EXAM: 07/02/2023 7:57 AM COMPARISON: None. CLINICAL INDICATION:Male, 57 years old with history of C61 prostate ca; ELEVATED PSA - KNOWN PROSTATE CA - NO CONTRAST PER DOCTOR - SCANNED WITH SPECIFIC PARAMETERS DUE TO IMPLANTS TECHNIQUE: Multi-planar, multi-sequence imaging of the pelvis is performed prior to and following the uncomplicated administration of bolus intravenous gadolinium. CONTRAST: None Interpretive Criteria: PI-RADS v2.1 SERUM PSA: 4.6 and 01/02/2023. 3.12 on 12/25/2021. 3.4 10/04/2021. SURGICAL PATHOLOGY: No data available. FINDINGS: Prostatic dimensions: 4.8 x 4.8 x 3.9 cm. "Bullet" Volume:58.81 (PSA density=0.08 ng/mL/mL) CENTRAL GLAND (Central and Transition Zones/CZ+TZ): Right central mid gland focus of high DWI low ADC and low T2 signal. Area measures 9 x 6 x 15.0 mm. ( PI-RADS 5) PERIPHERAL ZONE (PZ): No evidence of masslike abnormality, or localized perfusional hypervascularity, to further suggest a focus of clinically significant prostate cancer. (PI-RADS 2) SEMINAL VESICLES (SV): Symmetric and unremarkable. PERIPROSTATIC TISSUES: Unremarkable. LYMPH NODES: No enlarged pelvic lymph node. REMAINING PELVIS: Bladder wall is within normal limits given distention. No abnormal free or organized intrapelvic fluid collection. No pathologic bowel dilation or mural thickening. No hernia visualized OSSEOUS STRUCTURES: No suspicious osseous abnormality. Fixation hardware in the lower spine with susceptibility artifact. IMPRESSION: 1. PI-RADS 5 lesion right central gland mid gland measuring 9 x 6 x 15 mm . 2. Moderate BPH, estimated gland volume 58.81 mL. 3. No suspicious osseous lesion. No lymphadenopathy. No evidence of prostate adenocarcinoma involving the periprostatic tissues.
== END | disposition home or self-care (01) ==
LOC: RADMRIMAIN 06:57
PROVIDERS: ATTEND Radiology Radiation Oncology
DX: C61 Malignant neoplasm of prostate (principal); N40.0 Benign prostatic hyperplasia without lower urinary tract symptoms
CPT/HCPCS: 72195

== ENCOUNTER → 2023-08-18 | Outpatient (CLI) | payer MEDICARE, OTHER ==
--- NOTE | 2023-08-18 14:45 | XR ---
EXAMINATION TYPE: XR chest 2V DATE OF EXAM: 08/18/2023 COMPARISON: 08/02/2020 HISTORY: 58-year-old male presurgical evaluation TECHNIQUE: Frontal and lateral views FINDINGS: Heart normal size. Aorta and pulmonary vasculature within normal limits. Mild interstitial prominence is unchanged. Some strandy atelectasis left base. No consolidation or pleural effusion. Suture ancho rs right humeral head from prior cuff repair. IMPRESSION: Chronic changes. No acute process seen.
[2023-08-18 15:01] LABS: INR 0.9 (<1.2); Prothrombin Time 10.5 sec (10.0-12.5)
[2023-08-18 19:19] LABS: Appearance,Urine Clear (Clear); Bilirubin,Urine Negative (Negative); Blood,Urine Negative (Negative); Color,Urine Yellow (Yellow); Ketones,Urine Trace (Negative); Nitrite,Urine Negative (Negative); PH, Urine 5.5; Specific Gravity,Urine 1.024 (1.001-1.030); Urobilinogen,Urine 0.2 E.U./DL
[2023-08-19 02:02] LABS: HCT 40.4 % (39.6-50.0); HGB 14.2 g/dL (13.0-17.0); MCH 33.1 pg (27.0-32.0); MCHC 35.1 g/dL (32.0-37.0); MCV 94.2 FL (80.0-97.0); Mean Platelet Volume 9.7 FL (9.5-12.2); NRBC Per 100 WBC 0 X 10*3/uL (0.00-0.01); Platelet Count 240 X 10*3/uL (140-440); RBC 4.29 X 10*6/uL (4.40-5.60); RDW 11.9 % (11.5-14.5); WBC 6.35 X 10*3/uL (4.50-10.00)
[2023-08-19 02:03] LABS: Basophils # (A) 0.05 X 10*3/uL (0.00-0.10); Basophils % (A) 0.8 %; Eosinophils # (A) 0.27 X 10*3/uL (0.04-0.35); Eosinophils % (A) 4.3 %; Lymphocytes # (A) 1.21 X 10*3/uL (0.90-5.00); Lymphocytes % (A) 19.1 %; Monocytes # (A) 0.57 X 10*3/uL (0.20-1.00); Neutrophils # (A) 4.24 X 10*3/uL (1.80-7.70); Neutrophils % (A) 66.6 %
[2023-08-19 02:36] LABS: Blood Urea Nitrogen 16.5 mg/dL (9.0-27.0); Calcium 9.9 mg/dL (8.7-10.3); Carbon Dioxide 25.5 mmol/L (21.6-31.8); Chloride 103 mmol/L (96-109); Glucose 114 mg/dL (70-110); Potassium 4.8 mmol/L (3.5-5.5); Sodium 138 mmol/L (135-145)
== END | disposition home or self-care (01) ==
LOC: LABPAT 14:04
PROVIDERS: ATTEND Orthopaedic Surgery Orthopaedic Surgery of the Spine
DX: Z01.812 Encounter for preprocedural laboratory examination (principal); M48.02 Spinal stenosis, cervical region
CPT/HCPCS: 71046; 80048; 81003; 85025; 85610; 85730; 86850; 86900; 86901; 87070

== ENCOUNTER 2023-08-27 12:50 | Day surgery (SDC) | payer MEDICARE, OTHER ==
[2023-08-22 12:17] VITALS: BMI 33.6
[~2023-08-27 12:50] MED LIST changes: -GENTAMICIN 120 MG in SODIUM CHLORIDE 0.9% 100 ML IVPB PRN; +HYDROmorphone 0.5 MG/0.5 ML SYRINGE IVP PRN; -LIDOCAINE 1% (10MG/ML) FOR IV START INTRADERMA PRN; -MIDAZOLAM 2 MG/2 ML VIAL IV PRN; +ceFAZolin 1,000 MG in SODIUM CHLORIDE 0.9% IRRIGATIO 1,000 ML IRRIGATION PRN
[2023-08-27 13:53] LABS: Glucose,Whole Blood 120 mg/dL (70-110)
[2023-08-27] MEDS ORDERED: GELATIN SPONGE,ABSORB (LARGE) 1 EACH SPONGE MISCELLANE ONE (16:34)
[2023-08-27] MEDS ORDERED: LIDOCAINE 1%-EPI 1:100,000 50 ML VIAL SQ ONE (16:35)
[2023-08-27] MEDS ORDERED: THROMBIN (BOVINE) 5,000 UNIT VIAL MISCELLANE ONE (16:35)
[2023-08-27] MEDS ORDERED: LIDOCAINE 2%-EPI 1:100,000 20 ML VIAL SQ ONE (16:35)
[2023-08-27] MEDS ORDERED: LACTATED RINGERS 1,000 ML IV ONE (17:35)
--- NOTE | 2023-08-27 17:39 | XR ---
EXAMINATION TYPE: XR cervical spine 1V DATE OF EXAM: 08/27/2023 5:02 PM CLINICAL INDICATION:Male, 58 years old with history of Needle placement; [facility] COMPARISON: 01/16/2017. TECHNIQUE: The cervical spine was imaged in frontal, lateral, and odontoid. FINDINGS: The osseous structures show normal alignment without evidence of an acute fracture. There are osteoph ytes noted throughout the cervical spine on the anterior and lateral aspects of the vertebral bodies. The intervertebral disk spaces are narrowed at multiple levels Pedicles are intact. Soft tissues ar e within normal limits. The odontoid appears intact. IMPRESSION: Intraoperative radiograph for needle placement. Needle tip terminating at the superior endplate C4-C5 and C5/joint space of C4-C5
[2023-08-27] MEDS ORDERED: HYDROmorphone 0.5 MG/0.5 ML SYRINGE IVP PRN (17:53)
[2023-08-27] MEDS ORDERED: BENZOCAINE/MENTHOL LOZENG 1 EACH LOZENGE MUCOUS MEM PRN (17:53)
[2023-08-27] MEDS ORDERED: HYDROmorphone 1 MG/ML 1 ML SYRINGE IVP PRN (17:53)
[2023-08-27] MEDS ORDERED: HYDROcodone/APAP 5-325MG 1 EACH TAB PO PRN (17:53)
[2023-08-27] MEDS ORDERED: ONDANSETRON 4 MG/2 ML VIAL IVP PRN (17:54)
[2023-08-27] MEDS ORDERED: HYDROcodone/APAP 7.5-325MG 1 EACH TAB PO PRN (17:55)
--- NOTE | 2023-08-27 18:00 | P.OP ---
Date of Procedure: 08/27/23 Preoperative Diagnosis: Cervical stenosis C4 5 C5 6, her disc herniation C4 5 C5 6, upper extremity radiculopathy, upper extremity pain, upper extremity weakness, degenerative disc disease, neck pain Postoperative Diagnosis: Same Anesthesia: GETA Pathology: none sent Condition: stable Disposition: PACU Description of Procedure: BRIEF OPERATIVE NOTE Preoperative Diagnosis:Cervical stenosis C4 5 C5 6, her disc herniation C4 5 C5 6, upper extremity radiculopathy, upper extremity pain, upper extremity weakness, degenerative disc disease, neck pain Postoperative Diagnosis:Cervical stenosis C4 5 C5 6, her disc herniation C4 5 C5 6, upper extremity radiculopathy, upper extremity pain, upper extremity weakness, degenerative disc disease, neck pain Procedure: Anterior cervical decompression with discectomy and fusion C4 5 C5 6 Placement of interbody graft C4 5 C5 6 Application of anterior cervical plate C4 5 and 6 Surgeon: Dr. Vazquez Wire Spooler: Nelson GALVAN Anesthesia: General anesthesia Estimated blood loss: Approximately 50 mL Complications: None apparent Components implanted: K2M striker [place] anterior cervical plate system with screws and Vikos interbody allograft bone graft with 1 mL of DBX bone putty Disposition: To recovery room in good stable condition. OPERATIVE INDICATIONS The patient has had long-standing issues in their neck and upper extremities. The patient was having worsening issues at his upper extremities with numbness tingling and some weakness in his upper extremities. Many of his symptoms correlated well with his findings of significant cervical stenosis with disc herniation at C4 5 C5 6. He had some other issues at his cervical spine with degenerative disc changes disc bulging. He also had evidence of some mild stenosis behind C1 and the occiput. He had evaluation with neurosurgery and they felt that that was stable and that his issues are primarily stemming from left C4 5 C5 6 levels. The patient has been through extensive conservative care and has exhausted conservative management. He continues to have significant issues despite conservative treatment and has been having worsening symptoms. The patient has been through conservative treatment. We discussed various treatment options including surgery, and the patient wishes to proceed with surgery We discussed the risk, patient's alternatives and benefits of surgery including but not limited to, risk of bleeding risk of infection, risk of need for further surgery, risk of decreased, loss of motion, muscle function, malunion nonunion, hardware failure, nerve damage, paralysis, heart attack, and . OPERATIVE SUMMARY After discussing all the risks, patient alternatives and benefits at length, the patient elected to proceed with surgical intervention, signed informed consent, and presented for their procedure. The patient was seen and examined in the preoperative holding area and the surgical site was marked. The patient was given antibiotics and brought to the operating room. The patient was positioned on the operating room table in a supine position being careful to pad any bony prominences and pressure points. The patient was sedated and intubated by anesthesia in standard fashion. Once the airway and C- spine were stabilized the patient's arms were padded and tucked at her side, with her shoulders gently taped. The head was placed in a donut pad with the neck in good neutral alignment and position. We were careful to maintain the patient's cervical spine and good neutral alignment and position throughout. The patient was prepped and draped in a normal standard fashion. An appropriate timeout and keystone protocol performed. We were able to proceed with the surge ry. The local wound area was infiltrated with local anesthetic. An incision was made transversely approximately 2-1/2 cm over the appropriate levels at C5. Dissection was taken down subcutaneously to the level of the platysma which was split in line with its fibers. Dissection was taken with a carotid approach, with the trachea and esophagus medial and the carotid sheath laterally. We dissected down to the anterior surface of the vertebral bodies. Intraoperative x-ray was taken which showed a marker at the appropriate level. With the appropriate level at C4 5 positively confirmed, we were able to proceed with discectomy at the appropriate levels. All of the operative levels were exposed appropriately. The patient had all their twitches back, and there was no evidence of recurrent laryngeal issue. The wound was copiously irrigated and suctioned dry as had been done periodically throughout the case. At the appropriate level/levels, starting at C56 and then moving to C4 5 I established an annulotomy with an 11 blade scalpel. There were large anterior osteophytes which were removed at each level. A discectomy was performed with a combination of pituitary rongeurs, curettes, a high-speed bur, and Kerrison rongeurs. The posterior longitudinal ligament was taken down as were any posterior osteophytes. This gave good central and bilateral foraminal decompression. There is no evidence of any dural tear or leak. The endplates were prepared with a high-speed bur. With the endplates in good parallel position, I was able to size for the appropriate size interbody graft. The wound was irrigated and suctioned dry the graft was prepared and malleted into position. It had good alignment and position with the anterior surface flush with the anterior surface of the vertebral bodies. This was done similarly the appropriate levels. With the grafts intact, I was able to measure and contour and appropriate sized plate. The plate was positioned at the midline over the appropriate levels at C4 5 and 6. Screw holes were established with a hand drill and drill guide. Screws were placed in good alignment and position with excellent bony purchase. They were seated under the locking device. The construct was checked and found to be stable. Intraoperative x-ray was taken which showed good alignment and position of the implants at the appropriate levels. There was no evidence of any dural tear or leak. Good hemostasis was maintained. The wound was copiously irrigated and suctioned dry as had been done periodically throughout the case. The platysma was closed with absorbable suture. The subcutaneous tissue was closed. The subcuticular tissue was closed with absorbable suture. The wound was cleaned and dried and dressed appropriately. A soft cervical collar was placed appropriately. The patient was woken up by anesthesia, extubated, transferred back gently to their hospital bed and brought to the recovery room in good stable condition. The patient will be admitted to the hospital for appropriate postoperative care, medical management and monitoring. We will continue to follow them closely about the postoperative course.
[2023-08-27] MEDS ORDERED: GLYCOPYRROLATE 0.2 MG/ML 2 ML VIAL IVP ONE (18:19)
[2023-08-27] MEDS ORDERED: MIDAZOLAM 2 MG/2 ML VIAL IVP ONE (18:20)
[2023-08-27] MEDS ORDERED: KETAMINE HCL IN 0.9 % NACL 50 MG/5 ML SYRINGE IVP ONE ×2 (18:23→19:30)
[2023-08-27] MEDS: METOPROLOL TARTRATE 5 MG/5 ML VIAL IVP ONE ×2 (18:31→18:40)
--- NOTE | 2023-08-27 18:31 | XR ---
EXAMINATION TYPE: XR cervical spine 1V DATE OF EXAM: 08/27/2023 5:47 PM CLINICAL INDICATION:Male, 58 years old with history of HARDWARE PLACEMENT; [facility] COMPARISON: Intra-Op 08/27/2023. TECHNIQUE: The cervical spine was imaged in frontal, lateral, and odontoid. FINDINGS/IMPRESSION: 1. Post surgical changes with fixation hardware at C4 , C5 and C6. No evidence of fracture. Hardware is intact. 2. Endotracheal tube in place.
[2023-08-27] MEDS: fentaNYL (PF) 50 MCG/1 ML VIAL IVP ONE ×2 (19:13→19:25)
[2023-08-27 19:25] LABS: Glucose,Whole Blood 151 mg/dL (70-110)
[2023-08-27] MEDS: CYCLOBENZAPRINE 10 MG TAB PO PRN (19:55)
[2023-08-27] MEDS: MORPHINE SULFATE 2 MG/ML SYRINGE IVP PRN (20:30)
[2023-08-27] MEDS: MECLIZINE 25 MG TAB PO SCH (20:33)
[2023-08-27] MEDS ORDERED: FAMOTIDINE 20 MG TAB PO SCH (21:00)
[2023-08-27] MEDS ORDERED: ATORVASTATIN 10 MG TAB PO SCH (21:00)
[2023-08-27] MEDS ORDERED: AMITRIPTYLINE HCL 10 MG TAB PO SCH (21:00)
[2023-08-27 21:26] VITALS: RESP 18
[2023-08-27] MEDS: HYDROcodone/APAP 7.5-325MG 1 EACH TAB PO PRN (22:53)
[2023-08-27] MEDS: SODIUM CHLORIDE 0.9% 1,000 ML IV SCH (22:54)
[2023-08-28] MEDS: MORPHINE SULFATE 2 MG/ML SYRINGE IVP PRN (00:31)
[2023-08-28] MEDS: HYDROcodone/APAP 7.5-325MG 1 EACH TAB PO PRN ×3 (03:18→11:32)
[2023-08-28] MEDS: CYCLOBENZAPRINE 10 MG TAB PO PRN (07:13)
[2023-08-28] MEDS: MECLIZINE 25 MG TAB PO SCH (07:38)
[2023-08-28] MEDS: SODIUM CHLORIDE 0.9% 1,000 ML IV SCH (07:39)
[2023-08-28 07:41] VITALS: BP 112/72; PULSE 94; TEMP 98.4
[2023-08-28] MEDS ORDERED: MULTIVITAMINS, THERA 1 EACH TAB PO SCH (09:00)
[2023-08-28] MEDS ORDERED: VIT A,C & E-LUTEIN-MINERALS 1 EACH TAB PO SCH (09:00)
[2023-08-28] MEDS ORDERED: ASPIRIN 81 MG PO SCH (09:00)
--- NOTE | 2023-08-28 10:41 | P.DS ---
Providers Date of admission: 08/27/23 Attending physician: Ivana Vazquez Primary care physician: [facility] Course: The patient presented on the day of admission as per their operative note. He is postoperative day #1. He says he is feeling well. His arms are doing well. His neck has some soreness but is swallowing well. He is voiding freely. Pain is controlled with oral medications. Physical Exam The incision site is clean dry and intact. There is no erythema no drainage. There is no purulence no evidence of infection. His neck is soft and supple. He is afebrile stable vital signs Abdomen soft and nontender. Chest has good excursion with deep inspiration and expiration. The patient has active and passive range of motion intact at the upper and lower extremities. There is no acute change in neurologic status. His upper extrem ities have good motion throughout Hospital Course Postoperative day #1 status post anterior cervical decompression with discectomy and fusion for his disc herniation with cervical stenosis and upper extremity radiculopathy. The patient feels he is making progress already. He feels his arms have made some improvement. The patient has been making good progress postoperatively. They have completed the prophylactic antibiotics without any signs or symptoms of infection. The patient has been able to advance their diet, and is tolerating diet adequately. The pain was initially controlled with IV medications and is now controlled appropriately with oral medications. The patient has been able to increase their mobilization. The patient has progressed appropriately. I think they are in good stable condition for discharge today. They will be sent home with appropriate prescriptions. I answered their questions to the best of my ability in a language that they can understand and they are agreeable with the plan. They will follow up as directed in approximately 2 weeks' time. Patient Condition at Discharge: Good Plan - Discharge Summary Discharge Rx Participant: Yes New Discharge Prescriptions: No Action Meclizine [Antivert] 25 mg PO BID Celecoxib [CeleBREX] 100 mg PO DAILY Vit C/E/Zn/Coppr/Lutein/Zeaxan [Preservision Areds 2 Softgel] 1 each PO DAILY Ibuprofen [Motrin] 600 mg PO Q6HR PRN #20 tab PRN Reason: For pain Mv-Min/Folic/K1/Lycopen/Lutein [Centrum Silver Men Tablet] 1 each PO DAILY Atorvastatin [Lipitor] 10 mg PO HS Aspirin [Adult Low Dose Aspirin EC] 81 mg PO DAILY HYDROcodone/APAP 7.5-325MG [[place] 7.5-325] 1 tab PO QID PRN PRN Reason: Pain Famotidine [Pepcid] 20 mg PO HS lisinopriL [Zestril] 2.5 mg PO DAILY Amitriptyline HCl [Elavil] 10 mg PO HS Discharge Medication List Meclizine [Antivert] 25 mg PO BID 04/16/18 [History] Aspirin [Adult Low Dose Aspirin EC] 81 mg PO DAILY 11/02/20 [History] Celecoxib [CeleBREX] 100 mg PO DAILY 01/12/21 [History] HYDROcodone/APAP 7.5-325MG [[place] 7.5-325] 1 tab PO QID PRN 10/15/21 [History] Vit C/E/Zn/Coppr/Lutein/Zeaxan [Preservision Areds 2 Softgel] 1 each PO DAILY 12/10/21 [History] Ibuprofen [Motrin] 600 mg PO Q6HR PRN #20 tab 09/19/22 [Rx] Famotidine [Pepcid] 20 mg PO HS 05/23/23 [History] Mv-Min/Folic/K1/Lycopen/Lutein [Centrum Silver Men Tablet] 1 each PO DAILY 05/23/23 [History] Amitriptyline HCl [Elavil] 10 mg PO HS 08/22/23 [History] Atorvastatin [Lipitor] 10 mg PO HS 08/22/23 [History] lisinopriL [Zestril] 2.5 mg PO DAILY 08/22/23 [History] Follow up Appointment(s)/Referral(s): Ivana Vazquez DO [Doctor of Osteopathic Medicine] - 09/12/23 1:00 pm Kayode Greer [Primary Care Provider] - 09/02/23 9:15 am Patient Instructions/Handouts: *Surgery [facility] - ([facility]) Cervical Surgery Discha rge Instructions Activity/Diet/Wound Care/Special Instructions: Keep site clean. May shower with waterproof Tegaderm intact. Do not soak in a tub. After 72 hours postoperatively, patient May remove dressing and then may shower with area uncovered. Leave glue intact and allow it to fray off on its own. May ambulate as tolerated. Avoid heavy or rigorous activity. No repetitive bending twisting or lifting. No overhead work. Discharge Disposition: HOME SELF-CARE
[2023-08-28 11:26] LABS: Glucose,Whole Blood 123 mg/dL (70-110)
== END 2023-08-28 12:34 | disposition home or self-care (01) ==
LOC: OR 12:50 → 4SSUR 18:00 → OR 08-28 12:34
PROVIDERS: ATTEND Orthopaedic Surgery Orthopaedic Surgery of the Spine
DX: M50.121 Cervical disc disorder at C4-C5 level with radiculopathy (principal); M50.122 Cervical disc disorder at C5-C6 level with radiculopathy; M48.02 Spinal stenosis, cervical region; M47.22 Other spondylosis with radiculopathy, cervical region; H40.9 Unspecified glaucoma; I10 Essential (primary) hypertension; E78.5 Hyperlipidemia, unspecified; E11.9 Type 2 diabetes mellitus without complications; H91.90 Unspecified hearing loss, unspecified ear; Z79.82 Long term (current) use of aspirin; Z79.899 Other long term (current) drug therapy; Z79.84 Long term (current) use of oral hypoglycemic drugs; Z79.1 Long term (current) use of non-steroidal anti-inflammatories (NSAID); Z88.5 Allergy status to narcotic agent; Z91.041 Radiographic dye allergy status
CPT/HCPCS: 72020; 20930; 20931; 22845; 22552; 22551; C1713 ×2; C1762; J2250; J0690 ×3; J2405; J2270 ×2; J3010

== ENCOUNTER 2024-02-21 13:59 | Emergency (ER) | payer MEDICARE, OTHER ==
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
--- NOTE | 2024-02-21 15:59 | US ---
EXAMINATION TYPE: US venous doppler duplex LE LT DATE OF EXAM: 02/21/2024 3:53 PM COMPARISON: US 2021 CLINICAL INDICATION: Male, 58 years old with history of calf tenderness and swelling; Left leg pain f ollowing a fall 6 days ago SIDE PERFORMED: Left TECHNIQUE: The lower extremity deep venous system is examined utilizing real time linear array sonog hay with graded compression, doppler sonography and color-flow sonography. VESSELS IMAGED: Common Femoral Vein Deep Femoral Vein Greater Saphenous Vein * Femoral Vein Popliteal Vein Small Saphenous Vein * Proximal Calf Veins (* superficial vessels) Left Leg: Appears negative for DVT IMPRESSION: Grayscale, color doppler, spectral doppler imaging performed of the deep veins of the lo wer extremities. There is normal flow, compressibility, vascular waveforms.
[2024-02-21 16:30] VITALS: BP 141/84; PULSE 69; RESP 17; TEMP 98.2
== END 2024-02-21 16:31 | disposition home or self-care (01) ==
LOC: EC 13:59
DX: M79.662 Pain in left lower leg (principal); Z88.5 Allergy status to narcotic agent; Z88.8 Allergy status to other drugs, medicaments and biological substances; Z88.6 Allergy status to analgesic agent; Z91.048 Other nonmedicinal substance allergy status; Z87.891 Personal history of nicotine dependence; Z86.73 Personal history of transient ischemic attack (TIA), and cerebral infarction without residual deficits
CPT/HCPCS: 99283

== ENCOUNTER → 2024-02-28 | Outpatient (CLI) | payer MEDICARE, OTHER ==
--- NOTE | 2024-02-28 13:00 | XR ---
EXAMINATION TYPE: XR shoulder complete RT DATE OF EXAM: 02/28/2024 12:35 PM CLINICAL INDICATION:Male, 58 years old with history of M25.519 PAIN IN UNSPECIFIED SHOULDER; [facility] COMPARISON: 05/07/2019 TECHNIQUE: XR shoulder complete RT; examined in AP, internally rotated and scapular Y projections. FINDINGS: No evidence of acute osseous pathology, joint dislocation, or soft tissue swelling. The remaining po rtions of the visualized chest are unremarkable. Degeneration changes of the acromion, distal clavic le with osteophyte formation. There is osteophyte formation of the glenoid and humeral head. There is joint space narrowing of glenohumeral joint.Filter repair anchors present. IMPRESSION: 1. No acute osseous pathology. 2. Mild shoulder osteoarthrosis.
== END | disposition home or self-care (01) ==
LOC: RADXRMAIN 12:17
PROVIDERS: ATTEND Family Medicine
DX: M19.011 Primary osteoarthritis, right shoulder (principal)

== ENCOUNTER → 2024-04-13 | Outpatient (CLI) | payer MEDICARE, OTHER ==
--- NOTE | 2024-04-18 21:58 | MR ---
EXAMINATION TYPE: MR shoulder RT wo con DATE OF EXAM: 04/13/2024 COMPARISON: Right shoulder x-ray February 28, 2024. MRI right shoulder May 20, 2023 HISTORY: Rt shoulder pain TECHNIQUE: Multiplanar, multisequence imaging of the right shoulder is performed without contrast. FINDINGS: Rotator Cuff: Some increased signal along the distal infraspinatus tendon. Increased signal in the riley praspinatus tendon with some surrounding fluid. Findings more prominent versus prior. Full-thickness retracted tear of the subscapularis tendon. Rotator cuff muscle bulk is preserved. Acromioclavicular Joint: Extensive susceptibility artifact from prior surgery is redemonstrated. Glenohumeral Joint: Moderate size joint effusion is more prominent versus prior. Some narrowing redem onstrated. No significant spurring. Labrum: Blunting of superior labrum consistent with SLAP-type tear redemonstrated. Biceps Tendon: The long head of biceps is dislocated from normal location within bicipital groove. Te ar at the labral anchor is suspected as the intracapsular portion is not well visualized Bone marrow signal: No focal abnormal marrow signal is appreciated. Other: No additional significant abnormality is appreciated. IMPRESSION: 1. Surgical change to rotator cuff redemonstrated. New tendinosis of the distal infraspinatus tendon. More prominent tendinosis of the supraspinatus tendon. No recurrent distracted tear identified. 2. New full-thickness retracted tear of the subscapularis tendon. 3. Surgical change AC joint and SLAP tear of labrum redemonstrated. 4. There is new dislocation of the biceps tendon. Chronic tear or surgical change from labral anchor is redemonstrated.
== END | disposition home or self-care (01) ==
LOC: RADMRIMAIN 11:32
DX: S43.004A Unspecified dislocation of right shoulder joint, initial encounter (principal); M25.819 Other specified joint disorders, unspecified shoulder; M75.121 Complete rotator cuff tear or rupture of right shoulder, not specified as traumatic; M67.813 Other specified disorders of tendon, right shoulder; Z87.898 Personal history of other specified conditions

== ENCOUNTER → 2024-07-06 | Outpatient (CLI) | payer MEDICARE, OTHER ==
--- NOTE | 2024-07-06 10:08 | MR ---
EXAMINATION TYPE: MR Prostate wo/w con DATE OF EXAM: 07/06/2024 7:55 AM COMPARISON: None. CLINICAL INDICATION: Male, 59 years old with history of C61 MALIGNANT NEOPLASM OF PROSTATE; Prostate cancer. TECHNIQUE: Multi-planar, multi-sequence imaging of the pelvis is performed prior to and following the uncomplicated administration of bolus intravenous gadolinium. IV Contrast: 9 mL Gadavist Interpretive Criteria: PI-RADS v2.1 SERUM PSA: 5-29-24 = 3.38 5-25-23 = 4.60 SURGICAL PATHOLOGY: No data available. FINDINGS: Prostatic dimensions: 5.0 x 5.3 x 2.8 cm. Ellipsoid Volume: 52.73 (PSA density=0.06 ng/mL/mL) CENTRAL GLAND (Central and Transition Zones/CZ+TZ): BPH nodule near the anterior right peripheral zone demonstrating high DWI low ADC signal which is wel l encapsulated series 501 image 15. Multiple other, heterogenous appearing hypertrophic stromal nodul es, without suspicious lesion. Median lobe hypertrophy with protrusion into the base of the bladder. (PI-RADS 2) PERIPHERAL ZONE (PZ): Bilateral linear, indistinct wedgelike areas of low ADC, and low T2 signal, No evidence of masslike a bnormality, or localized perfusional hypervascularity, to further suggest a focus of clinically signi ficant prostate cancer. (PI-RADS 2) SEMINAL VESICLES (SV): Symmetric and unremarkable. PERIPROSTATIC TISSUES: Unremarkable. LYMPH NODES: No enlarged pelvic lymph node. REMAINING PELVIS: Bladder wall is within normal limits given distention. No abnormal free or organized intrapelvic fluid collection. No pathologic bowel dilation or mural thickening. No hernia visualized Lipoma tracking along the left piriformis muscle. OSSEOUS STRUCTURES: No suspicious osseous abnormality. IMPRESSION: 1. No specific features for high-risk prostate cancer. Maximum PI-RADS score: 2. 2. Moderate BPH, estimated gland volume 52.73 mL. 3. No suspicious osseous lesion. No lymphadenopathy. No evidence of prostate adenocarcinoma involving the periprostatic tissues. [facility], , 07/06/2024 10:06 AM
== END | disposition home or self-care (01) ==
LOC: RADMRIMAIN 06:42
PROVIDERS: ATTEND Radiology Radiation Oncology
DX: C61 Malignant neoplasm of prostate (principal); N40.0 Benign prostatic hyperplasia without lower urinary tract symptoms
CPT/HCPCS: 72197; A9585

== ENCOUNTER 2024-10-05 12:03 | Day surgery (SDC) | payer MEDICARE, OTHER ==
[2024-10-05 12:48] VITALS: RESP 16
[2024-10-05] MEDS: IV FLUID CONTINUATION 1,000 ML IV ONE (12:49)
[2024-10-05 13:11] LABS: Glucose,Whole Blood 103 mg/dL (70-110)
[2024-10-05] MEDS: ONDANSETRON 4 MG/2 ML VIAL IVP ONE (13:15)
[2024-10-05] MEDS: DEXAMETHASONE SOD PHOSPHATE 4 MG/ML 1 ML VIAL IV ONE (13:15)
[2024-10-05 13:17] LABS: Basophils % (A) 0 %; Eosinophils # (A) 0.2 k/uL (0-0.7); Eosinophils % (A) 3 %; HCT 45.2 % (39.0-53.0); HGB 15.4 gm/dL (13.0-17.5); Lymphocytes % (A) 16 %; MCH 32.9 pg (25.0-35.0); MCHC 34.1 g/dL (31.0-37.0); MCV 96.5 fL (80.0-100.0); Mean Platelet Volume 7.4; Monocytes # (A) 0.5 k/uL (0-1.0); Monocytes % (A) 7 %; Neutrophils # (A) 4.6 k/uL (1.3-7.7); Neutrophils % (A) 71 %; Platelet Count 235 k/uL (150-450); RBC 4.69 m/uL (4.30-5.90); RDW 12.2 % (11.5-15.5); WBC 6.5 k/uL (3.8-10.6)
[2024-10-05 13:40] LABS: Potassium 5.5 mmol/L (3.5-5.1)
[2024-10-05] MEDS ORDERED: SUCCINYLCHOLINE CHLORIDE 200 MG/10 ML VIAL IV ONE (13:49)
[2024-10-05] MEDS ORDERED: PROPOFOL 10 MG/ML 20 ML VIAL IV ONE (13:49)
[2024-10-05] MEDS ORDERED: LIDOCAINE 1% INJ 10MG/ML (20 ML MDV) ONE (13:49)
[2024-10-05] MEDS ORDERED: MIDAZOLAM 2 MG/2 ML VIAL ONE (13:49)
[2024-10-05] MEDS ORDERED: fentaNYL (PF) 50 MCG/ML 2 ML AMP ONE (13:49)
[2024-10-05] MEDS ORDERED: PHENYLEPHRINE 10 MG/ML VIAL ONE (13:49)
[2024-10-05] MEDS: FLUID CONTINUATION IV ONE (13:51)
[2024-10-05] MEDS: CEFAZOLIN IV ONE (13:51)
[2024-10-05] MEDS ORDERED: HYDROmorphone 0.5 MG/0.5 ML SYRINGE IVP PRN ×2 (14:56)
[2024-10-05] MEDS ORDERED: ONDANSETRON 4 MG/2 ML VIAL IVP PRN (14:56)
[2024-10-05] MEDS ORDERED: HYDROcodone/APAP 5-325MG 1 EACH TAB PO PRN (14:56)
[2024-10-05] MEDS ORDERED: HYDROmorphone 1 MG/ML 1 ML SYRINGE IVP PRN (14:56)
--- NOTE | 2024-10-05 14:56 | P.OP ---
Date of Procedure: 10/05/24 Preoperative Diagnosis: 1. Left knee medial meniscus tear 2. Left knee osteoarthritis Postoperative Diagnosis: Same Procedure(s) Performed: Left knee arthroscopy with partial medial meniscectomy Anesthesia: KHOAA Surgeon: Andrew Godoy Estimated Blood Loss (ml): 10 IV fluids (ml): 300 Pathology: none sent Condition: stable Disposition: PACU Indications for Procedure: The patient is a very pleasant 59-year-old male who has been seeing me in the [facility] for a long period of time. He had a recent injury resulting in acute worsening of his pain and mechanical symptoms. He had an MRI obtained which showed arthritis as well as a possible displaced meniscus tear with a buckle hand component. We discussed treatment options including nonsurgical treatment with activity modification, therapy, and an injection versus an arthroscopy. Due to the mechanical symptoms and characteristics of the meniscus tear on his MRI we both agreed to proceed with an arthroscopy. The patient understands the potential for continued symptoms given the arthritis in his knee. Risks of surgery discussed with the patient in the office setting included but were certainly not limited to risks from anesthesia, superficial or deep infection, damage to local blood vessels or nerves, iatrogenic joint damage, continued or worsened pain, progression of arthritis, DVT, PE, other medical complications, and inability to regain preinjury level of function, continued or worsened knee pain, need for further surgical procedures and generalized to satisfaction with surgical outcome. The patient voiced his understanding these potential complications while also acknowledging other less common complications. He provided both his verbal and written consent to go forward with surgery. Operative Findings: The patient had a complex radial tear of the posterior horn of the medial meniscus but no adrianna bucket-handle component. There was diffuse arthritis through the medial and patellofemoral compartments. Description of Procedure: The patient was identified in preoperative holding and the correct left leg was marked with my initials. I reviewed the consent form with the patient and his . All their questions were answered. The patient was brought back to the operating room by anesthesia. He was positioned on the OR table where general anesthetic and preoperative antibiotics were given. A tourniquet was applied to the proximal aspect of the left leg. The patient's left leg was then placed in a well leg [place]. The foot of the table was dropped. The left leg was then prepped and draped in the standard sterile fashion. Prior to starting surgery a timeout was performed identifying the correct patient, operative extremity, and procedure. The patient's leg was then elevated, exsanguinated with an Esmarch bandage, and the tourniquet was inflated to 250 mmHg. I began by outlining the anatomy of the anterior knee including the inferior pole of the patella, the medial and lateral border of the patellar tendon, and the tibial tubercle. Standard anteromedial and anterolateral portals were marked out. An anterolateral portal was then made and the arthroscope was introduced in the suprapatellar pouch. On inspection the patellofemoral joint there was partial thickness cartilage loss on both the medial and lateral facet of the patella and on the trochlea of the femur. The arthroscope was then brought down through the medial gutter into the medial compartment of the knee. On inspection initially there was diffuse arthritic changes on the visualized portion of the medial femoral condyle and a complex radial tear involving the posterior medial meniscus. A spinal needle was then placed on the marking for the anteromedial portal to confirm correct trajectory. A stab incision was made over the arthroscopy site and a blunt longwall headgate operator was placed in the joint. This was followed by a probe in the posterior horn of the medial meniscus was found to have a large radial tear with an unstable flap component. This was contoured back to a stable rim using both a straight biter and arthroscopic shaver. The remaining medial meniscus was probed and found to be intact. The medial femoral condyle and tibial plateau were also probed and found to have diffuse partial- thickness cartilage loss. The arthroscope and probe were then placed into the notch and the ACL was probed and found to be intact. The leg was placed in the [id number] position and the lateral compartment was found to have relatively intact cartilage and no obviously displaced meniscus tear. The arthroscope was then placed in the suprapatellar pouch and the arthroscopic shaver was used to lavage the joint making sure to remove any loose bodies. All fluid was then removed. The arthroscopic equipment was removed. Both portal sites were closed with interrupted nylon stitches. Half percent Marcaine was injected along the portal sites and into the joint. A sterile dressing was applied. The tourniquet was let down with a total tourniquet time of 19 minutes. The patient was then brought to the recovery room having tolerated the procedure well. Plan: The patient is going to discharge home as an outpatient. He will leave the surgical dressing on for 48 hours. After that he can remove it. He can shower but should not soak his leg. After showering he should pat the incisions dry and cover them with Band-Aids. He has pain medication prescribed by his pain doctor and we will increase his aspirin to 81 mg twice a day for DVT prophylaxis. He will follow-up in the office in 2 weeks he does not need x-rays at that time.
[2024-10-05 15:23] VITALS: TEMP 97
[2024-10-05] MEDS: LACTATED RINGERS 1,000 ML IV SCH ×2 (15:47→15:48)
[2024-10-05] MEDS: Pre Op ABX Message 1 EACH MISC MISCELLANE ONE (15:47)
[2024-10-05] MEDS: HYDROcodone/APAP 5-325MG 1 EACH TAB PO PRN (15:57)
[2024-10-05 16:07] VITALS: BP 133/88; PULSE 98
== END 2024-10-05 16:35 | disposition home or self-care (01) ==
LOC: OR 12:03
PROVIDERS: ATTEND Orthopaedic Surgery
DX: S83.242A Other tear of medial meniscus, current injury, left knee, initial encounter (principal); M17.12 Unilateral primary osteoarthritis, left knee; I10 Essential (primary) hypertension; E78.5 Hyperlipidemia, unspecified; E11.9 Type 2 diabetes mellitus without complications; H91.90 Unspecified hearing loss, unspecified ear; H40.9 Unspecified glaucoma; K21.9 Gastro-esophageal reflux disease without esophagitis; Z79.82 Long term (current) use of aspirin; Z79.899 Other long term (current) drug therapy; Z91.041 Radiographic dye allergy status; Z88.8 Allergy status to other drugs, medicaments and biological substances; X58.XXXA Exposure to other specified factors, initial encounter
CPT/HCPCS: 80051; 85025; 29881; J2250; J0330; J1100; J0690; J2405; J2003; J3010; J2704; J2371

== ENCOUNTER 2024-11-05 11:17 | Emergency (ER) | payer MEDICARE, OTHER ==
--- NOTE | 2024-11-05 12:07 | ED ---
Extremity Problem HPI - General Chief complaint: Extremity Problem,Nontraumatic Stated complaint: left leg pain Time Seen by Provider: 11/05/24 11:30 Source: patient, RN notes reviewed Mode of arrival: ambulatory Limitations: no limitations - History of Present Illness Initial comments: This is a 59-year-old male presenting to the emergency department for chief complaint of left pain to the left lower extremity/calf. Patient states that he had meniscus repair on 10/12/24 of the left knee with Dr. Godoy. Noticed that there was a "vein popping" of his left calf in addition to discoloration of his left calf over the last week. Denies history of DVT, current chest pain, heart palpitations, difficulty breathing. Denies blood thinner use. follow up appointment scheduled first week of November with ortho. - Related Data Home Medications Medication Instructions Recorded Confirmed Meclizine [Antivert] 25 mg PO BID 04/16/18 09/30/24 Aspirin [Adult Low Dose Aspirin EC] 81 mg PO DAILY 11/02/20 09/30/24 Celecoxib [CeleBREX] 100 mg PO DAILY 01/12/21 09/30/24 Vit C/E/Zn/Coppr/Lutein/Zeaxan 1 each PO DAILY 12/10/21 09/30/24 [Preservision Areds 2 Softgel] Famotidine [Pepcid] 10 mg PO HS 05/23/23 10/05/24 Mv-Min/Folic/K1/Lycopen/Lutein 1 each PO DAILY 05/23/23 09/30/24 [Centrum Silver Men Tablet] Amitriptyline HCl [Elavil] 10 mg PO HS 08/22/23 09/30/24 Atorvastatin [Lipitor] 10 mg PO HS 08/22/23 09/30/24 lisinopriL [Zestril] 2.5 mg PO DAILY 08/22/23 09/30/24 Empagliflozin [Jardiance] 25 mg PO DAILY 09/30/24 09/30/24 HYDROcodone/APAP 10-325MG [[place] 1 tab PO DIRECTED PRN 09/30/24 09/30/24 10-325] Previous Rx's Medication Instructions Recorded Aspirin 81 mg PO BID #30 tab 10/05/24 Diclofenac Sodium [Voltaren] 75 mg PO BID #60 tab 10/05/24 Allergies Allergy/AdvReac Type Severity Reaction Status Date / Time gadobenate dimeglumine Allergy Swelling Verified 11/05/24 11:21 [From Multihance] hydromorphone HCl AdvReac Severe Rapid Verified 11/05/24 11:21 [From Dilaudid] Heart Rate diclofenac potassium AdvReac Nausea Verified 11/05/24 11:21 [From Cataflam] metformin AdvReac Nausea Verified 11/05/24 11:21 MRI CONTRAST Allergy Swelling Uncoded 11/05/24 11:21 OF FACE Review of Systems ROS Statement: Those systems with pertinent positive or pertinent negative responses have been documented in the HPI. ROS Other: All systems not noted in ROS Statement are negative. Past Medical History Past Medical History: CVA/TIA, Diabetes Mellitus, Eye Disorder, GERD/Reflux, Hearing Disorder / Deafness, Hyperlipidemia, Hypertension, Osteoarthritis (OA) Additional Past Medical History / Comment(s): Glaucoma-right eye, hx migraines, TIA 2015-no effects, varicose veins, arthritis "all over", poor hearing left ear hearing aid , cochlear implant to rt. 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 bx prostate Past Anesthesia/Blood Transfusion Reactions: Family History of Problems w/ Anesthesia Additional Past Anesthesia/Blood Transfusion Reaction / Comment(s): Brother took very long time to wake up. Past Psychological History: No Psychological Hx Reported Smoking Status: Former smoker Past Alcohol Use History: Occasional Past Drug Use History: None Reported - Past Family History Mother Family Medical History: Cancer Additional Family Medical History / Comment(s): of lung cancer. Father Family Medical History: Cancer Additional Family Medical History / Comment(s): Prostate Cancer. General Exam Limitations: no limitations General appearance: alert, in no apparent distress Neck exam: Present: normal inspection. Absent: tenderness, meningismus, lymphadenopathy Respiratory exam: Present: normal lung sounds bilaterally. Absent: respiratory distress, wheezes, rales, rhonchi, stridor Cardiovascular Exam: Present: regular rate, normal rhythm, normal heart sounds. Absent: systolic murmur, diastolic murmur, rubs, gallop, clicks GI/Abdominal exam: Present: soft, normal bowel sounds. Absent: distended, tenderness, guarding, rebound, rigid Left Lower Leg exam: Present: full ROM, swelling. Absent: tenderness, ecchymosis, deformity, crepitus Foot/Toe exam: Absent: tenderness, swelling, abrasion Neurovascular tendon exam: Present: no vascular compromise Back exam: Present: normal inspection Neurological exam: Present: alert, oriented X3, CN II-XII intact Course Vital Signs 11/05/24 11/05/24 11:18 12:30 Temperature 98.1 F 98 F Pulse Rate 77 73 Respiratory 20 18 Rate Blood Pressure 113/69 115/77 O2 Sat by Pulse 97 98 Oximetry Medical Decision Making - Medical Decision Making Was pt. sent in by a medical professional or institution (MANDY Sy, ELECTROGALVANIZING MACHINE OPERATOR, urgent care, hospital, or intermediate...) When possible be specific @ -No Did you speak to anyone other than the patient for history (EMS, parent, family, police, friend...)? What history was obtained from this source @ -No Did you review nursing and triage notes (agree or disagree)? Why? @ -I reviewed and agree with nursing and triage notes Were old charts reviewed (outside hosp., previous admission, EMS record, old EKG, old radiological studies, urgent care reports/EKG's, intermediate records)? Report findings @ -No old charts were reviewed Differential Diagnosis (chest pain, altered mental status, abdominal pain women, abdominal pain men, vaginal bleeding, weakness, fever, dyspnea, syncope, headache, dizziness, GI bleed, back pain, seizure, CVA, palpatations, mental health, musculoskeletal)? @ -Venous insufficiency, DVT, superficial thrombophlebitis, this list is not all inclusive EKG interpreted by me (3pts min.). @ -None X-rays interpreted by me (1pt min.). @ -None done CT interpreted by me (1pt min.). @ -None done U/S interpreted by me (1pt. min.). @ -Duplex ultrasound of the left lower extremity no evidence for DVT. What testing was considered but not performed or refused? (CT, X-rays, U/S, labs)? Why? @ -None What meds were considered but not given or refused? Why? @ -None Did you discuss the management of the patient with other professionals (professionals i.e. Dr., PA, ELECTROGALVANIZING MACHINE OPERATOR, lab, RT, psych nurse, social media senior associate, recreational vehicle resort manager, teacher, correction officer head, shoe parts caser)? Give summary @ -No Was smoking cessation discussed for >3mins.? @ -No Was critical care preformed (if so, how long)? @ -No Were there social determinants of health that impacted care today? How? (Homelessness, low income, unemployed, alcoholism, drug addiction, transportation, low edu. Level, literacy, decrease access to med. care, skilled nursing, rehab)? @ -No Was there de-escalation of care discussed even if they declined (Discuss DNR or withdrawal of care, Hospice)? DNR status @ -No What co-morbidities impacted this encounter? (DM, HTN, Smoking, COPD, CAD, Cancer, CVA, ARF, Chemo, Hep., AIDS, mental health diagnosis, sleep apnea, morbid obesity)? @ -None Was patient admitted / discharged? Hospital course, mention meds given and route, prescriptions, significant lab abnormalities, going to OR and other pertinent info. @ -Discharge. 15-year-old male presenting with pain to the left calf. Overall patient is well-appearing. 2+ pedal pulse palpated. Extremity is warm to the touch, no signs of cyanosis. Ultrasound was unremarkable. Case discussed with Dr. Lee Undiagnosed new problem with uncertain prognosis? @ -No Drug Therapy requiring intensive monitoring for toxicity (Heparin, Nitro, Insulin, Cardizem)? @ -No Were any procedures done? @ -No Diagnosis/symptom? @ -venous insufficiency Acute, or Chronic, or Acute on Chronic? @ -acute Uncomplicated (without systemic symptoms) or Complicated (systemic symptoms)? @ -uncomplicated Side effects of treatment? @ -No Exacerbation, Progression, or Severe Exacerbation? @ -No Poses a threat to life or bodily function? How? (Chest pain, [place], [place], pneumonia, PE, COPD, DKA, ARF, appy, cholecystitis, CVA, Diverticulitis, Homicidal, Suicidal, threat to staff... and all critical care pts) @ -No Disposition Clinical Impression: Varicose vein of leg Disposition: HOME SELF-CARE Condition: Good Instructions (If sedation given, give patient instructions): Venous Insufficiency (DC) Additional Instructions: Please return to the Emergency Department if symptoms worsen or any other concerns. Is patient prescribed a controlled substance at d/c from ED?: No Referrals: Tian Gutierrez III, MD [Primary Care Provider] - 1-2 days Time of Disposition: 12:33
--- NOTE | 2024-11-05 12:15 | US ---
EXAMINATION TYPE: US venous doppler duplex LE LT DATE OF EXAM: 11/05/2024 11:58 AM COMPARISON: US(02/21/2024) CLINICAL INDICATION: Male, 59 years old with history of recent surgery/leg pain/swelling; pt had knee sx 10/12/24 & is experiencing pain and swelling in lt leg, no hx of DVT,pt is not on blood thinners TECHNIQUE: The lower extremity deep venous system is examined utilizing real time linear array sonog hay with graded compression, color doppler sonography, and spectral doppler. SIDE PERFORMED: Left FINDINGS: VESSELS IMAGED: Common Femoral Vein Deep Femoral Vein Greater Saphenous Vein * Femoral Vein Popliteal Vein Small Saphenous Vein * Proximal Calf Veins (* superficial vessels) Left Leg: appears negative for DVT shows patency of the vessels. Spectral waveforms are within george l limits. IMPRESSION: No evidence of deep vein thrombosis of the left lower extremity. [facility], , 11/05/2024 12:12 PM
[2024-11-05 12:47] VITALS: BP 115/77; PULSE 73; RESP 18; TEMP 98
== END 2024-11-05 12:44 | disposition home or self-care (01) ==
LOC: EC 11:17
DX: I83.92 Asymptomatic varicose veins of left lower extremity (principal); Z87.891 Personal history of nicotine dependence; Z88.6 Allergy status to analgesic agent; Z91.041 Radiographic dye allergy status; Z88.8 Allergy status to other drugs, medicaments and biological substances
CPT/HCPCS: 99283

== ENCOUNTER → 2025-02-19 | Outpatient (CLI) | payer MEDICARE, OTHER | END | disposition home or self-care (01) | LOC: RADMRIMAIN 12:25 | PROVIDERS: ATTEND Family Medicine | DX: Z53.9 Procedure and treatment not carried out, unspecified reason (principal) ==

== ENCOUNTER → 2025-02-25 | Outpatient (CLI) | payer MEDICARE ==
--- NOTE | 2025-02-25 10:00 | US ---
EXAMINATION TYPE: US abdomen complete DATE OF EXAM: 02/25/2025 COMPARISON: CT CLINICAL INDICATION: Male, 59 years old with history of R10.12 INTERMITTENT LEFT UPPER QUADRANT PAIN; Pt states LUQ pain post prandial, GB removed TECHNIQUE: Grayscale and color Doppler imaging of the abdomen was performed. FINDINGS: EXAM MEASUREMENTS: Liver Length: 17.4 cm CBD: 0.6 cm, color Doppler imaging was utilized to isolate the common bile duct for measurement. Spleen: 11.1 cm Right Kidney: 10.7 x 4.3 x 4.9 cm Left Kidney: 11.0 x 5.1 x 5.1 cm SENIOR CONTRACTS ADMINISTRATOR NOTES: Large pt body habitus, difficult to penetrate Pancreas: Body wnl, head and tail obscured by overlying bowel gas Liver: Left lobe difficult to visualized, right lobe visualized mostly intercostally and appeared wn l. Gallbladder: Surgically absent Evidence for sonographic Ashley's sign: No CBD: wnl Spleen: wnl Right Kidney: wnl, No hydronephrosis, calculi or masses seen Left Kidney: wnl, No hydronephrosis, calculi or masses seen Upper IVC: wnl Abd Aorta: Proximal portion gassed out, mid and distal wnl IMPRESSION: 1. No evidence for acute process. 2. Hepatic steatosis. [facility], , 02/25/2025 9:58 AM
== END | disposition home or self-care (01) ==
LOC: RADUSWWP 08:56
PROVIDERS: ATTEND Family Medicine
DX: K76.0 Fatty (change of) liver, not elsewhere classified (principal)
CPT/HCPCS: 76700